=== PATIENT | female | born 1960 | race Caucasian/White ===

== ENCOUNTER 2021-05-27 22:29 | Emergency (ER) | payer OTHER, SELFPAY ==
--- NOTE | 2021-05-27 22:29 | CTR_ITS ---
PROCEDURE INFORMATION: Exam: CT Head Without Contrast Exam date and time: 05/27/2021 10:29 PM Age: 60 years old Clinical indication: Speech disturbance and weakness, extremity; Left; Patient HX: HX of prev stroke w new onset dysphasia and L sided weakness TECHNIQUE: Imaging protocol: Computed tomography of the head without contrast. Radiation optimization: All CT scans at this facility use at least one of these dose optimization techniques: automated exposure control; mA and/or kV adjustment per patient size (includes targeted exams where dose is matched to clinical indication); or iterative reconstruction. Other technique: STROKE PROTOCOL was implemented. COMPARISON: CT head wo con* [id number] 02/10/2019 1:59 PM RADIATION DOSE METRICS: Total DLP (mGy-cm): 815.27 FINDINGS: Brain: There is moderate cortical atrophy. Low-density changes in the white matter are consistent with nonspecific small vessel chronic ischemic change. Ischemic changes have advanced compared with 02/10/2019; There is no intracranial hemorrhage. Focal hypodensity in the left basal ganglia region may represent small chronic lacunar infarct. There are new areas of wedge-shaped cortical hypodensity in the right posterior parietal region new from 02/10/2019 worrisome for recent or subacute infarct. Cerebral ventricles: Ventricles within normal limits. Paranasal sinuses: Visualized sinuses are unremarkable. No fluid levels. Mastoid air cells: Visualized mastoid air cells are well aerated. Bones/joints: Unremarkable. No acute fracture. Soft tissues: Unremarkable. CT/CT head wo con* [id number] IMPRESSION: New findings of recent or subacute infarct in the right posterior parietal lobe. ASSESSMENT: ASPECTS ([place] Stroke Program Early CT Score) is delete S it is a critical report 8. Radiation Dose CTDIVOL = (mGy): DLP = 815.27 (mGy-cm)
--- NOTE | 2021-05-27 22:30 | XRR_ITS ---
PROCEDURE INFORMATION: Exam: XR Chest Exam date and time: 05/27/2021 10:30 PM Age: 60 years old Clinical indication: Other: Left sided weakness TECHNIQUE: Imaging protocol: XR of the chest. Views: 1 view. COMPARISON: CR Chest 1 [place] [id number] 02/11/2019 4:36 AM FINDINGS: Lungs: There is some focal scarring in the lingula. No acute infiltrate is identified. Pleural spaces: Unremarkable. No pleural effusion. No pneumothorax. Heart/Mediastinum: Heart is within normal limits of size. Bones/joints: Unremarkable. XR/XR chest 1V portable [id number] IMPRESSION: No acute infiltrate.
--- NOTE | 2021-05-27 22:30 | ECG_ITS ---
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 Measurements Intervals [place] Rate: 97 P: 81 [place]: 160 QRS: 60 QRSD: 96 T: 55 QT: 351 QTc: 448 Interpretive Statements SINUS RHYTHM Compared to ECG 02/10/2019 16:11:41 Sinus tachycardia no longer present Electronically Signed On 05-28-2021 18:10:15 CDT by Justyn Cooley M.D. [email or web address]
[2021-05-27] MEDS: sodium chloride 0.9% 500 ML 999 ML IV (22:35)
[2021-05-27 22:45] VITALS: BP 167/97; PULSE 98; RESP 18; TEMP 36.4; O2SAT 94
[2021-05-27 22:48] LABS: Basophils # 0.1 10^3/uL (0.0-0.1); Eosinophils # 0.3 10^3/uL (0.0-0.8); Eosinophils % 3.2 %; Hematocrit 48.8 % (37.0-47.0); Hemoglobin 15.9 g/dL (11.5-15.3); Lymphocytes # 3.8 10^3/uL (0.8-4.8); Lymphocytes % 40.2 %; Mean Corpuscular HGB Conc 32.6 g/dL (30.0-36.0); Mean Corpuscular Hemoglobin 28.5 pg (28.0-34.0); Mean Corpuscular Volume 87.6 fL (81-99); Mean Platelet Volume 10.7 fL (7.4-10.4); Monocytes # 0.9 10^3/uL (0.2-0.9); Monocytes % 9.3 %; Neutrophils # 4.32 10^3/uL (1.8-7.7); Neutrophils % 46.1 %; Nucleated Red Blood Cells % 0 %; Platelet Count 206 10^3/cmm (130-400); Red Blood Count 5.57 10^6/uL (4.1-5.3); Red Cell Distribution Width 13.2 % (12.1-15.1); White Blood Count 9.4 10^3/uL (4.0-10.0)
--- NOTE | 2021-05-27 22:48 | CTR_ITS ---
PROCEDURE INFORMATION: Exam: CT Angiography Head With Contrast, Arteriography Exam date and time: 05/27/2021 10:48 PM Age: 60 years old Clinical indication: Speech disturbance and weakness; Prior surgery; Surgery date: 6+ months; Surgery type: Carotids; Patient HX: New onset L sided weakness and dysphasia TECHNIQUE: Imaging protocol: Computed tomography angiography of the head with contrast. Exam focused on the arteries. 3D rendering (Not supervised by radiologist): MIP and/or 3D reconstructed images were created by the technologist. Radiation optimization: All CT scans at this facility use at least one of these dose optimization techniques: automated exposure control; mA and/or kV adjustment per patient size (includes targeted exams where dose is matched to clinical indication); or iterative reconstruction. Contrast material: OMNI 350; Contrast volume: 95 ml; Contrast route: INTRAVENOUS (IV); COMPARISON: CTA Head/Neck [id number] 02/10/2019 2:03 PM RADIATION DOSE METRICS: Total DLP (mGy-cm): 2349.19 FINDINGS: ANTERIOR CIRCULATION: Right internal carotid artery: There is atherosclerotic calcification in the right cavernous carotid artery without stenosis; There is thrombus at the distal end of the right communicating carotid artery obstructing the right middle cerebral artery and reducing flow in the right anterior cerebral artery. Right middle cerebral artery: There is some collateral flow supplying M2 branches of the right middle cerebral artery region. Right anterior cerebral artery: Right A2 anterior cerebral artery segment is supplied via the anterior communicating artery. Left internal carotid artery: There is atherosclerotic calcification left cavernous carotid artery without stenosis. Left middle cerebral artery: Unremarkable. No occlusion or significant stenosis. No aneurysm. Left anterior cerebral artery: Unremarkable. No occlusion or significant stenosis. No aneurysm. POSTERIOR CIRCULATION: Right vertebral artery: Right vertebral artery is dominant. No occlusion or significant stenosis. No aneurysm. Left vertebral artery: Small but patent. No occlusion or significant stenosis. No aneurysm. Basilar artery: Unremarkable. No occlusion or significant stenosis. No aneurysm. Right posterior cerebral artery: Unremarkable. No occlusion or significant stenosis. No aneurysm. Left posterior cerebral artery: Unremarkable. No occlusion or significant stenosis. No aneurysm. Brain: No areas of subacute infarct are noted in the right posterior parietal lobe as described on preceding CT scan of the brain. Atrophy and chronic ischemic changes are again identified.. Cerebral ventricles: No ventriculomegaly. Bones/joints: Unremarkable. No acute fracture. Soft tissues: Unremarkable. IMPRESSION: Large vessel occlusion on the right as described above with occlusion of the right middle cerebral artery and severely restricted flow in the right anterior cerebral artery A1 segment. COMMENTS: THIS REPORT CONTAINS FINDINGS THAT MAY BE CRITICAL TO PATIENT CARE. The findings were verbally communicated via telephone conference with FATOU LAMBERT at 11:53 PM CDT on 05/27/2021. The findings were acknowledged and understood. PROCEDURE INFORMATION: Exam: CT Angiography Neck With Contrast Exam date and time: 05/27/2021 10:48 PM Age: 60 years old Clinical indication: Speech disturbance and weakness; Prior surgery; Surgery date: 6+ months; Surgery type: Carotids; Patient HX: New onset L sided weakness and dysphasia TECHNIQUE: Imaging protocol: Computed tomography angiography of the neck with contrast. 3D rendering (Not supervised by radiologist): MIP and/or 3D reconstructed images were created by the technologist. Radiation optimization: All CT scans at this facility use at least one of these dose optimization techniques: automated exposure control; mA and/or kV adjustment per patient size (includes targeted exams where dose is matched to clinical indication); or iterative reconstruction. Contrast material: OMNI 350; Contrast volume: 95 ml; Contrast route: INTRAVENOUS (IV); COMPARISON: CTA Head/Neck [id number] 02/10/2019 2:03 PM RADIATION DOSE METRICS: Total DLP (mGy-cm): 2349.19 FINDINGS: Right common carotid artery: No stenosis. No dissection or occlusion. Right internal carotid artery: There is severe atherosclerotic plaque and narrowing and possibly some new thrombus in the proximal right internal carotid artery just beyond the bifurcation with very severe stenosis in the 80-99% range. This is a change compared with the previous examination. The disease segment of the proximal right internal carotid artery with severe stenosis measures 2 to 2-1/2 cm in length. Right external carotid artery: No occlusion or stenosis of the origin. Left common carotid artery: No stenosis. No dissection or occlusion. Left internal carotid artery: There is stable post endarterectomy changes left internal carotid artery without stenosis or occlusion. Left external carotid artery: No occlusion or stenosis of the origin. Right vertebral artery: Right vertebral artery is dominant. The origin of the right vertebral artery is obscured by motion artifact. There is no stenosis or occlusion in the remainder of the right vertebral artery. Left vertebral artery: Left vertebral artery is small and is occluded proximally with the distal left vertebral artery constituting via collateral flow. Soft tissues: Normal. No significant soft tissue swelling. Bones/joints: No acute fracture. CT/CT angio headneck* [id number] IMPRESSION: Very severe stenosis in the proximal right internal carotid artery which is new from 02/10/2019. REFERENCES: NASCET CRITERIA. The degree of internal carotid artery stenosis is based on NASCET criteria. Normal is no stenosis. Mild is less than 50% stenosis. Moderate is 50-69% stenosis. Severe is 70% to 99% stenosis. Total occlusion is no detectable patent lumen. Radiation Dose CTDIVOL = (mGy): DLP = 2349.19~2349.19 (mGy-cm)
[2021-05-27 23:08] LABS: INR 0.97 (0.8-1.2)
[2021-05-27 23:09] LABS: Partial Thromboplastin Time 29.7 SECONDS (23.9-36.7)
[2021-05-27 23:12] LABS: Alanine Aminotransferase 9 U/L (0-33); Albumin Level 3.5 g/dL (3.5-5.2); Alkaline Phosphatase 146 IU/L (35-105); Anion Gap 14.2 (5-19); Aspartate Amino Transferase 12 U/L (0-32); Blood Urea Nitrogen 8 mg/dL (8-23); Calcium 8.9 mg/dL (8.5-10.5); Carbon Dioxide 29 mmol/L (22-29); Chloride 103 mmol/L (98-107); Globulin 3.1 g/dL (1.3-4.6); Glomerular Filtration Rate 125.4 mL/min (90-130); Glucose 122 mg/dL (65-115); Osmolality Calculated 294 mOsm/kg (285-295); Potassium 4.2 mmol/L (3.5-5.1); Sodium 142 mmol/L (136-145); Total Bilirubin 0.2 mg/dL (0.15-1.2); Total Protein 6.6 g/dL (6.6-8.7)
[2021-05-27 23:16] LABS: Alcohol Level < 10 mg/dL (0-10)
[2021-05-27 23:20] VITALS: BP 196/108
[2021-05-27] MEDS: labetalol 5 mg/mL SDV 20mL 10 MG IVP (23:25)
[2021-05-27] MEDS: iohexol 350 mg/mL 100 mL Btl IV (23:35)
[2021-05-27 23:45] VITALS: O2SAT 99
--- NOTE | 2021-05-27 23:46 | W.ED.AMS ---
HPI - Altered Mental Status General: Chief Complaint: Altered Mental Status Stated Complaint: stroke like symptoms Time Seen by Provider: 05/27/21 22:29 History of Present Illness: HPI narrative: 80-year-old female with a history of previous stroke, peripheral artery disease, coronary artery disease, and status post carotid endarterectomy in the past. She presents with sudden onset of left-sided weakness, aphasia, facial droop, and lethargy starting at 10 PM. Patient's family is here, and states that symptoms clearly started around 10. She is previously ambulatory around her home. complaint: decreased responsiveness and weakness Onset (ago): minute(s) Time: 22:00 Timing confirmed by: family member Severity: severe Consistency of symptoms: Constant Associated symptoms: Deny auditory hallucinations or visual hallucinations Treatments prior to arrival: other Review of Systems General: Reports: ROS unobtainable due to medical condition Const: Denies: fever(s) Eyes: Reports: change in vision Card: Denies: chest pain Resp: Denies: dyspnea GI: Denies: vomiting Neuro: Reports: headache(s) Psych: Denies: visual hallucinations or auditory hallucinations PFS ED PFSH: Medical History (Updated 05/28/21 @ 00:53 by Huan Juarez DO) CAD (coronary artery disease) Carotid artery stenosis History of stroke HTN (hypertension) Peripheral Vascular Disease Family History Mother Myocardial infarction Grandmother No problems noted. Grandfather Stroke Hypertension Cancer Father Diabetes Hypertension Social History Smoking and tobacco status: current some day smoker Physical Exam Const: GENERAL APPEARANCE: cooperative, lethargic and ill appearing ORIENTATION/CONSCIOUSNESS: Yes oriented to person, Yes oriented to place and Yes lethargic HENMT: COMMON NORMALS: normocephalic HEAD & SCALP: normocephalic Chest: COMMONS NORMALS: normal inspection of the chest Resp: COMMON NORMALS: normal respiratory effort, No use of accessory muscles and clear to auscultation bilaterally AUSCULTATION: clear to auscultation bilaterally Cardio: COMMON NORMALS: regular rate and regular rhythm RATE: regular rate RHYTHM: regular rhythm GI: COMMON NORMALS: Normal to inspection, nondistended, normoactive bowel sounds present and Soft to palpation PALPATION: Yes Soft to palpation Neuro: SENSORIUM/ORIENTATION: Yes oriented to person, Yes oriented to place and Yes lethargic CRANIAL NERVES: Yes CN VII (facial) Laterality: left CN VII left: facial droop COORDINATION/BALANCE: No yxered-ik-qejw test normal (Cannot complete on the left) and oxpx-zf-enku test normal (Cannot complete on the left) SPEECH: abnormal speech Details: slurred and expressive aphasia GAIT: Yes Unable to assess gait SENSORY EXAM: Yes extremities (Intact) MOTOR EXAM: Pronator motor function present pronator drift of left upper extremity COORDINATION: dcusjd-hx-vzyq test abnormal (Cannot complete on the left) and xusm-il-fngt test normal (Cannot complete on the left) Course Consultations: Consultation #1: justo Vital Signs: Vital signs: Vital Signs Temperature 97.6 F 05/27/21 22:45 Pulse Rate 105 H 05/28/21 02:00 Respiratory Rate 18 05/28/21 02:00 Blood Pressure 170/106 05/28/21 02:00 Pulse Oximetry 98 05/28/21 02:00 MDM - Altered Mental Status MDM Narrative: Medical decision making narrative: 60-year-old female with a history of peripheral vascular disease, carotid disease, and coronary disease. She comes in with a high NIH of 17, and classic stroke symptoms with a clear onset. After CT head was negative, TPA was administered. Following her bolus, she went back to CTA. She has significant carotid disease on the right with occlusion proximal to her MCA. She would likely be a candidate for neuro intervention. We do not have that capability at this facility. Other labs appear stable. We have called multiple facilities. We spoke with neurology at [facility] in [place]. They are willing to take the patient in transfer. They request transfer directly to their emergency department, for repeat CTA since the patient is significantly improved following TPA administration. They will decide if she is a candidate for thrombectomy there. We will transfer by air if possible, otherwise by ground if weather does not permit her transfer. Current vital signs sinus rhythm at 100, blood pressure 160/66, saturations 99% on 2 L, respirations are 22. Her neurological symptoms are much improved, she is able to move her left arm now with a bit of weakness and drift, she is moving the left leg some. She no longer has a hemianopsia, and her speech is improved. Lab Data: Labs: Lab Results 05/27/21 05/27/21 05/27/21 Range/Units 22:40 22:40 22:45 WBC 9.4 (4.0-10.0) 10^3/ uL RBC 5.57 H (4.1-5.3) 10^6/u L Hgb 15.9 H (11.5-15.3) g/dL Hct 48.8 H (37.0-47.0) % MCV 87.6 (81-99) fL MCH 28.5 (28.0-34.0) pg MCHC 32.6 (30.0-36.0) g/dL RDW 13.2 (12.1-15.1) % Plt Count 206 (130-400) 10^3/c mm MPV 10.7 H (7.4-10.4) fL Neut % (Auto) 46.1 % Lymph % (Auto) 40.2 % [place] % (Auto) 9.3 % Eos % (Auto) 3.2 % Baso % (Auto) 1.0 % Neut # (Auto) 4.32 (1.8-7.7) 10^3/u L Lymph # (Auto) 3.8 (0.8-4.8) 10^3/u L [place] # (Auto) 0.9 (0.2-0.9) 10^3/u L Eos # (Auto) 0.3 (0.0-0.8) 10^3/u L Baso # (Auto) 0.1 (0.0-0.1) 10^3/u L Nucleated RBC % (a uto) 0 % Nucleated RBCs # 0.0 /100WBC PT 13.20 (12.1-14.9) SECO NDS INR 0.97 (0.8-1.2) APTT 29.7 (23.9-36.7) SECO NDS Sodium 142 (136-145) mmol/L Potassium 4.2 (3.5-5.1) mmol/L Chloride 103 (98-107) mmol/L Carbon Dioxide 29 (22-29) mmol/L Anion Gap 14.2 (5-19) BUN 8 (8-23) mg/dL Creatinine 0.5 (0.5-0.9) mg/dL GFR Calculation 125.4 (90-130) mL/min Glucose 122 H (65-115) mg/dL Calculated Osmolal ity 294 (285-295) mOsm/k g Calcium 8.9 (8.5-10.5) mg/dL Total Bilirubin 0.2 (0.15-1.2) mg/dL AST 12 (0-32) U/L ALT 9 (0-33) U/L Alkaline Phosphata se 146 H (35-105) IU/L Total Protein 6.6 (6.6-8.7) g/dL Albumin 3.5 (3.5-5.2) g/dL Globulin 3.1 (1.3-4.6) g/dL Urine Color (Yellow) Urine Appearance (CLEAR) Urine pH (5-7) Ur Specific Gravit y (1.005-1.030) Urine Protein (Negative) Urine Glucose (UA) (Normal) Urine Ketones (Negative) Urine Blood (Negative) Urine Nitrate (Negative) Urine Bilirubin (Negative) Urine Urobilinogen (Negative) mg/dL Ur Leukocyte Jessica ase (Negative) Urine RBC (0-2) /hpf Urine WBC (0-5) /hpf Ur Squamous Epith Cells (0-5) /hpf Amorphous Sediment Urine Bacteria (NONE) /hpf Urine Opiates Scre en (Negative) ng/mL Ur Barbiturates Sc reen (Negative) ng/mL Ur Phencyclidine S crn (Negative) ng/mL Ur Amphetamines Sc reen (Negative) ng/mL U Benzodiazepines Scrn (Negative) ng/mL Urine Cocaine Scre en (Negative) ng/mL U Marijuana (THC) Screen (Negative) ng/mL Ethyl Alcohol < 10 (0-10) mg/dL 05/27/21 05/27/21 Range/Units 23:55 23:55 WBC (4.0-10.0) 10^3/ uL RBC (4.1-5.3) 10^6/u L Hgb (11.5-15.3) g/dL Hct (37.0-47.0) % MCV (81-99) fL MCH (28.0-34.0) pg MCHC (30.0-36.0) g/dL RDW (12.1-15.1) % Plt Count (130-400) 10^3/c mm MPV (7.4-10.4) fL Neut % (Auto) % Lymph % (Auto) % [place] % (Auto) % Eos % (Auto) % Baso % (Auto) % Neut # (Auto) (1.8-7.7) 10^3/u L Lymph # (Auto) (0.8-4.8) 10^3/u L [place] # (Auto) (0.2-0.9) 10^3/u L Eos # (Auto) (0.0-0.8) 10^3/u L Baso # (Auto) (0.0-0.1) 10^3/u L Nucleated RBC % (a uto) % Nucleated RBCs # /100WBC PT (12.1-14.9) SECO NDS INR (0.8-1.2) APTT (23.9-36.7) SECO NDS Sodium (136-145) mmol/L Potassium (3.5-5.1) mmol/L Chloride (98-107) mmol/L Carbon Dioxide (22-29) mmol/L Anion Gap (5-19) BUN (8-23) mg/dL Creatinine (0.5-0.9) mg/dL GFR Calculation (90-130) mL/min Glucose (65-115) mg/dL Calculated Osmolal ity (285-295) mOsm/k g Calcium (8.5-10.5) mg/dL Total Bilirubin (0.15-1.2) mg/dL AST (0-32) U/L ALT (0-33) U/L Alkaline Phosphata se (35-105) IU/L Total Protein (6.6-8.7) g/dL Albumin (3.5-5.2) g/dL Globulin (1.3-4.6) g/dL Urine Color Yellow (Yellow) Urine Appearance Clear (CLEAR) Urine pH 5 (5-7) Ur Specific Gravit y 1.010 (1.005-1.030) Urine Protein Neg (Negative) Urine Glucose (UA) Norm (Normal) Urine Ketones Negative (Negative) Urine Blood 2+ H (Negative) Urine Nitrate Negative (Negative) Urine Bilirubin Neg (Negative) Urine Urobilinogen Norm (Negative) mg/dL Ur Leukocyte Ejssica ase Negative (Negative) Urine RBC 5-10 H (0-2) /hpf Urine WBC 0-4 H (0-5) /hpf Ur Squamous Epith Cells 0-4 H (0-5) /hpf Amorphous Sediment Not Reportable Urine Bacteria Trace (NONE) /hpf Urine Opiates Scre en Negative (Negative) ng/mL Ur Barbiturates Sc reen Negative (Negative) ng/mL Ur Phencyclidine S crn Negative (Negative) ng/mL Ur Amphetamines Sc reen Negative (Negative) ng/mL U Benzodiazepines Scrn Negative (Negative) ng/mL Urine Cocaine Scre en Negative (Negative) ng/mL U Marijuana (THC) Screen Negative (Negative) ng/mL Ethyl Alcohol (0-10) mg/dL Critical Care Time Critical Care Time: Critical Care Time: Yes Total Critical Care Time: 45 Attestation: This case had a high probability of a clinically significant, sudden, or life threatening deterioration of this patient's condition which required my full and direct attention, intervention and personal management. Discharge Plan Discharge Patient Disposition: Xfer Short-Term Hosp Clinical Impression: Acute cerebrovascular accident (CVA) Condition: Serious Referrals: Karel Gamez MD [Primary Care Provider] - Coding Level of Care Code ED [employer] for Chg Fwd Exam Detailed
[2021-05-28] VITALS (7 sets, daily range): BP systolic 109–172; BP diastolic 66–106; PULSE 99–106; RESP 16–20; O2SAT 97–99
--- NOTE | 2021-05-28 00:10 | PC.NURSE ---
Pt AOx4; answering questions appropriately, speech still slurred, but easily understood. Able to raise L upper and lower extremities now, which were flaccid upon arrival. Son at bedside. TPA completed. Denies pain.
--- NOTE | 2021-05-28 00:14 | PC.NURSE ---
Vital signs were continued to be taken while pt was taken to CT for 2nd CT. Those vitals are recorded in the stroke paperwork. All other vitals are recorded in the electronic record here.
--- NOTE | 2021-05-28 00:20 | PC.NURSE ---
Pt states I took myself off the Plavix about a month ago because I had trouble getting it filled.
[2021-05-28 00:32] LABS: Add Urine Microscopic? YES; Bilirubin Urine Neg (Negative); Blood Urine 2+ (Negative); Glucose Urine UA Norm (Normal); Ketones Urine Negative (Negative); Leukocyte Esterase Urine Negative (Negative); Nitrate Urine Negative (Negative); Protein Urine Neg (Negative); Urine Appearance Clear (CLEAR); Urine Color Yellow (Yellow); Urobilinogen Urine Norm (Negative); pH Urine 5 (5-7)
--- NOTE | 2021-05-28 00:39 | PC.NURSE ---
Neuro assessments through 05/28/21 0030 recorded on paper. Subsequent assessments done here in EMR.
[2021-05-28 00:41] LABS: Amphetamines Screen Urine Negative (Negative); Barbiturates Screen Urine Negative (Negative); Benzodiazepines Screen Urine Negative (Negative); Cocaine Screen Urine Negative (Negative); Opiate Screen Urine Negative (Negative); PCP Screen Urine Negative (Negative); THC Screen Urine Negative (Negative)
[2021-05-28 00:46] LABS: Add Urine Culture? No; Bacteria Urine TRACE /hpf; Squamous Epithelial Cell Urine 0-4 /hpf (0-5); WBC Urine 0-4 /hpf (0-5)
--- NOTE | 2021-05-28 02:08 | PC.NURSE ---
2350 16fr britton placed; urine specimen sent to lab; pt tolerated well.
[2021-05-28 14:09] LABS: Glucose Point of Care 120 mg/dL (70-110)
--- NOTE | 2021-05-30 09:51 | PM.SAN ---
Stroke Alert Activation ED Arrival Date: 05/27/21 ED Arrival Time: 22:30 ED Physican at Bedside: 22:30 Last Known Normal/at Baseline: < 1 hour ago Other Last Known Well Infomation: Stroke team was activated prior to arrival of this 60-year-old woman who had witnessed onset of left-sided weakness and profound dysarthria. She was evaluated as soon as she arrived by Dr. Juarez, and by the insurance coordinator Bob Quick. I talked with Dr. Juarez after he evaluated the patient. I contacted the emergency department as soon as the stroke alert was called at 2218. I took a report from the nurse who took the call from EMS and was on standby. After Dr. Juarez obtained a NIH stroke scale score of 17, he did a video of the patient's CAT scan and send it to me for review by email so that we could proceed with TPA. Her blood pressure was 170/106 and Tracer was unremarkable. We were able to proceed with TPA within 30 minutes of arrival with a bolus at 2300. CT angiogram showed right carotid occlusion proximal to the middle cerebral artery and she was transferred to [facility] in [place]. She had already improved to an NIH stroke scale score of around 5 prior to transfer. Stroke Alert Activated by: EMS Stroke Alert Activation Time: 22:18 Stroke MD @ Bedside Time: 22:20 NIH Stroke Scale Time: 22:30 NIH Stroke Scale Score: NIH Stroke Scale Score: 70 Stroke Alert Data/Treatment Time to CT of Head: 22:30 CT Results Time: 22:40 CT Impression: Diffuse white matter disease. No focal findings. No bleeding. Stroke Risk Factors: coronary artery disease and previous [place] (Previous stroke) tPA Started Time: tPA Started - Time: 23:00 tPA Admin Prior to Arrival: No Patient & Family Educated on: Cause of Stroke, Treament Plan and tPA Risks/Benefits Other Information: I performed telemetry stroke with Dr. Juarez Critical Care Time Critical Care Time: 30 - 74 mins A&P Assessment and plan (1) Acute cerebrovascular accident (CVA): Status: Acute (2) Carotid artery stenosis: Status: Acute (3) Acute right arterial ischemic stroke, middle cerebral artery (MCA): 60-year-old woman with acute right middle cerebral artery stroke with profound hemiparesis, homonymous hemianopsia, severe dysarthria. She had a visible clot by CT angiogram. No contraindications to TPA and she was administered TPA immediately, within 1 hour of onset of symptoms and within 30 minutes of arrival in our emergency department under the guidance of Dr. Huan Juarez and Bob Quick the insurance coordinator as well as myself. She already showed improvement prior to transfer for embolectomy. Status: Acute Coding Level of Care Code Acute Machine Quilt Stuffer for [facility] Fwkadeem Diagnoses Acute cerebrovascular accident (CVA) I63.9 Carotid artery stenosis I65.29 Acute right arterial ischemic stroke, middle cerebral artery (MCA) I63.511
== END 2021-05-28 01:50 | disposition short-term general hospital (02) ==
PROVIDERS: Emergency Provider Emergency Medicine; PCP Family Medicine
DX: R41.82 Altered mental status, unspecified (principal); I63.9 Cerebral infarction, unspecified; I25.10 Atherosclerotic heart disease of native coronary artery without angina pectoris; I10 Essential (primary) hypertension; Z86.73 Personal history of transient ischemic attack (TIA), and cerebral infarction without residual deficits; F17.210 Nicotine dependence, cigarettes, uncomplicated
CPT/HCPCS: 36416; 70450; 70496; 70498; 71045; 80053; 80306; 80307; 81001; 82962; 85025; 85610; 85730; 93005; 96374; 96375; 99291; 99292; J2997; J3490; J7040; Q9967

== ENCOUNTER 2021-08-29 18:00 | Emergency (ER) | payer OTHER, SELFPAY ==
[2021-08-29] VITALS (7 sets, daily range): BP systolic 142–181; BP diastolic 87–99; PULSE 98–121; RESP 17–22; TEMP 36.6–36.9; O2SAT 92–95; BMI 28.6
--- NOTE | 2021-08-29 18:10 | XRR_ITS ---
PROCEDURE INFORMATION: Exam: XR Chest Exam date and time: 08/29/2021 6:10 PM Age: 60 years old Clinical indication: Cough and shortness of breath; Smoker's cough TECHNIQUE: Imaging protocol: XR of the chest. Views: 1 view. COMPARISON: CR XR chest 1V portable [id number] 05/27/2021 10:38 PM FINDINGS: Lungs: Stable scarring at the left lung base with tethering of the dome of the hemidiaphragm. No consolidation. Pleural spaces: There is blunting of the right costophrenic angle which may be due to a small effusion. No pneumothoraces. Heart/Mediastinum: Unremarkable. No cardiomegaly. Bones/joints: Unremarkable. XR/XR chest 1V portable [id number] IMPRESSION: Possible small right pleural effusion. No other acute cardiopulmonary abnormality. Radiation Dose CTDIVOL = (mGy): DLP = (mGy-cm)
--- NOTE | 2021-08-29 18:10 | ECG_ITS ---
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 Measurements Intervals [place] Rate: 110 P: 83 VT: 149 QRS: 67 QRSD: 92 T: 68 QT: 334 QTc: 453 Interpretive Statements SINUS TACHYCARDIA WITH OCCASIONAL VENTRICULAR PREMATURE COMPLEXES ABNORMAL RHYTHM ECG Compared to ECG 05/27/2021 22:56:45 Ventricular premature complex(es) now present Sinus rhythm no longer present Electronically Signed On 08-31-2021 5:47:42 CDT by Ana Rosa Tejeda M.D. [email or web address]
--- NOTE | 2021-08-29 18:10 | W.ED.URI ---
HPI - URI/Sore Throat General: Chief Complaint: Upper Respiratory Infection Stated Complaint: WEAKNESS, DIFF BREATHING Time Seen by Provider: 08/29/21 18:01 PFSH ED PFSH: Medical History CAD (coronary artery disease) Carotid artery stenosis History of stroke HTN (hypertension) Peripheral Vascular Disease Family History Mother Myocardial infarction Grandmother No problems noted. Grandfather Stroke Hypertension Cancer Father Diabetes Hypertension Social History Smoking and tobacco status: current some day smoker Course Vital Signs: Vital signs: Vital Signs Temperature 97.8 F 08/29/21 18:05 Pulse Rate 121 H 08/29/21 18:05 Respiratory Rate 17 08/29/21 18:05 Blood Pressure 144/99 08/29/21 18:05 Pulse Oximetry 92 08/29/21 18:05 Discharge Plan Discharge Prescriptions: No Action omega-3 fatty acids 1,000 mg capsule 2,000 mg PO BID RF: 0 nitroglycerin [Nitrostat] 0.4 mg tablet, sublingual 0.4 mg SUBLINGUAL Q5M PRNRF: 0 hydrochlorothiazide 25 mg tablet 25 mg PO DAILY RF: 0 aspirin [Adult Low Dose Aspirin] 81 mg tablet,delayed release (DR/EC) 81 mg PO DAILY RF: 0 amlodipine [Norvasc] 10 mg tablet 10 mg PO DAILY RF: 0 Bevespi Aerosphere 9-4.8 mcg HFA aerosol inhaler 2 puff INHALATION BID RF: 0 atorvastatin 40 mg tablet 40 mg PO DAILY RF: 0 lisinopril 40 mg tablet 40 mg PO DAILY RF: 0 clopidogrel 75 mg tablet 75 mg PO DAILY 90 Days Qty: 90 RF: 3 Coding Level of Care Code ED Mails Supervisor for Catie Hargrove
--- NOTE | 2021-08-29 18:11 | W.ED.URI ---
HPI - URI/Sore Throat General: Chief Complaint: Upper Respiratory Infection Stated Complaint: WEAKNESS, DIFF BREATHING Time Seen by Provider: 08/29/21 18:01 History of Present Illness: HPI Narrative: This patient is a 60-year-old female who presents to the emergency department with complaint of cough congestion. Patient states that she had some mild sputum production with cough. This describes fatigue.. Patient does have a history of stroke back in May. Patient does have residual stroke symptoms on the left lower side. No new signs and symptoms of stroke today. Patient states she has not had the vaccine for Covid. Patient denies fever. Will do medical evaluation treat as needed MD elicited complaint: cough Associated symptoms: Deny abdominal pain, chills, chest pain, fever(s), headache(s), nausea or vomiting Review of Systems General: Reports: 10 or more systems reviewed and unremarkable except in HPI and below Const: Denies: fever(s), chills, body aches or fatigue Eyes: Denies: change in vision or blurry vision ENMT: Denies: throat pain, hoarseness or mouth pain Card: Reports: palpitations; Denies: chest pain, irregular heart rhythm, edema, swelling of feet/ankles or lightheadedness Resp: Reports: dyspnea and productive cough; Denies: non-productive cough, wheezing or pain on inspiration GI: Denies: abdominal pain, nausea or vomiting : Denies: flank pain, difficulty voiding, dysuria, urinary frequency, urinary urgency or urinary hesitancy Musc: Denies: neck pain, back pain, extremity pain, extremity swelling, joint pain, joint swelling, joint redness, joint warmth or limited range of motion Skin/Breast: Denies: rash, pruritus, erythema or skin tenderness Neuro: Denies: headache(s), numbness in extremities or weakness in extremities Psych: Denies: anxiety or depression PFSH ED PFSH: Medical History CAD (coronary artery disease) Carotid artery stenosis History of stroke HTN (hypertension) Peripheral Vascular Disease Family History Mother Myocardial infarction Grandmother No problems noted. Grandfather Stroke Hypertension Cancer Father Diabetes Hypertension Social History Smoking and tobacco status: current some day smoker Physical Exam Const: COMMON NORMALS: no acute distress, average body habitus, patient oriented x3, no limitations, healthy appearing, alert and well nourished HENMT: COMMON NORMALS: normocephalic, atraumatic, hearing grossly normal bilaterally, external ears normal, EAC's normal, TM's normal bilaterally, Normal external nose present, Normal nasal mucous membranes and turbinates present, moist oral mucous membranes, oropharynx normal, dentition normal and gingiva normal HEAD & SCALP: normocephalic and atraumatic NOSE: Normal external nose present and Normal nasal mucous membranes and turbinates present EXTERNAL EAR: Yes external ears normal EXTERNAL AUDITORY CANAL: EAC's normal TYMPANIC MEMBRANE: TM's normal bilaterally Neck/C-Spine: COMMON NORMALS: full ROM, no lymphadenopathy, supple, no meningeal signs, no JVD, Thyroid normal and No carotid bruits THYROID: Thyroid normal Chest: COMMONS NORMALS: normal inspection of the chest, normal palpation of entire chest wall, normal inspection of the breasts and normal palpation of the breasts Breast/axilla inspection: Yes normal inspection of the breasts BREAST/AXILLA PALPATION: Yes normal palpation of the breasts Resp: COMMON NORMALS: normal respiratory effort, No retractions, No use of accessory muscles, clear to auscultation bilaterally and percussion normal AUSCULTATION: clear to auscultation bilaterally PERCUSSION: percussion normal Cardio: COMMON NORMALS: no JVD, regular rhythm, S1 normal heart sound present, S2 normal heart sound present, No gallops present (Cardio), No clicks present (Cardio), No murmurs present (Cardio), No rub (Cardio) and Peripheral pulses 2+ throughout RATE: tachycardic RHYTHM: regular rhythm HEART SOUNDS: S1 normal heart sound present and S2 normal heart sound present PERIPHERAL PULSES: Peripheral pulses 2+ throughout GI: COMMON NORMALS: Normal to inspection, nondistended, normoactive bowel sounds present, Soft to palpation, non-tender, No hepatosplenomegaly present, no masses and no bruits PALPATION: Yes Soft to palpation and Yes No hepatosplenomegaly present Back/Pelvis: COMMON NORMALS: thoracic and lumbar spine normal to inspection, no thoracic nor lumbar tenderness, thoraco-lumbar ROM normal and straight leg raise negative bilaterally Extremity: COMMON NORMALS: normal to inspection, full ROM, capillary refill normal, no joint enlargement, no clubbing, cyanosis or edema, no calf tenderness and no pedal edema Neuro: COMMON NORMALS: patient oriented x3 SENSORIUM/ORIENTATION: Yes alert MENINGEAL SIGNS: Yes no meningeal signs Course Reevaluation(s): Reevaluation #1: Negative Covid. Patient states improved. Patient has had no shortness of breath or wheezing in the emergency department for any acute findings. Patient does have questionable pleural effusion on the right that is small. Patient is to follow-up with primary care physician in 2 to 3 days as needed. Continue all home medications as needed. Follow-up with PCP in 2 to 3 days. Patient should take all medications as instructed for urinary tract infection. Time: 20:47 Vital Signs: Vital signs: Vital Signs Temperature 98.4 F 08/29/21 20:20 Pulse Rate 112 H 08/29/21 20:24 Respiratory Rate 20 H 08/29/21 20:20 Blood Pressure 181/99 08/29/21 20:24 Pulse Oximetry 94 08/29/21 20:20 MDM - URI/Sore Throat MDM Narrative: Medical decision making narrative: This patient is a 60-year-old female who presents to the emergency department with complaint of cough congestion. Patient states that she had some mild sputum production with cough. This describes fatigue.. Patient does have a history of stroke back in May. Patient does have residual stroke symptoms on the left lower side. No new signs and symptoms of stroke today. Patient states she has not had the vaccine for Covid. Patient denies fever. Will do medical evaluation treat as needed Negative Covid. Patient states improved. Patient has had no shortness of breath or wheezing in the emergency department for any acute findings. Patient does have questionable pleural effusion on the right that is small. Patient is to follow-up with primary care physician in 2 to 3 days as needed. Continue all home medications as needed. Follow-up with PCP in 2 to 3 days. Patient should take all medications as instructed for urinary tract infection. Lab Data: Labs: Lab Results 08/29/21 08/29/21 08/29/21 18:30 18:31 18:45 WBC RBC Hgb Hct MCV MCH MCHC RDW Plt Count MPV Neut % (Auto) Lymph % (Auto) [place] % (Auto) Eos % (Auto) Baso % (Auto) Neut # (Auto) Lymph # (Auto) [place] # (Auto) Eos # (Auto) Baso # (Auto) Nucleated RBC % (a uto) Nucleated RBCs # PT INR APTT Sodium Potassium Chloride Carbon Dioxide Anion Gap BUN Creatinine GFR Calculation Glucose Calculated Osmolal ity Calcium Total Bilirubin AST ALT Alkaline Phosphata se Troponin T Gen 5 n g/L NT-Pro-B Natriuret Pep Total Protein Albumin Globulin Urine Color Dark yellow (Yellow) Urine Appearance Cloudy (CLEAR) Urine pH 5 (5-7) Ur Specific Gravit y 1.025 (1.005-1.030) Urine Protein Trace (Negative) Urine Glucose (UA) Norm (Normal) Urine Ketones Negative (Negative) Urine Blood 2+ H (Negative) Urine Nitrate Negative (Negative) Urine Bilirubin 1+ H (Negative) Urine Urobilinogen 1 mg/dL H mg/dL (Negative) Ur Leukocyte Jessica ase 2+ H (Negative) Urine RBC 5-10 /hpf H /hpf (0-2) Urine WBC 25-40 /hpf H /hpf (0-5) Ur Squamous Epith Cells 0-4 /hpf H /hpf (0-5) Calcium Oxalate Cr ystal 0-4 /hpf H /hpf Amorphous Sediment Not Reportable Urine Bacteria 1+ /hpf H /hpf (NONE) Urine Mucus 1+ /hpf /hpf Influenza Type A A g Negative (Negative) Influenza Type B A g Negative (Negative) SARS-CoV-2 Ag (Rap id) Negative (Negative) 08/29/21 08/29/21 08/29/21 18:55 18:55 18:55 WBC 10.4 10^3/uL H 10 ^3/uL (4.0-10.0) RBC 5.87 10^6/uL H 10 ^6/uL (4.1-5.3) Hgb 16.5 g/dL H g/dL (11.5-15.3) Hct 50.6 % H % (37.0-47.0) MCV 86.2 fl fl (81-99) MCH 28.1 pg pg (28.0-34.0) MCHC 32.6 g/dL g/dL (30.0-36.0) RDW 15.6 % H % (12.1-15.1) Plt Count 264 10^3/cmm 10^3 /cmm (130-400) MPV 10.5 fL H fL (7.4-10.4) Neut % (Auto) 71.2 % % Lymph % (Auto) 20.2 % % [place] % (Auto) 6.9 % % Eos % (Auto) 0.9 % % Baso % (Auto) 0.6 % % Neut # (Auto) 7.42 10^3/uL 10^3 /uL (1.8-7.7) Lymph # (Auto) 2.1 10^3/uL 10^3/ uL (0.8-4.8) [place] # (Auto) 0.7 10^3/uL 10^3/ uL (0.2-0.9) Eos # (Auto) 0.1 10^3/uL 10^3/ uL (0.0-0.8) Baso # (Auto) 0.1 10^3/uL 10^3/ uL (0.0-0.1) Nucleated RBC % (a uto) 0 % % Nucleated RBCs # 0.0 /100WBC /100W BC PT 13.20 SECONDS SEC ONDS (12.1-14.9) INR 0.97 (0.8-1.2) APTT 30.0 SECONDS SECO NDS (23.9-36.7) Sodium 137 mmol/L mmol/L (136-145) Potassium 3.9 mmol/L mmol/L (3.5-5.1) Chloride 98 mmol/L mmol/L (98-107) Carbon Dioxide 27 mmol/L mmol/L (22-29) Anion Gap 15.9 (5-19) BUN 8 mg/dL mg/dL (8-23) Creatinine 0.4 mg/dL L mg/dL (0.5-0.9) GFR Calculation 162.3 mL/min H mL /min (90-130) Glucose 100 mg/dL mg/dL (65-115) Calculated Osmolal ity 282 mOsm/kg L mOs m/kg (285-295) Calcium 9.0 mg/dL mg/dL (8.5-10.5) Total Bilirubin 0.4 mg/dL mg/dL (0.15-1.2) AST 11 U/L U/L (0-32) ALT 11 U/L U/L (0-33) Alkaline Phosphata se 146 IU/L H IU/L (35-105) Troponin T Gen 5 n g/L NT-Pro-B Natriuret Pep 129 pg/mL H pg/mL (0-125) Total Protein 6.0 g/dL L g/dL (6.6-8.7) Albumin 3.4 g/dL L g/dL (3.5-5.2) Globulin 2.6 g/dL g/dL (1.3-4.6) Urine Color Urine Appearance Urine pH Ur Specific Gravit y Urine Protein Urine Glucose (UA) Urine Ketones Urine Blood Urine Nitrate Urine Bilirubin Urine Urobilinogen Ur Leukocyte Jessica ase Urine RBC Urine WBC Ur Squamous Epith Cells Calcium Oxalate Cr ystal Amorphous Sediment Urine Bacteria Urine Mucus Influenza Type A A g Influenza Type B A g SARS-CoV-2 Ag (Rap id) 08/29/21 18:55 WBC RBC Hgb Hct MCV MCH MCHC RDW Plt Count MPV Neut % (Auto) Lymph % (Auto) [place] % (Auto) Eos % (Auto) Baso % (Auto) Neut # (Auto) Lymph # (Auto) [place] # (Auto) Eos # (Auto) Baso # (Auto) Nucleated RBC % (a uto) Nucleated RBCs # PT INR APTT Sodium Potassium Chloride Carbon Dioxide Anion Gap BUN Creatinine GFR Calculation Glucose Calculated Osmolal ity Calcium Total Bilirubin AST ALT Alkaline Phosphata se Troponin T Gen 5 n g/L 30 ng/L H ng/L (0-10) NT-Pro-B Natriuret Pep Total Protein Albumin Globulin Urine Color Urine Appearance Urine pH Ur Specific Gravit y Urine Protein Urine Glucose (UA) Urine Ketones Urine Blood Urine Nitrate Urine Bilirubin Urine Urobilinogen Ur Leukocyte Jessica ase Urine RBC Urine WBC Ur Squamous Epith Cells Calcium Oxalate Cr ystal Amorphous Sediment Urine Bacteria Urine Mucus Influenza Type A A g Influenza Type B A g SARS-CoV-2 Ag (Rap id) Imaging Data^: CXR: Attestation: I personally reviewed and interpreted this imaging study as follows: Radiologist's impression: IMPRESSION: Possible small right pleural effusion. No other acute cardiopulmonary abnormality. EKG Data^: EKG 1: Attestation: I personally reviewed and interpreted this EKG as follows: EKG interpretation date: 08/29/21 EKG interpretation time: 18:38 Prior EKG tracings: available for review Interpretation: Sinus tachycardia with occasional PVC heart rate 110 Discharge Plan Discharge Patient Disposition: Home Clinical Impression: Upper respiratory infection, HTN (hypertension), UTI (urinary tract infection), Pleural effusion Condition: Stable Prescriptions: New cephalexin 500 mg capsule 500 mg PO BID 7 Days Qty: 14 RF: 0 No Action omega-3 fatty acids 1,000 mg capsule 2,000 mg PO BID RF: 0 nitroglycerin [Nitrostat] 0.4 mg tablet, sublingual 0.4 mg SUBLINGUAL Q5M PRNRF: 0 hydrochlorothiazide 25 mg tablet 25 mg PO DAILY RF: 0 aspirin [Adult Low Dose Aspirin] 81 mg tablet,delayed release (DR/EC) 81 mg PO DAILY RF: 0 amlodipine [Norvasc] 10 mg tablet 10 mg PO DAILY RF: 0 Bevespi Aerosphere 9-4.8 mcg HFA aerosol inhaler 2 puff INHALATION BID RF: 0 atorvastatin 40 mg tablet 40 mg PO DAILY RF: 0 lisinopril 40 mg tablet 40 mg PO DAILY RF: 0 clopidogrel 75 mg tablet 75 mg PO DAILY 90 Days Qty: 90 RF: 3 Discharge Orders: Discharge ED (Routine); Ordered 08/29/21 Ordered By: Callum Sheehan Referrals: Karel Gamez MD [Primary Care Provider] - Discharge Diet: Advance as tolerated Discharge Activity: Resume usual activity Patient Instructions: Opioid Safety Activity Restrictions/Additional Instructions: Continue all home medications as instructed. Take antibiotics for urinary tract infection as instructed. Cool-mist humidifier at home as needed to help with cough. Any [id number] cough suppressant or antihistamine as needed. Follow-up with your primary care physician in 2 to 3 days if symptoms fail to improve or worsen. Coding Level of Care Code ED Financial Aid Officer for Chg Fwd Exam Comprehensive
[2021-08-29] MEDS: sodium chloride 0.9% 1,000 ML 999 ML IV (19:10)
[2021-08-29 19:22] LABS: Basophils # 0.1 10^3/uL (0.0-0.1); Basophils % 0.6 %; Eosinophils # 0.1 10^3/uL (0.0-0.8); Eosinophils % 0.9 %; Hematocrit 50.6 % (37.0-47.0); Hemoglobin 16.5 g/dL (11.5-15.3); Lymphocytes # 2.1 10^3/uL (0.8-4.8); Lymphocytes % 20.2 %; Mean Corpuscular HGB Conc 32.6 g/dL (30.0-36.0); Mean Corpuscular Hemoglobin 28.1 pg (28.0-34.0); Mean Corpuscular Volume 86.2 fl (81-99); Mean Platelet Volume 10.5 fL (7.4-10.4); Monocytes # 0.7 10^3/uL (0.2-0.9); Monocytes % 6.9 %; Neutrophils # 7.42 10^3/uL (1.8-7.7); Neutrophils % 71.2 %; Nucleated Red Blood Cells % 0 %; Platelet Count 264 10^3/cmm (130-400); Red Blood Count 5.87 10^6/uL (4.1-5.3); Red Cell Distribution Width 15.6 % (12.1-15.1); White Blood Count 10.4 10^3/uL (4.0-10.0)
[2021-08-29 19:33] LABS: INR 0.97 (0.8-1.2)
[2021-08-29 19:34] LABS: Add Urine Culture? Yes; Add Urine Microscopic? YES; Bacteria Urine 1+ /hpf; Bilirubin Urine 1+ (Negative); Blood Urine 2+ (Negative); Calcium Oxalate Crystals Urine 0-4 /hpf; Glucose Urine UA Norm (Normal); Ketones Urine Negative (Negative); Leukocyte Esterase Urine 2+ (Negative); Mucus Urine 1+ /hpf; Nitrate Urine Negative (Negative); Protein Urine Trace (Negative); Specific Gravity, Urine 1.025 (1.005-1.030); Squamous Epithelial Cell Urine 0-4 /hpf (0-5); Urine Appearance Cloudy (CLEAR); Urine Color Dark Yellow (Yellow); Urobilinogen Urine 1 mg/dL (Negative); WBC Urine 25-40 /hpf (0-5); pH Urine 5 (5-7)
[2021-08-29 19:47] LABS: SARS Covid-2 Antigen Negative (Negative)
[2021-08-29 19:47] LABS: Influenza A by IFA Negative (Negative); Influenza B by IFA Negative (Negative)
[2021-08-29 19:54] LABS: Troponin T (5th) Once 30 ng/L (0-10)
[2021-08-29] MEDS: cefTRIAXone 1,000 MG in sodium chloride 0.9% (plus) 50 ML 100 MG IV (20:00)
--- NOTE | 2021-08-29 20:24 | PC.NURSE ---
Blood pressure and heart rate reported to doctor.
[2021-08-29 20:28] LABS: Alanine Aminotransferase 11 U/L (0-33); Albumin Level 3.4 g/dL (3.5-5.2); Alkaline Phosphatase 146 IU/L (35-105); Aspartate Amino Transferase 11 U/L (0-32); Blood Urea Nitrogen 8 mg/dL (8-23); Carbon Dioxide 27 mmol/L (22-29); Chloride 98 mmol/L (98-107); Globulin 2.6 g/dL (1.3-4.6); Glomerular Filtration Rate 162.3 mL/min (90-130); Glucose 100 mg/dL (65-115); NT Pro B Type Natriuretic Pept 129 pg/mL (0-125); Osmolality Calculated 282 mOsm/kg (285-295); Sodium 137 mmol/L (136-145); Total Bilirubin 0.4 mg/dL (0.15-1.2)
[2021-08-29] MEDS: metoprolol tartrate 1 mg/1 mL SDV 5 mL 5 MG IV (20:33)
[2021-08-29 20:43] LABS: Anion Gap 15.9 (5-19); Potassium 3.9 mmol/L (3.5-5.1)
== END 2021-08-29 21:36 | disposition home or self-care (01) ==
PROVIDERS: Emergency Provider Emergency Medicine; PCP Family Medicine
DX: J06.9 Acute upper respiratory infection, unspecified (principal); I10 Essential (primary) hypertension; N39.0 Urinary tract infection, site not specified; J90 Pleural effusion, not elsewhere classified; Z79.82 Long term (current) use of aspirin; Z79.02 Long term (current) use of antithrombotics/antiplatelets; I25.10 Atherosclerotic heart disease of native coronary artery without angina pectoris; Z86.73 Personal history of transient ischemic attack (TIA), and cerebral infarction without residual deficits; F17.210 Nicotine dependence, cigarettes, uncomplicated; Z20.822 Contact with and (suspected) exposure to COVID-19
CPT/HCPCS: 71045; 80053; 81001; 83880; 84484; 85025; 85610; 85730; 87077; 87086; 87186; 87426; 87804; 93005; 96365; 96375; 99284; J0696; J3490; J7030

== ENCOUNTER 2022-02-06 17:49 | Emergency (ER) | payer OTHER, SELFPAY ==
--- NOTE | 2022-02-06 17:56 | XRR_ITS ---
PROCEDURE INFORMATION: Exam: XR Chest Exam date and time: 02/06/2022 5:42 PM Age: 61 years old Clinical indication: Pain; Angina pectoris; Additional info: Cp TECHNIQUE: Imaging protocol: XR of the chest. Views: 1 view. COMPARISON: CR XR chest 1V portable [id number] 08/29/2021 7:06 PM FINDINGS: Lungs: Unremarkable. No consolidation. Pleural spaces: Trace bilateral pleural effusions. Heart/Mediastinum: Unremarkable. No cardiomegaly. Bones/joints: Degenerative changes of the spine. XR/XR chest 1V portable [id number] IMPRESSION: Trace bilateral pleural effusions.
--- NOTE | 2022-02-06 17:56 | CTR_ITS ---
PROCEDURE INFORMATION: Exam: CT Head Without Contrast Exam date and time: 02/06/2022 6:48 PM Age: 61 years old Clinical indication: Other: Tingling in left arm; Patient HX: H/a; Additional info: Paresthesia TECHNIQUE: Imaging protocol: Computed tomography of the head without contrast. Radiation optimization: All CT scans at this facility use at least one of these dose optimization techniques: automated exposure control; mA and/or kV adjustment per patient size (includes targeted exams where dose is matched to clinical indication); or iterative reconstruction. COMPARISON: CT head wo con* [id number] 05/27/2021 10:27 PM RADIATION DOSE METRICS: Total DLP (mGy-cm): 871.98 FINDINGS: Brain: Encephalomalacia in the right basal ganglia, right parietal and frontal lobe which gyral calcifications. There are moderate periventricular and subcortical lucencies consistent with chronic microvascular ischemic changes. The calderon-white differentiation is maintained. No hemorrhage. No edema. Cerebral ventricles: No ventriculomegaly. Paranasal sinuses: Visualized sinuses are unremarkable. No fluid levels. Mastoid air cells: Visualized mastoid air cells are well aerated. Bones/joints: Unremarkable. No acute fracture. Soft tissues: Unremarkable. CT/CT head wo con* [id number] IMPRESSION: No acute intracranial abnormality. Chronic microvascular ischemic changes.
[2022-02-06 18:00] VITALS: BP 117/69; PULSE 100; RESP 18; TEMP 36.4; O2SAT 95; BMI 27.4
[2022-02-06 18:01] VITALS: O2SAT 98
--- NOTE | 2022-02-06 18:02 | ECG_ITS ---
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 Measurements Intervals [place] Rate: 92 P: 87 NM: 154 QRS: 86 QRSD: 102 T: 72 QT: 369 QTc: 458 Interpretive Statements SINUS RHYTHM WITH OCCASIONAL SUPRAVENTRICULAR PREMATURE COMPLEXES Compared to ECG 08/29/2021 18:38:55 Sinus tachycardia no longer present Ventricular premature complex(es) no longer present Electronically Signed On 02-06-2022 19:26:57 CDT by Carroll Fulton M.D. [email or web address]
--- NOTE | 2022-02-06 18:08 | ED_ITS ---
HPI - General Adult General: Chief complaint: General Medical Stated complaint: TINGLING IN L ARM/ HEADACHE Time Seen by Provider: 02/06/22 17:56 Source: patient and EMS Mode of arrival: EMS Limitations: no limitations History of Present Illness: 61-year-old female states that started having a slight headache roughly 1 to 2 hours ago and was having some tingling sensations down her left arm. States it been mild she denies any weakness she has had had a previous stroke had no slurred speech no change in visions no other symptoms. Associated symptoms: Deny chest pain, dyspnea, headache(s), nausea, rash or vomiting Review of Systems Const: Denies: fever(s), chills, body aches or change in appetite Eyes: Denies: blurry vision or eye discomfort ENMT: Denies: throat pain or dental pain Card: Denies: chest pain Resp: Denies: dyspnea GI: Denies: abdominal pain, nausea, vomiting or diarrhea : Denies: dysuria Musc: Denies: neck pain or back pain Skin/Breast: Denies: rash Neuro: Reports: numbness in extremities; Denies: headache(s) Psych: Denies: depression Konrad/Lymph: Denies: easy bruising All/Imm: Denies: urticaria PFSH ED PFSH: Medical History CAD (coronary artery disease) Carotid artery stenosis History of stroke HTN (hypertension) Peripheral Vascular Disease Family History Mother Myocardial infarction Grandmother No problems noted. Grandfather Stroke Hypertension Cancer Father Diabetes Hypertension Social History Smoking and tobacco status: current some day smoker Physical Exam Const: COMMON NORMALS: no acute distress, patient oriented x3 and healthy appearing HENMT: COMMON NORMALS: normocephalic and atraumatic HEAD & SCALP: normocephalic and atraumatic Eye: COMMON NORMALS: Equal, round and reactive pupils present and EOMs intact bilaterally PUPIL: Yes Equal, round and reactive pupils present Neck/C-Spine: COMMON NORMALS: full ROM and supple Chest: COMMONS NORMALS: normal inspection of the chest and normal palpation of entire chest wall Resp: COMMON NORMALS: normal respiratory effort, No retractions, No use of accessory muscles and clear to auscultation bilaterally AUSCULTATION: clear to auscultation bilaterally Cardio: COMMON NORMALS: regular rate, regular rhythm and No murmurs present (Cardio) RATE: regular rate RHYTHM: regular rhythm GI: COMMON NORMALS: Normal to inspection, nondistended, normoactive bowel sounds present, Soft to palpation, non-tender and no masses PALPATION: Yes Soft to palpation Extremity: COMMON NORMALS: normal to inspection and full ROM Neuro: COMMON NORMALS: patient oriented x3, moves all extremities and no focal motor deficits Psych: COMMON NORMALS: mental status grossly normal, Normal thought process present and cooperative THOUGHT PROCESS: Normal thought process present Skin: COMMON NORMALS: no rashes or lesions noted and no wounds GENERAL SKIN EXAM: no rashes or lesions noted Course Vital Signs: Vital signs: Vital Signs Temperature 97.5 F L 02/06/22 18:00 Pulse Rate 97 02/06/22 18:56 Respiratory Rate 18 02/06/22 18:56 Blood Pressure 145/87 02/06/22 19:30 Pulse Oximetry 95 02/06/22 18:56 [facility] - General Adult Medical Decision Making 61-year-old female female presented here with some paresthesias she had a mild headache today had a migraine headaches resolved and her symptoms have completely resolved she has no signs of a stroke her NIH was [address] is normal she stable for discharge at this time she is requesting discharge. Lab Data : 02/06/22 17:41 02/06/22 17:41 Radiology Impressions Chest X-Ray 02/06/22 17:56 IMPRESSION: Trace bilateral pleural effusions. Head CT 02/06/22 17:56 IMPRESSION: No acute intracranial abnormality. Chronic microvascular ischemic changes. Laboratory Results WBC 14.4 10^3/uL (4.0-10.0) H 02/06/22 17:41 RBC 5.97 10^6/uL (4.1-5.3) H 02/06/22 17:41 Hgb 17.3 g/dL (11.5-15.3) H 02/06/22 17:41 Hct 53.1 % (37.0-47.0) H 02/06/22 17:41 MCV 88.9 fl (81-99) 02/06/22 17:41 MCH 29.0 pg (28.0-34.0) 02/06/22 17:41 MCHC 32.6 g/dL (30.0-36.0) 02/06/22 17:41 RDW 13.9 % (12.1-15.1) 02/06/22 17:41 Plt Count 279 10^3/cmm (130-400) 02/06/22 17:41 MPV 11.1 fL (7.4-10.4) H 02/06/22 17:41 Neut % (Auto) 73.5 % 02/06/22 17:41 Lymph % (Auto) 18.7 % 02/06/22 17:41 [place] % (Auto) 6.4 % 02/06/22 17:41 Eos % (Auto) 0.6 % 02/06/22 17:41 Baso % (Auto) 0.5 % 02/06/22 17:41 Neut # (Auto) 10.58 10^3/uL (1.8-7.7) H 02/06/22 17:41 Lymph # (Auto) 2.7 10^3/uL (0.8-4.8) 02/06/22 17:41 [place] # (Auto) 0.9 10^3/uL (0.2-0.9) 02/06/22 17:41 Eos # (Auto) 0.1 10^3/uL (0.0-0.8) 02/06/22 17:41 Baso # (Auto) 0.1 10^3/uL (0.0-0.1) 02/06/22 17:41 Nucleated RBC % (auto) 0 % 02/06/22 17:41 Nucleated RBCs # 0.0 /100WBC 02/06/22 17:41 Sodium 137 mmol/L (136-145) 02/06/22 17:41 Potassium 3.5 mmol/L (3.5-5.1) 02/06/22 17:41 Chloride 95 mmol/L (98-107) L 02/06/22 17:41 Carbon Dioxide 32 mmol/L (22-29) H 02/06/22 17:41 Anion Gap 13.5 (5-19) 02/06/22 17:41 BUN 7 mg/dL (8-23) L 02/06/22 17:41 Creatinine 0.4 mg/dL (0.5-0.9) L 02/06/22 17:41 GFR Calculation 161.7 mL/min (90-130) H 02/06/22 17:41 Glucose 108 mg/dL (65-115) 02/06/22 17:41 Calculated Osmolality 283 mOsm/kg (285-295) L 02/06/22 17:41 Calcium 9.9 mg/dL (8.5-10.5) 02/06/22 17:41 Total Bilirubin 0.3 mg/dL (0.15-1.2) 02/06/22 17:41 AST 10 U/L (0-32) 02/06/22 17:41 ALT 8 U/L (0-33) 02/06/22 17:41 Alkaline Phosphatase 182 IU/L (35-105) H 02/06/22 17:41 Total Protein 7.6 g/dL (6.6-8.7) 02/06/22 17:41 Albumin 3.9 g/dL (3.5-5.2) 02/06/22 17:41 Globulin 3.7 g/dL (1.3-4.6) 02/06/22 17:41 Urine Color Yellow (Yellow) 02/06/22 19:00 Urine Appearance Clear (CLEAR) 02/06/22 19:00 Urine pH 6 (5-7) 02/06/22 19:00 Ur Specific [place] 1.015 (1.005-1.030) 02/06/22 19:00 Urine Protein Neg (Negative) 02/06/22 19:00 Urine Glucose (UA) Norm (Normal) 02/06/22 19:00 Urine Ketones Negative (Negative) 02/06/22 19:00 Urine Blood Neg (Negative) 02/06/22 19:00 Urine Nitrate Negative (Negative) 02/06/22 19:00 Urine Bilirubin Neg (Negative) 02/06/22 19:00 Urine Urobilinogen Norm mg/dL (Negative) 02/06/22 19:00 Ur Leukocyte Esterase Negative (Negative) 02/06/22 19:00 EKG Data EKG 1: I personally reviewed and interpreted this EKG as follows: EKG interpretation date: 02/06/22 EKG interpretation time: 19:13 Interpretation: nsr hr [address] or t wave abnormalities qrs 102 qtc 419 Computer generated interpretation: Chest X-Ray 02/06/22 17:56 IMPRESSION: Trace bilateral pleural effusions. Head CT 02/06/22 17:56 IMPRESSION: No acute intracranial abnormality. Chronic microvascular ischemic changes. Discharge Plan Discharge Patient Disposition: Home Clinical Impression: Paresthesia Condition: Stable Prescriptions: No Action omega-3 fatty acids 1,000 mg capsule 2,000 mg PO BID 0RF nitroglycerin [Nitrostat] 0.4 mg tablet, sublingual 0.4 mg SUBLINGUAL Q5M PRN0RF hydrochlorothiazide 25 mg tablet 25 mg PO DAILY 0RF aspirin [Adult Low Dose Aspirin] 81 mg tablet,delayed release (DR/EC) 81 mg PO DAILY 0RF amlodipine [Norvasc] 10 mg tablet 10 mg PO DAILY 0RF Bevespi Aerosphere 9-4.8 mcg HFA aerosol inhaler 2 puff INHALATION BID 0RF atorvastatin 40 mg tablet 40 mg PO DAILY 0RF lisinopril 40 mg tablet 40 mg PO DAILY 0RF clopidogrel 75 mg tablet 75 mg PO DAILY 90 Days Qty: 90 3RF Discharge Orders: Discharge ED (Routine); Ordered 02/06/22 Ordered By: Richelle Pena Referrals: Karel Gamez MD [Primary Care Provider] - Discharge Diet: Advance as tolerated Discharge Activity: Resume usual activity Coding Level of Care Code ED Technical Sales Support Specialist for Chg Fwd Exam Comprehensive
[2022-02-06 18:29] LABS: Basophils # 0.1 10^3/uL (0.0-0.1); Basophils % 0.5 %; Eosinophils # 0.1 10^3/uL (0.0-0.8); Eosinophils % 0.6 %; Hematocrit 53.1 % (37.0-47.0); Hemoglobin 17.3 g/dL (11.5-15.3); Lymphocytes # 2.7 10^3/uL (0.8-4.8); Lymphocytes % 18.7 %; Mean Corpuscular HGB Conc 32.6 g/dL (30.0-36.0); Mean Corpuscular Volume 88.9 fl (81-99); Mean Platelet Volume 11.1 fL (7.4-10.4); Monocytes # 0.9 10^3/uL (0.2-0.9); Monocytes % 6.4 %; Neutrophils # 10.58 10^3/uL (1.8-7.7); Neutrophils % 73.5 %; Nucleated Red Blood Cells % 0 %; Platelet Count 279 10^3/cmm (130-400); Red Blood Count 5.97 10^6/uL (4.1-5.3); Red Cell Distribution Width 13.9 % (12.1-15.1); White Blood Count 14.4 10^3/uL (4.0-10.0)
[2022-02-06 18:55] LABS: Alanine Aminotransferase 8 U/L (0-33); Albumin Level 3.9 g/dL (3.5-5.2); Alkaline Phosphatase 182 IU/L (35-105); Blood Urea Nitrogen 7 mg/dL (8-23); Calcium 9.9 mg/dL (8.5-10.5); Carbon Dioxide 32 mmol/L (22-29); Chloride 95 mmol/L (98-107); Globulin 3.7 g/dL (1.3-4.6); Glomerular Filtration Rate 161.7 mL/min (90-130); Glucose 108 mg/dL (65-115); Osmolality Calculated 283 mOsm/kg (285-295); Sodium 137 mmol/L (136-145); Total Bilirubin 0.3 mg/dL (0.15-1.2); Total Protein 7.6 g/dL (6.6-8.7)
[2022-02-06 18:56] VITALS: BP 144/85; PULSE 97; RESP 18; O2SAT 95
[2022-02-06 18:57] LABS: Anion Gap 13.5 (5-19); Aspartate Amino Transferase 10 U/L (0-32); Potassium 3.5 mmol/L (3.5-5.1)
[2022-02-06 19:22] LABS: Add Urine Microscopic? NO; Charge for UA Resulting for Rev
[2022-02-06 19:26] LABS: Bilirubin Urine Neg (Negative); Blood Urine Neg (Negative); Glucose Urine UA Norm (Normal); Ketones Urine Negative (Negative); Leukocyte Esterase Urine Negative (Negative); Nitrate Urine Negative (Negative); Protein Urine Neg (Negative); Specific Gravity, Urine 1.015 (1.005-1.030); Urine Appearance Clear (CLEAR); Urine Color Yellow (Yellow); Urobilinogen Urine Norm (Negative); pH Urine 6 (5-7)
[2022-02-06 19:30] VITALS: BP 145/87
--- NOTE | 2022-02-06 19:36 | PC.NURSE ---
IV meds not administered at this time due to symptoms of tingling in left arm resolved. Pt report of slight dull headache.
[2022-02-06 21:23] VITALS: BP 159/121; PULSE 97; RESP 17; O2SAT 93
== END 2022-02-06 21:27 | disposition home or self-care (01) ==
PROVIDERS: Emergency Provider Emergency Medicine; PCP Family Medicine
DX: R20.2 Paresthesia of skin (principal); Z79.82 Long term (current) use of aspirin; I25.10 Atherosclerotic heart disease of native coronary artery without angina pectoris; I10 Essential (primary) hypertension; Z86.73 Personal history of transient ischemic attack (TIA), and cerebral infarction without residual deficits; F17.210 Nicotine dependence, cigarettes, uncomplicated
CPT/HCPCS: 70450; 71045; 80053; 81003; 85025; 93005; 99283

== ENCOUNTER 2022-05-12 18:00 | Inpatient (IN) | payer OTHER, SELFPAY ==
[2022-05-12] VITALS (13 sets, daily range): BP systolic 86–126; BP diastolic 55–83; PULSE 81–123; RESP 18–20; TEMP 36.4–36.9; O2SAT 81–95; BMI 23.1; BMI 21.6
--- NOTE | 2022-05-12 17:33 | XRR_ITS ---
PROCEDURE INFORMATION: Exam: XR Chest Exam date and time: 05/12/2022 6:07 PM Age: 61 years old Clinical indication: Cough; Additional info: Flu like symptoms TECHNIQUE: Imaging protocol: Radiologic exam of the chest. Views: 1 view. COMPARISON: CR XR chest 1V portable [id number] 02/06/2022 5:42 PM FINDINGS: Lungs: Interval development of left lingular and left lower lobe airspace disease suspicious for pneumonia. Pleural spaces: Interval development of a small/moderate left pleural effusion. No pneumothorax. Heart/Mediastinum: Stable moderate enlargement of the cardiac silhouette. Mediastinal contours are unremarkable. Vasculature: Stable vascular calcifications in the aorta. Bones/joints: Unremarkable for age. XR/XR chest 1V portable [id number] IMPRESSION: 1. Interval development of left lingular and left lower lobe airspace disease suspicious for pneumonia and a small/moderate left pleural effusion. Recommend followup chest imaging to insure resolution of these findings. 2. Incidental/nonacute findings are listed in the report.
--- NOTE | 2022-05-12 17:35 | ECG_ITS ---
[facility] [place] [facility] Date: 2022-05-12 Pat Name: Jazmyne Ramirez Department: Room: Gender: Female Third Helper: : 1960 Requested By: Iker Archer Order Number: [id number] Cooper MD: Justyn Cooley M.D. Measurements Intervals [place] Rate: 104 P: 83 DE: 158 QRS: 56 QRSD: 102 T: 61 QT: 359 QTc: 474 Interpretive Statements SINUS TACHYCARDIA WITH OCCASIONAL SUPRAVENTRICULAR PREMATURE COMPLEXES POSSIBLE RIGHT ATRIAL ENLARGEMENT [0.25mV P-WAVE] Compared to ECG 02/06/2022 19:13:11 Sinus rhythm no longer present Electronically Signed On 05-13-2022 17:34:20 CDT by Justyn Cooley M.D. [id number]
--- NOTE | 2022-05-12 18:24 | W.ED.SOB ---
HPI - SOB/Dyspnea General: Chief Complaint: Fever Stated Complaint: FLU LIKE SYMPTOMS History of Present Illness: HPI Narrative: Patient is a 61-year-old female who comes to the ED via EMS with flu like symptoms. Patient has a history of 2 strokes, hypertension and has had cardiac stent placed. Her strokes left her with residual left-sided weakness and she is unable to ambulate and uses a wheelchair and needs full care and assistance in doing ADLs. Patient knows that she takes 3 meds a day and they are amlodipine, atorvastatin and Plavix. She lives with her son and daughter who help take care of her. EMS stated that when they found patient her roommate had cockroaches in it and a bunch of dirty diapers on the floor. Patient presented to the ED, she was malodorous and dirty and had possible bedbugs. Her hair was matted and states she has had only bed baths for a long time now. ED staff had to [place] patient upon arrival and cleaned her up. It appears that she is not being taking care of well. Her O2 saturation was in the low 80s upon arrival to the ED so she was put on 5 L of O2 via nasal cannula. Patient states she is not on any oxygen at home. She states that about a week ago she started having flulike symptoms of cough, nasal congestion and drainage, nausea and diarrhea. She reports having some body aches as well especially in her back. Her cough she describes as productive and sputum color is clear and white. She has not had much of an appetite and states she has not been eating or drinking much fluids at all for the past several days. Her diarrhea symptoms lasted for approximately 3 days once symptoms started and has resolved. Patient said this morning she woke up and did not know where she was. Knew her daughter but how simply she was living in and it looks familiar even though she has been living there for a while. She said this lasted for couple hours this morning and then it resolved. Denies any fevers, syncopal episodes, abdominal pain, chest pain, dysuria, hematuria. Associated symptoms: Reports nausea; Deny abdominal pain, chest pain, fever(s), orthopnea, palpitations or vomiting Review of Systems Const: Reports: body aches and malaise; Denies: fever(s), chills or fatigue Eyes: Denies: change in vision or eye discomfort ENMT: Denies: throat pain, odynophagia, nasal discharge or nasal congestion Card: Denies: chest pain, palpitations, edema, swelling of feet/ankles, dyspnea on exertion or orthopnea Resp: Reports: dyspnea; Denies: productive cough or non-productive cough GI: Reports: nausea and diarrhea; Denies: abdominal pain, vomiting, constipation or hematochezia : Denies: flank pain, dysuria or hematuria Musc: Denies: neck pain, back pain or extremity swelling Skin/Breast: Denies: rash or new lesions Neuro: Reports: confusion (Episode of confusion-resolved earlier this morning.); Denies: headache(s), numbness in extremities or weakness in extremities PFSH ED PFSH: Medical History CAD (coronary artery disease) Carotid artery stenosis History of stroke HTN (hypertension) Peripheral Vascular Disease Family History Mother Myocardial infarction Grandmother No problems noted. Grandfather Stroke Hypertension Cancer Father Diabetes Hypertension Social History Smoking and tobacco status: current some day smoker Physical Exam Const: COMMON NORMALS: patient oriented x3 and alert GENERAL APPEARANCE: frail appearing OTHER: Patient is very dirty and her hair is matted. HENMT: COMMON NORMALS: normocephalic HEAD & SCALP: normocephalic MOUTH: Normal oral and palatal mucosa present THROAT: posterior oropharynx normal and uvula midline Eye: COMMON NORMALS: Equal, round and reactive pupils present and conjunctivae normal CONJUNCTIVA: Yes conjunctivae normal PUPIL: Yes Equal, round and reactive pupils present Neck/C-Spine: COMMON NORMALS: supple GENERAL: Yes normal visual inspection Resp: COMMON NORMALS: normal respiratory effort, No retractions and No use of accessory muscles AUSCULTATION: wheezes expiratory wheezes and throughout and diminished lung sounds bilateral in the lower lung [place] Cardio: COMMON NORMALS: regular rate, regular rhythm, S1 normal heart sound present, S2 normal heart sound present, No gallops present (Cardio), No clicks present (Cardio), No murmurs present (Cardio) and Peripheral pulses 2+ throughout RATE: regular rate RHYTHM: regular rhythm HEART SOUNDS: S1 normal heart sound present and S2 normal heart sound present PERIPHERAL PULSES: Peripheral pulses 2+ throughout GI: COMMON NORMALS: Normal to inspection, nondistended, normoactive bowel sounds present, Soft to palpation, non-tender and no masses PALPATION: Yes Soft to palpation : COMMON NORMALS: Yes no CVA tenderness BLADDER/KIDNEY EXAM: Yes no CVA tenderness Back/Pelvis: COMMON NORMALS: no CVA tenderness Extremity: COMMON NORMALS: normal to inspection and no pedal edema Neuro: COMMON NORMALS: patient oriented x3 SENSORIUM/ORIENTATION: Yes alert Skin: GENERAL SKIN EXAM: dry skin and pallor Course ED course: Nurse called [facility] to report patient case to them. Vital Signs: Vital signs: Vital Signs Temperature 98.5 F 05/13/22 08:00 Pulse Rate 88 05/13/22 08:22 Respiratory Rate 18 05/13/22 08:20 Blood Pressure 101/65 05/13/22 08:00 Pulse Oximetry 93 05/13/22 08:22 MDM - SOB/Dyspnea Medical Decision Making Patient is a 61-year-old female who comes to the ED via EMS with flu like symptoms. Patient has a history of 2 strokes, hypertension and has had cardiac stent placed. Her strokes left her with residual left-sided weakness and she is unable to ambulate and uses a wheelchair and needs full care and assistance in doing ADLs. She lives with her son and daughter who help take care of her. EMS stated that when they found patient her roommate had cockroaches in it and a bunch of dirty diapers on the floor. Patient presented to the ED, she was malodorous and dirty and had possible bedbugs. Her hair was matted and states she has had only bed baths for a long time now. Nurse called [facility] hotline and reported case to them. Patient not on any home oxygen. Patient's O2 level 93% on 5 L upon arrival to the ED. She was tachycardic with heart rate of 123 but the rest of vitals were stable. Patient has wheezes throughout her lungs upon auscultation with some diminished lung sounds bilaterally at the lower lung [place] as well. White blood cell count 16.7. Potassium 2.9. Troponins negative. D-dimer 1.27. Influenza and COVID-negative. Chest x-ray showed left lingular and left lower lobe pneumonia. Head CT showed no acute abnormalities. Chest CTA showed left lung airspace disease in upper middle and lower lobes suspicious for postobstructive pneumonia. No PE seen. Patient was given DuoNeb breathing treatment here in the ED and given a dose of IV Rocephin as well. I talked with Dr. Kelley about patient case and that she needed to be admitted. I contacted Dr. Bashir and patient was admitted to the hospital. Lab Data I reviewed the patient's lab results. : 05/13/22 04:44 05/13/22 04:44 Labs/Radiology: Radiology Impressions Chest X-Ray 05/12/22 17:33 IMPRESSION: 1. Interval development of left lingular and left lower lobe airspace disease suspicious for pneumonia and a small/moderate left pleural effusion. Recommend followup chest imaging to insure resolution of these findings. 2. Incidental/nonacute findings are listed in the report. ADDENDUM: 05/12/22 1904 THIS REPORT CONTAINS FINDINGS THAT MAY BE CRITICAL TO PATIENT CARE. The findings were verbally communicated via telephone conference with DWAYNE CHIRINOS at 7:02 PM CDT on 05/12/2022. The findings were acknowledged and understood. Head CT 05/12/22 18:34 IMPRESSION: 1. No acute abnormality of the brain. 2. Stable large area of encephalomalacia in the right frontal lobe, parietal lobe, and right basal ganglia. Stable amorphous calcifications in the right parietal lobe. Findings are consistent with an old infarct. 3. Stable mild atrophy of the brain parenchyma. 4. Stable moderate chronic white matter microangiopathic change. 5. Incidental/nonacute findings are listed in the report. COMMENTS: Urgent results were discussed with DWAYNE CHIRINOS on 05/12/2022 at 7:07 PM CDT. Chest CTA 05/12/22 20:13 IMPRESSION: 1. Bronchial wall thickening and mucous plugging in the distal left mainstem bronchus extending into the left upper lobe, left lingula, and left lower lobe bronchi. Associated volume loss in the left lung with airspace disease in the left upper, middle, and lower lobes suspicious for postobstructive atelectasis/pneumonia. Recommend followup chest imaging to insure resolution of these findings. 2. No evidence for pulmonary embolism. 3. Small amount of loculated pleural fluid along the lateral left hemithorax. 4. Mild body wall edema. 5. Incidental/nonacute findings are listed in the report. Laboratory Results WBC 16.7 10^3/uL (4.0-10.0) H 05/12/22 18:34 RBC 5.87 10^6/uL (4.1-5.3) H 05/12/22 18:34 Hgb 16.6 g/dL (11.5-15.3) H 05/12/22 18:34 Hct 49.5 % (37.0-47.0) H 05/12/22 18:34 MCV 84.3 fl (81-99) 05/12/22 18: MCH 28.3 pg (28.0-34.0) 05/12/22 18: MCHC 33.5 g/dL (30.0-36.0) 05/12/22 18: RDW 13.0 % (12.1-15.1) 05/12/22 18: Plt Count 343 10^3/cmm (130-400) 05/12/22: MPV 10.2 fL (7.4-10.4) 05/12/22 18:34 Neut % (Auto) 82.1 % 05/12/22 18: Lymph % (Auto) 10.8 % 05/12/22 18:34 [place] % (Auto) 6.0 % 05/12/22 18:34 Eos % (Auto) 0.2 % 05/12/22:34 Baso % (Auto) 0.5 % 05/12/22:34 Neut # (Auto) 13.70 10^3/uL (1.8-7.7) H 05/12/22 18:34 Lymph # (Auto) 1.8 10^3/uL (0.8-4.8) 05/12/22 18:34 [place] # (Auto) 1.0 10^3/uL (0.2-0.9) H 05/12/22 18:34 Eos # (Auto) 0.0 10^3/uL (0.0-0.8) 05/12/22 18:34 Baso # (Auto) 0.1 10^3/uL (0.0-0.1) 05/12/22: Nucleated RBC % (auto) 0 % 05/12/22 18:34 Nucleated RBCs # 0.0 /100WBC 05/12/22 18:34 D-Dimer 1.27 ug/mIFEU (0-0.59) H 05/12/22 18:34 Sodium 133 mmol/L (136-145) L 05/12/22 18:34 Potassium 2.9 mmol/L (3.5-5.1) L 05/12/22 18:34 Chloride 91 mmol/L (98-107) L 05/12/22 18:34 Carbon Dioxide 33 mmol/L (22-29) H 05/12/22 18:34 Anion Gap 11.9 (5-19) 05/12/22 18:34 BUN 9 mg/dL (8-23) 05/12/22 18:34 Creatinine 0.4 mg/dL (0.5-0.9) L 05/12/22 18:34 GFR Calculation 161.7 mL/min (90-130) H 05/12/22 18:34 Glucose 134 mg/dL (65-115) H 05/12/22 18:34 Calculated Osmolality 277 mOsm/kg (285-295) L 05/12/22 18:34 Lactic Acid 0.9 mmol/L (0.5-2.2) 05/12/22 18:34 Calcium 9.0 mg/dL (8.5-10.5) 05/12/22 18:34 Total Bilirubin 0.5 mg/dL (0.15-1.2) 05/12/22 18:34 AST 6 U/L (0-32) 05/12/22 18:34 ALT 6 U/L (0-33) 05/12/22 18:34 Alkaline Phosphatase 138 IU/L (35-105) H 05/12/22 18:34 Troponin T Baseline 19 ng/L (0-10) H 05/12/22 18:34 NT-Pro-B Natriuret Pep 116 pg/mL (0-125) 05/12/22 18:34 Total Protein 6.6 g/dL (6.6-8.7) 05/12/22 18:34 Albumin 3.5 g/dL (3.5-5.2) 05/12/22 18:34 Globulin 3.1 g/dL (1.3-4.6) 05/12/22 18:34 Nasal Influ A H1 2009 PCR Not detected (NOT DETECT) 05/12/22 19:15 Adenovirus (PCR) Not detected (NOT DETECT) 05/12/22 19:15 C. pneumoniae DNA (PCR) Not detected (NOT DETECT) 05/12/22 19:15 Coronavirus 229E (PCR) Not detected (NOT DETECT) 05/12/22 19:15 Human Metapneumovir PCR Not detected (NOT DETECT) 05/12/22 19:15 Influenza A (H1) PCR Not detected (NOT DETECT) 05/12/22 19:15 Influenza A (H3) PCR Not detected (NOT DETECT) 05/12/22 19:15 Influenza Type A (PCR) Not detected (NOT DETECT) 05/12/22 19:15 Influenza Type B (PCR) Not detected (NOT DETECT) 05/12/22 19:15 M. pneumoniae (PCR) Not detected (NOT DETECT) 05/12/22 19:15 Parainfluenza 1 (PCR) Not detected (NOT DETECT) 05/12/22 19:15 Parainfluenza 2 (PCR) Not detected (NOT DETECT) 05/12/22 19:15 Parainfluenza 3 (PCR) Not detected (NOT DETECT) 05/12/22 19:15 Parainfluenza 4 (PCR) Not detected (NOT DETECT) 05/12/22 19:15 RSV Type A (PCR) Not detected (NOT DETECT) 05/12/22 19:15 RSV Type B (PCR) Not detected (NOT DETECT) 05/12/22 19:15 Entero/Rhino (PCR) Not detected (NOT DETECT) 05/12/22 19:15 SARS-CoV-2 (PCR) Not detected (NOT DETECT) 05/12/22 19:15 EKG Data EKG 1: EKG Interpretation Date: 05/12/22 Interpretation: Sinus tachycardia, [address] segment elevation or depression seen. Discharge Plan Discharge Patient Disposition: Admitted As Inpatient Admit Provider: Car Bashir Clinical Impression: Pneumonia, Hypokalemia Condition: Stable Coding Level of Care Code ED Mainframe Systems Programmer for Chg Fwd Exam Comprehensive
--- NOTE | 2022-05-12 18:34 | CTR_ITS ---
PROCEDURE INFORMATION: Exam: CT Head Without Contrast Exam date and time: 05/12/2022 6:52 PM Age: 61 years old Clinical indication: Altered mental status/memory loss and fever; Confusion or disorientation; Patient HX: Confusion with fever. History of RT side stroke. ; Additional info: Episode of confusion TECHNIQUE: Imaging protocol: Computed tomography of the head without contrast. Sagittal and coronal reformatted images were created and reviewed. Radiation optimization: All CT scans at this facility use at least one of these dose optimization techniques: automated exposure control; mA and/or kV adjustment per patient size (includes targeted exams where dose is matched to clinical indication); or iterative reconstruction. COMPARISON: CT head wo con* [id number] 02/06/2022 6:48 PM RADIATION DOSE METRICS: Total DLP (mGy-cm): 1205.85 FINDINGS: Brain: No acute intracranial hemorrhage. No acute infarct. No intra-axial or extra-axial masses. Rene-white matter differentiation is preserved. No cerebral edema. No extra-axial fluid collections. No midline shift. Stable large area of encephalomalacia in the right frontal lobe, parietal lobe, and right basal ganglia. Stable amorphous calcifications in the right parietal lobe. Findings are consistent with an old infarct. Stable mild atrophy of the brain parenchyma. Stable moderately decreased attenuation in the deep white matter, consistent with moderate chronic microangiopathic change. No evidence for Chiari 1 malformation. Cerebral ventricles: No hydrocephalus. Paranasal sinuses: Paranasal sinuses are clear. Mastoid air cells: Mastoid air cells are clear bilaterally. Orbital cavities: Globes and lenses, extraocular muscles, and optic nerves are intact bilaterally. No acute intraorbital abnormality. Bones/joints: No acute fracture. Soft tissues: No acute abnormality of the extracranial soft tissues. Vasculature: Moderate atherosclerotic changes in the visualized arteries. CT/CT head wo con* [id number] IMPRESSION: 1. No acute abnormality of the brain. 2. Stable large area of encephalomalacia in the right frontal lobe, parietal lobe, and right basal ganglia. Stable amorphous calcifications in the right parietal lobe. Findings are consistent with an old infarct. 3. Stable mild atrophy of the brain parenchyma. 4. Stable moderate chronic white matter microangiopathic change. 5. Incidental/nonacute findings are listed in the report. COMMENTS: Urgent results were discussed with DWAYNE CHIRINOS on 05/12/2022 at 7:07 PM CDT.
[2022-05-12 18:55] LABS: Basophils # 0.1 10^3/uL (0.0-0.1); Basophils % 0.5 %; Eosinophils % 0.2 %; Hematocrit 49.5 % (37.0-47.0); Hemoglobin 16.6 g/dL (11.5-15.3); Lymphocytes # 1.8 10^3/uL (0.8-4.8); Lymphocytes % 10.8 %; Mean Corpuscular HGB Conc 33.5 g/dL (30.0-36.0); Mean Corpuscular Hemoglobin 28.3 pg (28.0-34.0); Mean Corpuscular Volume 84.3 fl (81-99); Mean Platelet Volume 10.2 fL (7.4-10.4); Neutrophils % 82.1 %; Nucleated Red Blood Cells % 0 %; Platelet Count 343 10^3/cmm (130-400); Red Blood Count 5.87 10^6/uL (4.1-5.3); White Blood Count 16.7 10^3/uL (4.0-10.0)
[2022-05-12 19:14] LABS: D Dimer 1.27 ug/mIFEU (0-0.59)
[2022-05-12 19:25] LABS: Lactic Sepsis W/Reflex 0.9 mmol/L (0.5-2.2)
[2022-05-12] MEDS: ipratropium-albuterol 3 mL Neb 6 ML INHALATION (19:25)
[2022-05-12 19:26] LABS: Troponin(5th) Baseline 19 ng/L (0-10)
[2022-05-12] MEDS: cefTRIAXone 2,000 MG in sodium chloride 0.9% (plus) 50 ML 100 MG IV (19:26)
[2022-05-12 19:31] LABS: Alanine Aminotransferase 6 U/L (0-33); Albumin Level 3.5 g/dL (3.5-5.2); Alkaline Phosphatase 138 IU/L (35-105); Anion Gap 11.9 (5-19); Aspartate Amino Transferase 6 U/L (0-32); Blood Urea Nitrogen 9 mg/dL (8-23); Carbon Dioxide 33 mmol/L (22-29); Chloride 91 mmol/L (98-107); Globulin 3.1 g/dL (1.3-4.6); Glomerular Filtration Rate 161.7 mL/min (90-130); Glucose 134 mg/dL (65-115); NT Pro B Type Natriuretic Pept 116 pg/mL (0-125); Osmolality Calculated 277 mOsm/kg (285-295); Sodium 133 mmol/L (136-145); Total Bilirubin 0.5 mg/dL (0.15-1.2); Total Protein 6.6 g/dL (6.6-8.7)
[2022-05-12 20:00] LABS: Potassium 2.9 mmol/L (3.5-5.1)
[2022-05-12] MEDS: sodium chloride 0.9% 500 ML 999 ML IV (20:08)
[2022-05-12] MEDS: ondansetron 2 mg/ML SDV 2 mL 4 MG IVP (20:08)
--- NOTE | 2022-05-12 20:13 | CTR_ITS ---
PROCEDURE INFORMATION: Exam: CTA Chest With Contrast Exam date and time: 05/12/2022 10:19 PM Age: 61 years old Clinical indication: Shortness of breath; Patient HX: SOB with hypoxia and tachycardia; Additional info: SOB, hypoxia, tachycardic TECHNIQUE: Imaging protocol: Computed tomographic angiography of the chest with contrast. 3D rendering (Not supervised by radiologist): MIP and/or 3D reconstructed images were created by the technologist. Radiation optimization: All CT scans at this facility use at least one of these dose optimization techniques: automated exposure control; mA and/or kV adjustment per patient size (includes targeted exams where dose is matched to clinical indication); or iterative reconstruction. Contrast material: OMNI 350; Contrast volume: 63 ml; Contrast route: INTRAVENOUS (IV); COMPARISON: CR (CHEST, ) 05/12/2022 6:07 PM RADIATION DOSE METRICS: Total DLP (mGy-cm): 615.75 FINDINGS: Pulmonary arteries: No filling defects in the pulmonary arteries to suggest pulmonary embolism. Aorta: Moderate atherosclerotic changes in the visualized arteries. No evidence for aortic aneurysm or aortic dissection. Lungs: Bronchial wall thickening and mucous plugging in the distal left mainstem bronchus extending into the left upper lobe, left lingula, and left lower lobe bronchi. Associated volume loss in the left lung with airspace disease in the left upper, middle, and lower lobes suspicious for postobstructive atelectasis/pneumonia. There is a well-circumscribed pulmonary parenchymal cyst consistent with a pneumatocele in the the right middle lobe. Mild centrilobular emphysematous changes in the lungs. No pulmonary parenchymal nodules or masses. Pleural spaces: Small amount of loculated pleural fluid along the lateral left hemithorax. No pneumothorax. Heart: Stable mild enlargement of the heart. Moderate atherosclerotic calcification in the coronary arteries. Calcification of the aortic valve. Esophagus: The esophagus is unremarkable. Mediastinal space: No mediastinal hematoma. No pneumomediastinum. Lymph nodes: No lymphadenopathy. Liver: The visualized liver is unremarkable. Gallbladder and bile ducts: The gallbladder is unremarkable. No dilatation of the visualized bile ducts. Pancreas: The pancreas is unremarkable. No pancreatic ductal dilatation. Spleen: The spleen is unremarkable. Small splenule in the left upper quadrant. Adrenal glands: Diffuse nonspecific enlargement of right and left adrenal glands, most likely related to acute illness. Kidneys and ureters: The visualized right and left kidneys are unremarkable. Bones/joints: Bones are diffusely osteopenic. Multilevel degenerative changes of varying severity in the visualized spine. Soft tissues: Mild body wall edema. CT/CT angio chest PE protcl [id number] IMPRESSION: 1. Bronchial wall thickening and mucous plugging in the distal left mainstem bronchus extending into the left upper lobe, left lingula, and left lower lobe bronchi. Associated volume loss in the left lung with airspace disease in the left upper, middle, and lower lobes suspicious for postobstructive atelectasis/pneumonia. Recommend followup chest imaging to insure resolution of these findings. 2. No evidence for pulmonary embolism. 3. Small amount of loculated pleural fluid along the lateral left hemithorax. 4. Mild body wall edema. 5. Incidental/nonacute findings are listed in the report.
[2022-05-12] MEDS: lidocaine 1% 5 ML in potassium chloride premix 100 ML 50 ML IV (20:46)
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
[2022-05-12 21:38] LABS: Adenovirus Not Detected (NOT DETECT); Chlamydia Pneumoniae Not Detected (NOT DETECT); Coronavirus 229E,HKU1,NL63,OC4 Not Detected (NOT DETECT); Human Metapneumovirus Not Detected (NOT DETECT); Human Rhinovirus/Enterovirus Not Detected (NOT DETECT); Influenza A Not Detected (NOT DETECT); Influenza A H1 Not Detected (NOT DETECT); Influenza A H1-2009 Not Detected (NOT DETECT); Influenza A H3 Not Detected (NOT DETECT); Influenza B Not Detected (NOT DETECT); Mycoplasma Pneumoniae Not Detected (NOT DETECT); Parainfluenza Virus Type 1 Not Detected (NOT DETECT); Parainfluenza Virus Type 2 Not Detected (NOT DETECT); Parainfluenza Virus Type 3 Not Detected (NOT DETECT); Parainfluenza Virus Type 4 Not Detected (NOT DETECT); Respiratory Syncytial Virus A Not Detected (NOT DETECT); Respiratory Syncytial Virus B Not Detected (NOT DETECT); SARS-COV-2 Not Detected (NOT DETECT)
[2022-05-12 22:08] LABS: Troponin 5 2HR 17.49 ng/L (0-10)
[2022-05-12 22:21] LABS: Troponin 5 2HR Delta -1.51 ABS# (0-10)
--- NOTE | 2022-05-12 23:35 | ECG_ITS ---
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 Measurements Intervals Streeter Rate: 83 P: 95 LA: 180 QRS: 73 QRSD: 92 T: 61 QT: 354 QTc: 417 Interpretive Statements SINUS RHYTHM LOW QRS VOLTAGE IN PRECORDIAL LEADS [QRS DEFLECTION < 1.0 mV IN CHEST LEADS] ANTEROSEPTAL MYOCARDIAL INFARCTION , OF INDETERMINATE AGE [40+ ms Q WAVE IN V1-V4] Compared to ECG 05/12/2022 18:26:50 Low QRS voltage now present Myocardial infarct finding now present Sinus tachycardia no longer present Electronically Signed On 05-13-2022 17:37:12 CDT by Justyn Cooley M.D. [email or web address]
[2022-05-13] VITALS (16 sets, daily range): BP systolic 89–104; BP diastolic 55–65; PULSE 62–91; RESP 14–18; TEMP 36.4–36.9; O2SAT 91–100
[2022-05-13] MEDS: sodium chloride 0.9% 1,000 ML 75 ML IV ×2 (00:33→11:18)
[2022-05-13] MEDS: enoxaparin 40 mg/0.4 mL Syringe SUBCUT ×2 (00:33→20:10)
[2022-05-13 01:22] LABS: Troponin 5 6HR 18.74 ng/L (0-10)
[2022-05-13 01:25] LABS: Troponin 5 6HR Delta -0.26 ng/L (0-12)
--- NOTE | 2022-05-13 02:18 | PC.NURSE ---
Patient has been admitted to [facility], family made aware. Patient presents with a would to her left buttock. Patient states she favors her left side since her stroke and is refusing to be repositioned. Pillow support provided to pressure areas. Education provided about wound healing and the need to reposition. Patients son came to floor and dropped off cell phone that it is being kept at bedside. Patients bed is in lowest position with wheels locked and call light in reach
[2022-05-13] MEDS: ipratropium-albuterol 3 mL Neb INHALATION ×4 (02:26→20:23)
--- NOTE | 2022-05-13 04:37 | USCV_ITS ---
Jazmyne Ramirez Age: 61 Gender: F : 1960 Exam Date: 05/13/2022 05:48 Ordering Phys: Car Bashir MD Technologist: TATIANA Exam Location: [facility] Indication: Shortness of breath BP: 109 / 55 HR: 82 Rhythm: Sinus Technical Quality: Suboptimal MEASUREMENTS (Male / Female) Normal Values 2D ECHO LV Diastolic Diameter PLAX 3.5 cm 4.2 - 5.9 / 3.9 - 5.3 cm LV Systolic Diameter PLAX 2.0 cm IVS Diastolic Thickness 0.9 cm 0.6 - 1.0 / 0.6 - 0.9 cm IVS Systolic Thickness 1.2 cm LVPW Diastolic Thickness 1.0 cm 0.6 - 1.0 / 0.6 - 0.9 cm LVPW Systolic Thickness 1.1 cm LVOT Diameter 2.0 cm LV Ejection Fraction 2D Teich 73.9 % LA Diameter 2.0 cm Aorta at Sinotubular Diameter 1.8 cm M-MODE Aortic Annulus Diameter 1.8 cm LA Ao Ratio MM 1.3 MV E Point Septal Separation 0.3 cm DOPPLER AV Peak Velocity 93.0 cm/s LVOT Peak Velocity 85.0 cm/s AV Area Cont Eq vti 3.0 cm squared AV Area Cont Eq pk 2.9 cm squared MV Area PHT 5.5 cm squared Mitral E to A Ratio 1.2 MV E' Velocity 27.4 cm/s Mitral E to MV E' Ratio 7.7 Mitral E to LV E' Lateral Ratio 7.0 Mitral E to LV E' Septal Ratio 8.7 PV Peak Velocity 84.0 cm/s RV Acceleration Time 0.1 s RV Ejection Time 0.3 s RV AcT/ET 0.3 FINDINGS Left Ventricle Normal left ventricular size and systolic function, EF 74%.no regional wall motion abnormalities. Right Ventricle The right ventricle is normal in size and function. Right Atrium The right atrium is normal in size. Left Atrium The left atrium is normal in size. Mitral Valve Thickened mitral valve. Mild mitral annular calcification. Aortic Valve Thickened aortic valve. Tricuspid Valve No gross abnormalities noted Pulmonic Valve No gross abnormalities noted Pericardium Trivial pericardial effusion. Aorta Normal aortic annulus size. IVC The inferior vena cava pulmonary and hepatic veins appear normal. CONCLUSIONS Normal left ventricular size and systolic function, EF 74%. No regional wall motion abnormalities. Thickened mitral valve. Mild mitral annular calcification. Thickened aortic valve. There is no pericardial effusion. There are no intracardiac masses. Compared to the study from 03/29/2019, there may not be a significant change Dr Carroll Fulton MD [facility] (Electronically Signed) Final Date: 13 May 2022 09:37 S
[2022-05-13 05:31] LABS: Basophils % 0.4 %; Eosinophils % 0.2 %; Hematocrit 42.5 % (37.0-47.0); Hemoglobin 14.1 g/dL (11.5-15.3); Lymphocytes # 1.2 10^3/uL (0.8-4.8); Lymphocytes % 12.3 %; Mean Corpuscular HGB Conc 33.2 g/dL (30.0-36.0); Mean Corpuscular Hemoglobin 28.4 pg (28.0-34.0); Mean Corpuscular Volume 85.7 fl (81-99); Mean Platelet Volume 10.6 fL (7.4-10.4); Monocytes # 0.7 10^3/uL (0.2-0.9); Neutrophils # 7.79 10^3/uL (1.8-7.7); Neutrophils % 79.7 %; Nucleated Red Blood Cells % 0 %; Platelet Count 269 10^3/cmm (130-400); Red Blood Count 4.96 10^6/uL (4.1-5.3); Red Cell Distribution Width 13.2 % (12.1-15.1); White Blood Count 9.8 10^3/uL (4.0-10.0)
[2022-05-13] MEDS: cefTRIAXone 1,000 MG in sodium chloride 0.9% (plus) 50 ML 100 MG IV (05:44)
[2022-05-13 06:01] LABS: Procalcitonin 0.09 ng/mL (0-0.5)
[2022-05-13 06:04] LABS: Alanine Aminotransferase < 5 U/L (0-33); Albumin Level 2.7 g/dL (3.5-5.2); Alkaline Phosphatase 110 IU/L (35-105); Anion Gap 11.4 (5-19); Aspartate Amino Transferase 5 U/L (0-32); Blood Urea Nitrogen 7 mg/dL (8-23); Calcium 8.4 mg/dL (8.5-10.5); Carbon Dioxide 29 mmol/L (22-29); Chloride 99 mmol/L (98-107); Globulin 2.7 g/dL (1.3-4.6); Glomerular Filtration Rate 225.4 mL/min (90-130); Glucose 111 mg/dL (65-115); Magnesium 1.7 mg/dL (1.7-2.3); Osmolality Calculated 281 mOsm/kg (285-295); Potassium 3.4 mmol/L (3.5-5.1); Sodium 136 mmol/L (136-145); Total Bilirubin 0.2 mg/dL (0.15-1.2); Total Protein 5.4 g/dL (6.6-8.7)
[2022-05-13 06:05] LABS: Creatinine Clr Calc Pharmacy 148.9724
[2022-05-13] MEDS: acetylcysteine 200 mg/mL SDV 4 mL INHALATION ×2 (08:12→16:48)
[2022-05-13] MEDS: atorvastatin 40 mg Tablet PO (09:34)
[2022-05-13] MEDS: clopidogrel 75 mg Tablet PO (09:34)
[2022-05-13] MEDS: amlodipine 10 mg Tablet PO (09:35)
[2022-05-13] MEDS: aspirin 81 mg EC Tablet PO (09:35)
[2022-05-13] MEDS: azithromycin 500 MG in sodium chloride 0.9% 250 ML 250 MG IV (09:36)
--- NOTE | 2022-05-13 10:35 | PC.CHAP ---
Pastoral Care Encounter/Spiritual Assessment Type of Contact [] Declined manager technical visit [] Patient/Family/Request visit [] Outpatient visit [] Follow-up visit [] Physician referral [] Code/Alert [x] Routine visit [] Staff referral [] Actively dying [] Patient sleeping [] Family support [] [] Out of room [] Palliative care [] [x] Receiving care in room [] Pre-surgical visit [] Trauma [] Long length of stay [] ICU visit [] Other: Relational/Emotional Strength [] Patient feels connected with others/family/visitors/staff [] Distress [] Loneliness/isolation [] Abandonment Spirituality of Patient [] Person of Jelena [] Attends Sabianist of their Jelena [] Believes in Prayer [] Reads Bible or Sikhism materials [] There are Spiritual issues to be addressed School Vocational Educator Interventions [] Prayer [] Active listening [] Non-anxious presence [] Spiritual/emotional support [] Crisis/trauma care [] Spiritual counseling [] Bereavement support [] Provided bereavement packet [] Provided Bible/devotional materials [] Provided toy/stuffed animal, coloring book to patient or family member [] Provided Communion [] Anointing/[place] [] Salvation [] Completed spiritual assessment [] Other: Impact on Illness or Injury [] Angry [] Fearful [] Anxious [] Often cries [] Exhaustion [] Unable to work [] Unable to attend confucianist [] Unable to walk/stand [] Unable to read [] Unable to drive [] Unable to eat/drink [] Unable to sleep [] Unable to be with family [] Patient intubated [] Other: Summary Time spent with patient
[2022-05-13 11:20] LABS: Iron 23 ug/dL (37-145); Percent Saturation 17.6 % (20-50); Total Iron Binding Capacity 130 mcg/dl; Unsaturated Iron Binding 107 ug/dL (112-347)
[2022-05-13 11:30] LABS: Thyroid Stimulating Hormone 2.94 uIU/mL (0.27-4.20)
[2022-05-13] MEDS: piperacillin-tazobactam 3.375 GM in sodium chloride 0.9% (plus) 50 ML IV ×2 (11:37→18:07)
[2022-05-13 12:19] LABS: Add Urine Microscopic? NO; Charge for UA Resulting for Rev
[2022-05-13 12:30] LABS: Bilirubin Urine 1+ (Negative); Blood Urine Neg (Negative); Glucose Urine UA Norm (Normal); Ketones Urine Negative (Negative); Leukocyte Esterase Urine Negative (Negative); Nitrate Urine Negative (Negative); Protein Urine Neg (Negative); Urine Appearance Clear (CLEAR); Urine Color Amber (Yellow); Urobilinogen Urine 4 mg/dL (Negative); pH Urine 5 (5-7)
[2022-05-13] MEDS: collagenase oint 30 gm 1 APPLIC TOPICAL (14:02)
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
[2022-05-13] MEDS: famotidine 20 mg Tablet PO (17:34)
[2022-05-13] MEDS: potassium chloride ER 20 mEq Tablet 40 MEQ PO (17:34)
--- NOTE | 2022-05-13 18:04 | PC.NURSE ---
Patient resting in bed, prefers laying on left side and educated multiple times on importance of turns and staying off that left hip with the wound that she has. Wound dressed with optifoam and santyl. Patient has had little UOP and tea colored. Minimal c/o pain, AAOx4, VSS, no new events or needs. Resting with family bedside. Continues to require oxygen, room clean and clutter free with call light in reach. WIll report to oncoming nurse at bedside at shift change.
[2022-05-13] MEDS: budesonide 0.5 mg/2 mL Neb INHALATION (20:23)
[2022-05-14] VITALS (13 sets, daily range): BP systolic 88–129; BP diastolic 49–68; PULSE 54–82; RESP 12–18; TEMP 36.3–36.7; O2SAT 95–100
[2022-05-14] MEDS: acetaminophen 325 mg Tablet 650 MG PO (01:14)
[2022-05-14] MEDS: ALPRAZolam 0.5 mg Tablet 0.25 MG PO ×2 (01:14→21:52)
[2022-05-14] MEDS: ipratropium-albuterol 3 mL Neb INHALATION ×3 (02:46→21:01)
[2022-05-14] MEDS: piperacillin-tazobactam 3.375 GM in sodium chloride 0.9% (plus) 50 ML IV ×3 (04:03→18:20)
[2022-05-14 04:55] LABS: Basophils # 0.1 10^3/uL (0.0-0.1); Basophils % 0.5 %; Eosinophils # 0.1 10^3/uL (0.0-0.8); Eosinophils % 0.6 %; Hematocrit 42.1 % (37.0-47.0); Lymphocytes # 1.4 10^3/uL (0.8-4.8); Lymphocytes % 14.2 %; Mean Corpuscular HGB Conc 33.3 g/dL (30.0-36.0); Mean Corpuscular Hemoglobin 28.3 pg (28.0-34.0); Mean Corpuscular Volume 85.1 fl (81-99); Mean Platelet Volume 10.2 fL (7.4-10.4); Monocytes # 0.6 10^3/uL (0.2-0.9); Monocytes % 5.9 %; Neutrophils # 7.49 10^3/uL (1.8-7.7); Neutrophils % 78.5 %; Nucleated Red Blood Cells % 0 %; Platelet Count 225 10^3/cmm (130-400); Red Blood Count 4.95 10^6/uL (4.1-5.3); Red Cell Distribution Width 13.1 % (12.1-15.1); White Blood Count 9.5 10^3/uL (4.0-10.0)
[2022-05-14 05:16] LABS: Alanine Aminotransferase 6 U/L (0-33); Albumin Level 2.7 g/dL (3.5-5.2); Alkaline Phosphatase 107 IU/L (35-105); Anion Gap 11.2 (5-19); Aspartate Amino Transferase 7 U/L (0-32); Blood Urea Nitrogen 4 mg/dL (8-23); Calcium 8.4 mg/dL (8.5-10.5); Carbon Dioxide 28 mmol/L (22-29); Chloride 102 mmol/L (98-107); Chol HDL Ratio 3.14 mg/dL (0.0-4.40); Cholesterol 91 mg/dL (0-200); Globulin 2.7 g/dL (1.3-4.6); Glomerular Filtration Rate 359.9 mL/min (90-130); Glucose 96 mg/dL (65-115); HDL Cholesterol 29 mg/dL (60-100); LDL Cholesterol Calculated 48 mg/dL (50-129); Osmolality Calculated 281 mOsm/kg (285-295); Potassium 4.2 mmol/L (3.5-5.1); Sodium 137 mmol/L (136-145); Total Bilirubin 0.3 mg/dL (0.15-1.2); Total Protein 5.4 g/dL (6.6-8.7); Triglycerides 69 mg/dL (0-150); VLDL Cholestrol Calculation 14 mg/dL (0-30)
[2022-05-14 05:28] LABS: Estmated Average Glucose 103; Hemoglobin A1C 5.2 % (4.0-6.0)
[2022-05-14] MEDS: sodium chloride 0.9% 1,000 ML 75 ML IV (05:51)
[2022-05-14] MEDS: famotidine 20 mg Tablet PO ×2 (08:17→17:48)
[2022-05-14] MEDS: clopidogrel 75 mg Tablet PO (08:17)
[2022-05-14] MEDS: collagenase oint 30 gm 1 APPLIC TOPICAL (08:17)
[2022-05-14] MEDS: atorvastatin 40 mg Tablet PO (08:17)
[2022-05-14] MEDS: aspirin 81 mg EC Tablet PO (08:17)
[2022-05-14] MEDS: azithromycin 250 mg Tablet 500 MG PO (08:18)
[2022-05-14] MEDS: ondansetron 2 mg/ML SDV 2 mL 4 MG IVP ×2 (09:56→22:39)
--- NOTE | 2022-05-14 10:34 | CT_ITS ---
WS: [id number] CT THORACIC SPINE HISTORY: numbness in arms TECHNIQUE: Contiguous 2.5 mm axial images are reviewed to thoracic spine. Images are reformatted in s agittal and coronal planes. All CT scans at [facility] use at least one of these dose optimiz ation techniques: automated exposure control; mA and/or kV adjustment per patient size (includes targ eted exams where dose is matched to clinical indication); or iterative reconstruction. DLP: 967.6 mGy.cm COMPARISON: None available. Bones are osteopenic. Mild increase in thoracic kyphosis. Mild spondylitic changes. No fractures. No cord compression or disc protrusions are identified on this CT evaluation. No significant central or foraminal stenosis. Small layering LEFT pleural effusion. LEFT adrenal adenoma versus hyperplasia. CT/CT thoracic spin wo con* [id number] IMPRESSION: 1. No thoracic spine fracture. 2. No mass effect upon the cord or cord compression identified on this unenhan narciso CT. 3. Small layering LEFT pleural effusion.
--- NOTE | 2022-05-14 10:34 | CT_ITS ---
WS: [id number] CT LUMBAR SPINE, noncontrast. HISTORY: numbness in legs TECHNIQUE: Contiguous 2.5 mm axial imaging are performed. Sagittal and coronal reformats are submitte d and reviewed. [facility] CT [facility] use at least one of these dose optimization techni ques: automated exposure control; mA and/or kV adjustment per patient size (includes targeted exams w here dose is matched to clinical indication); or iterative reconstruction. IV contrast: None DLP: 2010.68 mGy.cm COMPARISON: None available. Posterior lumbar alignment is normal. No fractures. No significant disc space narrowing other than mi ld desiccation. No destructive bone process identified. Mild narrowing of the SI joints. Mild diffuse osteopenia. L1-2: Normal. L2-3: Normal. L3-4: Mild disc bulging. No stenosis. Very tiny central disc protrusion. L4-5: Moderate annular disc bulging slightly asymmetric to the LEFT. Disc encroaches upon the ventral thecal sac and subarticular recesses. Mild central with moderate bilateral subarticular recess steno sis and mild foraminal stenosis. Disc does contact the exiting L5 nerve roots by laterally, LEFT grea ter than RIGHT. L5-S1: Mild osteophytic ridging and disc bulging. Small bilateral foraminal osteophytes. Splenic artery atherosclerosis. Moderate atherosclerotic plaque throughout the aorta. Mild ectasia ao rta with a maximum diameter of 2.[address]/CT lumbar spine wo con* [id number] IMPRESSION: 1. Mild central with moderate bilateral subarticular recess stenosis at L4-5 w ith disc contacting and displacing the traversing L5 nerve roots, LEFT greater than RIGHT. 2. Mild bilateral foraminal narrowing at L4-5 and L5-S1. 3. No fracture. 4. Ectatic abdominal aorta. 5. Possible gallstones.
[2022-05-14 11:56] LABS: 25 Hydroxy Vitamin D 5 ng/mL (30-100); Vitamin B12 225 pg/mL (232-1245)
[2022-05-14 12:12] LABS: Folate Level 2.3 ng/mL (4.8-37.3)
--- NOTE | 2022-05-14 12:17 | PM.PN ---
Subjective Subjective: No acute vents overnight. Patient has remained hemodynamically stable and afebrile. Currently on 2 L oxygen supplementation. On examination laying comfortably in bed. Working with various therapies. Has been deemed safe to eat regular diet as per speech therapy. Patient is max assist with physical therapy. But is able to extend her arms and legs with help but flexes again passively to going to almost like position Vitals/I&O/Wt Last Vital Signs Temp 97.6 F 05/14/22 11:36 Pulse 60 05/14/22 11:36 Resp 18 05/14/22 11:36 BP 94/61 05/14/22 11:36 Pulse Ox 95 05/14/22 11:36 05/13/22 05/14/22 05/14/22 22:59 06:59 14:59 Intake Total 340 / 2056.25 1240 / 3296.25 170 / 170 Output Total 500 / 600 1000 / 1600 Balance -160 / 1456.25 240 / 1696.25 170 / 170 Weight last 48 hrs Weight 48.534 kg Weight 45.359 kg Weight 48.534 kg Physical Exam Narrative: General: No acute distress, AO x3, chronically ill-appearing, cachectic, bitemporal wasting laying in position HEENT: PERRLA, pupils bilaterally equal and reactive Chest: Normal vesicular breath sounds, decreased air entry with occasional coarse crackles present on left middle and operculum equal good air entry bilaterally CVS: S1-S2 regular, no murmurs, no tachycardia, no gallops, no rubs Abdomen: Soft, nontender, no organomegaly, bowel sounds present Neuro: No focal deficits, no facial deformity, AO x3, all extremities in contracture, passively can be extended up to 35 to 40 degrees, power ranging from 3/5-4/5. Urinary Catheter Management: [place]: Cath Placed During This Visit: yes Reason for Continuing Indwelling Catheter: Acute Urinary Retention or Obstruction Urinary Catheter Date of Insertion: 05/13/22 Urinary Catheter Time of Insertion: 11:45 Data : 05/14/22 04:43 05/14/22 04:43 Micro: Microbiology 05/12/22 18:37 Blood Culture - Preliminary Blood NEGATIVE TO DATE 05/12/22 18:34 Blood Culture - Preliminary Blood NEGATIVE TO DATE 05/13/22 12:15 Bacterial Antigens - Final Urine Kidney 05/13/22 12:15 Legionella Urinary Antigen - Final Urine Catheterized A&P Assessment and plan (1) Pneumonia: Status: Acute Qualifiers: Laterality: left Lung location: lower lobe of lung Pneumonia type: due to unspecified organism Qualified Code(s): J18.9 - Pneumonia, unspecified organism (2) Decubital ulcer: Left gluteal region. Present on admission. Antibiotics will cover. Frequent positioning. Status: Acute (3) Severe protein-energy malnutrition: Status: Acute (4) Vitamin D deficiency disease: Status: Acute (5) Vitamin B12 deficiency: Status: Acute (6) Hyponatremia: Status: Acute (7) Hypokalemia: Status: Acute (8) Neglected elder: Patient hotlined by the ER. manager environmental services/Adult Protective Services involved. Status: Acute (9) History of stroke: Patient states she was very mobile prior to the stroke till May 2021. Patient has all 4 limbs contracture leading her to be in position though is able to passively extend up to 35 to 40 degrees. Findings are global and not concurrent to her stroke. Will do CT thoracolumbar spine. Status: Acute (10) CAD (coronary artery disease): Status: Acute (11) HTN (hypertension): Status: Acute Plan Pneumonia: Cannot rule out aspiration pneumonia. CT scan concerning for a possible mucous plug in left main bronchus. Discussed with pulmonology on-call. Concerning for mild atelectasis. No mucous plug. Stop chest vest. Switch to incentive spirometry and flutter valve. Appreciate swallow evaluation. Low risk of aspiration. Urine Legionella bacterial antigen negative. MRSA still pending. Sputum culture not collected. Switch to IV ceftriaxone for now. If MRSA is negative can switch to oral antibiotics within next 24 to 48 hours. Budesonide twice daily, DuoNebs every 6 hours for now. Oxygen supplementation keeping saturation over 90%. Hyponatremia/hypokalemia: Most likely secondary to poor oral intake. Resolved. Hypertension: Goal pressure less than 140/90 mmhhg with mean more than 65. Hold off on home dose of amlodipine given borderline blood pressures for now. Severe protein energy malnutrition: Decrease dose of atorvastatin to 10 mg daily. Lipid panel, A1c appreciated. Check vitamin B12, folate, vitamin D levels. Will replace accordingly. Analgesia: Tylenol as needed Glycemic control: Not needed Nutrition: Regular. To be switched as per swallow evaluation. CODE STATUS: Full code. Discussed in detail with again with patient at bedside. Full code. Wants her son to be DPOA if she is not able to make medical decisions. PUD prophylaxis: Famotidine DVT prophylaxis: Lovenox Discharge planning: Discharge to SNF for further rehabitation with possible permanent placement. Attestations Medical Necessity Statement*: Requires further hospitalization for management of severe protein energy malnutrition, decubitus ulcer, possible left-sided pneumonia while safe discharge planning is sought. Coding Level of Care Code Acute Delinquent Tax Collector Assistant for Chg Fwd Diagnoses Pneumonia J18.9 Laterality: left Lung location: lower lobe of lung Pneumonia type: due to unspecified organism Decubital ulcer L89.90 Hyponatremia E87.1 Hypokalemia E87.6 Neglected elder T74.01XA History of stroke Z86.73 CAD (coronary artery disease) I25.10 HTN (hypertension) I10 Severe protein-energy malnutrition E43 Vitamin B12 deficiency E53.8 Vitamin D deficiency disease E55.9
[2022-05-14] MEDS: ergocalciferol (vitamin D2) 50,000 Unit Capsule 50000 UNIT PO (13:58)
[2022-05-14] MEDS: cyanocobalamin 1,000 mcg/mL SDV 1000 MCG IM (13:58)
--- NOTE | 2022-05-14 18:22 | PC.NURSE ---
Patient AAOx4, VSS, britton in place and patent with good UOP this shift. Patient agreeable to more frequent turns and optifoam and santyl applied to wounds. No change in wound appearance, Family at bedside. No new events or needs. Room clean and clutter free with call light in reach. Will give report to oncoming nurse at bedside at shift change.
--- NOTE | 2022-05-14 20:03 | PC.NURSE ---
Pt. laying in bed, continually wants to lay on left side. Instructed patient that she needs to turn q 2 hours. Pt. states she will when she feels like it
[2022-05-14] MEDS: enoxaparin 40 mg/0.4 mL Syringe SUBCUT (20:39)
[2022-05-14] MEDS: budesonide 0.5 mg/2 mL Neb INHALATION (21:01)
[2022-05-15] VITALS (7 sets, daily range): BP systolic 114–133; BP diastolic 64–81; PULSE 0–81; RESP 16–18; TEMP 36.3–37; O2SAT 92–95
[2022-05-15] MEDS: ipratropium-albuterol 3 mL Neb INHALATION ×2 (03:18→08:11)
[2022-05-15] MEDS: piperacillin-tazobactam 3.375 GM in sodium chloride 0.9% (plus) 50 ML IV (03:35)
[2022-05-15 06:46] LABS: Glucose Point of Care 76 mg/dL (70-110)
[2022-05-15] MEDS: budesonide 0.5 mg/2 mL Neb INHALATION (08:11)
[2022-05-15 10:36] LABS: Basophils # 0.1 10^3/uL (0.0-0.1); Basophils % 0.6 %; Eosinophils # 0.1 10^3/uL (0.0-0.8); Eosinophils % 1.2 %; Hematocrit 42.3 % (37.0-47.0); Hemoglobin 13.8 g/dL (11.5-15.3); Lymphocytes # 1.4 10^3/uL (0.8-4.8); Lymphocytes % 16.5 %; Mean Corpuscular HGB Conc 32.6 g/dL (30.0-36.0); Mean Corpuscular Hemoglobin 28.2 pg (28.0-34.0); Mean Corpuscular Volume 86.3 fl (81-99); Mean Platelet Volume 10.2 fL (7.4-10.4); Monocytes # 0.5 10^3/uL (0.2-0.9); Monocytes % 6.5 %; Neutrophils # 6.11 10^3/uL (1.8-7.7); Nucleated Red Blood Cells % 0 %; Platelet Count 263 10^3/cmm (130-400); Red Cell Distribution Width 13.1 % (12.1-15.1); White Blood Count 8.2 10^3/uL (4.0-10.0)
[2022-05-15] MEDS: atorvastatin 40 mg Tablet 10 MG PO (10:38)
[2022-05-15] MEDS: cyanocobalamin 1,000 mcg Tablet 500 MCG PO (10:38)
[2022-05-15] MEDS: famotidine 20 mg Tablet PO (10:38)
[2022-05-15] MEDS: aspirin 81 mg EC Tablet PO (10:38)
[2022-05-15] MEDS: clopidogrel 75 mg Tablet PO (10:38)
[2022-05-15 10:41] LABS: Alanine Aminotransferase 6 U/L (0-33); Albumin Level 2.8 g/dL (3.5-5.2); Alkaline Phosphatase 110 IU/L (35-105); Anion Gap 12.2 (5-19); Aspartate Amino Transferase 6 U/L (0-32); Blood Urea Nitrogen 7 mg/dL (8-23); Calcium 8.4 mg/dL (8.5-10.5); Carbon Dioxide 29 mmol/L (22-29); Chloride 98 mmol/L (98-107); Globulin 2.7 g/dL (1.3-4.6); Glomerular Filtration Rate 161.7 mL/min (90-130); Glucose 92 mg/dL (65-115); Osmolality Calculated 278 mOsm/kg (285-295); Potassium 4.2 mmol/L (3.5-5.1); Sodium 135 mmol/L (136-145); Total Bilirubin 0.3 mg/dL (0.15-1.2); Total Protein 5.5 g/dL (6.6-8.7)
[2022-05-15] MEDS: collagenase oint 30 gm 1 APPLIC TOPICAL (10:44)
--- NOTE | 2022-05-15 11:48 | PM.DCS ---
Discharge Providers Date of Admission: 05/12/22 20:48 Date of Discharge: May 15, 2022 Attending Provider at Admission: Car Bashir MD Attending Provider at Discharge: Derick Urban MD Primary Care Provider: Karel Gamez MD Diagnoses at Discharge Discharge Diagnosis (1) Pneumonia: Status: Acute Qualifiers: Laterality: left Lung location: lower lobe of lung Pneumonia type: due to unspecified organism Qualified Code(s): J18.9 - Pneumonia, unspecified organism (2) Decubital ulcer: Status: Acute (3) Severe protein-energy malnutrition: Status: Acute (4) Vitamin D deficiency disease: Status: Acute (5) Vitamin B12 deficiency: Status: Acute (6) Hyponatremia: Status: Acute (7) Hypokalemia: Status: Acute (8) Neglected elder: Status: Acute (9) History of stroke: Status: Acute (10) CAD (coronary artery disease): Status: Acute (11) HTN (hypertension): Status: Acute Reason for Visit Reason for Visit: FLU LIKE SYMPTOMS Brief History: History as per HPI: Jazmyne Ramirez is a 61 year old female with past medical history of hypertension coronary artery disease status post PCI to OM1 ( 2016 ) , PAD status post percutaneous intervention of the right SFA, CVA?s/p CEA ,with residual left-sided weakness, wheelchair-bound was brought in by the EMS with flulike symptoms, going on for a week time complaining of nasal congestion cough, generalized body pain and some back pain. patient stays with with her daughter and son Who takes care of her, when EMS arrived at scene they found her in poor living condition (roommate had cockroaches in it and a bunch of dirty diapers on the floor.? Patient presented to the ED, she was malodorous and dirty and had possible bedbugs.? Her hair was matted and states she has had only bed baths for a long time now.? ED staff had to Decon patient upon arrival and cleaned her up, she was HOTLINED also). Hospital Course Hospital Course Patient went to the hospital further evaluation and management of possible pneumonia, multiple electrolyte abnormalities, possible elderly neglect. Patient was hotlined to adult protective services from the ER. At first patient started on broad-spectrum antibiotics. On admission echocardiogram was done, CT chest was done. CT chest on admission was concerning for possible mucous plug in left main bronchus. Patient was started on aggressive chest pulmonary toilet, broad-spectrum antibiotics. During hospitalization her blood culture, sputum culture remain negative and patient has been back to room air for more than [address] scan were discussed in detail with on-call corporate accountant who stated that the chances of mucous plug are really low. Patient also was found to have severe protein energy malnutrition all along with several vitamin D deficiency and B12 deficiency. On admission patient had multiple electrolyte normalities which were corrected by IV fluids. Physical therapy was ordered. Safe discharge planning was discussed in detail with the patient. She wanted her son Mr. Schneider to be her DPOA. Case was discussed with Adult Protective Services who reported that patient is living in self-neglect conditions by choice. She has spoken to patient's and kids about the options and need for someone to help though they declined. Possible discharge to SNF for discussed in detail with the patient. She was agreeable at start. After knowing that she has high co-pay he declined and asked to be discharged home. Patient has been discharged home in hemodynamically stable condition on oral Augmentin and Levaquin for next 3 days, vitamin D to be taken every 1 week along with oral vitamin B12 supplementation daily. Physical Exam Narrative: General: No acute distress, AO x3, chronically ill-appearing, cachectic, bitemporal wasting laying in position HEENT: PERRLA, pupils bilaterally equal and reactive Chest: Normal vesicular breath sounds, decreased air entry with occasional coarse crackles present on left middle and operculum equal good air entry bilaterally CVS: S1-S2 regular, no murmurs, no tachycardia, no gallops, no rubs Abdomen: Soft, nontender, no organomegaly, bowel sounds present Neuro: No focal deficits, no facial deformity, AO x3, all extremities in contracture, passively can be extended up to 35 to 40 degrees, power ranging from 3/5-4/5. Urinary Catheter Management: [place]: Cath Placed During This Visit: yes Reason for Continuing Indwelling Catheter: Accurate Measurement of Urinary Output in Critically Ill Patients Urinary Catheter Date of Insertion: 05/13/22 Urinary Catheter Time of Insertion: 11:45 Discharge Data Studies Completed and Pending Completed Studies During Hospitalization Category Date Time Status CT head wo con* [id number] Urgent Cat Scan 05/12/22 18:[address] lumbar spine wo con* [id number] Routine Cat Scan 05/14/22 10:[address] thoracic spine wo con [CT thoracic spin wo con* Cat Scan 05/14/22 10:34 Completed [id number]] Routine CTA chest [CT angio chest PE protcl [id number]] Stat Cat Scan 05/12/22 20:13 Completed XR chest 1V portable [id number] Stat Exams 05/12/22 17:33 Completed CV. echo complete* [id number] Routine Ultrasound 05/13/22 04:37 Completed Pending at discharge Category Date Time Status Blood Culture Stat Lab 05/12/22 18:37 Results Sputum Culture and Gram Stain Routine Lab 05/12/22 21:19 Uncollected Vitamin D 1,25 Dihydroxy Routine Lab 05/14/22 10:13 Received Radiology Impressions Chest X-Ray 05/12/22 17:33 IMPRESSION: 1. Interval development of left lingular and left lower lobe airspace disease suspicious for pneumonia and a small/moderate left pleural effusion. Recommend followup chest imaging to insure resolution of these findings. 2. Incidental/nonacute findings are listed in the report. ADDENDUM: 05/12/22 1904 THIS REPORT CONTAINS FINDINGS THAT MAY BE CRITICAL TO PATIENT CARE. The findings were verbally communicated via telephone conference with DWAYNE CHIRINOS at 7:02 PM CDT on 05/12/2022. The findings were acknowledged and understood. Head CT 05/12/22 18:34 IMPRESSION: 1. No acute abnormality of the brain. 2. Stable large area of encephalomalacia in the right frontal lobe, parietal lobe, and right basal ganglia. Stable amorphous calcifications in the right parietal lobe. Findings are consistent with an old infarct. 3. Stable mild atrophy of the brain parenchyma. 4. Stable moderate chronic white matter microangiopathic change. 5. Incidental/nonacute findings are listed in the report. COMMENTS: Urgent results were discussed with DWAYNE CHIRINOS on 05/12/2022 at 7:07 PM CDT. Chest CTA 05/12/22 20:13 IMPRESSION: 1. Bronchial wall thickening and mucous plugging in the distal left mainstem bronchus extending into the left upper lobe, left lingula, and left lower lobe bronchi. Associated volume loss in the left lung with airspace disease in the left upper, middle, and lower lobes suspicious for postobstructive atelectasis/pneumonia. Recommend followup chest imaging to insure resolution of these findings. 2. No evidence for pulmonary embolism. 3. Small amount of loculated pleural fluid along the lateral left hemithorax. 4. Mild body wall edema. 5. Incidental/nonacute findings are listed in the report. Lumbar Spine CT 05/14/22 10:34 IMPRESSION: 1. Mild central with moderate bilateral subarticular recess stenosis at L4-5 with disc contacting and displacing the traversing L5 nerve roots, LEFT greater than RIGHT. 2. Mild bilateral foraminal narrowing at L4-5 and L5-S1. 3. No fracture. 4. Ectatic abdominal aorta. 5. Possible gallstones. Thoracic Spine CT 05/14/22 10:34 IMPRESSION: 1. No thoracic spine fracture. 2. No mass effect upon the cord or cord compression identified on this unenhanced CT. 3. Small layering LEFT pleural effusion. Microbiology 05/13/22 15:08 Nose MRSA Culture - Final 05/12/22 18:37 Blood Blood Culture - Preliminary NEGATIVE TO DATE 05/12/22 18:34 Blood Blood Culture - Preliminary NEGATIVE TO DATE 05/13/22 12:15 Urine Kidney Bacterial Antigens - Final 05/13/22 12:15 Urine Catheterized Legionella Urinary Antigen - Final Laboratory Results WBC 8.2 10^3/uL (4.0-10.0) 05/15/22 10:13 Corrected WBC Cancelled 05/15/22 04:00 RBC 4.90 10^6/uL (4.1-5.3) 05/15/22 10:13 Hgb 13.8 g/dL (11.5-15.3) 05/15/22 10:13 Hct 42.3 % (37.0-47.0) 05/15/22 10:13 MCV 86.3 fl (81-99) 05/15/22 10:13 MCH 28.2 pg (28.0-34.0) 05/15/22 10:13 MCHC 32.6 g/dL (30.0-36.0) 05/15/22 10:13 RDW 13.1 % (12.1-15.1) 05/15/22 10:13 Plt Count 263 10^3/cmm (130-400) 05/15/22 10:13 MPV 10.2 fL (7.4-10.4) 05/15/22 10:13 Gran % Cancelled 05/15/22 04:00 Neut % (Auto) 75.0 % 05/15/22 10:13 Lymph % (Auto) 16.5 % 05/15/22 10:13 [place] % (Auto) 6.5 % 05/15/22 10:13 Eos % (Auto) 1.2 % 05/15/22 10:13 Baso % (Auto) 0.6 % 05/15/22 10:13 Neut # (Auto) 6.11 10^3/uL (1.8-7.7) 05/15/22 10:13 Lymph # (Auto) 1.4 10^3/uL (0.8-4.8) 05/15/22 10:13 [place] # (Auto) 0.5 10^3/uL (0.2-0.9) 05/15/22 10:13 Eos # (Auto) 0.1 10^3/uL (0.0-0.8) 05/15/22 10:13 Baso # (Auto) 0.1 10^3/uL (0.0-0.1) 05/15/22 10:13 Absolute Gran (auto) Cancelled 05/15/22 04:00 Nucleated RBC % (auto) 0 % 05/15/22 10:13 Nucleated RBCs # 0.0 /100WBC 05/15/22 10:13 D-Dimer 1.27 ug/mIFEU (0-0.59) H 05/12/22 18:34 Sodium 135 mmol/L (136-145) L 05/15/22 10:13 Potassium 4.2 mmol/L (3.5-5.1) 05/15/22 10:13 Chloride 98 mmol/L (98-107) 05/15/22 10:13 Carbon Dioxide 29 mmol/L (22-29) 05/15/22 10:13 Anion Gap 12.2 (5-19) 05/15/22 10:13 BUN 7 mg/dL (8-23) L 05/15/22 10:13 Creatinine 0.4 mg/dL (0.5-0.9) L 05/15/22 10:13 GFR Calculation 161.7 mL/min (90-130) H 05/15/22 10:13 Glucose 92 mg/dL (65-115) 05/15/22 10:13 POC Glucose 76 mg/dL (70-110) 05/15/22 06:38 Estimat Average Glucose 103 05/14/22 04:43 Hemoglobin A1c 5.2 % (4.0-6.0) 05/14/22 04:43 Calculated Osmolality 278 mOsm/kg (285-295) L 05/15/22 10:13 Lactic Acid 0.9 mmol/L (0.5-2.2) 05/12/22 18:34 Calcium 8.4 mg/dL (8.5-10.5) L 05/15/22 10:13 Magnesium 1.7 mg/dL (1.7-2.3) 05/13/22 04:44 Iron 23 ug/dL (37-145) L 05/13/22 04:44 TIBC 130 mcg/dl 05/13/22 04:44 % Saturation 17.6 % (20-50) L 05/13/22 04:44 Unsat Iron Binding 107 ug/dL (112-347) L 05/13/22 04:44 Total Bilirubin 0.3 mg/dL (0.15-1.2) 05/15/22 10:13 AST 6 U/L (0-32) 05/15/22 10:13 ALT 6 U/L (0-33) 05/15/22 10:13 Alkaline Phosphatase 110 IU/L (35-105) H 05/15/22 10:13 Troponin T Baseline 19 ng/L (0-10) H 05/12/22 18:34 Troponin T 120 Minute 17.49 ng/L (0-10) H 05/12/22 21:26 Delta Troponin T -1.51 ABS# (0-10) L 05/12/22 21:26 Troponin T Hi Sens 6Hr 18.74 ng/L (0-10) H 05/12/22 23:50 Troponin T Hi Sens 6Hr Delta -0.26 ng/L (0-12) L 05/12/22 23:50 NT-Pro-B Natriuret Pep 116 pg/mL (0-125) 05/12/22 18:34 Total Protein 5.5 g/dL (6.6-8.7) L 05/15/22 10:13 Albumin 2.8 g/dL (3.5-5.2) L 05/15/22 10:13 Globulin 2.7 g/dL (1.3-4.6) 05/15/22 10:13 Triglycerides 69 mg/dL (0-150) 05/14/22 04:43 Cholesterol 91 mg/dL (0-200) 05/14/22 04:43 LDL Cholesterol, Calc 48 mg/dL (50-129) L 05/14/22 04:43 Total VLDL Cholesterol 14 mg/dL (0-30) 05/14/22 04:43 HDL Cholesterol 29 mg/dL (60-100) L 05/14/22 04:43 Cholesterol/HDL Ratio 3.14 mg/dL (0.0-4.40) 05/14/22 04:43 Vitamin B12 225 pg/mL (232-1245) L 05/14/22 11:00 25-OH Vitamin D Total 5 ng/mL (30-100) L 05/14/22 11:00 Folate 2.3 ng/mL (4.8-37.3) L 05/14/22 11:00 Procalcitonin 0.09 ng/mL (0-0.5) 05/13/22 04:44 Procalcitonin Cancelled 05/13/22 04:44 TSH 2.94 uIU/mL (0.27-4.20) 05/13/22 04:44 Urine Color [place] (Yellow) 05/13/22 12:15 Urine Appearance Clear (CLEAR) 05/13/22 12:15 Urine pH 5 (5-7) 05/13/22 12:15 Ur Specific [place] 1.010 (1.005-1.030) 05/13/22 12:15 Urine Protein Neg (Negative) 05/13/22 12:15 Urine Glucose (UA) Norm (Normal) 05/13/22 12:15 Urine Ketones Negative (Negative) 05/13/22 12:15 Urine Blood Neg (Negative) 05/13/22 12:15 Urine Nitrate Negative (Negative) 05/13/22 12:15 Urine Bilirubin 1+ (Negative) H 05/13/22 12:15 Urine Urobilinogen 4 mg/dL (Negative) H 05/13/22 12:15 Ur Leukocyte Esterase Negative (Negative) 05/13/22 12:15 Nasal Influ A H1 2008 PCR Not detected (NOT DETECT) 05/12/22 19:15 Adenovirus (PCR) Not detected (NOT DETECT) 05/12/22 19:15 C. pneumoniae DNA (PCR) Not detected (NOT DETECT) 05/12/22 19:15 Coronavirus 229E (PCR) Not detected (NOT DETECT) 05/12/22 19:15 Human Metapneumovir PCR Not detected (NOT DETECT) 05/12/22 19:15 Influenza A (H1) PCR Not detected (NOT DETECT) 05/12/22 19:15 Influenza A (H3) PCR Not detected (NOT DETECT) 05/12/22 19:15 Influenza Type A (PCR) Not detected (NOT DETECT) 05/12/22 19:15 Influenza Type B (PCR) Not detected (NOT DETECT) 05/12/22 19:15 M. pneumoniae (PCR) Not detected (NOT DETECT) 05/12/22 19:15 Parainfluenza 1 (PCR) Not detected (NOT DETECT) 05/12/22 19:15 Parainfluenza 2 (PCR) Not detected (NOT DETECT) 05/12/22 19:15 Parainfluenza 3 (PCR) Not detected (NOT DETECT) 05/12/22 19:15 Parainfluenza 4 (PCR) Not detected (NOT DETECT) 05/12/22 19:15 RSV Type A (PCR) Not detected (NOT DETECT) 05/12/22 19:15 RSV Type B (PCR) Not detected (NOT DETECT) 05/12/22 19:15 Entero/Rhino (PCR) Not detected (NOT DETECT) 05/12/22 19:15 SARS-CoV-2 (PCR) Not detected (NOT DETECT) 05/12/22 19:15 Vitals Last Vital Signs Temp 98.6 F 05/15/22 00:00 Pulse 81 05/15/22 09:24 Resp 17 05/15/22 09:24 BP 116/73 05/15/22 07:47 Pulse Ox 93 05/15/22 09:24 Discharge Plan Discharge Patient Disposition: Home Condition: Stable Prescriptions: New famotidine 20 mg Tablet 20 mg PO BID Qty: 60 0RF cyanocobalamin (vitamin B-12) [Vitamin B-12] 1,000 mcg Tablet 500 mcg PO DAILY Qty: 30 0RF atorvastatin 10 mg tablet 10 mg PO DAILY Qty: 30 0RF levofloxacin 500 mg tablet 500 mg PO Q24H 7 Days Qty: 7 0RF ergocalciferol (vitamin D2) [Vitamin D2] 1,250 mcg (50,000 unit) Capsule 50,000 unit PO Q7D 42 Days Qty: 7 0RF amoxicillin-pot clavulanate [Augmentin] 500-125 mg tablet 1 tab PO BID Qty: 14 0RF Continued omega-3 fatty acids 1,000 mg capsule 2,000 mg PO BID 0RF nitroglycerin [Nitrostat] 0.4 mg tablet, sublingual 0.4 mg SUBLINGUAL Q5M PRN (Reason: Chest Pain) 0RF clopidogrel 75 mg tablet 75 mg PO DAILY 90 Days Qty: 90 3RF Discontinued amlodipine [Norvasc] 10 mg tablet 10 mg PO DAILY 0RF atorvastatin 40 mg tablet 40 mg PO DAILY 0RF Discharge Orders: Discharge Order (Routine); Ordered 05/15/22 Ordered By: Derick Urban Referrals: Karel Gamez MD [Primary Care Provider] - 4-7 days Discharge Diet: Usual diet Discharge Activity: Resume usual activity Patient Instructions: Opioid Safety Discharge Attestations Time Spent in Discharge Care*: greater than 30 min Specific Discharge Activities: educating patient, discussing with patient case coordinator/social workers/dc planners, documenting/other paperwork and evaluating patient/reviewing data Status at Discharge: Cognitive status at discharge: cognitively intact, Behavioral status at discharge: cooperative, Functional status at discharge: bed bound, Overall status at discharge: patient is back to baseline Quality Metrics Clinical Quality Measures [ No reported AMI, CVA or VTE this stay] Coding Level of Care Code Acute Chg FW DC note Diagnoses Pneumonia J18.9 Laterality: left Lung location: lower lobe of lung Pneumonia type: due to unspecified organism Decubital ulcer L89.90 Severe protein-energy malnutrition E43 Vitamin D deficiency disease E55.9 Vitamin B12 deficiency E53.8 Hyponatremia E87.1 Hypokalemia E87.6 Neglected elder T74.01XA History of stroke Z86.73 CAD (coronary artery disease) I25.10 HTN (hypertension) I10
--- NOTE | 2022-05-15 15:07 | PC.NURSE ---
Patient discharged home with EMS. patient's son at bedside to take patient's personal belongings such as her cell phone and solution advisor home with him. IV and britton removed prior to DC. Patient tolerated well. Discharge instructions and follow up information sent with patient.
[2022-05-17 13:53] LABS: Vit D 1,25 (Oh)2, Total 16 pg/mL (18-72); Vit D2 1,25 (Oh)2 <8 pg/mL; Vit D3 1,25 (Oh)2 16 pg/mL
== END 2022-05-15 15:09 | disposition home or self-care (01) | DRG 193 ==
LOC: ER 19:17 → MEDSURG 21:41
PROVIDERS: Emergency Medicine; Admitting Provider Internal Medicine; Emergency Provider Physician Assistant; PCP Family Medicine; Visit Provider Student in an Organized Health Care Education/Training Program
DX: J18.9 Pneumonia, unspecified organism (principal); E43 Unspecified severe protein-calorie malnutrition; E87.1 Hypo-osmolality and hyponatremia; T74.01XA Adult neglect or abandonment, confirmed, initial encounter; I69.354 Hemiplegia and hemiparesis following cerebral infarction affecting left non-dominant side; Z68.23 Body mass index [BMI] 23.0-23.9, adult; E55.9 Vitamin D deficiency, unspecified; E53.8 Deficiency of other specified B group vitamins; E87.6 Hypokalemia; I25.10 Atherosclerotic heart disease of native coronary artery without angina pectoris; I10 Essential (primary) hypertension; Z95.5 Presence of coronary angioplasty implant and graft; I73.9 Peripheral vascular disease, unspecified; Z79.02 Long term (current) use of antithrombotics/antiplatelets; Z79.82 Long term (current) use of aspirin; L89.329 Pressure ulcer of left buttock, unspecified stage
CPT/HCPCS: 36415; 36416; 51702; 70450; 71045; 71275; 72128; 72131; 80053; 80061; 81003; 82306; 82607; 82652; 82746; 82962; 83036; 83540; 83550; 83605; 83735; 83880; 84145; 84443; 84484; 85025; 85378; 86403; 87040; 87449; 87486; 87581; 87633; 87641; 92610; 93005; 93306; 94640; 94669; 96365; 96366; 96367; 96372; 96375; 97110; 97161; 97167; 97530; 99285; J0456; J0696; J1650; J2405; J2543; J3420; J3480; J7030; J7040; J7050; J7608; J7626; Q0144; Q9967

== ENCOUNTER 2022-06-05 17:49 | Observation (INO) | payer OTHER, SELFPAY ==
[2022-06-05] VITALS (8 sets, daily range): BP systolic 101–132; BP diastolic 60–82; PULSE 85–97; RESP 14–18; TEMP 36.6; O2SAT 91–99; BMI 18.0
--- NOTE | 2022-06-05 17:58 | XRR_ITS ---
PROCEDURE INFORMATION: Exam: XR Chest Exam date and time: 06/05/2022 6:35 PM Age: 61 years old Clinical indication: Dyspnea TECHNIQUE: Imaging protocol: Radiologic exam of the chest. Views: 1 view. COMPARISON: CR (CHEST, ) 05/12/2022 6:07 PM FINDINGS: Lungs: Emphysematous changes. Pleural spaces: Unremarkable. No pleural effusion. No pneumothorax. Heart/Mediastinum: Unremarkable. No cardiomegaly. Bones/joints: Unremarkable. XR/XR chest 1V portable [id number] IMPRESSION: 1. Negative for airspace infiltrate. 2. Emphysematous changes.
[2022-06-05 18:22] LABS: Basophils # 0.1 10^3/uL (0.0-0.1); Basophils % 0.5 %; Eosinophils # 0.1 10^3/uL (0.0-0.8); Hematocrit 46.2 % (37.0-47.0); Hemoglobin 15.6 g/dL (11.5-15.3); Lymphocytes # 2.6 10^3/uL (0.8-4.8); Lymphocytes % 18.1 %; Mean Corpuscular HGB Conc 33.8 g/dL (30.0-36.0); Mean Corpuscular Hemoglobin 28.1 pg (28.0-34.0); Mean Corpuscular Volume 83.1 fl (81-99); Mean Platelet Volume 10.4 fL (7.4-10.4); Monocytes # 1.1 10^3/uL (0.2-0.9); Monocytes % 7.5 %; Neutrophils # 10.53 10^3/uL (1.8-7.7); Neutrophils % 72.6 %; Nucleated Red Blood Cells % 0 %; Platelet Count 332 10^3/cmm (130-400); Red Blood Count 5.56 10^6/uL (4.1-5.3); Red Cell Distribution Width 13.3 % (12.1-15.1); White Blood Count 14.5 10^3/uL (4.0-10.0)
--- NOTE | 2022-06-05 18:22 | W.ED.GENADLT ---
HPI - General Adult General: Chief complaint: Chest Pain Stated complaint: [place]/ SOB Time Seen by Provider: 06/05/22 18:20 History of Present Illness: Ms. Ramirez is a 61 F with history of stroke, carotid artery stenosis, peripheral vascular disease, malnutrition and likely neglect who presents to the emergency department due to headache and shortness of breath. She reports 3 to 4-day onset of gradual worsening shortness of breath and cough. Cough is nonproductive. She has had increased wheezing. She notes frontal headache and associated generalized malaise. She denies GI symptoms. Overall course of symptoms has been worsening. Intensity is moderate. Patient also reports 1 week history of painful erythematous rash. She is unsure of the exact cause though per EMS report patient was found covered cockroaches. They plan to hotline family who is supposed to be her caregivers. No other specific changes in health, exacerbating, or alleviating factors identified. Onset (ago): day(s) Location: head and chest Severity: moderate Quality: aching and other Pain Consistency: constant Relieving factors: none Exacerbating factors: none Associated symptoms: Reports chest pain, cough and short of breath Review of Systems General: Reports: 10 or more systems reviewed and unremarkable except in HPI and below Card: Reports: chest pain PFS ED PFSH: Medical History Acute right arterial ischemic stroke, middle cerebral artery (MCA) CAD (coronary artery disease) Carotid artery stenosis History of stroke HTN (hypertension) Hyperlipidemia Peripheral Vascular Disease Pneumonia Severe protein-energy malnutrition Vitamin B12 deficiency Vitamin D deficiency disease Surgical History H/O section S/P arterial stent S/P carotid endarterectomy S/P coronary artery stent placement S/P PTCA (percutaneous transluminal coronary angioplasty) Family History Mother Myocardial infarction Grandmother No problems noted. Grandfather Stroke Hypertension Cancer Father Diabetes Hypertension Social History Smoking and tobacco status: former smoker Alcohol intake: never Lives independently: No Household members: spouse and children Marital status: Current occupational status: disabled Physical Exam Const: COMMON NORMALS: alert GENERAL APPEARANCE: cooperative and well developed HENMT: COMMON NORMALS: normocephalic and atraumatic HEAD & SCALP: normocephalic and atraumatic Eye: COMMON NORMALS: conjunctivae normal CONJUNCTIVA: Yes conjunctivae normal SCLERA: sclerae normal Neck/C-Spine: COMMON NORMALS: supple GENERAL: Yes trachea midline Resp: EFFORT & INSPECTION: Yes able to speak in complete sentences and Yes tachypneic AUSCULTATION: diminished lung sounds OTHER: Supplemental oxygen in place Cardio: COMMON NORMALS: regular rate and regular rhythm RATE: regular rate RHYTHM: regular rhythm GI: COMMON NORMALS: Soft to palpation PALPATION: Yes Soft to palpation and No Tenderness to palpation present (GI) Extremity: GENERAL: Yes normal exam except as noted and No edema Neuro: SENSORIUM/ORIENTATION: Yes alert and No Orientation impaired OTHER: Baseline stroke deficits Psych: COMMON NORMALS: mental status grossly normal and Normal thought process present THOUGHT PROCESS: Normal thought process present Skin: NARRATIVE SKIN EXAM: Diffuse rash with erythema, some areas of crusting though no discrete vesicles identified Course ED course: - Patient was seen and evaluated by me at bedside - Patient placed on cardiac monitors, IV access obtained - Initial evaluation notable for exam as above. Likely COPD/pneumonia symptoms. Skin findings are concerning for moisture related skin injuries with superimposed infection - Labs and xrays personally interpreted by me. EKG showing sinus rhythm with PACs, no STEMI -Analgesia, fluids, antibiotics given. RT treatment given. - Labs notable for leukocytosis and hemoconcentration. Metabolic panel with evidence of dehydration. Delta troponin negative. Urinalysis not concerning for urinary tract infection. - Imaging notable for evidence changes without lobar consolidation. Given patient's immobility and new oxygen requirement additional imaging felt to be wanted. No new finding on head CT. CTA without evidence of pulm embolism. Left lower lobe nodule discussed with patient. - Upon serial reexamination after treatment the patient was similar - Based on patient history, evaluation, and testing as interpreted the most likely cause of the patient's condition is multifactorial including cellulitis, neglect, dehydration, and COPD exacerbation - The results of ED evaluation were discussed with the patient including plan for admission due to requirement for level of care not available if discharged to prevent significant worsening/deterioration. - Admitting service was contacted and Dr Thompson with the hospitalist service agreed to admit the patient - Patient was admitted without further deterioration or significant events. Note: Click bubbles or prepopulated [place] in note writing are used for assistance with data collection and billing and are inherently more limited than narrative and other text portions of this note. Please use narrative for additional clinical history and defer to narrative/free test for any case of contradictory information. If information appears in only free text or click bubble it should be considered present or absent as reported. Please contact note race and sports book writer for clarifications of clinical information or contradictory information. MDM is a brief summary, contradictory or erroneous seeming information should be clarified and full note should be reviewed. Vital Signs: Vital signs: Vital Signs Temperature 97.7 F 06/09/22 15:07 Pulse Rate 83 06/09/22 15:07 Respiratory Rate 18 06/09/22 15:07 Blood Pressure 117/74 06/09/22 15:07 Pulse Oximetry 94 06/09/22 15:07 Oxygen Delivery Me thod 06/09/22 11:34 Oxygen Flow Rate 5 06/06/22 04:00 MDM - General Adult Medical Decision Making 61-year-old lady with past medical presenting with respiratory symptoms including new oxygen requirement. Additionally has significant areas of skin breakdown. Patient likely has COPD exacerbation, dehydration, cellulitis. Admitted for further management. Medical Records I reviewed the patient's medical records. Lab Data I reviewed the patient's lab results. : 06/08/22 06:10 06/09/22 04:59 Radiology Impressions Chest X-Ray 06/05/22 17:58 IMPRESSION: 1. Negative for airspace infiltrate. 2. Emphysematous changes. Head CT 06/05/22 18:29 IMPRESSION: 1. Negative for intracranial hemorrhage or mass effect. 2. Chronic right parietal lobe infarct. 3. Stable large amount of diffuse white matter disease likely reflecting chronic microvascular ischemic changes. Chest CTA 06/05/22 22:02 IMPRESSION: 1. Negative for pulmonary embolus. 2. Coronary artery atherosclerotic calcifications. 3. Emphysematous changes. 4. Left lower lobe 2.7 cm nodule. Highly suspicious nodule(s). Consider non-emergent PET/CT, or tissue sampling.(Reference: Maida) 5. Cholecystectomy. 6. Bilateral adrenal hypertrophy. 7. Gastric wall thickening may be related to nondistention, a gastritis is also a consideration depending on the clinical scenario. REFERENCES: Maida Durham, et al. Guidelines for Management of Incidental Pulmonary Nodules Detected on CT Images: From the Fleischner Society 2017. Radiology. 2017;284(1):228-243. Laboratory Results WBC 14.5 10^3/uL (4.0-10.0) H 06/05/22 17:40 RBC 5.56 10^6/uL (4.1-5.3) H 06/05/22 17:40 Hgb 15.6 g/dL (11.5-15.3) H 06/05/22 17:40 Hct 46.2 % (37.0-47.0) 06/05/22 17:40 MCV 83.1 fl (81-99) 06/05/22 17:40 MCH 28.1 pg (28.0-34.0) 06/05/22 17:40 MCHC 33.8 g/dL (30.0-36.0) 06/05/22 17:40 RDW 13.3 % (12.1-15.1) 06/05/22 17:40 Plt Count 332 10^3/cmm (130-400) 06/05/22 17:40 MPV 10.4 fL (7.4-10.4) 06/05/22 17:40 Neut % (Auto) 72.6 % 06/05/22 17:40 Lymph % (Auto) 18.1 % 06/05/22 17:40 [place] % (Auto) 7.5 % 06/05/22 17:40 Eos % (Auto) 1.0 % 06/05/22 17:40 Baso % (Auto) 0.5 % 06/05/22 17:40 Neut # (Auto) 10.53 10^3/uL (1.8-7.7) H 06/05/22 17:40 Lymph # (Auto) 2.6 10^3/uL (0.8-4.8) 06/05/22 17:40 [place] # (Auto) 1.1 10^3/uL (0.2-0.9) H 06/05/22 17:40 Eos # (Auto) 0.1 10^3/uL (0.0-0.8) 06/05/22 17:40 Baso # (Auto) 0.1 10^3/uL (0.0-0.1) 06/05/22 17:40 Nucleated RBC % (auto) 0 % 06/05/22 17:40 Nucleated RBCs # 0.0 /100WBC 06/05/22 17:40 Sodium 134 mmol/L (136-145) L 06/05/22 17:40 Potassium 3.5 mmol/L (3.5-5.1) 06/05/22 17:40 Chloride 92 mmol/L (98-107) L 06/05/22 17:40 Carbon Dioxide 31 mmol/L (22-29) H 06/05/22 17:40 Anion Gap 14.5 (5-19) 06/05/22 17:40 BUN 5 mg/dL (8-23) L 06/05/22 17:40 Creatinine 0.3 mg/dL (0.5-0.9) L 06/05/22 17:40 GFR Calculation 225.4 mL/min (90-130) H 06/05/22 17:40 Glucose 70 mg/dL (65-115) 06/05/22 17:40 Calculated Osmolality 274 mOsm/kg (285-295) L 06/05/22 17:40 Calcium 9.0 mg/dL (8.5-10.5) 06/05/22 17:40 Total Bilirubin 0.6 mg/dL (0.15-1.2) 06/05/22 17:40 Direct Bilirubin 0.20 mg/dL (0.00-0.30) 06/05/22 17:40 AST 8 U/L (0-32) 06/05/22 17:40 ALT 6 U/L (0-33) 06/05/22 17:40 Alkaline Phosphatase 157 IU/L (35-105) H 06/05/22 17:40 Troponin T Baseline 37 ng/L (0-10) H 06/05/22 17:40 Troponin T 120 Minute 32.87 ng/L (0-10) H 06/05/22 20:36 Delta Troponin T -4.13 ABS# (0-10) L 06/05/22 20:36 Total Protein 6.1 g/dL (6.6-8.7) L 06/05/22 17:40 Albumin 3.3 g/dL (3.5-5.2) L 06/05/22 17:40 Globulin 2.8 g/dL (1.3-4.6) 06/05/22 17:40 Urine Color Yellow (Yellow) 06/05/22 20:11 Urine Appearance Clear (CLEAR) 06/05/22 20:11 Urine pH 6.5 (5-7) 06/05/22 20:11 Ur Specific [place] 1.020 (1.005-1.030) 06/05/22 20:11 Urine Protein Neg (Negative) 06/05/22 20:11 Urine Glucose (UA) Norm (Normal) 06/05/22 20:11 Urine Ketones Negative (Negative) 06/05/22 20:11 Urine Blood Neg (Negative) 06/05/22 20:11 Urine Nitrate Negative (Negative) 06/05/22 20:11 Urine Bilirubin Neg (Negative) 06/05/22 20:11 Urine Urobilinogen Norm mg/dL (Negative) 06/05/22 20:11 Ur Leukocyte Esterase Negative (Negative) 06/05/22 20:11 Influenza Type A Ag Negative (Negative) 06/05/22 18:20 Influenza Type B Ag Negative (Negative) 06/05/22 18:20 SARS-CoV-2 Ag (Rapid) Negative (Negative) 06/05/22 18:20 Discharge Plan Discharge Patient Disposition: Placed in Observation Admit Provider: Jhon Thompson Clinical Impression: Acute exacerbation of chronic obstructive pulmonary disease, Dehydration, Rash Discharge Diet: Cardiac Discharge Activity: Increase activity as tolerated Coding Level of Care Code ED Chief Internal Auditor for Chg Fwd Exam Comprehensive
--- NOTE | 2022-06-05 18:29 | CTR_ITS ---
PROCEDURE INFORMATION: Exam: CT Head Without Contrast Exam date and time: 06/05/2022 6:45 PM Age: 61 years old Clinical indication: Pain; Headache not specified TECHNIQUE: Imaging protocol: Computed tomography of the head without contrast. Radiation optimization: All CT scans at this facility use at least one of these dose optimization techniques: automated exposure control; mA and/or kV adjustment per patient size (includes targeted exams where dose is matched to clinical indication); or iterative reconstruction. COMPARISON: CT head wo con* [id number] 05/12/2022 6:52 PM RADIATION DOSE METRICS: Total DLP (mGy-cm): 608.08 FINDINGS: Brain: Chronic right parietal lobe infarct. Stable large amount of diffuse white matter disease likely reflecting chronic microvascular ischemic changes. Cerebral ventricles: No ventriculomegaly. Paranasal sinuses: Visualized sinuses are unremarkable. No fluid levels. Mastoid air cells: Visualized mastoid air cells are well aerated. Bones/joints: Unremarkable. No acute fracture. Soft tissues: Unremarkable. CT/CT head wo con* [id number] IMPRESSION: 1. Negative for intracranial hemorrhage or mass effect. 2. Chronic right parietal lobe infarct. 3. Stable large amount of diffuse white matter disease likely reflecting chronic microvascular ischemic changes.
--- NOTE | 2022-06-05 18:29 | ECG_ITS ---
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 Measurements Intervals [place] Rate: 98 P: 70 MS: 202 QRS: 72 QRSD: 86 T: 116 QT: 302 QTc: 387 Interpretive Statements SINUS RHYTHM MODERATE T-WAVE ABNORMALITY, CONSIDER INFERIOR ISCHEMIA [-0.1+ mV T-WAVE IN II/aVF] Compared to ECG 05/13/2022 00:06:38 T-wave abnormality now present Possible ischemia now present Myocardial infarct finding no longer present Electronically Signed On 06-05-2022 23:20:57 CDT by Justyn Cooley M.D. [id number]
[2022-06-05 18:43] LABS: Anion Gap 14.5 (5-19); Blood Urea Nitrogen 5 mg/dL (8-23); Carbon Dioxide 31 mmol/L (22-29); Chloride 92 mmol/L (98-107); Glomerular Filtration Rate 225.4 mL/min (90-130); Glucose 70 mg/dL (65-115); Osmolality Calculated 274 mOsm/kg (285-295); Potassium 3.5 mmol/L (3.5-5.1); Sodium 134 mmol/L (136-145)
[2022-06-05 19:01] LABS: Troponin(5th) Baseline 37 ng/L (0-10)
[2022-06-05 19:02] LABS: Alanine Aminotransferase 6 U/L (0-33); Albumin Level 3.3 g/dL (3.5-5.2); Alkaline Phosphatase 157 IU/L (35-105); Aspartate Amino Transferase 8 U/L (0-32); Globulin 2.8 g/dL (1.3-4.6); Total Bilirubin 0.6 mg/dL (0.15-1.2); Total Protein 6.1 g/dL (6.6-8.7)
--- NOTE | 2022-06-05 19:09 | PC.NURSE ---
Per pt, pt has not been able to walk for 1 year due to CVA. Pt states she lives at home her son, daughter and . Pt states her is a otr company truck driver and is gone for long periods of time, leaving son and daughter as primary care givers.
[2022-06-05 19:11] LABS: Influenza A by IFA Negative (Negative); Influenza B by IFA Negative (Negative); SARS Covid-2 Antigen Negative (Negative)
[2022-06-05] MEDS: ketorolac 30 mg/mL INJ 15 MG IVP (19:14)
[2022-06-05] MEDS: sodium chloride 0.9% 1,000 ML 999 ML IV (19:14)
--- NOTE | 2022-06-05 19:40 | PC.PHAR ---
pt states she takes care of her own medications-pt states she doesnt take the vitamin d2 50,000 units q7d filled on 05/15/22 28d/s pt states that was a mistake and she doesnt take-pt states she is still taking amlodipine ext med history shows last filled 05/11/22 30d/s for 5mg daily pts discharge papers from 05/15/22 shows amlodipine 10mg as dced-notes are made in the pharmacy comment
[2022-06-05] MEDS: ipratropium-albuterol 3 mL Neb INHALATION (19:52)
[2022-06-05 20:20] LABS: Add Urine Microscopic? NO; Charge for UA Resulting for Rev
[2022-06-05 20:24] LABS: Bilirubin Urine Neg (Negative); Blood Urine Neg (Negative); Glucose Urine UA Norm (Normal); Ketones Urine Negative (Negative); Leukocyte Esterase Urine Negative (Negative); Nitrate Urine Negative (Negative); Protein Urine Neg (Negative); Urine Appearance Clear (CLEAR); Urine Color Yellow (Yellow); Urobilinogen Urine Norm (Negative); pH Urine 6.5 (5-7)
--- NOTE | 2022-06-05 20:29 | ECG_ITS ---
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 Measurements Intervals [place] Rate: 95 P: 87 [place]: 192 QRS: 56 QRSD: 80 T: 74 QT: 351 QTc: 441 Interpretive Statements SINUS RHYTHM WITH OCCASIONAL SUPRAVENTRICULAR PREMATURE COMPLEXES Compared to ECG 06/05/2022 19:52:03 T-wave abnormality no longer present Possible ischemia no longer present Electronically Signed On 06-05-2022 23:22:53 CDT by Justyn Cooley M.D. [email or web address].[email or web address]/store/[id number]
[2022-06-05 21:15] LABS: Troponin 5 2HR 32.87 ng/L (0-10)
[2022-06-05 21:19] LABS: Troponin 5 2HR Delta -4.13 ABS# (0-10)
[2022-06-05] MEDS: cefepime 2,000 MG in sodium chloride 0.9% (plus) 50 ML 100 MG IV (21:58)
--- NOTE | 2022-06-05 22:02 | CTR_ITS ---
PROCEDURE INFORMATION: Exam: CTA Chest With Contrast Exam date and time: 06/05/2022 10:58 PM Age: 61 years old Clinical indication: Shortness of breath; Prior surgery; Surgery date: 6+ months; Surgery type: C section, ptca, ; additional info: SOB, immobile, HX of prior stroke TECHNIQUE: Imaging protocol: Computed tomographic angiography of the chest with contrast. 3D rendering (Not supervised by radiologist): MIP and/or 3D reconstructed images were created by the technologist. Radiation optimization: All CT scans at this facility use at least one of these dose optimization techniques: automated exposure control; mA and/or kV adjustment per patient size (includes targeted exams where dose is matched to clinical indication); or iterative reconstruction. Contrast material: OMNIPAQUE 350; Contrast volume: 55 ml; Contrast route: INTRAVENOUS (IV); COMPARISON: CT angio chest PE protcl [id number] 05/12/2022 10:19 PM RADIATION DOSE METRICS: Total DLP (mGy-cm): 487.01 FINDINGS: Pulmonary arteries: Normal. No pulmonary emboli. Aorta: Unremarkable. No aortic aneurysm. No aortic dissection. Lungs: Emphysematous changes. Left lower lobe 2.7 cm nodule. Pleural spaces: Unremarkable. No pneumothorax. No pleural effusion. Heart: Coronary artery atherosclerotic calcifications. Lymph nodes: Unremarkable. No enlarged lymph nodes. Gallbladder and bile ducts: Cholecystectomy. Adrenal glands: Bilateral adrenal hypertrophy. Stomach and bowel: Gastric wall thickening may be related to nondistention, a gastritis is also a consideration depending on the clinical scenario. Bones/joints: Unremarkable. No acute fracture. Soft tissues: Unremarkable. CT/CT angio chest PE protcl [id number] IMPRESSION: 1. Negative for pulmonary embolus. 2. Coronary artery atherosclerotic calcifications. 3. Emphysematous changes. 4. Left lower lobe 2.7 cm nodule. Highly suspicious nodule(s). Consider non-emergent PET/CT, or tissue sampling.(Reference: Maida) 5. Cholecystectomy. 6. Bilateral adrenal hypertrophy. 7. Gastric wall thickening may be related to nondistention, a gastritis is also a consideration depending on the clinical scenario. REFERENCES: Maida Durham, et al. Guidelines for Management of Incidental Pulmonary Nodules Detected on CT Images: From the Fleischner Society 2017. Radiology. 2017;284(1):228-243.
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
[2022-06-05] MEDS: iohexol 350 mg/mL 100 mL Btl IV (23:02)
--- NOTE | 2022-06-05 23:41 | PC.PHAR ---
Vancomycin is dosed at 1250mg IVPB every 12 hours to produce a predicted trough level of 13.89 (population based pharmacokinetic analysis). A trough level has been ordered garrett the lab to be obtained before the fourth dose to confirm and adjust if needed.
[2022-06-06] VITALS (12 sets, daily range): BP systolic 110–132; BP diastolic 56–83; PULSE 54–90; RESP 12–17; TEMP 36.4–36.8; O2SAT 93–99
--- NOTE | 2022-06-06 00:29 | ECG_ITS ---
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 Measurements Intervals [place] Rate: 72 P: 89 [place]: 192 QRS: 79 QRSD: 83 T: 82 QT: 388 QTc: 427 Interpretive Statements SINUS RHYTHM Compared to ECG 06/05/2022 20:51:42 No significant changes Electronically Signed On 06-06-2022 21:19:21 CDT by Carroll Fulton M.D. [id number]
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
[2022-06-06] MEDS: heparin 5,000 unit/mL INJ 1 mL 5000 UNIT SUBCUT ×3 (01:50→21:27)
[2022-06-06] MEDS: vancomycin 1,250 MG/250 ML PIGGYBACK 250 MG IV ×3 (01:50→23:39)
[2022-06-06 02:27] LABS: Basophils % 0.1 %; Hematocrit 45.9 % (37.0-47.0); Hemoglobin 14.6 g/dL (11.5-15.3); Lymphocytes # 0.5 10^3/uL (0.8-4.8); Mean Corpuscular HGB Conc 31.8 g/dL (30.0-36.0); Mean Corpuscular Hemoglobin 28.1 pg (28.0-34.0); Mean Corpuscular Volume 88.4 fl (81-99); Mean Platelet Volume 10.4 fL (7.4-10.4); Monocytes % 0.4 %; Neutrophils # 7.64 10^3/uL (1.8-7.7); Neutrophils % 93.1 %; Nucleated Red Blood Cells % 0 %; Platelet Count 221 10^3/cmm (130-400); Red Blood Count 5.19 10^6/uL (4.1-5.3); Red Cell Distribution Width 13.4 % (12.1-15.1); White Blood Count 8.2 10^3/uL (4.0-10.0)
[2022-06-06 02:40] LABS: Lactate (Lactic Acid level) 1.8 mmol/L (0.5-2.2)
[2022-06-06 02:45] LABS: Troponin 5 6HR 23.47 ng/L (0-10)
[2022-06-06 02:46] LABS: Alanine Aminotransferase 6 U/L (0-33); Albumin Level 2.9 g/dL (3.5-5.2); Alkaline Phosphatase 150 IU/L (35-105); Aspartate Amino Transferase 6 U/L (0-32); Blood Urea Nitrogen 7 mg/dL (8-23); Calcium 8.6 mg/dL (8.5-10.5); Carbon Dioxide 30 mmol/L (22-29); Chloride 98 mmol/L (98-107); Globulin 2.6 g/dL (1.3-4.6); Glomerular Filtration Rate 225.4 mL/min (90-130); Glucose 197 mg/dL (65-115); Osmolality Calculated 289 mOsm/kg (285-295); Sodium 138 mmol/L (136-145); Total Bilirubin 0.3 mg/dL (0.15-1.2); Total Protein 5.5 g/dL (6.6-8.7); Troponin 5 6HR Delta -13.53 ng/L (0-12)
[2022-06-06 02:56] LABS: Anion Gap 13.7 (5-19); Potassium 3.7 mmol/L (3.5-5.1)
[2022-06-06] MEDS: ipratropium-albuterol 3 mL Neb INHALATION ×4 (04:41→21:45)
[2022-06-06] MEDS: clopidogrel 75 mg Tablet PO (04:56)
[2022-06-06] MEDS: atorvastatin 40 mg Tablet 10 MG PO (04:56)
--- NOTE | 2022-06-06 07:29 | PC.NURSE ---
Bedside report received from SHANTA Mcnamara.
[2022-06-06] MEDS: cefepime 2,000 MG in sodium chloride 0.9% (plus) 50 ML 100 MG IV ×2 (08:14→21:27)
[2022-06-06] MEDS: predniSONE 20 mg Tablet 40 MG PO (08:14)
--- NOTE | 2022-06-06 09:31 | PC.CHAP ---
Pastoral Care Encounter/Spiritual Assessment Type of Contact [] Declined terrapin fisher visit [] Patient/Family/Request visit [] Outpatient visit [] Follow-up visit [] Physician referral [] Code/Alert [] Routine visit [] Staff referral [] Actively dying [] Patient sleeping [] Family support [] [] Out of room [] Palliative care [] [] Receiving care in room [] Pre-surgical visit [] Trauma [] Long length of stay [] ICU visit [x] Other: Isolation Relational/Emotional Strength [] Patient feels connected with others/family/visitors/staff [] Distress [] Loneliness/isolation [] Abandonment Spirituality of Patient [] Person of Jelena [] Attends Denominational of their Jelena [] Believes in Prayer [] Reads Bible or Latter-Day materials [] There are Spiritual issues to be addressed Retail Manager Interventions [] Prayer [] Active listening [] Non-anxious presence [] Spiritual/emotional support [] Crisis/trauma care [] Spiritual counseling [] Bereavement support [] Provided bereavement packet [] Provided Bible/devotional materials [] Provided toy/stuffed animal, coloring book to patient or family member [] Provided Communion [] Anointing/[place] [] Salvation [] Completed spiritual assessment [] Other: Impact on Illness or Injury [] Angry [] Fearful [] Anxious [] Often cries [] Exhaustion [] Unable to work [] Unable to attend moravian [] Unable to walk/stand [] Unable to read [] Unable to drive [] Unable to eat/drink [] Unable to sleep [] Unable to be with family [] Patient intubated [] Other: Summary Isolation Time spent with patient 5 mins
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
[2022-06-06] MEDS: acetaminophen 325 mg Tablet 650 MG PO (21:30)
[2022-06-07] VITALS (7 sets, daily range): BP systolic 101–125; BP diastolic 59–74; PULSE 50–77; RESP 12–17; TEMP 36.4–36.9; O2SAT 94–99
[2022-06-07] MEDS: ipratropium-albuterol 3 mL Neb INHALATION ×2 (03:22→09:19)
[2022-06-07] MEDS: atorvastatin 40 mg Tablet 10 MG PO (05:01)
[2022-06-07] MEDS: clopidogrel 75 mg Tablet PO (05:01)
[2022-06-07 05:59] LABS: Basophils % 0.1 %; Eosinophils % 0.1 %; Hematocrit 41.1 % (37.0-47.0); Hemoglobin 13.5 g/dL (11.5-15.3); Lymphocytes # 2.5 10^3/uL (0.8-4.8); Lymphocytes % 17.4 %; Mean Corpuscular HGB Conc 32.8 g/dL (30.0-36.0); Mean Corpuscular Hemoglobin 27.7 pg (28.0-34.0); Mean Corpuscular Volume 84.4 fl (81-99); Mean Platelet Volume 10.5 fL (7.4-10.4); Monocytes % 6.9 %; Neutrophils # 10.69 10^3/uL (1.8-7.7); Nucleated Red Blood Cells % 0 %; Platelet Count 241 10^3/cmm (130-400); Red Blood Count 4.87 10^6/uL (4.1-5.3); Red Cell Distribution Width 13.4 % (12.1-15.1); White Blood Count 14.3 10^3/uL (4.0-10.0)
[2022-06-07 06:22] LABS: Alanine Aminotransferase 6 U/L (0-33); Albumin Level 3.1 g/dL (3.5-5.2); Alkaline Phosphatase 134 IU/L (35-105); Aspartate Amino Transferase 6 U/L (0-32); Blood Urea Nitrogen 10 mg/dL (8-23); Calcium 8.7 mg/dL (8.5-10.5); Carbon Dioxide 32 mmol/L (22-29); Chloride 99 mmol/L (98-107); Globulin 2.6 g/dL (1.3-4.6); Glomerular Filtration Rate 359.9 mL/min (90-130); Glucose 81 mg/dL (65-115); Osmolality Calculated 282 mOsm/kg (285-295); Sodium 137 mmol/L (136-145); Total Bilirubin 0.2 mg/dL (0.15-1.2); Total Protein 5.7 g/dL (6.6-8.7)
[2022-06-07 06:31] LABS: Anion Gap 9.4 (5-19); Potassium 3.4 mmol/L (3.5-5.1)
[2022-06-07] MEDS: predniSONE 20 mg Tablet 40 MG PO (08:45)
[2022-06-07] MEDS: cefepime 2,000 MG in sodium chloride 0.9% (plus) 50 ML 100 MG IV ×2 (08:45→21:26)
[2022-06-07] MEDS: acetaminophen 325 mg Tablet 650 MG PO (10:50)
[2022-06-07] MEDS: heparin 5,000 unit/mL INJ 1 mL 5000 UNIT SUBCUT ×2 (10:50→23:04)
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
[2022-06-07] MEDS: vancomycin 1,250 MG/250 ML PIGGYBACK 250 MG IV (12:52)
[2022-06-07] MEDS: potassium chloride ER 20 mEq Tablet 40 MEQ PO (12:52)
[2022-06-08] VITALS (9 sets, daily range): BP systolic 101–141; BP diastolic 53–76; PULSE 62–94; RESP 16–18; TEMP 36.4–36.8; O2SAT 90–94
[2022-06-08] MEDS: vancomycin 1,250 MG/250 ML PIGGYBACK 250 MG IV (01:29)
[2022-06-08 07:07] LABS: Basophils % 0.2 %; Eosinophils % 0.1 %; Hematocrit 43.9 % (37.0-47.0); Hemoglobin 14.3 g/dL (11.5-15.3); Lymphocytes # 2.5 10^3/uL (0.8-4.8); Lymphocytes % 24.3 %; Mean Corpuscular HGB Conc 32.6 g/dL (30.0-36.0); Mean Corpuscular Hemoglobin 28.4 pg (28.0-34.0); Mean Corpuscular Volume 87.3 fl (81-99); Mean Platelet Volume 10.8 fL (7.4-10.4); Monocytes # 0.8 10^3/uL (0.2-0.9); Monocytes % 8.1 %; Neutrophils # 6.85 10^3/uL (1.8-7.7); Nucleated Red Blood Cells % 0 %; Platelet Count 237 10^3/cmm (130-400); Red Blood Count 5.03 10^6/uL (4.1-5.3); Red Cell Distribution Width 13.6 % (12.1-15.1); White Blood Count 10.2 10^3/uL (4.0-10.0)
[2022-06-08 07:19] LABS: Alanine Aminotransferase 6 U/L (0-33); Alkaline Phosphatase 129 IU/L (35-105); Aspartate Amino Transferase 7 U/L (0-32); Blood Urea Nitrogen 13 mg/dL (8-23); Calcium 8.9 mg/dL (8.5-10.5); Carbon Dioxide 32 mmol/L (22-29); Chloride 102 mmol/L (98-107); Globulin 2.3 g/dL (1.3-4.6); Glomerular Filtration Rate 225.4 mL/min (90-130); Glucose 97 mg/dL (65-115); Osmolality Calculated 288 mOsm/kg (285-295); Sodium 139 mmol/L (136-145); Total Bilirubin 0.2 mg/dL (0.15-1.2); Total Protein 5.3 g/dL (6.6-8.7)
[2022-06-08] MEDS: clopidogrel 75 mg Tablet PO (07:24)
[2022-06-08] MEDS: atorvastatin 40 mg Tablet 10 MG PO (07:34)
[2022-06-08] MEDS: cefepime 2,000 MG in sodium chloride 0.9% (plus) 50 ML 100 MG IV ×2 (10:00→20:42)
[2022-06-08] MEDS: predniSONE 20 mg Tablet 40 MG PO (10:00)
[2022-06-08 12:18] LABS: Vancomycin Trough 22.4 ug/mL (10-15)
[2022-06-08] MEDS: heparin 5,000 unit/mL INJ 1 mL 5000 UNIT SUBCUT ×2 (12:40→23:03)
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
[2022-06-08] MEDS: ipratropium-albuterol 3 mL Neb INHALATION ×2 (15:48→20:04)
[2022-06-08] MEDS: vancomycin 1,000 MG in sodium chloride 0.9% 250 ML 250 MG IV (18:37)
[2022-06-09] VITALS (7 sets, daily range): BP systolic 117–147; BP diastolic 69–76; PULSE 61–83; RESP 16–18; TEMP 36.5–37.1; O2SAT 93–96
[2022-06-09] MEDS: ipratropium-albuterol 3 mL Neb INHALATION ×2 (03:05→07:59)
[2022-06-09] MEDS: atorvastatin 40 mg Tablet 10 MG PO (05:31)
[2022-06-09] MEDS: vancomycin 1,000 MG in sodium chloride 0.9% 250 ML 250 MG IV (05:32)
[2022-06-09] MEDS: clopidogrel 75 mg Tablet PO (05:32)
[2022-06-09 06:01] LABS: Anion Gap 8.8 (5-19); Blood Urea Nitrogen 16 mg/dL (8-23); Carbon Dioxide 30 mmol/L (22-29); Chloride 102 mmol/L (98-107); Glucose 84 mg/dL (65-115); Osmolality Calculated 284 mOsm/kg (285-295); Potassium 3.8 mmol/L (3.5-5.1); Sodium 137 mmol/L (136-145)
[2022-06-09] MEDS: predniSONE 20 mg Tablet 40 MG PO (08:37)
[2022-06-09] MEDS: cefepime 2,000 MG in sodium chloride 0.9% (plus) 50 ML 100 MG IV (08:37)
[2022-06-09] MEDS: heparin 5,000 unit/mL INJ 1 mL 5000 UNIT SUBCUT (11:19)
--- NOTE | 2022-06-09 11:23 | PM.DCS ---
Discharge Providers Date of Admission: 06/05/22 22:10 Date of Discharge: June 09, 2022 Attending Provider at Admission: Jhon Thompson Attending Provider at Discharge: Toshia Morales MD Primary Care Provider: Karel Gamez MD Diagnoses at Discharge Discharge Diagnosis (1) Dermatitis: Status: Acute (2) Cellulitis: Status: Acute (3) Acute exacerbation of chronic obstructive pulmonary disease: Status: Acute (4) Dehydration: Status: Acute (5) Rash: Status: Acute (6) Decubital ulcer: Status: Acute (7) Neglected elder: Status: Acute (8) Peripheral Vascular Disease: Status: Acute (9) Carotid artery stenosis: Status: Acute (10) Severe protein-energy malnutrition: Status: Acute (11) Vitamin D deficiency disease: Status: Acute (12) Vitamin B12 deficiency: Status: Acute Reason for Visit Reason for Visit: [place]/ SOB Brief History: Pleasant 61-year-old lady with history of CVA, limited mobility, recent hospitalization for possible pneumonia, with concerns of neglect/self-neglect, returns to the hospital due to fatigability, shortness of breath, dry cough, mild headache, several days ago had diarrhea but this has subsided, as well as rash and skin lesions on the left thigh.? She states that her family tried to reposition her in bed, but that she ends up still switching back to the left side as she mostly lays on her left side preferentially as it is her favorite side. She denies any chest pain or pressure. ER she was noted initially requiring low rate oxygen, subsequently weaned down to room air, but is saturating in the low 90s.? With noted leukocytosis 14.5, she is afebrile, but with sinus tachycardia in the low 90s. After initial treatment in ER with IV fluid bolus, breathing treatment, short of Solu-Medrol, dose of cefepime, and Toradol.? Headache is gone, but still feeling a bit short of breath.? Does not feel back to her usual baseline and does not feel ready to go home, she also concedes that her family has a difficult time managing things at home with her due to lack of experience, states that she had fallen down a day after last discharge and family had trouble figuring out how to get her back up, she had to direct them to lift her with a sheet.? She reports that she would like to pursue going to correction facility. Per report was found in poor living conditions with cockroaches on her by EMS. Hospital Course Hospital Course Patient was admitted for left hip/thigh area cellulitis and a COPD exacerbation. Leukocytosis noted on admission 14.5. She was afebrile. She was hotlined and Adult Protective Services were informed. She was in very poor living conditions covered with feces with cockroaches around her. She was brought into the hospital via EMS. During hospital stay she was given Vanco and cefepime for her cellulitis. CTA ruled out PE. She was treated for COPD exacerbation with prednisone 40 daily. She will complete 5 days total for that. Albuterol inhaler was set up for her. I am sending her home on Augmentin for another 7 days to cover for her cellulitis. Rash is still present but significantly improved Prior to admission. She is on room air doing well. Case management was involved in her case and look at different correction facilities. It was discussed with the patient that they would have to pay [id number] to which patient declined at this time. He stated she understood the risks and wanted to go home regardless. Case management discussed with her family and they said they will be able to purchase her medications. They requested for refills which she has been provided. Patient will go home today via ambulance. We will set up a ride for her. Augmentin was called into the pharmacy as a verbal order. Rest of her medications were sent to her pharmacy via electronic transmission. She is encouraged to follow-up with her primary care physician at discharge. Lastly there was evidence of a 2.7 cm suspicious pulmonary nodule seen on admission on CT scan. Patient was referred to pulmonology at discharge for further follow-up. I had a discussion with the patient and she demonstrates understanding and is well aware of her medical condition and states she lives in and would like to go home. She will be discharged home in stable condition at this time. Nursing staff did assist with obtaining prices of all her medications. All her medications will be between $10-$20 range. She stated she could afford to get them today. Copy of this discharge summary was sent to her primary care physician. Physical Exam Narrative: General: Alert oriented x3, patient seen laying in bed appearing comfortable right now, frail-appearing thin cooperative laying on her left side, appears older than stated age HEENT: Normocephalic, atraumatic, EOMI, breathing normally on room air Cardio: Regular rate rhythm, normal S1-S2, no murmurs Respiratory: Good bilateral air entry, no wheezes no rhonchi appreciated GI: Abdomen soft, nontender, nondistended, bowel sounds + Extremities: No lower extremity edema bilaterally, Left hip thigh rash almost resolved. Significantly better than admission Skin: Stage II decubitus ulcer present Discharge Data Studies Completed and Pending Completed Studies During Hospitalization Category Date Time Status CT head wo con* [id number] Stat Cat Scan 06/05/22 18:29 Completed CTA PE [CT angio chest PE protcl [id number]] Stat Cat Scan 06/05/22 22:02 Completed XR chest 1V portable [id number] Stat Exams 06/05/22 17:58 Completed Pending at discharge Category Date Time Status Blood Culture Stat Lab 06/05/22 22:37 Results Vancomycin Trough Timed Lab 06/09/22 17:00 Ordered Radiology Impressions Chest X-Ray 06/05/22 17:58 IMPRESSION: 1. Negative for airspace infiltrate. 2. Emphysematous changes. Head CT 06/05/22 18:29 IMPRESSION: 1. Negative for intracranial hemorrhage or mass effect. 2. Chronic right parietal lobe infarct. 3. Stable large amount of diffuse white matter disease likely reflecting chronic microvascular ischemic changes. Chest CTA 06/05/22 22:02 IMPRESSION: 1. Negative for pulmonary embolus. 2. Coronary artery atherosclerotic calcifications. 3. Emphysematous changes. 4. Left lower lobe 2.7 cm nodule. Highly suspicious nodule(s). Consider non-emergent PET/CT, or tissue sampling.(Reference: Maida) 5. Cholecystectomy. 6. Bilateral adrenal hypertrophy. 7. Gastric wall thickening may be related to nondistention, a gastritis is also a consideration depending on the clinical scenario. REFERENCES: Maida Durham, et al. Guidelines for Management of Incidental Pulmonary Nodules Detected on CT Images: From the Fleischner Society 2017. Radiology. 2017;284(1):228-243. Laboratory Results WBC 10.2 10^3/uL (4.0-10.0) H 06/08/22 06:10 RBC 5.03 10^6/uL (4.1-5.3) 06/08/22 06:10 Hgb 14.3 g/dL (11.5-15.3) 06/08/22 06:10 Hct 43.9 % (37.0-47.0) 06/08/22 06:10 MCV 87.3 fl (81-99) 06/08/22 06:10 MCH 28.4 pg (28.0-34.0) 06/08/22 06:10 MCHC 32.6 g/dL (30.0-36.0) 06/08/22 06:10 RDW 13.6 % (12.1-15.1) 06/08/22 06:10 Plt Count 237 10^3/cmm (130-400) 06/08/22 06:10 MPV 10.8 fL (7.4-10.4) H 06/08/22 06:10 Neut % (Auto) 67.0 % 06/08/22 06:10 Lymph % (Auto) 24.3 % 06/08/22 06:10 [place] % (Auto) 8.1 % 06/08/22 06:10 Eos % (Auto) 0.1 % 06/08/22 06:10 Baso % (Auto) 0.2 % 06/08/22 06:10 Neut # (Auto) 6.85 10^3/uL (1.8-7.7) 06/08/22 06:10 Lymph # (Auto) 2.5 10^3/uL (0.8-4.8) 06/08/22 06:10 [place] # (Auto) 0.8 10^3/uL (0.2-0.9) 06/08/22 06:10 Eos # (Auto) 0.0 10^3/uL (0.0-0.8) 06/08/22 06:10 Baso # (Auto) 0.0 10^3/uL (0.0-0.1) 06/08/22 06:10 Nucleated RBC % (auto) 0 % 06/08/22 06:10 Nucleated RBCs # 0.0 /100WBC 06/08/22 06:10 Sodium 137 mmol/L (136-145) 06/09/22 04:59 Potassium 3.8 mmol/L (3.5-5.1) 06/09/22 04:59 Chloride 102 mmol/L (98-107) 06/09/22 04:59 Carbon Dioxide 30 mmol/L (22-29) H 06/09/22 04:59 Anion Gap 8.8 (5-19) 06/09/22 04:59 BUN 16 mg/dL (8-23) 06/09/22 04:59 Creatinine 0.5 mg/dL (0.5-0.9) 06/09/22 04:59 GFR Calculation 125.0 mL/min (90-130) 06/09/22 04:59 Glucose 84 mg/dL (65-115) 06/09/22 04:59 Calculated Osmolality 284 mOsm/kg (285-295) L 06/09/22 04:59 Lactate 1.8 mmol/L (0.5-2.2) 06/06/22 02:18 Calcium 9.0 mg/dL (8.5-10.5) 06/09/22 04:59 Total Bilirubin 0.2 mg/dL (0.15-1.2) 06/08/22 06:10 Direct Bilirubin 0.20 mg/dL (0.00-0.30) 06/05/22 17:40 AST 7 U/L (0-32) 06/08/22 06:10 ALT 6 U/L (0-33) 06/08/22 06:10 Alkaline Phosphatase 129 IU/L (35-105) H 06/08/22 06:10 Troponin T Baseline 37 ng/L (0-10) H 06/05/22 17:40 Troponin T 120 Minute 32.87 ng/L (0-10) H 06/05/22 20:36 Delta Troponin T -4.13 ABS# (0-10) L 06/05/22 20:36 Troponin T Hi Sens 6Hr 23.47 ng/L (0-10) H 06/06/22 02:18 Troponin T Hi Sens 6Hr Delta -13.53 ng/L (0-12) L 06/06/22 02:18 Total Protein 5.3 g/dL (6.6-8.7) L 06/08/22 06:10 Albumin 3.0 g/dL (3.5-5.2) L 06/08/22 06:10 Globulin 2.3 g/dL (1.3-4.6) 06/08/22 06:10 Urine Color Yellow (Yellow) 06/05/22 20:11 Urine Appearance Clear (CLEAR) 06/05/22 20:11 Urine pH 6.5 (5-7) 06/05/22 20:11 Ur Specific [place] 1.020 (1.005-1.030) 06/05/22 20:11 Urine Protein Neg (Negative) 06/05/22 20:11 Urine Glucose (UA) Norm (Normal) 06/05/22 20:11 Urine Ketones Negative (Negative) 06/05/22 20:11 Urine Blood Neg (Negative) 06/05/22 20:11 Urine Nitrate Negative (Negative) 06/05/22 20:11 Urine Bilirubin Neg (Negative) 06/05/22 20:11 Urine Urobilinogen Norm mg/dL (Negative) 06/05/22 20:11 Ur Leukocyte Esterase Negative (Negative) 06/05/22 20:11 Vancomycin Trough 22.4 ug/mL (10-15) H 06/08/22 11:17 Influenza Type A Ag Negative (Negative) 06/05/22 18:20 Influenza Type B Ag Negative (Negative) 06/05/22 18:20 SARS-CoV-2 Ag (Rapid) Negative (Negative) 06/05/22 18:20 Vitals Last Vital Signs Temp 98.2 F 06/09/22 08:00 Pulse 71 06/09/22 08:00 Resp 18 06/09/22 08:00 BP 136/76 06/09/22 08:00 Pulse Ox 96 06/09/22 08:00 Discharge Plan Discharge Patient Disposition: Home Condition: Stable Prescriptions: New prednisone 20 mg tablet 40 mg PO DAILY 1 Days Qty: 2 0RF Continued Vitamin B-12 1,000 mcg Tablet 500 mcg PO DAILY Qty: 30 0RF Nitrostat 0.4 mg tablet, sublingual 0.4 mg SUBLINGUAL Q5M PRN (Reason: Chest Pain) Qty: 5 0RF Changed omega-3 fatty acids 1,000 mg capsule 1,000 mg PO DAILY Qty: 30 0RF atorvastatin 10 mg tablet 10 mg PO QAM 30 Days Qty: 30 0RF clopidogrel 75 mg tablet 75 mg PO QAM Qty: 30 0RF famotidine 20 mg tablet 20 mg PO DAILY PRN (Reason: Heartburn) Qty: 30 0RF Discontinued amlodipine 5 mg tablet 5 mg PO QAM 0RF Discharge Orders: Discharge Order (Routine); Ordered 06/09/22 Ordered By: Toshia Morales Referrals: Ethan Rubin MD [Physician] - 2 weeks (Please call Dr. Rubin's Office at [phone] on Friday to schedule an appointment for 2 weeks. Tell them this: 2.7 CM pulmonary nodule suspicious for malignancy, when scheduling. Thank you.) Karel Gamez MD [Primary Care Provider] - 4-7 days (Please call Dr. Gamez's Office at [phone] on Friday to schedule a follow up appointment for 4-7 days. Thank you.) Discharge Diet: Cardiac Discharge Activity: Increase activity as tolerated Patient Instructions: Cellulitis, Prednisone (By mouth) (predniSONE Intensol, Prednicot, Deltasone, Tom), How to Prevent Pressure Injuries (DC), COPD (Chronic Obstructive Pulmonary Disease) (DC), Opioid Safety, Decubitus Ulcers Activity Restrictions/Additional Instructions: Please return to ER if worsening symptoms or new symptoms develop. If your rash worsens, you get shortness of breath, chest pain, dizziness, lightheadedness, difficulty swallowing, please call your primary care or return to ER. Ensure that you complete your prescribed antibiotic. Augmentin 875 twice a day x7 days was called in via phone to your pharmacy today. Rest of refills have been sent to pharmacy electronically. Discharge Attestations Time Spent in Discharge Care*: greater than 30 min Status at Discharge: Cognitive status at discharge: cognitively intact, Behavioral status at discharge: cooperative, Quality Metrics Clinical Quality Measures [ No reported AMI, CVA or VTE this stay] Coding Level of Care Code Acute Chg FW DC note Diagnoses Dermatitis L30.9 Cellulitis L03.90 Acute exacerbation of chronic obstructive pulmonary disease J44.1 Dehydration E86.0 Rash R21 Decubital ulcer L89.90 Neglected elder T74.01XA Peripheral Vascular Disease I73.9 Carotid artery stenosis I65.29 Severe protein-energy malnutrition E43 Vitamin D deficiency disease E55.9 Vitamin B12 deficiency E53.8
== END 2022-06-09 14:30 | disposition home or self-care (01) ==
LOC: ER 22:09 → MEDSURG 22:59
PROVIDERS: Emergency Medicine; Admitting Provider Internal Medicine; Emergency Provider Emergency Medicine; PCP Family Medicine; Visit Provider Internal Medicine
DX: J44.1 Chronic obstructive pulmonary disease with (acute) exacerbation (principal); L30.9 Dermatitis, unspecified; L03.90 Cellulitis, unspecified; E86.0 Dehydration; R21 Rash and other nonspecific skin eruption; L89.90 Pressure ulcer of unspecified site, unspecified stage; T74.01XA Adult neglect or abandonment, confirmed, initial encounter; I73.9 Peripheral vascular disease, unspecified; I65.29 Occlusion and stenosis of unspecified carotid artery; E43 Unspecified severe protein-calorie malnutrition; E55.9 Vitamin D deficiency, unspecified; E53.8 Deficiency of other specified B group vitamins
CPT/HCPCS: 36415; 70450; 71045; 71275; 80048; 80053; 80076; 80202; 81003; 83605; 84484; 85025; 87040; 87426; 87804; 93005; 94640; 96365; 96366; 96367; 96372; 96375; 97110; 97162; 97167; 97530; 99285; G0378; J0692; J1644; J1885; J2930; J3370; J3535; J7030; J7050; J7512; Q9967

== ENCOUNTER 2022-06-10 06:50 | Emergency (ER) | payer OTHER, SELFPAY ==
--- NOTE | 2022-06-10 07:00 | XR_ITS ---
WS: [id number] PORTABLE CHEST HISTORY: dyspnea/cough COMPARISON: 06/05/2022 Patient is rotated and tilted to the LEFT during this examination. Hyperinflated lungs. Lucencies suggesting chronic emphysema. Tiny lucency towards the apex on one of the images is thought to be a mach line and not a pneumothorax. No pneumonia. Normal vasculature. No pleural effusion or pneumothorax. Cardiac size: Normal. Mediastinum/Aorta: Mild atherosclerosis aorta. No osseous abnormality seen. XR/XR chest 1V portable [id number] IMPRESSION: 1. Study is limited by patient's inability to remain still and rotation to the LEFT. 2. Chronic emphysema. No pneumonia. 3. Normal vasculature.
[2022-06-10 07:02] VITALS: BP 171/103; PULSE 90; RESP 26; O2SAT 94; BMI 18.0
[2022-06-10 07:10] VITALS: BP 171/103; PULSE 91; RESP 26; O2SAT 95
[2022-06-10 07:17] VITALS: PULSE 79; RESP 18; O2SAT 95
[2022-06-10] MEDS: ipratropium-albuterol 3 mL Neb INHALATION (07:19)
[2022-06-10 07:20] VITALS: PULSE 77
--- NOTE | 2022-06-10 07:20 | ED_ITS ---
HPI - SOB/Dyspnea General: Chief Complaint: Shortness of Breath/Dyspnea Stated Complaint: SOB Time Seen by Provider: 06/10/22 07:00 Source: patient Mode of arrival: EMS Limitations: no limitations History of Present Illness: HPI Narrative: 59-year-old female presents emergency complaining shortness of breath. She has a history of COPD was discharged yesterday from the hospital. She was discharged home with steroids and antibiotics. She has not yet picked up antibiotics did receive steroids while she was in the hospital. She not having any chest pain or abdominal pain. She reports shortness of breath however sats are normal she is not have any labored breathing pursed lip breathing or audible wheezes. She does have a noticeable rash which according to her discharge summary was present yesterday at the time of discharge and had improved during hospitalization. MD elicited complaint: shortness of breath Pertinent past history: COPD Timing: constant Severity: mild Exacerbating factors: nothing Relieving factors: nothing Known history of: COPD Associated symptoms: Deny abdominal pain, chest congestion, chest pain, cough, diaphoresis, dizziness, extremity pain, fever(s), hemoptysis, lightheadedness, myalgias, nausea, orthopnea, palpitations, paresthesias, polydipsia, polyuria, rash, syncope or vomiting Review of Systems Const: Denies: fever(s) or diaphoresis ENMT: Denies: throat pain, ear or mastoid pain, nasal discharge or nasal congestion Card: Denies: chest pain, palpitations, lightheadedness, syncope or orthopnea Resp: Reports: dyspnea; Denies: productive cough, non-productive cough, wheezing, hemoptysis or chest congestion GI: Denies: abdominal pain, nausea or vomiting : Denies: flank pain, difficulty voiding, dysuria, urinary frequency or urinary urgency Musc: Denies: neck pain, back pain or extremity pain Skin/Breast: Denies: rash or pruritus Neuro: Denies: dizziness Endo: Denies: polyuria or polydipsia PFSH ED PFSH: Medical History Acute right arterial ischemic stroke, middle cerebral artery (MCA) CAD (coronary artery disease) Carotid artery stenosis History of stroke HTN (hypertension) Hyperlipidemia Peripheral Vascular Disease Pneumonia Severe protein-energy malnutrition Vitamin B12 deficiency Vitamin D deficiency disease Surgical History H/O section S/P arterial stent S/P carotid endarterectomy S/P coronary artery stent placement S/P PTCA (percutaneous transluminal coronary angioplasty) Family History Mother Myocardial infarction Grandmother No problems noted. Grandfather Stroke Hypertension Cancer Father Diabetes Hypertension Social History Smoking and tobacco status: former smoker Alcohol intake: never Lives independently: No Household members: spouse and children Marital status: Current occupational status: disabled Physical Exam Const: COMMON NORMALS: no acute distress GENERAL APPEARANCE: cooperative and comfortable ORIENTATION/CONSCIOUSNESS: Yes awake, Yes oriented to person, Yes oriented to place and Yes oriented to time HENMT: COMMON NORMALS: normocephalic, atraumatic and hearing grossly normal bilaterally HEAD & SCALP: normocephalic and atraumatic Neck/C-Spine: COMMON NORMALS: no JVD Resp: COMMON NORMALS: normal respiratory effort, No retractions, No use of accessory muscles and clear to auscultation bilaterally AUSCULTATION: clear to auscultation bilaterally Cardio: COMMON NORMALS: no JVD, regular rate, regular rhythm and No murmurs present (Cardio) RATE: regular rate RHYTHM: regular rhythm GI: COMMON NORMALS: Soft to palpation and No hepatosplenomegaly present AUSCULTATION: Yes normoactive bowel sounds PALPATION: Yes Soft to palpation, No Tenderness to palpation present (GI), No Guarding due to palpation present (GI) and Yes No hepatosplenomegaly present Extremity: COMMON NORMALS: normal to inspection, capillary refill normal, no clubbing, cyanosis or edema, no calf tenderness and no pedal edema Neuro: SENSORIUM/ORIENTATION: Yes oriented to person, Yes oriented to place and Yes oriented to time Course Vital Signs: Vital signs: Vital Signs Pulse Rate 63 06/10/22 07:30 Respiratory Rate 17 06/10/22 07:30 Blood Pressure 99/84 06/10/22 07:30 Pulse Oximetry 95 06/10/22 07:17 MDM - SOB/Dyspnea Medical Decision Making No emergent findings on exam chest x-ray is unremarkable patient states she does feel better with the nebulizer sats are good discharge home with same medications she was discharged yesterday she has some fluctuation of her blood pressure at the time of discharge her blood pressure was stable and neck it was more of a mechanical issue with a automated cuff and positioning of the cuff. Follow-up as scheduled for her follow-up posthospitalization. Medical Records I reviewed the patient's medical records. Lab Data I reviewed the patient's lab results. : 06/10/22 07:06 06/10/22 07:06 Labs/Radiology: Radiology Impressions Chest X-Ray 06/10/22 07:00 IMPRESSION: 1. Study is limited by patient's inability to remain still and rotation to the LEFT. 2. Chronic emphysema. No pneumonia. 3. Normal vasculature. Laboratory Results WBC 15.1 10^3/uL (4.0-10.0) H 06/10/22 07:06 RBC 5.22 10^6/uL (4.1-5.3) 06/10/22 07:06 Hgb 14.6 g/dL (11.5-15.3) 06/10/22 07:06 Hct 44.8 % (37.0-47.0) 06/10/22 07:06 MCV 85.8 fl (81-99) 06/10/22 07:06 MCH 28.0 pg (28.0-34.0) 06/10/22 07:06 MCHC 32.6 g/dL (30.0-36.0) 06/10/22 07:06 RDW 13.6 % (12.1-15.1) 06/10/22 07:06 Plt Count 255 10^3/cmm (130-400) 06/10/22 07:06 MPV 10.5 fL (7.4-10.4) H 06/10/22 07:06 Neut % (Auto) 72.8 % 06/10/22 07:06 Lymph % (Auto) 20.6 % 06/10/22 07:06 [place] % (Auto) 6.0 % 06/10/22 07:06 Eos % (Auto) 0.1 % 06/10/22 07:06 Baso % (Auto) 0.1 % 06/10/22 07:06 Neut # (Auto) 10.98 10^3/uL (1.8-7.7) H 06/10/22 07:06 Lymph # (Auto) 3.1 10^3/uL (0.8-4.8) 06/10/22 07:06 [place] # (Auto) 0.9 10^3/uL (0.2-0.9) 06/10/22 07:06 Eos # (Auto) 0.0 10^3/uL (0.0-0.8) 06/10/22 07:06 Baso # (Auto) 0.0 10^3/uL (0.0-0.1) 06/10/22 07:06 Nucleated RBC % (auto) 0 % 06/10/22 07:06 Nucleated RBCs # 0.0 /100WBC 06/10/22 07:06 Sodium 135 mmol/L (136-145) L 06/10/22 07:06 Potassium 3.8 mmol/L (3.5-5.1) 06/10/22 07:06 Chloride 97 mmol/L (98-107) L 06/10/22 07:06 Carbon Dioxide 31 mmol/L (22-29) H 06/10/22 07:06 Anion Gap 10.8 (5-19) 06/10/22 07:06 BUN 16 mg/dL (8-23) 06/10/22 07:06 Creatinine 0.2 mg/dL (0.5-0.9) L 06/10/22 07:06 GFR Calculation 359.9 mL/min (90-130) H 06/10/22 07:06 Glucose 87 mg/dL (65-115) 06/10/22 07:06 Calculated Osmolality 281 mOsm/kg (285-295) L 06/10/22 07:06 Calcium 9.3 mg/dL (8.5-10.5) 06/10/22 07:06 Discharge Plan Discharge Patient Disposition: Home Clinical Impression: COPD (chronic obstructive pulmonary disease) Condition: Stable Prescriptions: No Action omega-3 fatty acids 1,000 mg capsule 1,000 mg PO DAILY Qty: 30 0RF atorvastatin 10 mg tablet 10 mg PO QAM 30 Days Qty: 30 0RF Vitamin B-12 1,000 mcg Tablet 500 mcg PO DAILY Qty: 30 0RF clopidogrel 75 mg tablet 75 mg PO QAM Qty: 30 0RF famotidine 20 mg tablet 20 mg PO DAILY PRN (Reason: Heartburn) Qty: 30 0RF Nitrostat 0.4 mg tablet, sublingual 0.4 mg SUBLINGUAL Q5M PRN (Reason: Chest Pain) Qty: 5 0RF Discharge Orders: Discharge ED (Routine); Ordered 06/10/22 Ordered By: Skip Partida Referrals: Karel Gamez MD [Primary Care Provider] - Discharge Diet: Usual diet Discharge Activity: Increase activity as tolerated Activity Restrictions/Additional Instructions: Continue medications you are prescribed when discharged home from the hospital yesterday. Follow-up with your primary care doctor within the week. Coding Level of Care Code ED Cable Television Installer for Chg Fwd Exam Detailed
[2022-06-10 07:22] LABS: Basophils % 0.1 %; Eosinophils % 0.1 %; Hematocrit 44.8 % (37.0-47.0); Hemoglobin 14.6 g/dL (11.5-15.3); Lymphocytes # 3.1 10^3/uL (0.8-4.8); Lymphocytes % 20.6 %; Mean Corpuscular HGB Conc 32.6 g/dL (30.0-36.0); Mean Corpuscular Volume 85.8 fl (81-99); Mean Platelet Volume 10.5 fL (7.4-10.4); Monocytes # 0.9 10^3/uL (0.2-0.9); Neutrophils # 10.98 10^3/uL (1.8-7.7); Neutrophils % 72.8 %; Nucleated Red Blood Cells % 0 %; Platelet Count 255 10^3/cmm (130-400); Red Blood Count 5.22 10^6/uL (4.1-5.3); Red Cell Distribution Width 13.6 % (12.1-15.1); White Blood Count 15.1 10^3/uL (4.0-10.0)
[2022-06-10 07:30] VITALS: BP 99/84; PULSE 63; RESP 17
[2022-06-10 07:46] LABS: Anion Gap 10.8 (5-19); Blood Urea Nitrogen 16 mg/dL (8-23); Calcium 9.3 mg/dL (8.5-10.5); Carbon Dioxide 31 mmol/L (22-29); Chloride 97 mmol/L (98-107); Glomerular Filtration Rate 359.9 mL/min (90-130); Glucose 87 mg/dL (65-115); Osmolality Calculated 281 mOsm/kg (285-295); Potassium 3.8 mmol/L (3.5-5.1); Sodium 135 mmol/L (136-145)
--- NOTE | 2022-06-10 07:52 | ECG_ITS ---
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 Measurements Intervals [place] Rate: 77 P: 87 MS: 164 QRS: 57 QRSD: 100 T: 48 QT: 373 QTc: 423 Interpretive Statements SINUS RHYTHM WITH OCCASIONAL SUPRAVENTRICULAR PREMATURE COMPLEXES INTERPRETATION BASED ON A DEFAULT AGE OF 40 YEARS Compared to ECG 06/06/2022 03:54:31 No significant changes Electronically Signed On 06-10-2022 20:49:16 CDT by Carroll Fulton M.D. [email or web address]
== END 2022-06-10 08:53 | disposition home or self-care (01) ==
PROVIDERS: Emergency Provider Family Medicine; PCP Family Medicine
DX: J44.9 Chronic obstructive pulmonary disease, unspecified (principal); Z79.02 Long term (current) use of antithrombotics/antiplatelets; I25.10 Atherosclerotic heart disease of native coronary artery without angina pectoris; Z86.73 Personal history of transient ischemic attack (TIA), and cerebral infarction without residual deficits; I10 Essential (primary) hypertension; E78.5 Hyperlipidemia, unspecified; Z87.891 Personal history of nicotine dependence
CPT/HCPCS: 71045; 80048; 85025; 93005; 94640; 99285

== ENCOUNTER 2022-08-22 19:13 | Inpatient (IN) | payer OTHER, SELFPAY ==
[2022-08-22 19:13] VITALS: BP 150/83; PULSE 100; RESP 16; TEMP 37.1; O2SAT 94; BMI 18.0
--- NOTE | 2022-08-22 19:20 | ECG_ITS ---
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 Measurements Intervals [place] Rate: 96 P: 83 IA: 148 QRS: 87 QRSD: 89 T: 70 QT: 350 QTc: 444 Interpretive Statements SINUS RHYTHM Compared to ECG 06/10/2022 08:01:07 No significant changes Electronically Signed On 08-23-2022 7:15:38 CDT by Ana Rosa Tejeda M.D. [id number]
--- NOTE | 2022-08-22 19:20 | XRR_ITS ---
PROCEDURE INFORMATION: Exam: XR Chest Exam date and time: 08/22/2022 7:52 PM Age: 61 years old Clinical indication: Chest pressure and chest wall pain; Additional info: Chest pain TECHNIQUE: Imaging protocol: Radiologic exam of the chest. Views: 1 view. COMPARISON: CR XR chest 1V portable [id number] 06/10/2022 7:10 AM FINDINGS: Lungs: Emphysematous changes. No consolidation. Pleural spaces: Unremarkable. No pleural effusion. No pneumothorax. Heart/Mediastinum: Unremarkable. No cardiomegaly. Bones/joints: Unremarkable. XR/XR chest 1V portable [id number] IMPRESSION: 1. No acute findings. 2. Emphysematous changes.
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
[2022-08-22 19:46] LABS: Basophils # 0.1 10^3/uL (0.0-0.1); Basophils % 0.3 %; Eosinophils # 0.1 10^3/uL (0.0-0.8); Eosinophils % 0.7 %; Hematocrit 45.9 % (37.0-47.0); Lymphocytes # 2.4 10^3/uL (0.8-4.8); Lymphocytes % 14.9 %; Mean Corpuscular HGB Conc 30.5 g/dL (30.0-36.0); Mean Corpuscular Hemoglobin 26.8 pg (28.0-34.0); Mean Corpuscular Volume 87.9 fl (81-99); Mean Platelet Volume 10.8 fL (7.4-10.4); Neutrophils % 77.8 %; Nucleated Red Blood Cells % 0 %; Platelet Count 332 10^3/cmm (130-400); Red Blood Count 5.22 10^6/uL (4.1-5.3); Red Cell Distribution Width 14.4 % (12.1-15.1); White Blood Count 16.2 10^3/uL (4.0-10.0)
[2022-08-22 20:05] LABS: Troponin(5th) Baseline 35 ng/L (0-10)
[2022-08-22 20:06] LABS: Alanine Aminotransferase 11 U/L (0-33); Albumin Level 2.9 g/dL (3.5-5.2); Alkaline Phosphatase 164 U/L (35-105); Anion Gap 12.9 (5-19); Aspartate Amino Transferase 9 U/L (0-32); Blood Urea Nitrogen 17 mg/dL (8-23); Calcium 8.7 mg/dL (8.5-10.5); Carbon Dioxide 32 mmol/L (22-29); Chloride 99 mmol/L (98-107); Globulin 2.9 g/dL (1.3-4.6); Glomerular Filtration Rate 225.4 mL/min (90-130); Glucose 98 mg/dL (65-115); Lipase 22 U/L (13-60); Osmolality Calculated 292 mOsm/kg (285-295); Potassium 3.9 mmol/L (3.5-5.1); Sodium 140 mmol/L (136-145); Total Bilirubin 0.2 mg/dL (0.15-1.2); Total Protein 5.8 g/dL (6.6-8.7)
--- NOTE | 2022-08-22 21:20 | ECG_ITS ---
[facility] Test Date: 2022-08-22 Pat Name: Jazmyne Ramirez Department: Room: Gender: Female Project Assistant: : 1960 Requested By: Sinan Kelley Order Number: [id number] Allison MD: Ana Rosa Tejeda M.D. Measurements Intervals [place] Rate: 96 P: 82 TX: 147 QRS: 66 QRSD: 93 T: 83 QT: 358 QTc: 452 Interpretive Statements SINUS RHYTHM POSSIBLE RIGHT ATRIAL ENLARGEMENT [0.25mV P-WAVE] INDETERMINATE AXIS Compared to ECG 08/22/2022 19:20:17 Indeterminate axis now present Electronically Signed On 08-23-2022 7:26:08 CDT by Ana Rosa Tejeda M.D. [id number]
[2022-08-22 22:43] VITALS: BP 128/63; PULSE 94; RESP 16; O2SAT 93
--- NOTE | 2022-08-22 23:23 | PC.NURSE ---
Patient received from ED via stretcher. Due to history of CVA with right side involvement patient favors her left side and is contractured in the position. Patient lying on left side during transfer from stretcher to bed. Patient appears extremely filthy from head to toe with foul odors present. Patient is incontinent. Scrubbed patient's right side. Patient agreeable to roll with assistance to left side to continue cleaning. Patient turned to right side. Removed clothing and bedding and immediately noted crawling maggots upon her left side. Observed insect feces and extreme filth. Scrubbed patient and removed as much of contaminates as possible with this washing. Patient is extremely red, raw, and has wounds (to numerous to count) posterior to anterior body. Sacrum to posterior right side to right flank has multilple skin tears, stage 2 ulcers, possible deep tissue injuries as well. Right heal has exposed tendon that appears dry, no drainage or bleeding observed. Right foot has open wound to top of right foot with metatarsels and tendons exposed as well. This wound is also dry no drainage or bleeding observed. Patient is very sweet and cooperative. Patient reports that her son takes care of her and cleans her at home. Patient appears unkept for several days possible weeks or longer.
[2022-08-22 23:31] LABS: Troponin 5 2HR 42.35 ng/L (0-10)
[2022-08-22 23:34] LABS: Troponin 5 2HR Delta 7.35 ABS# (0-10)
[2022-08-22 23:39] VITALS: BMI 15.1
[2022-08-23] VITALS (8 sets, daily range): BP systolic 107–148; BP diastolic 66–79; PULSE 88–107; RESP 13–23; TEMP 36.6–37.1; O2SAT 90–96
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
--- NOTE | 2022-08-23 01:15 | ECG_ITS ---
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 Measurements Intervals [place] Rate: 111 P: 82 SC: 158 QRS: 81 QRSD: 81 T: 70 QT: 319 QTc: 434 Interpretive Statements SINUS TACHYCARDIA POSSIBLE RIGHT ATRIAL ENLARGEMENT [0.25mV P-WAVE] SEPTAL MYOCARDIAL INFARCTION , PROBABLY OLD [40+ ms Q WAVE IN V1/V2] Compared to ECG 08/22/2022 21:24:43 Myocardial infarct finding now present Sinus rhythm no longer present Indeterminate axis no longer present Electronically Signed On 08-23-2022 14:50:14 CDT by Justyn Cooley M.D. [email or web address]
[2022-08-23] MEDS: morphine 4 mg/mL SDV 1 mL 2 MG IVP (01:48)
[2022-08-23] MEDS: enoxaparin 40 mg/0.4 mL Syringe SUBCUT (01:49)
[2022-08-23] MEDS: dextrose 5%-sod chloride 0.9% 1,000 ML 75 ML IV ×2 (01:49→20:38)
[2022-08-23 02:31] LABS: Troponin 5 6HR 53.65 ng/L (0-10)
[2022-08-23 02:46] LABS: Troponin 5 6HR Delta 18.65 ng/L (0-12)
[2022-08-23] MEDS: atorvastatin 40 mg Tablet 10 MG PO (05:29)
[2022-08-23] MEDS: clopidogrel 75 mg Tablet PO (05:29)
[2022-08-23] MEDS: vancomycin 750 MG in sodium chloride 0.9% 250 ML 250 MG IV ×2 (08:42→20:38)
[2022-08-23 11:01] LABS: C Reactive Protein 24.8 mg/L (0.0-4.9); Iron 21 ug/dL (37-145)
[2022-08-23 11:12] LABS: Percent Saturation 12.2 % (20-50); Procalcitonin 0.08 ng/mL (0-0.5); Total Iron Binding Capacity 172 mcg/dl; Unsaturated Iron Binding 151 ug/dL (112-347)
[2022-08-23 11:15] LABS: Folate Level 3.1 ng/mL (4.8-37.3)
[2022-08-23 11:16] LABS: Vitamin B12 293 pg/mL (232-1245)
[2022-08-23] MEDS: pantoprazole DR 40 mg Tablet PO (11:26)
[2022-08-23] MEDS: cyanocobalamin 1,000 mcg Tablet 500 MCG PO (11:26)
[2022-08-23] MEDS: multivitamin therapeutic Tablet 1 TAB PO (11:27)
[2022-08-23] MEDS: thiamine 100 mg Tablet PO (11:27)
[2022-08-23] MEDS: piperacillin-tazobactam 3.375 GM in sodium chloride 0.9% (plus) 50 ML IV ×2 (11:27→18:34)
--- NOTE | 2022-08-23 13:03 | PC.CHAP ---
Pastoral Care Encounter/Spiritual Assessment Type of Contact [] Declined whitewater rafting guide visit [] Patient/Family/Request visit [] Outpatient visit [] Follow-up visit [] Physician referral [] Code/Alert [x] Routine visit [] Staff referral [] Actively dying [] Patient sleeping [] Family support [] [] Out of room [] Palliative care [] [] Receiving care in room [] Pre-surgical visit [] Trauma [] Long length of stay [] ICU visit [] Other: Relational/Emotional Strength [x] Patient feels connected with others/family/visitors/staff [] Distress [] Loneliness/isolation [] Abandonment Spirituality of Patient [x] Person of Jelena [] Attends Pentecostal of their Jelena [x] Believes in Prayer [] Reads Bible or Restorationist materials [] There are Spiritual issues to be addressed Senior Clinician Interventions [x] Prayer [x] Active listening x] Non-anxious presence [] Spiritual/emotional support [] Crisis/trauma care [] Spiritual counseling [] Bereavement support [] Provided bereavement packet [] Provided Bible/devotional materials [] Provided toy/stuffed animal, coloring book to patient or family member [] Provided Communion [] Anointing/[place] [] Salvation [x] Completed spiritual assessment [] Other: Impact on Illness or Injury [] Angry [] Fearful [] Anxious [] Often cries [] Exhaustion [] Unable to work [] Unable to attend methodist [] Unable to walk/stand [] Unable to read [] Unable to drive [] Unable to eat/drink [] Unable to sleep [] Unable to be with family [] Patient intubated [] Other: Summary Time spent with patient 190 min
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
--- NOTE | 2022-08-23 16:48 | PM.CONSULT ---
Providers/Reason For Consult Consulting Physician/Specialty*: General Surgery Reason for Consult*: R foot ulcerations Attending Physician: Derick Urban MD Primary Care Provider: Karel Gamez MD History of Present Illness History of Present Illness Jazmyne Ramirez is a 61 year old female. She was brought to the emergency room because of the chest pain. The patient has multiple medical problems including coronary artery disease, peripheral arterial disease, history of stroke, malnutrition. She is nonambulatory. Her lower extremities are contracted. Surgery was consulted to evaluate lower extremity ulcerations on the right side. Reportedly the patient had a peripheral vascular intervention on the right SFA sometime ago by cardiology No family members available at bedside. The patient admits pain in the ulcerations of the right foot. She has 2 ulcers, they have been in place for some time, she does not remember exactly for how long. The ulceration on the dorsum of the foot is a , The ulceration at the posterior aspect of the foot is a [address] for a while. The patient is making medical decisions for herself. She is indeed oriented to time and place and herself. Review of Systems Narrative: 10 point review of systems is negative except as per HPI Medications/Allergies Home Medications Medication Instructions Recorded Confirmed Last Taken Type atorvastatin 10 mg tablet 10 mg PO QAM 30 days #30 tabs 06/09/22 08/22/22 Unknown Rx clopidogrel 75 mg tablet 75 mg PO QAM #30 tabs 06/09/22 08/22/22 Unknown Rx cyanocobalamin (vitamin B-12) 500 mcg PO DAILY #30 tabs 06/09/22 08/22/22 Unknown Rx 1,000 mcg tablet (Vitamin B-12) famotidine 20 mg tablet 20 mg PO DAILY PRN Heartburn #30 06/09/22 08/22/22 Unknown Rx tabs nitroglycerin 0.4 mg sublingual 0.4 mg sublingual Q5M PRN Chest 06/09/22 08/22/22 Unknown Rx tablet (Nitrostat) Pain #5 tabs omega-3 fatty acids 1,000 mg 1,000 mg PO DAILY #30 caps 06/09/22 08/22/22 Unknown Rx capsule Allergies Allergy/AdvReac Type Severity Reaction Status Date / Time No Known Allergies Allergy Verified 06/05/22 19:34 Current Medications Generic Name Dose Route Start Last Admin Trade Name Freq PRN Reason Stop Dose Admin Clopidogrel Bisulfate 75 mg 08/23/22 06:00 08/23/22 05:29 Clopidogrel 75 Mg Tablet PO 75 mg QAM GLORIA Administration Cyanocobalamin 500 mcg 08/23/22 09:00 08/23/22 11:26 Cyanocobalamin 1,000 Mcg Tablet PO 500 mcg DAILY GLORIA Administration Vancomycin HCl 750 mg/ Sodium 250 mls @ 250 mls/hr 08/23/22 07:30 08/23/22 08:42 Chloride IV 250 mls/hr Q12H GLORIA Administration Protocol Piperacillin Sod/Tazobactam 50 mls @ 12.5 mls/hr 08/23/22 10:00 08/23/22 11:27 Sod 3.375 gm/ Sodium Chloride IV 12.5 mls/hr Q8H GLORIA Administration Protocol Multivitamins Therapeutic 1 tab 08/23/22 09:00 08/23/22 11:27 Multivitamin Therapeutic Tablet PO 1 tab DAILY GLORIA Administration Pantoprazole Sodium 40 mg 08/23/22 09:00 08/23/22 11:[address] 40 Mg Tablet PO 40 mg DAILY GLORIA Administration Thiamine Mononitrate 100 mg 08/23/22 09:00 08/23/22 11:27 Thiamine 100 Mg Tablet PO 100 mg DAILY GLORIA Administration PFSH Acute PFSH: Medical History Acute right arterial ischemic stroke, middle cerebral artery (MCA) CAD (coronary artery disease) Carotid artery stenosis History of stroke HTN (hypertension) Hyperlipidemia Peripheral Vascular Disease Pneumonia Severe protein-energy malnutrition Vitamin B12 deficiency Vitamin D deficiency disease Surgical History H/O section S/P arterial stent S/P carotid endarterectomy S/P coronary artery stent placement S/P PTCA (percutaneous transluminal coronary angioplasty) Family History Mother Myocardial infarction Grandmother No problems noted. Grandfather Stroke Hypertension Cancer Father Diabetes Hypertension Social History Smoking and tobacco status: former smoker Alcohol intake: never Lives independently: No Household members: spouse and children Marital status: Current occupational status: disabled Vitals/I&O/Wt Last Vital Signs Temp 98.7 F 08/23/22 16:00 Pulse 99 08/23/22 16:00 Resp 16 08/23/22 16:00 BP 107/68 08/23/22 16:00 Pulse Ox 93 08/23/22 16:00 O2 Del Method 08/23/22 12:31 08/23/22 08/23/22 08/23/22 06:59 14:59 22:59 Intake Total 180 / 180 826 / 826 Balance 180 / 180 826 / 826 Weight last 48 hrs Weight 88 lb 4.8 oz Weight 105 lb Physical Exam Narrative: General: Disheveled Psych: [AAOx3] Eyes: [sclerae are white] Head/ENT: [normocephalic, symmetric] CV: [regular] pulse, [tachychardic], no JVD Lungs: [symmetrical chest rise] Abdomen: [soft, ND] Ext: Both lower extremities are contracted. I am not able to extend any of them. The patient stated that she cannot extend them as well for some time. There is an ulceration of the anterior aspect of the right foot, It is a dry scab, 2-1/2 x 3 cm. There is complete loss of skin with exposure of the Achilles tendon on the posterior aspect of the right leg and foot. No evidence of necrosis. Mild tenderness to palpation. Her left foot looks okay. The left lower extremity is contracted as well. There is no Doppler signal from the DP. However PT is dopplerable, biphasic signal Skin: warm Data : 08/22/22 19:44 08/22/22 19:44 Micro: Microbiology 08/23/22 10:20 Blood Culture - Preliminary Blood SPECIMEN COLLECTED 08/23/22 10:15 Blood Culture - Preliminary Blood SPECIMEN COLLECTED A&P Assessment and plan (1) Peripheral Vascular Disease: (2) Critical limb ischemia of both lower extremities: (3) Adult failure to thrive: (4) Severe protein-energy malnutrition: Plan The patient does have a critical limb ischemia of the right foot. This is a chronic condition and not emergency. She still has dopplerable signal to the posterior tibial artery. The necrosis of the skin of the posterior aspect of the leg and foot appears to be a chronic pressure ulcer. Ulceration of the anterior aspect of the right foot appears to be arterial in origin. Given her poor nutrition as well as poor blood supply I do not expect these lesions to heal. She will be at high risk of infection and progression of the lacerations with subsequent gangrene. Given the fact that she is contracted and nonambulatory, I think that the best choice is to proceed with right lower extremity amputation at the level of the thigh. She is not a candidate for a revascularization given for contractures. The patient would like to think about this and discuss the possible surgery with her family. In the meanwhile, I will perform debridement of the right foot ulcer at bedside and continue with dressing. I recommend wound care to follow this patient. Okay to continue Plavix, no need to hold it. Her nutritional status needs to be optimized, however, it seems that the patient does not want to take care of herself and it seems that she is conscious about it. There is no easy way to improve her nutrition. I will defer management of the malnutrition to her medical team at this point Coding Level of Care Code Acute Forming Roll Operator Heavy Duty for [facility]ie [facility]argrove Diagnoses Peripheral Vascular Disease I73.9 Critical limb ischemia of both lower extremities I70.223 Adult failure to thrive R62.7 Severe protein-energy malnutrition E43
[2022-08-23] MEDS: cyanocobalamin 1,000 mcg/mL SDV 1000 MCG IM (18:33)
[2022-08-23] MEDS: morphine 4 mg/mL SDV 1 mL 1 MG IVP (18:40)
--- NOTE | 2022-08-23 19:00 | PM.PN ---
Subjective Subjective: Time of the procedure: 1839, 08/23/2022 Preoperative diagnosis: Necrotic tissue in the wound Postoperative diagnosis: the same Procedure: Sharp Excisional debridement of the epidermis and dermis Total Debrided area: [5] cm.sq. Surgeon: Christopher Tamayo MD, RPVI EBL, ml: None Specimen: necrotic nonviable tissues - discarded; Complications: none Findings: [Necrotic tissue were debrided to healthy-appearing tissue. Exposed tendons and cartilage is present in the wound.] Indications: Large amount of nonviable tissue in the wound TIME OUT: Immediately prior to procedure, time out was performed to include correct patient, agreement on the procedure to be performed, correct side, site, position, accurate procedure consent, relevant images, antibiotics, fluids. Everybody agreed. The procedure was performed at the bedside; pain medications were given. Details of the procedure: Using scalpel and scissors the wound was debrided sharply from all the slough and necrotic tissue. Skin, subcutaneous fat were debrided. There was less than 5 % necrotic tissue left in the wound. [ The patient tolerated the procedure well There were no complications. Wet-to-dry dressing was applied Vitals/I&O/Wt Last Vital Signs Temp 98.7 F 08/23/22 16:00 Pulse 99 08/23/22 16:00 Resp 16 08/23/22 16:00 BP 107/68 08/23/22 16:00 Pulse Ox 93 08/23/22 16:00 O2 Del Method 08/23/22 12:31 08/23/22 08/23/22 08/23/22 06:59 14:59 22:59 Intake Total 180 / 180 826 / 826 50 / 876 Balance 180 / 180 826 / 826 50 / 876 Weight last 48 hrs Weight 88 lb 4.8 oz Weight 105 lb Data : 08/22/22 19:44 08/22/22 19:44 Micro: Microbiology 08/23/22 10:20 Blood Culture - Preliminary Blood SPECIMEN COLLECTED 08/23/22 10:15 Blood Culture - Preliminary Blood SPECIMEN COLLECTED Attestations Medical Necessity Statement*: baba Coding Level of Care Code 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
--- NOTE | 2022-08-23 20:11 | PC.NURSE ---
One family member at bedside stated to this nurse that she would like the other family member to be removed from the room. This nurse did not witness any behavior from either family member that required to have either of them removed. Patient is currently alert and oriented x4. Family member was educated that it is the patient's decision for who she does and does not want at bedside.
--- NOTE | 2022-08-23 20:58 | PC.NURSE ---
Patient incontinent. Unable to collect urine.
[2022-08-23 22:16] LABS: Glucose Point of Care 213 mg/dL (70-110)
[2022-08-23] MEDS: folic acid 1 MG, multivitamin inj 10 ML, thiamine 100 MG in sodium chloride 0.9% 1,000 ML 75 MG IV (23:23)
[2022-08-24] VITALS (11 sets, daily range): BP systolic 105–147; BP diastolic 57–78; PULSE 73–98; RESP 15–18; TEMP 36.4–36.8; O2SAT 17–99
[2022-08-24] MEDS: morphine 4 mg/mL SDV 1 mL 1 MG IVP ×3 (00:43→21:04)
[2022-08-24] MEDS: piperacillin-tazobactam 3.375 GM in sodium chloride 0.9% (plus) 50 ML IV ×3 (01:13→17:32)
[2022-08-24 04:23] LABS: Basophils # 0.1 10^3/uL (0.0-0.1); Basophils % 0.7 %; Eosinophils # 0.2 10^3/uL (0.0-0.8); Hematocrit 35.1 % (37.0-47.0); Hemoglobin 10.7 g/dL (11.5-15.3); Lymphocytes # 2.1 10^3/uL (0.8-4.8); Lymphocytes % 20.6 %; Mean Corpuscular HGB Conc 30.5 g/dL (30.0-36.0); Mean Corpuscular Hemoglobin 27.4 pg (28.0-34.0); Mean Corpuscular Volume 89.8 fl (81-99); Mean Platelet Volume 10.7 fL (7.4-10.4); Monocytes # 0.7 10^3/uL (0.2-0.9); Monocytes % 6.7 %; Neutrophils # 7.16 10^3/uL (1.8-7.7); Neutrophils % 69.7 %; Nucleated Red Blood Cells % 0 %; Platelet Count 230 10^3/cmm (130-400); Red Blood Count 3.91 10^6/uL (4.1-5.3); Red Cell Distribution Width 14.6 % (12.1-15.1); White Blood Count 10.3 10^3/uL (4.0-10.0)
[2022-08-24 04:42] LABS: Alanine Aminotransferase 8 U/L (0-33); Albumin Level 2.1 g/dL (3.5-5.2); Alkaline Phosphatase 121 U/L (35-105); Anion Gap 7.3 (5-19); Aspartate Amino Transferase 9 U/L (0-32); Blood Urea Nitrogen 15 mg/dL (8-23); Calcium 7.5 mg/dL (8.5-10.5); Carbon Dioxide 31 mmol/L (22-29); Chloride 107 mmol/L (98-107); Globulin 2.7 g/dL (1.3-4.6); Glomerular Filtration Rate 225.4 mL/min (90-130); Glucose 115 mg/dL (65-115); Osmolality Calculated 294 mOsm/kg (285-295); Potassium 4.3 mmol/L (3.5-5.1); Sodium 141 mmol/L (136-145); Total Bilirubin 0.2 mg/dL (0.15-1.2); Total Protein 4.8 g/dL (6.6-8.7)
[2022-08-24] MEDS: clopidogrel 75 mg Tablet PO (04:45)
[2022-08-24 06:35] LABS: Glucose Point of Care 92 mg/dL (70-110)
[2022-08-24] MEDS: ferrous gluconate 324 mg Tablet PO ×2 (07:46→17:31)
[2022-08-24] MEDS: pantoprazole DR 40 mg Tablet PO (07:47)
[2022-08-24] MEDS: enoxaparin 30 mg/0.3 mL Syringe SUBCUT (07:47)
[2022-08-24] MEDS: thiamine 100 mg Tablet PO (07:47)
[2022-08-24] MEDS: cyanocobalamin 1,000 mcg Tablet 500 MCG PO (07:47)
[2022-08-24] MEDS: vancomycin 750 MG in sodium chloride 0.9% 250 ML 250 MG IV ×2 (07:49→20:24)
[2022-08-24] MEDS: folic acid 1 mg Tablet PO ×2 (07:53→17:31)
[2022-08-24] MEDS: multivitamin therapeutic Tablet 1 TAB PO (07:53)
--- NOTE | 2022-08-24 10:07 | P.PN_ITS ---
Subjective Subjective: NAEON. Pain in the R foot is stable, not worse. Afebrile. WBC is downtrending. Given severe contractures of the right and left lower extremities, drafting technician was not able to perform ultrasound or noninvasive studies. Vitals/I&O/Wt Last Vital Signs Temp 98.0 F 08/24/22 08:00 Pulse 80 08/24/22 08:00 Resp 18 08/24/22 08:00 BP 105/57 08/24/22 08:00 Pulse Ox 94 08/24/22 08:00 O2 Del Method 08/24/22 08:00 08/23/22 08/24/22 08/24/22 22:59 06:59 14:59 Intake Total 1600 / 2426 50 / 2476 360 / 360 Balance 1600 / 2426 50 / 2476 360 / 360 Weight last 48 hrs Weight 101 lb Weight 88 lb 4.8 oz Weight 105 lb Physical Exam Narrative: General: Disheveled Psych: [AAOx3] Eyes: [sclerae are white] Head/ENT: [normocephalic, symmetric] CV: [regular] pulse, [tachychardic], no JVD Lungs: [symmetrical chest rise] Abdomen: [soft, ND] Ext: Both lower extremities are contracted. I am not able to extend any of th em. The patient stated that she cannot extend them as well for some time. There is an ulceration of the anterior aspect of the right foot, It is a dry scab, 2-1/2 x 3 cm. There is complete loss of skin with exposure of the Achilles tendon on the posterior aspect of the right leg and foot. No evidence of necrosis. Mild tenderness to palpation. Her left foot looks okay. The left lower extremity is contracted as well. There is no Doppler signal from the DP. However PT is dopplerable, biphasic signal Skin: warm Data : 08/24/22 04:07 08/24/22 04:07 Micro: Microbiology 08/23/22 10:20 Blood Culture - Preliminary Blood SPECIMEN COLLECTED 08/23/22 10:15 Blood Culture - Preliminary Blood SPECIMEN COLLECTED A&P Assessment and plan (1) Peripheral Vascular Disease: (2) Critical limb ischemia of both lower extremities: (3) Adult failure to thrive: (4) Severe protein-energy malnutrition: (5) Contracture of joint, lower leg: Plan The patient discussed surgery with her . Essentially, she will do what is the doctor think is the best for her. However, her statement is concerning given the history of poor compliance with the medical recommendations that was given before. I discussed her care with the attending physician, Dr. Allen. In his opinion the patient may be at risk of not taking care of the fresh surgical wound, not following up with the surgeon and putting herself at the risk of wound infection. These are very reasonable concerns. Given the fact that the she is afebrile, her white blood count is downtrending, there are no signs of gangrene of the right foot, there is no urgency to perform amputation. Her care should be better discussed and coordinated before final decision for surgery is made. It will be also beneficial to discuss the case with his of the patient to ensure that appropriate care will be taken at home after surgery. In the meanwhile the patient can be followed and wound condition can be reassessed. If there are any signs of deterioration, amputation can be promptly performed. Optimal nutrition was once again discussed with the patient. She stated that she will pay attention to the protein intake after surgery to ensure optimal healing of the wound. I will put the order to consult dietitian to optimize her diet and balance calories/protein intake - Continue wet-to-dry for 2 days and then switch to Hydrofera Blue or Aquacel Ag to provide antibacterial environment and wound moisture. When and if granulation appears,ok to switch to Medihoney Attestations Medical Necessity Statement*: Peripheral areteria disease. Coding Level of Care Code Acute Collection Team Lead for [facility] Diagnoses Peripheral Vascular Disease I73.9 Critical limb ischemia of both lower extremities I70.223 Adult failure to thrive R62.7 Severe protein-energy malnutrition E43 Contracture of joint, lower leg M24.569
[2022-08-24 11:34] LABS: Glucose Point of Care 141 mg/dL (70-110)
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
[2022-08-24] MEDS: dextrose 5%-sod chloride 0.9% 1,000 ML 75 ML IV (16:08)
[2022-08-24 16:58] LABS: Glucose Point of Care 166 mg/dL (70-110)
[2022-08-24 19:12] LABS: Vancomycin Trough 10.2 ug/mL (10-15)
--- NOTE | 2022-08-24 20:23 | PC.NURSE ---
Patient has multiple areas of sloughing skin and shear areas: lower back, left hip, buttocks, sacrum, ect.
[2022-08-24 21:03] LABS: Glucose Point of Care 90 mg/dL (70-110)
[2022-08-25] VITALS (11 sets, daily range): BP systolic 105–144; BP diastolic 63–80; PULSE 72–91; RESP 12–18; TEMP 36.3–36.8; O2SAT 94–96
[2022-08-25] MEDS: morphine 4 mg/mL SDV 1 mL 1 MG IVP ×2 (00:41→03:50)
[2022-08-25] MEDS: piperacillin-tazobactam 3.375 GM in sodium chloride 0.9% (plus) 50 ML IV ×3 (00:41→18:09)
[2022-08-25 04:06] LABS: Basophils # 0.1 10^3/uL (0.0-0.1); Basophils % 0.6 %; Eosinophils # 0.3 10^3/uL (0.0-0.8); Eosinophils % 3.4 %; Hematocrit 38.5 % (37.0-47.0); Hemoglobin 11.4 g/dL (11.5-15.3); Lymphocytes # 1.9 10^3/uL (0.8-4.8); Lymphocytes % 21.5 %; Mean Corpuscular HGB Conc 29.6 g/dL (30.0-36.0); Mean Corpuscular Hemoglobin 26.7 pg (28.0-34.0); Mean Corpuscular Volume 90.2 fl (81-99); Monocytes # 0.5 10^3/uL (0.2-0.9); Monocytes % 6.1 %; Neutrophils # 5.97 10^3/uL (1.8-7.7); Neutrophils % 68.2 %; Nucleated Red Blood Cells % 0 %; Platelet Count 204 10^3/cmm (130-400); Red Blood Count 4.27 10^6/uL (4.1-5.3); Red Cell Distribution Width 14.6 % (12.1-15.1); White Blood Count 8.8 10^3/uL (4.0-10.0)
[2022-08-25 04:35] LABS: Alanine Aminotransferase 9 U/L (0-33); Albumin Level 1.9 g/dL (3.5-5.2); Alkaline Phosphatase 114 U/L (35-105); Anion Gap 10.1 (5-19); Aspartate Amino Transferase 8 U/L (0-32); Blood Urea Nitrogen 12 mg/dL (8-23); Calcium 8.1 mg/dL (8.5-10.5); Carbon Dioxide 27 mmol/L (22-29); Chloride 106 mmol/L (98-107); Glomerular Filtration Rate 225.4 mL/min (90-130); Glucose 79 mg/dL (65-115); Osmolality Calculated 287 mOsm/kg (285-295); Potassium 4.1 mmol/L (3.5-5.1); Sodium 139 mmol/L (136-145); Total Bilirubin 0.2 mg/dL (0.15-1.2); Total Protein 4.9 g/dL (6.6-8.7)
[2022-08-25 04:36] LABS: Creatinine Clr Calc Pharmacy 156.9874
[2022-08-25] MEDS: vancomycin 750 MG in sodium chloride 0.9% 250 ML 250 MG IV ×2 (09:24→20:01)
[2022-08-25] MEDS: enoxaparin 30 mg/0.3 mL Syringe SUBCUT (09:27)
[2022-08-25] MEDS: ferrous gluconate 324 mg Tablet PO ×2 (09:27→18:14)
[2022-08-25] MEDS: thiamine 100 mg Tablet PO (09:28)
[2022-08-25] MEDS: clopidogrel 75 mg Tablet PO (09:28)
[2022-08-25] MEDS: folic acid 1 mg Tablet PO ×2 (09:29→18:14)
[2022-08-25] MEDS: cyanocobalamin 1,000 mcg Tablet 500 MCG PO (09:29)
[2022-08-25] MEDS: pantoprazole DR 40 mg Tablet PO (09:30)
[2022-08-25] MEDS: multivitamin therapeutic Tablet 1 TAB PO (09:30)
[2022-08-25] MEDS: dextrose 5%-sod chloride 0.9% 1,000 ML 75 ML IV ×2 (09:43→17:55)
--- NOTE | 2022-08-25 10:49 | P.PN_ITS ---
Subjective Subjective: No acute events overnight. She reports only mild pain in the right foot. Vitals/I&O/Wt Last Vital Signs Temp 97.8 F 08/25/22 08:00 Pulse 80 08/25/22 08:00 Resp 18 08/25/22 08:00 BP 144/80 08/25/22 08:00 Pulse Ox 95 08/25/22 08:00 O2 Del Method 08/25/22 08:00 08/24/22 08/25/22 08/25/22 22:59 06:59 14:59 Intake Total 780 / 2680 1050 / 3730 620 / 620 Balance 780 / 2680 1050 / 3730 620 / 620 Weight last 48 hrs Weight 101 lb Physical Exam Narrative: General: Disheveled, frail Psych: [AAOx3] Eyes: [sclerae are white] Head/ENT: [normocephalic, symmetric] CV: [regular] pulse, [tachychardic], no JVD Lungs: [symmetrical chest rise] Abdomen: [soft, ND] Ext: Both lower extremities are contracted. Wound to the right foot is under dressing, minimal signs of inflammation. Her left foot looks okay. The left lower extremity is contracted as well. There is no Doppler signal from the DP. However PT is dopplerable, biphasic signal Skin: warm Data : 08/25/22 03:00 08/25/22 03:00 Micro: Microbiology 08/23/22 22:30 MRSA Culture - Final Nose 08/23/22 10:20 Blood Culture - Preliminary Blood NEGATIVE TO DATE 08/23/22 10:15 Blood Culture - Preliminary Blood NEGATIVE TO DATE A&P Assessment and plan (1) Peripheral Vascular Disease: (2) Critical limb ischemia of both lower extremities: (3) Adult failure to thrive: (4) Severe protein-energy malnutrition: (5) Contracture of joint, lower leg: Plan After long discussion the patient agreed to attempt intensive wound care and see if ulcers will heal. She promised to stay compliant with prescribed wound care, dietary regimen to improve for nutrition and medications. We set up the threshold of 3 weeks to reassess the healing. If there is no improvement or worsening of the wounds, she will be better served with an amputation. However if she can take care of the wounds and they continue to heal, it will mean that there is still some blood supply through the posterior tibial artery to heal the ulcer in the distribution of the dorsalis pedis. It is very much possible with preserved pedal arch. She has no signs of gangrene or overwhelming infection, it is safe to give her a trial of intensive wound care and reassess later. Continue Plavix and atorvastatin. Given history of stroke and peripheral arterial disease, critical ischemia of the right foot, I would recommend dual antiplatelet therapy, I would recommend addition of the 81 mg of aspirin daily lifelong. Final management of antiplatelet therapy per medicine. Switch to Hydrofera Blue versus Aquacel Ag in a day or 2, reassess for Medihoney in 2 weeks. General surgery will continue to follow peripherally. If patient is discharged, please, make an appointment with general surgery clinic in 2 to 3 weeks from now. Please notify if there are any change in clinical condition while the patient is in the hospital. Thank you for the opportunity to participate in the care of this patient. Attestations Medical Necessity Statement*: Per primary team Coding Level of Care Code Acute Screen Printing Machine Operator for Catie Hargrove Diagnoses Peripheral Vascular Disease I73.9 Critical limb ischemia of both lower extremities I70.223 Adult failure to thrive R62.7 Severe protein-energy malnutrition E43 Contracture of joint, lower leg M24.569
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
[2022-08-25] MEDS: acetaminophen 325 mg Tablet 650 MG PO ×2 (15:14→23:22)
--- NOTE | 2022-08-25 21:52 | PC.NURSE ---
Addendum entered by Naima Gray RN 08/25/22 22:06: Sevilla ordered. Original Note: Dr. Cruz notified that patient has multiple shear areas and multiple pressure areas that are unable to be kept dry and unable to place dressings to due to urinary incontinence.
--- NOTE | 2022-08-25 22:42 | PC.NURSE ---
Sevilla placed. Optifoams placed to medial back, left hip, left wrist, left shoulder.
[2022-08-25 22:56] LABS: Bilirubin Urine Neg (Negative); Blood Urine Neg (Negative); Glucose Urine UA Norm (Normal); Ketones Urine Negative (Negative); Nitrate Urine Negative (Negative); Protein Urine Neg (Negative); Specific Gravity, Urine 1.015 (1.005-1.030); Urine Appearance Clear (CLEAR); Urine Color Yellow (Yellow); pH Urine 7 (5-7)
[2022-08-25 22:57] LABS: Add Urine Microscopic? YES; Bacteria Urine TRACE /hpf; Leukocyte Esterase Urine 1+ (Negative); Mucus Urine TRACE /hpf; RBC Urine 0-4 /hpf (0-2); Urobilinogen Urine Neg (Negative)
[2022-08-25 22:58] LABS: Add Urine Culture? Yes
--- NOTE | 2022-08-25 23:29 | PC.NURSE ---
Patient frequently c/o pain to bilateral lower extremities. PRN pain medication will be used as needed. Patient being frequently repositioned.
[2022-08-26] VITALS (10 sets, daily range): BP systolic 121–163; BP diastolic 71–86; PULSE 77–89; RESP 16–18; TEMP 36.6–36.8; O2SAT 94–96
[2022-08-26] MEDS: morphine 4 mg/mL SDV 1 mL 1 MG IVP ×2 (00:08→05:26)
--- NOTE | 2022-08-26 00:27 | PC.NURSE ---
Addendum entered by Naima Gray RN 08/26/22 01:14: PRN Dilaudid ordered. Original Note: Patient frequently hitting call light c/o pain to feet. Patient received PRN orders of Tylenol and Morphine and is still complaining of pain. Dr. Cruz notified.
[2022-08-26] MEDS: piperacillin-tazobactam 3.375 GM in sodium chloride 0.9% (plus) 50 ML IV (00:58)
[2022-08-26] MEDS: HYDROmorphone 1 mg/mL INJ 1 mL 0.5 MG IVP (01:21)
--- NOTE | 2022-08-26 03:05 | PC.NURSE ---
Patient hit call light stating that her feet still hurt. This nurse asked patient if they always hurt like this. Patient states yes, they hurt all of the time. Nurse asked patient if they have been hurting her at home and patient states yes.
[2022-08-26 04:52] LABS: Basophils # 0.1 10^3/uL (0.0-0.1); Basophils % 0.7 %; Eosinophils # 0.3 10^3/uL (0.0-0.8); Hematocrit 38.7 % (37.0-47.0); Hemoglobin 11.1 g/dL (11.5-15.3); Lymphocytes # 1.8 10^3/uL (0.8-4.8); Lymphocytes % 21.7 %; Mean Corpuscular HGB Conc 28.7 g/dL (30.0-36.0); Mean Corpuscular Hemoglobin 26.7 pg (28.0-34.0); Mean Platelet Volume 10.4 fL (7.4-10.4); Monocytes # 0.5 10^3/uL (0.2-0.9); Monocytes % 6.4 %; Neutrophils # 5.66 10^3/uL (1.8-7.7); Neutrophils % 66.8 %; Nucleated Red Blood Cells % 0 %; Platelet Count 237 10^3/cmm (130-400); Red Blood Count 4.16 10^6/uL (4.1-5.3); Red Cell Distribution Width 14.5 % (12.1-15.1); White Blood Count 8.5 10^3/uL (4.0-10.0)
[2022-08-26 05:14] LABS: Alanine Aminotransferase 16 U/L (0-33); Albumin Level 2.1 g/dL (3.5-5.2); Alkaline Phosphatase 142 U/L (35-105); Anion Gap 7.6 (5-19); Aspartate Amino Transferase 11 U/L (0-32); Blood Urea Nitrogen 13 mg/dL (8-23); Calcium 7.7 mg/dL (8.5-10.5); Carbon Dioxide 33 mmol/L (22-29); Chloride 104 mmol/L (98-107); Globulin 2.7 g/dL (1.3-4.6); Glomerular Filtration Rate 225.4 mL/min (90-130); Glucose 108 mg/dL (65-115); Osmolality Calculated 293 mOsm/kg (285-295); Potassium 3.6 mmol/L (3.5-5.1); Sodium 141 mmol/L (136-145); Total Bilirubin 0.2 mg/dL (0.15-1.2); Total Protein 4.8 g/dL (6.6-8.7)
[2022-08-26 05:22] LABS: Creatinine Clr Calc Pharmacy 156.9874
[2022-08-26] MEDS: acetaminophen 325 mg Tablet 650 MG PO ×2 (05:26→16:07)
[2022-08-26] MEDS: vancomycin 750 MG in sodium chloride 0.9% 250 ML 250 MG IV (06:23)
[2022-08-26] MEDS: cyanocobalamin 1,000 mcg Tablet 500 MCG PO (08:49)
[2022-08-26] MEDS: pantoprazole DR 40 mg Tablet PO (08:49)
[2022-08-26] MEDS: enoxaparin 30 mg/0.3 mL Syringe SUBCUT (08:49)
[2022-08-26] MEDS: multivitamin therapeutic Tablet 1 TAB PO (08:50)
[2022-08-26] MEDS: folic acid 1 mg Tablet PO (08:50)
[2022-08-26] MEDS: clopidogrel 75 mg Tablet PO (08:50)
[2022-08-26] MEDS: ferrous gluconate 324 mg Tablet PO (08:50)
[2022-08-26] MEDS: thiamine 100 mg Tablet PO (08:50)
[2022-08-26 10:36] LABS: Magnesium 1.7 mg/dL (1.7-2.3); Phosphorus 2.3 mg/dL (2.5-4.5)
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
== END 2022-08-26 18:05 | disposition home or self-care (01) | DRG 264 ==
LOC: ER 21:01 → MEDSURG 21:54
PROVIDERS: Student in an Organized Health Care Education/Training Program; Admitting Provider Student in an Organized Health Care Education/Training Program; Emergency Provider Emergency Medicine; PCP Family Medicine; Visit Provider Internal Medicine
DX: I70.233 Atherosclerosis of native arteries of right leg with ulceration of ankle (principal); L89.514 Pressure ulcer of right ankle, stage 4; L89.153 Pressure ulcer of sacral region, stage 3; E43 Unspecified severe protein-calorie malnutrition; Z68.1 Body mass index [BMI] 19.9 or less, adult; T74.01XA Adult neglect or abandonment, confirmed, initial encounter; L89.109 Pressure ulcer of unspecified part of back, unspecified stage; I25.10 Atherosclerotic heart disease of native coronary artery without angina pectoris; Z95.5 Presence of coronary angioplasty implant and graft; Z95.820 Peripheral vascular angioplasty status with implants and grafts; I70.235 Atherosclerosis of native arteries of right leg with ulceration of other part of foot; L97.518 Non-pressure chronic ulcer of other part of right foot with other specified severity; Z99.3 Dependence on wheelchair; Z86.73 Personal history of transient ischemic attack (TIA), and cerebral infarction without residual deficits; Z87.01 Personal history of pneumonia (recurrent); E86.0 Dehydration; B87.1 Wound myiasis; I10 Essential (primary) hypertension; E78.5 Hyperlipidemia, unspecified; E55.9 Vitamin D deficiency, unspecified; E53.8 Deficiency of other specified B group vitamins; Z87.891 Personal history of nicotine dependence; R07.9 Chest pain, unspecified; M62.462 Contracture of muscle, left lower leg; M62.461 Contracture of muscle, right lower leg; B87.0 Cutaneous myiasis; D50.9 Iron deficiency anemia, unspecified; Z79.01 Long term (current) use of anticoagulants
CPT/HCPCS: 12345; 36415; 36416; 51702; 71045; 80053; 80202; 81001; 82607; 82746; 82962; 83540; 83550; 83690; 83735; 84100; 84145; 84484; 85025; 86140; 87040; 87086; 87641; 92610; 93005; 96372; J1170; J1650; J2270; J2543; J3370; J3411; J3420; J3490; J7030; J7050

== ENCOUNTER 2022-08-30 14:40 | Observation (INO) | payer OTHER, SELFPAY ==
--- NOTE | 2022-08-30 14:44 | ECG_ITS ---
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 Measurements Intervals [place] Rate: 101 P: 85 ME: 152 QRS: 89 QRSD: 89 T: 74 QT: 351 QTc: 456 Interpretive Statements SINUS TACHYCARDIA ABNORMAL RHYTHM ECG Compared to ECG 08/23/2022 01:15:54 Myocardial infarct finding no longer present Electronically Signed On 08-30-2022 16:35:15 CDT by Carroll Fulton M.D. [id number]
--- NOTE | 2022-08-30 14:44 | XR_ITS ---
WS: [id number] Portable AP upright chest, 08/30/2022 Clinical Data: dyspnea Comparison: Portable chest, 08/22/2022 Findings: No nodules, masses or effusions are seen. The heart is normal. The pulmonary vascularity is not increased. No pneumonia or pneumothorax is seen. The diaphragms are flattened. The aortic arch a nd descending thoracic aorta show mild tortuosity. The patient's left arm is adjacent to the left ed[address] and obscures detail. XR/XR chest 1V portable [id number] Impression: Atherosclerosis and hyperinflation.
[2022-08-30 15:09] LABS: Basophils # 0.1 10^3/uL (0.0-0.1); Basophils % 0.5 %; Eosinophils # 0.1 10^3/uL (0.0-0.8); Eosinophils % 0.7 %; Hematocrit 41.7 % (37.0-47.0); Lymphocytes # 1.5 10^3/uL (0.8-4.8); Mean Corpuscular HGB Conc 31.2 g/dL (30.0-36.0); Mean Corpuscular Hemoglobin 27.2 pg (28.0-34.0); Mean Corpuscular Volume 87.2 fl (81-99); Monocytes # 0.7 10^3/uL (0.2-0.9); Monocytes % 6.4 %; Neutrophils # 8.36 10^3/uL (1.8-7.7); Neutrophils % 78.1 %; Nucleated Red Blood Cells % 0 %; Platelet Count 326 10^3/cmm (130-400); Red Blood Count 4.78 10^6/uL (4.1-5.3); Red Cell Distribution Width 15.2 % (12.1-15.1); White Blood Count 10.7 10^3/uL (4.0-10.0)
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
[2022-08-30 15:47] LABS: Troponin(5th) Baseline 35 ng/L (0-10)
[2022-08-30 15:56] LABS: Anion Gap 11.9 (5-19); Blood Urea Nitrogen 14 mg/dL (8-23); Calcium 8.8 mg/dL (8.5-10.5); Carbon Dioxide 32 mmol/L (22-29); Chloride 100 mmol/L (98-107); Glomerular Filtration Rate 225.4 mL/min (90-130); Glucose 96 mg/dL (65-115); NT Pro B Type Natriuretic Pept 320 pg/mL (0-125); Osmolality Calculated 290 mOsm/kg (285-295); Potassium 3.9 mmol/L (3.5-5.1); Sodium 140 mmol/L (136-145)
[2022-08-30 16:14] VITALS: BMI 15.9
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
[2022-08-30] MEDS: heparin 5,000 unit/mL INJ 1 mL 5000 UNIT SUBCUT (17:46)
[2022-08-30 19:42] LABS: Troponin 5 2HR 46.46 ng/L (0-10)
[2022-08-30 19:58] LABS: Troponin 5 2HR Delta 11.46 ABS# (0-10)
[2022-08-30 20:00] VITALS: BP 107/67; PULSE 79; RESP 19; TEMP 37.6; O2SAT 95
[2022-08-30] MEDS: folic acid 1 mg Tablet PO (20:30)
--- NOTE | 2022-08-30 20:56 | ECG_ITS ---
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 Measurements Intervals [place] Rate: 88 P: 83 MS: 150 QRS: 69 QRSD: 92 T: 82 QT: 371 QTc: 451 Interpretive Statements SINUS RHYTHM Compared to ECG 08/30/2022 14:51:13 Sinus tachycardia no longer present Electronically Signed On 09-01-2022 22:11:35 CDT by Justyn Cooley M.D. [id number]
[2022-08-30 20:59] VITALS: PULSE 93; O2SAT 95
[2022-08-30 21:01] LABS: Glucose Point of Care 102 mg/dL (70-110)
[2022-08-30 21:49] LABS: Troponin 5 6HR 44.61 ng/L (0-10)
[2022-08-30 21:53] LABS: Troponin 5 6HR Delta 9.61 ng/L (0-12)
[2022-08-30 22:00] VITALS: PULSE 96
[2022-08-30] MEDS: acetaminophen 325 mg Tablet 650 MG PO (22:40)
[2022-08-31] VITALS (10 sets, daily range): BP systolic 106–136; BP diastolic 62–82; PULSE 76–90; RESP 16–19; TEMP 36.3–37.3; O2SAT 86–96
[2022-08-31 04:54] LABS: Basophils # 0.1 10^3/uL (0.0-0.1); Basophils % 0.7 %; Eosinophils # 0.1 10^3/uL (0.0-0.8); Eosinophils % 1.6 %; Hematocrit 38.4 % (37.0-47.0); Hemoglobin 11.8 g/dL (11.5-15.3); Lymphocytes # 1.8 10^3/uL (0.8-4.8); Lymphocytes % 26.9 %; Mean Corpuscular HGB Conc 30.7 g/dL (30.0-36.0); Mean Corpuscular Hemoglobin 27.5 pg (28.0-34.0); Mean Corpuscular Volume 89.5 fl (81-99); Monocytes # 0.6 10^3/uL (0.2-0.9); Monocytes % 8.8 %; Neutrophils # 4.22 10^3/uL (1.8-7.7); Neutrophils % 61.9 %; Nucleated Red Blood Cells % 0 %; Platelet Count 281 10^3/cmm (130-400); Red Blood Count 4.29 10^6/uL (4.1-5.3); Red Cell Distribution Width 15.5 % (12.1-15.1); White Blood Count 6.8 10^3/uL (4.0-10.0)
[2022-08-31 05:16] LABS: Anion Gap 6.9 (5-19); Blood Urea Nitrogen 17 mg/dL (8-23); Calcium 8.7 mg/dL (8.5-10.5); Carbon Dioxide 34 mmol/L (22-29); Chloride 97 mmol/L (98-107); Glomerular Filtration Rate 225.4 mL/min (90-130); Glucose 94 mg/dL (65-115); Magnesium 2.4 mg/dL (1.7-2.3); Osmolality Calculated 279 mOsm/kg (285-295); Potassium 3.9 mmol/L (3.5-5.1); Sodium 134 mmol/L (136-145)
[2022-08-31] MEDS: acetaminophen 325 mg Tablet 650 MG PO (05:38)
[2022-08-31] MEDS: atorvastatin 40 mg Tablet 20 MG PO (05:40)
[2022-08-31] MEDS: heparin 5,000 unit/mL INJ 1 mL 5000 UNIT SUBCUT (05:42)
[2022-08-31] MEDS: multivitamin therapeutic Tablet 1 TAB PO (08:45)
[2022-08-31] MEDS: omega-3 fatty acids 1,000 mg Capsule 1000 MG PO (08:45)
[2022-08-31] MEDS: folic acid 1 mg Tablet PO ×2 (08:45→18:05)
[2022-08-31] MEDS: cyanocobalamin 1,000 mcg Tablet 500 MCG PO (08:45)
[2022-08-31] MEDS: clopidogrel 75 mg Tablet PO (08:45)
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
--- NOTE | 2022-08-31 12:00 | USCV_ITS ---
Jazmyne Ramirez Age: 61 Gender: F : 1960 Exam Date: 08/31/2022 14:44 Ordering Phys: Toshia Morales MD Technologist: Exam Location: [facility] [place] Indication: ? wall motion BP: 110 / 72 HR: 76 Rhythm: Sinus Technical Quality: Very technically difficult study MEASUREMENTS (Male / Female) Normal Values 2D ECHO LV Diastolic Diameter PLAX 2.6 cm 4.2 - 5.9 / 3.9 - 5.3 cm LV Systolic Diameter PLAX 1.6 cm IVS Diastolic Thickness 1.3 cm 0.6 - 1.0 / 0.6 - 0.9 cm IVS Systolic Thickness 1.4 cm LVPW Diastolic Thickness 1.4 cm 0.6 - 1.0 / 0.6 - 0.9 cm LVPW Systolic Thickness 1.5 cm LVOT Diameter 2.3 cm LV Ejection Fraction 2D Teich 70.1 % LV Ejection Fraction MOD 2C 80.3 % LV Ejection Fraction 2C AL 82.2 % LA Diameter 2.9 cm M-MODE Aortic Annulus Diameter 2.6 cm LA Ao Ratio MM 1.3 MV E Point Septal Separation 0.8 cm FINDINGS Left Ventricle Right Ventricle Right Atrium Left Atrium Mitral Valve Aortic Valve Tricuspid Valve Pulmonic Valve Pericardium Aorta IVC CONCLUSIONS This is technically limited quality echocardiogram because of poor ultrasonic windows. LV systolic function is normal with EF of 65 to 70%. No regional wall motion abnormalities are seen. Compared to prior echocardiogram from 04/2022, no significant changes in LV systolic function are seen. Justyn Cooley MD (Electronically Signed) Final Date: 31 August 2022 19:42 S
[2022-08-31] MEDS: cefTRIAXone 1,000 MG in sodium chloride 0.9% (plus) 50 ML 100 MG IV (13:15)
[2022-08-31] MEDS: TRAMadol 50 mg Tablet PO (14:40)
[2022-08-31] MEDS: enoxaparin 40 mg/0.4 mL Syringe SUBCUT (20:25)
[2022-09-01] VITALS (9 sets, daily range): BP systolic 120–162; BP diastolic 67–85; PULSE 62–94; RESP 14–20; TEMP 36.4–36.9; O2SAT 90–95
[2022-09-01] MEDS: acetaminophen 325 mg Tablet 650 MG PO ×2 (01:05→19:31)
[2022-09-01 05:05] LABS: Basophils # 0.1 10^3/uL (0.0-0.1); Basophils % 0.7 %; Eosinophils # 0.2 10^3/uL (0.0-0.8); Eosinophils % 2.6 %; Hematocrit 37.5 % (37.0-47.0); Hemoglobin 11.3 g/dL (11.5-15.3); Lymphocytes # 2.5 10^3/uL (0.8-4.8); Mean Corpuscular HGB Conc 30.1 g/dL (30.0-36.0); Mean Corpuscular Volume 89.5 fl (81-99); Mean Platelet Volume 9.9 fL (7.4-10.4); Monocytes # 0.6 10^3/uL (0.2-0.9); Monocytes % 7.7 %; Neutrophils # 4.14 10^3/uL (1.8-7.7); Neutrophils % 55.7 %; Nucleated Red Blood Cells % 0 %; Platelet Count 270 10^3/cmm (130-400); Red Blood Count 4.19 10^6/uL (4.1-5.3); Red Cell Distribution Width 15.4 % (12.1-15.1); White Blood Count 7.4 10^3/uL (4.0-10.0)
[2022-09-01 05:31] LABS: Blood Urea Nitrogen 15 mg/dL (8-23); Calcium 8.6 mg/dL (8.5-10.5); Carbon Dioxide 32 mmol/L (22-29); Chloride 101 mmol/L (98-107); Glomerular Filtration Rate 225.4 mL/min (90-130); Glucose 83 mg/dL (65-115); Osmolality Calculated 284 mOsm/kg (285-295); Sodium 137 mmol/L (136-145)
[2022-09-01] MEDS: atorvastatin 40 mg Tablet 20 MG PO (05:48)
[2022-09-01] MEDS: enoxaparin 40 mg/0.4 mL Syringe SUBCUT ×2 (08:49→19:31)
[2022-09-01] MEDS: ferrous gluconate 324 mg Tablet PO (08:50)
[2022-09-01] MEDS: omega-3 fatty acids 1,000 mg Capsule 1000 MG PO (08:50)
[2022-09-01] MEDS: folic acid 1 mg Tablet PO ×2 (08:50→17:55)
[2022-09-01] MEDS: multivitamin therapeutic Tablet 1 TAB PO (08:50)
[2022-09-01] MEDS: cyanocobalamin 1,000 mcg Tablet 500 MCG PO (08:50)
[2022-09-01] MEDS: clopidogrel 75 mg Tablet PO (08:50)
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
[2022-09-01] MEDS: TRAMadol 50 mg Tablet PO ×2 (11:29→21:59)
[2022-09-01] MEDS: cefTRIAXone 1,000 MG in sodium chloride 0.9% (plus) 50 ML 100 MG IV (11:29)
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
[2022-09-02] VITALS (9 sets, daily range): BP systolic 124–169; BP diastolic 72–87; PULSE 71–84; RESP 16–20; TEMP 36.4–36.9; O2SAT 93–96
[2022-09-02] MEDS: atorvastatin 40 mg Tablet 20 MG PO (05:39)
--- NOTE | 2022-09-02 05:44 | PC.NURSE ---
Pt asked about these medications and what time she would receive them. She also wanted to know why she was receiving different types of vitamins. Explained that she has been diagnosed with malnutrition and we are trying to restore her nutrition status to within normal limits. Pt verbalized understanding.
[2022-09-02] MEDS: cyanocobalamin 1,000 mcg Tablet 500 MCG PO (08:27)
[2022-09-02] MEDS: folic acid 1 mg Tablet PO ×2 (08:27→17:17)
[2022-09-02] MEDS: clopidogrel 75 mg Tablet PO (08:27)
[2022-09-02] MEDS: multivitamin therapeutic Tablet 1 TAB PO (08:28)
[2022-09-02] MEDS: enoxaparin 40 mg/0.4 mL Syringe SUBCUT ×2 (08:28→20:51)
[2022-09-02] MEDS: omega-3 fatty acids 1,000 mg Capsule 1000 MG PO (08:28)
[2022-09-02] MEDS: cefTRIAXone 1,000 MG in sodium chloride 0.9% (plus) 50 ML 100 MG IV (11:56)
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
[2022-09-02] MEDS: acetaminophen 325 mg Tablet 650 MG PO (13:45)
[2022-09-02] MEDS: HYDROcodone-acetaminophen 5-325 mg Tablet 1 TAB PO ×2 (16:39→23:14)
[2022-09-03] MEDS: acetaminophen 325 mg Tablet 650 MG PO ×2 (02:01→16:21)
[2022-09-03 04:25] VITALS: BP 164/74; PULSE 81; RESP 20; TEMP 36.6; O2SAT 93
[2022-09-03 06:00] VITALS: PULSE 67
[2022-09-03 06:25] LABS: Basophils % 0.6 %; Eosinophils # 0.3 10^3/uL (0.0-0.8); Eosinophils % 3.8 %; Hematocrit 38.5 % (37.0-47.0); Hemoglobin 11.7 g/dL (11.5-15.3); Lymphocytes # 2.1 10^3/uL (0.8-4.8); Mean Corpuscular HGB Conc 30.4 g/dL (30.0-36.0); Mean Corpuscular Hemoglobin 26.9 pg (28.0-34.0); Mean Corpuscular Volume 88.5 fl (81-99); Monocytes # 0.5 10^3/uL (0.2-0.9); Monocytes % 7.1 %; Neutrophils # 4.27 10^3/uL (1.8-7.7); Neutrophils % 59.4 %; Nucleated Red Blood Cells % 0 %; Platelet Count 300 10^3/cmm (130-400); Red Blood Count 4.35 10^6/uL (4.1-5.3); Red Cell Distribution Width 15.2 % (12.1-15.1); White Blood Count 7.2 10^3/uL (4.0-10.0)
[2022-09-03] MEDS: atorvastatin 40 mg Tablet 20 MG PO (06:27)
[2022-09-03 06:48] LABS: Anion Gap 8.1 (5-19); Blood Urea Nitrogen 16 mg/dL (8-23); Carbon Dioxide 36 mmol/L (22-29); Chloride 101 mmol/L (98-107); Glomerular Filtration Rate 225.4 mL/min (90-130); Glucose 90 mg/dL (65-115); Osmolality Calculated 293 mOsm/kg (285-295); Phosphorus 2.9 mg/dL (2.5-4.5); Potassium 4.1 mmol/L (3.5-5.1); Sodium 141 mmol/L (136-145)
[2022-09-03 07:41] VITALS: BP 150/72; PULSE 77; RESP 16; TEMP 36.6; O2SAT 95
[2022-09-03] MEDS: clopidogrel 75 mg Tablet PO (08:08)
[2022-09-03] MEDS: enoxaparin 40 mg/0.4 mL Syringe SUBCUT (08:08)
[2022-09-03] MEDS: omega-3 fatty acids 1,000 mg Capsule 1000 MG PO (08:08)
[2022-09-03] MEDS: multivitamin therapeutic Tablet 1 TAB PO (08:08)
[2022-09-03] MEDS: cyanocobalamin 1,000 mcg Tablet 500 MCG PO (08:08)
[2022-09-03] MEDS: folic acid 1 mg Tablet PO ×2 (08:08→17:24)
[2022-09-03] MEDS: ferrous gluconate 324 mg Tablet PO (08:08)
[2022-09-03] MEDS: HYDROcodone-acetaminophen 5-325 mg Tablet 1 TAB PO ×3 (11:01→23:25)
[2022-09-03] MEDS: cefTRIAXone 1,000 MG in sodium chloride 0.9% (plus) 50 ML 100 MG IV (11:02)
[2022-09-03 12:00] VITALS: BP 128/68; PULSE 85; RESP 18; TEMP 36.7; O2SAT 93
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
[2022-09-03 20:00] VITALS: BP 146/79; PULSE 76; RESP 18; TEMP 36.5; O2SAT 95
[2022-09-03 22:00] VITALS: PULSE 71
[2022-09-04] VITALS (7 sets, daily range): BP systolic 113–171; BP diastolic 62–82; PULSE 75–101; RESP 18–20; TEMP 36.3–37; O2SAT 93–96
[2022-09-04] MEDS: acetaminophen 325 mg Tablet 650 MG PO ×2 (03:50→15:09)
[2022-09-04 04:10] LABS: Basophils # 0.1 10^3/uL (0.0-0.1); Basophils % 0.8 %; Eosinophils # 0.3 10^3/uL (0.0-0.8); Eosinophils % 3.9 %; Hemoglobin 11.5 g/dL (11.5-15.3); Lymphocytes # 2.1 10^3/uL (0.8-4.8); Lymphocytes % 28.3 %; Mean Corpuscular HGB Conc 30.3 g/dL (30.0-36.0); Mean Corpuscular Hemoglobin 27.1 pg (28.0-34.0); Mean Corpuscular Volume 89.6 fl (81-99); Mean Platelet Volume 9.7 fL (7.4-10.4); Monocytes # 0.5 10^3/uL (0.2-0.9); Neutrophils # 4.35 10^3/uL (1.8-7.7); Neutrophils % 59.9 %; Nucleated Red Blood Cells % 0 %; Platelet Count 275 10^3/cmm (130-400); Red Blood Count 4.24 10^6/uL (4.1-5.3); Red Cell Distribution Width 15.4 % (12.1-15.1); White Blood Count 7.3 10^3/uL (4.0-10.0)
[2022-09-04 04:30] LABS: Blood Urea Nitrogen 14 mg/dL (8-23); Calcium 8.9 mg/dL (8.5-10.5); Carbon Dioxide 34 mmol/L (22-29); Chloride 101 mmol/L (98-107); Glomerular Filtration Rate 225.4 mL/min (90-130); Glucose 97 mg/dL (65-115); Magnesium 1.9 mg/dL (1.7-2.3); Osmolality Calculated 290 mOsm/kg (285-295); Phosphorus 2.7 mg/dL (2.5-4.5); Sodium 140 mmol/L (136-145)
[2022-09-04] MEDS: atorvastatin 40 mg Tablet 20 MG PO (05:20)
[2022-09-04] MEDS: HYDROcodone-acetaminophen 5-325 mg Tablet 1 TAB PO ×2 (05:22→19:57)
[2022-09-04] MEDS: aspirin 81 mg EC Tablet PO (10:15)
[2022-09-04] MEDS: folic acid 1 mg Tablet PO ×2 (10:15→17:49)
[2022-09-04] MEDS: cyanocobalamin 1,000 mcg Tablet 500 MCG PO (10:15)
[2022-09-04] MEDS: enoxaparin 40 mg/0.4 mL Syringe SUBCUT (10:16)
[2022-09-04] MEDS: multivitamin therapeutic Tablet 1 TAB PO (10:16)
[2022-09-04] MEDS: omega-3 fatty acids 1,000 mg Capsule 1000 MG PO (10:16)
[2022-09-04] MEDS: clopidogrel 75 mg Tablet PO (10:16)
--- NOTE | 2022-09-04 10:37 | PC.NURSE ---
This nurse received this patient from MARCELO morris at [facility] 10:20
[2022-09-04] MEDS: cefTRIAXone 1,000 MG in sodium chloride 0.9% (plus) 50 ML 100 MG IV (13:11)
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
--- NOTE | 2022-09-04 13:22 | CT_ITS ---
WS: [id number] CT CHEST, ABDOMEN, AND PELVIS TECHNIQUE: Noncontrast CT of the chest, abdomen, and pelvis with coronal and sagittal reformatted rodrigo ges. CLINICAL INFORMATION: weight loss, pulmonary noduel COMPARISON: June 05, 2022 DLP: 583.[address] scans at [facility] use at least one of these dose optimization techniques: automated e xposure control; mA and/or kV adjustment per patient size (includes targeted exams where dose is matc hed to clinical indication); or iterative reconstruction. CT CHEST: Soft tissue nodule along the LEFT inferior hilum similar in appearance to June 05, 2022. This measure s 2.7 cm not significantly changed compared to previous. Surrounding spiculation suspicious for neopl asm. This can be further evaluated PET/CT or bronchoscopy. Lungs are otherwise well aerated. No acute pulmonary infiltrates. No focal pneumonia or pleural fluid . Aortic calcification. Normal caliber thoracic aorta. Coronary calcification. No mediastinal or amilcar r lymphadenopathy. CT ABDOMEN AND PELVIS: Noncontrast liver is normal. Noncontrast spleen is normal. Normal GE junction. Adrenal glands are nor mal. Splenic artery calcification. Diffuse body wall anasarca. [place] catheter. Rectosigmoid constipat ion. No hydronephrosis in the kidney. Gallbladder is contracted. Slightly aneurysmal infrarenal abdom inal aorta measuring 2.6 x 2.6 cm. Fluid distended stomach with food products and air-fluid level. Di stention of the duodenum. No evidence of high-grade small or large bowel obstruction. CT/[place] [id number] IMPRESSION: 1. Spiculated nodule LEFT inferior hilum measuring 2.7 cm not significantly ch anged suspicious for neoplasm. Recommend further evaluation with PET/CT or bron choscopy. 2. Lungs are well aerated. No acute pulmonary infiltrates. 3. Slightly aneurysmal infrarenal abdominal aorta measuring 2.6 x 2.6 cm. 4. Air-fluid level in the stomach with food products. Distention of the stomac h and proximal duodenum. No evidence of high-grade small or obstruction. 5. [place] catheter. 6. No other acute findings.
--- NOTE | 2022-09-04 13:58 | PC.NURSE ---
This nurse saw imaging taking her down off the unit for CT.
--- NOTE | 2022-09-04 17:42 | PC.NURSE ---
MARCELO Mcclelland performed the wound care and signed and dated the dressings. All dressing observed to be clean dry and intact at this time.
[2022-09-05] VITALS (8 sets, daily range): BP systolic 108–144; BP diastolic 65–83; PULSE 71–109; RESP 16–22; TEMP 36.8–37.4; O2SAT 93–96
[2022-09-05] MEDS: HYDROcodone-acetaminophen 5-325 mg Tablet 1 TAB PO ×2 (02:02→16:17)
[2022-09-05] MEDS: atorvastatin 40 mg Tablet 20 MG PO (06:21)
[2022-09-05] MEDS: enoxaparin 40 mg/0.4 mL Syringe SUBCUT (08:58)
[2022-09-05] MEDS: aspirin 81 mg EC Tablet PO (10:04)
[2022-09-05] MEDS: cyanocobalamin 1,000 mcg Tablet 500 MCG PO (10:05)
[2022-09-05] MEDS: clopidogrel 75 mg Tablet PO (10:05)
[2022-09-05] MEDS: ferrous gluconate 324 mg Tablet PO (10:06)
[2022-09-05] MEDS: folic acid 1 mg Tablet PO ×2 (10:06→17:50)
[2022-09-05] MEDS: multivitamin therapeutic Tablet 1 TAB PO (10:07)
[2022-09-05] MEDS: omega-3 fatty acids 1,000 mg Capsule 1000 MG PO (10:09)
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
[2022-09-06] VITALS (9 sets, daily range): BP systolic 117–154; BP diastolic 57–88; PULSE 77–96; RESP 12–18; TEMP 36.7–37.2; O2SAT 92–96
[2022-09-06] MEDS: atorvastatin 40 mg Tablet 20 MG PO (05:11)
[2022-09-06] MEDS: HYDROcodone-acetaminophen 5-325 mg Tablet 1 TAB PO ×3 (05:22→22:08)
[2022-09-06] MEDS: clopidogrel 75 mg Tablet PO (08:15)
[2022-09-06] MEDS: cyanocobalamin 1,000 mcg Tablet 500 MCG PO (08:15)
[2022-09-06] MEDS: enoxaparin 40 mg/0.4 mL Syringe SUBCUT (08:15)
[2022-09-06] MEDS: aspirin 81 mg EC Tablet PO (08:15)
[2022-09-06] MEDS: omega-3 fatty acids 1,000 mg Capsule 1000 MG PO (08:16)
[2022-09-06] MEDS: folic acid 1 mg Tablet PO ×2 (08:16→17:13)
[2022-09-06] MEDS: multivitamin therapeutic Tablet 1 TAB PO (08:16)
--- NOTE | 2022-09-06 08:59 | CTR_ITS ---
PROCEDURE INFORMATION: Exam: CT Head Without Contrast Exam date and time: 09/06/2022 9:36 AM Age: 61 years old Clinical indication: Altered mental status/memory loss; Confusion or disorientation; Additional info: Lung mass, TECHNIQUE: Imaging protocol: Computed tomography of the head without contrast. Radiation optimization: All CT scans at this facility use at least one of these dose optimization techniques: automated exposure control; mA and/or kV adjustment per patient size (includes targeted exams where dose is matched to clinical indication); or iterative reconstruction. COMPARISON: CT head wo con* [id number] 06/05/2022 6:45 PM RADIATION DOSE METRICS: Total DLP (mGy-cm): 829.28 FINDINGS: Brain: Extensive chronic right MCA infarction redemonstrated. Chronic right SEAN/SEASONER HAND watershed infarction involving the paracentral lobule, stable. Interval additional chronic infarction involving the corpus striatum and anterior limb internal capsule. Dystrophic calcifications lateral right occipital lobe/parietal supramarginal gyrus, stable. Small chronic lacunar infarction left putamen. Moderate hypoattenuating foci are noted in the central cerebral, posterior superior periatrial and anterior lateral ventricular periventricular white matter bilaterally. No intracranial hemorrhage. No mass or acute cortical infarction identified. Ventricles: Prominence of the ventricular system and subarachnoid spaces is consistent with the patient's age of 61 years. Interval increased ex vacuo enlargement of the right lateral ventricular frontal horn. Paranasal sinuses: Visualized sinuses are unremarkable. No fluid levels. Mastoid air cells: Visualized mastoid air cells are well aerated. Bones/joints: No acute abnormality. No acute fracture. Soft tissues: Unremarkable. Vasculature: Atherosclerotic calcifications are present involving the carotid artery siphons bilaterally and the right vertebral artery. CT/CT head wo con* [id number] IMPRESSION: 1. Extensive chronic right MCA infarction redemonstrated. 2. Interval additional chronic infarction involving the corpus striatum and anterior limb internal capsule. 3. Chronic right SEAN/SEASONER HAND watershed infarction involving the paracentral lobule, stable. 4. Small chronic lacunar infarction left putamen. 5. Age appropriate supratentorial and infratentorial atrophy. 6. Moderate chronic white matter microvascular ischemic disease. 7. No acute intracranial abnormality identified.
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
--- NOTE | 2022-09-06 14:55 | PC.NURSE ---
NIH stroke scale completed as per order pt has severe chronic contractures of melissa lower extremities...is able to follow commands to her normal ability...no acute deficites
[2022-09-07] VITALS (7 sets, daily range): BP systolic 129–179; BP diastolic 71–80; PULSE 71–96; RESP 12–19; TEMP 36.7–37.2; O2SAT 92–96
[2022-09-07] MEDS: acetaminophen 325 mg Tablet 650 MG PO (00:28)
[2022-09-07] MEDS: HYDROcodone-acetaminophen 5-325 mg Tablet 1 TAB PO ×3 (05:15→23:27)
[2022-09-07] MEDS: atorvastatin 40 mg Tablet 20 MG PO (05:15)
[2022-09-07] MEDS: aspirin 81 mg EC Tablet PO (08:10)
[2022-09-07] MEDS: folic acid 1 mg Tablet PO ×2 (08:10→16:59)
[2022-09-07] MEDS: cyanocobalamin 1,000 mcg Tablet 500 MCG PO (08:10)
[2022-09-07] MEDS: enoxaparin 40 mg/0.4 mL Syringe SUBCUT (08:10)
[2022-09-07] MEDS: ferrous gluconate 324 mg Tablet PO (08:10)
[2022-09-07] MEDS: clopidogrel 75 mg Tablet PO (08:11)
[2022-09-07] MEDS: omega-3 fatty acids 1,000 mg Capsule 1000 MG PO (08:11)
[2022-09-07] MEDS: multivitamin therapeutic Tablet 1 TAB PO (08:11)
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
[2022-09-07 13:32] LABS: Erythrocyte Sedimentation Rate 34 mm/hr (0-15)
[2022-09-07 14:04] LABS: Rapid Plasma Reagin Syphilis Nonreactive (Nonreactive)
[2022-09-07 14:05] LABS: Hepatitis A Antibody IgM Non-Reactive (Nonreactive); Hepatitis B Core IgM Non-Reactive (Nonreactive); Hepatitis B Surface Antigen Non-Reactive (Nonreactive); Hepatitis C Virus Antibody Non-Reactive (Nonreactive)
[2022-09-07 14:35] LABS: HIV 1 & 2 Antibody Non-Reactive (Non-Reactiv); HIV 1 & 2 Antigen Non-Reactive (Non-Reactiv)
[2022-09-07] MEDS: famotidine 20 mg Tablet PO (20:57)
[2022-09-08] VITALS (8 sets, daily range): BP systolic 121–170; BP diastolic 65–77; PULSE 78–92; RESP 15–17; TEMP 36.5–37.2; O2SAT 93–96
[2022-09-08] MEDS: atorvastatin 40 mg Tablet 20 MG PO (05:44)
[2022-09-08] MEDS: omega-3 fatty acids 1,000 mg Capsule 1000 MG PO (09:06)
[2022-09-08] MEDS: cyanocobalamin 1,000 mcg Tablet 500 MCG PO (09:06)
[2022-09-08] MEDS: clopidogrel 75 mg Tablet PO (09:06)
[2022-09-08] MEDS: folic acid 1 mg Tablet PO ×2 (09:07→18:27)
[2022-09-08] MEDS: HYDROcodone-acetaminophen 5-325 mg Tablet 1 TAB PO ×3 (09:07→23:57)
[2022-09-08] MEDS: aspirin 81 mg EC Tablet PO (09:07)
[2022-09-08] MEDS: multivitamin therapeutic Tablet 1 TAB PO (09:08)
[2022-09-08] MEDS: enoxaparin 40 mg/0.4 mL Syringe SUBCUT (09:08)
[2022-09-08] MEDS: thiamine 100 mg Tablet PO (09:08)
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
[2022-09-08] MEDS: trazodone 50 mg Tablet 25 MG PO (22:11)
[2022-09-09] VITALS: BP 127/72; PULSE 92; RESP 15; TEMP 36.7; O2SAT 95
[2022-09-09 08:00] VITALS: BP 149/61; PULSE 84; RESP 17; TEMP 36.6; O2SAT 93
[2022-09-09] MEDS: cyanocobalamin 1,000 mcg Tablet 500 MCG PO (09:46)
[2022-09-09] MEDS: folic acid 1 mg Tablet PO ×2 (09:46→17:04)
[2022-09-09] MEDS: clopidogrel 75 mg Tablet PO (09:46)
[2022-09-09] MEDS: aspirin 81 mg EC Tablet PO (09:46)
[2022-09-09] MEDS: atorvastatin 40 mg Tablet 20 MG PO (09:46)
[2022-09-09] MEDS: multivitamin therapeutic Tablet 1 TAB PO (09:46)
[2022-09-09] MEDS: omega-3 fatty acids 1,000 mg Capsule 1000 MG PO (09:46)
[2022-09-09] MEDS: thiamine 100 mg Tablet PO (09:46)
[2022-09-09] MEDS: ferrous gluconate 324 mg Tablet PO (09:46)
[2022-09-09] MEDS: enoxaparin 40 mg/0.4 mL Syringe SUBCUT (09:47)
[2022-09-09] MEDS: HYDROcodone-acetaminophen 5-325 mg Tablet 1 TAB PO ×2 (10:06→17:04)
[2022-09-09 11:58] VITALS: BP 118/68; PULSE 86; RESP 18; TEMP 36.8; O2SAT 95
[2022-09-09 12:08] LABS: CENTROMERE B ANTIBODY <1.0 NEG AI (<1.0 NEG); JO-1 ANTIBODY <1.0 NEG AI (<1.0 NEG); RNP ANTIBODY <1.0 NEG AI (<1.0 NEG); SCL-70 ANTIBODY <1.0 NEG AI (<1.0 NEG); SJOGREN'S ANTIBODY (SS-A) <1.0 NEG AI (<1.0 NEG); SM ANTIBODY <1.0 NEG AI (<1.0 NEG); SS-B <1.0 NEG AI (<1.0 NEG)
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
[2022-09-09 16:00] VITALS: BP 125/77; PULSE 89; RESP 18; TEMP 36.7; O2SAT 95
[2022-09-09 16:04] LABS: THYROID PEROXIDASE ANTIBODIES 39 IU/mL (<9)
[2022-09-09 20:00] VITALS: BP 124/71; PULSE 92; RESP 17; TEMP 37.2; O2SAT 92
[2022-09-09] MEDS: trazodone 50 mg Tablet 25 MG PO (21:52)
[2022-09-10] VITALS: BP 143/65; PULSE 84; RESP 16; TEMP 36.6; O2SAT 93
[2022-09-10 04:00] VITALS: BP 145/68; PULSE 85; RESP 18; TEMP 36.3; O2SAT 95
[2022-09-10] MEDS: HYDROcodone-acetaminophen 5-325 mg Tablet 1 TAB PO ×4 (05:29→22:32)
[2022-09-10] MEDS: atorvastatin 40 mg Tablet 20 MG PO (05:29)
[2022-09-10 08:00] VITALS: BP 118/76; PULSE 73; RESP 17; TEMP 36.8; O2SAT 95
[2022-09-10] MEDS: enoxaparin 40 mg/0.4 mL Syringe SUBCUT (10:24)
[2022-09-10] MEDS: famotidine 20 mg Tablet PO (10:25)
[2022-09-10] MEDS: cyanocobalamin 1,000 mcg Tablet 500 MCG PO (10:25)
[2022-09-10] MEDS: aspirin 81 mg EC Tablet PO (10:26)
[2022-09-10] MEDS: folic acid 1 mg Tablet PO ×2 (10:26→17:03)
[2022-09-10] MEDS: omega-3 fatty acids 1,000 mg Capsule 1000 MG PO (10:27)
[2022-09-10] MEDS: thiamine 100 mg Tablet PO (10:27)
[2022-09-10] MEDS: clopidogrel 75 mg Tablet PO (10:27)
[2022-09-10] MEDS: multivitamin therapeutic Tablet 1 TAB PO (10:27)
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
[2022-09-10 12:00] VITALS: BP 120/68; PULSE 76; RESP 18; TEMP 36.7; O2SAT 94
[2022-09-10 13:13] LABS: COMPLEMENT COMPONENT C3C 126 mg/dL (83-193); COMPLEMENT COMPONENT C4C 37 mg/dL (15-57)
[2022-09-10 16:00] VITALS: BP 130/62; PULSE 75; RESP 18; TEMP 36.6; O2SAT 95
[2022-09-10 20:00] VITALS: BP 111/63; PULSE 86; RESP 18; TEMP 36.6; O2SAT 91
[2022-09-10] MEDS: trazodone 50 mg Tablet 25 MG PO (21:08)
[2022-09-11] VITALS: BP 97/58; PULSE 80; RESP 16; TEMP 36.8; O2SAT 91
[2022-09-11] MEDS: acetaminophen 325 mg Tablet 650 MG PO (02:55)
[2022-09-11 04:00] VITALS: BP 128/75; PULSE 80; RESP 18; TEMP 36.7; O2SAT 91
[2022-09-11] MEDS: HYDROcodone-acetaminophen 5-325 mg Tablet 1 TAB PO ×3 (05:13→18:24)
[2022-09-11] MEDS: atorvastatin 40 mg Tablet 20 MG PO (05:13)
[2022-09-11 08:00] VITALS: BP 136/82; PULSE 80; RESP 16; TEMP 36.8; O2SAT 92
[2022-09-11] MEDS: folic acid 1 mg Tablet PO ×2 (09:50→18:24)
[2022-09-11] MEDS: cyanocobalamin 1,000 mcg Tablet 500 MCG PO (09:50)
[2022-09-11] MEDS: ferrous gluconate 324 mg Tablet PO (09:50)
[2022-09-11] MEDS: thiamine 100 mg Tablet PO (09:51)
[2022-09-11] MEDS: aspirin 81 mg EC Tablet PO (09:51)
[2022-09-11] MEDS: multivitamin therapeutic Tablet 1 TAB PO (09:51)
[2022-09-11] MEDS: omega-3 fatty acids 1,000 mg Capsule 1000 MG PO (09:51)
[2022-09-11] MEDS: clopidogrel 75 mg Tablet PO (09:52)
[2022-09-11] MEDS: enoxaparin 40 mg/0.4 mL Syringe SUBCUT (09:54)
[2022-09-11 10:18] LABS: ANA SCREEN, IFA NEGATIVE (NEGATIVE)
[2022-09-11 12:57] LABS: COMPLEMENT, TOTAL (CH50) 56 U/mL (31-60)
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
[2022-09-11 20:00] VITALS: BP 110/66; PULSE 101; RESP 16; TEMP 36.8; O2SAT 94
[2022-09-11] MEDS: trazodone 50 mg Tablet 25 MG PO (20:25)
[2022-09-12] VITALS: BP 133/70; PULSE 96; RESP 18; TEMP 36.6; O2SAT 94
[2022-09-12] MEDS: HYDROcodone-acetaminophen 5-325 mg Tablet 1 TAB PO ×4 (00:13→22:18)
[2022-09-12 04:00] VITALS: BP 121/65; PULSE 85; RESP 24; TEMP 36.5; O2SAT 93
[2022-09-12] MEDS: atorvastatin 40 mg Tablet 20 MG PO (06:18)
[2022-09-12 07:41] VITALS: BP 129/70; PULSE 79; TEMP 36.9; O2SAT 92
[2022-09-12 08:00] VITALS: RESP 20
[2022-09-12] MEDS: enoxaparin 40 mg/0.4 mL Syringe SUBCUT (08:36)
[2022-09-12] MEDS: aspirin 81 mg EC Tablet PO (08:39)
[2022-09-12] MEDS: clopidogrel 75 mg Tablet PO (08:41)
[2022-09-12] MEDS: cyanocobalamin 1,000 mcg Tablet 500 MCG PO (08:42)
[2022-09-12] MEDS: thiamine 100 mg Tablet PO (08:43)
[2022-09-12] MEDS: omega-3 fatty acids 1,000 mg Capsule 1000 MG PO (08:43)
[2022-09-12] MEDS: folic acid 1 mg Tablet PO ×2 (08:44→17:17)
[2022-09-12] MEDS: multivitamin therapeutic Tablet 1 TAB PO (08:44)
[2022-09-12 11:36] VITALS: BP 114/70; PULSE 86; RESP 24; TEMP 36.8; O2SAT 94
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
[2022-09-12 14:52] LABS: DNA AB (DS) CRITHIDIA,IFA NEGATIVE (NEGATIVE)
[2022-09-12 15:06] LABS: SARS Covid-2 Antigen negative (Negative)
[2022-09-12] MEDS: famotidine 20 mg Tablet PO (19:16)
[2022-09-12 20:00] VITALS: BP 116/65; PULSE 99; RESP 15; TEMP 37.1; O2SAT 93
[2022-09-12] MEDS: trazodone 50 mg Tablet 25 MG PO (22:52)
[2022-09-13] VITALS: BP 160/80; PULSE 97; RESP 12; TEMP 36.7; O2SAT 90
[2022-09-13] MEDS: HYDROcodone-acetaminophen 5-325 mg Tablet 1 TAB PO (05:03)
[2022-09-13] MEDS: atorvastatin 40 mg Tablet 20 MG PO (05:06)
[2022-09-13 05:56] VITALS: BP 154/82; PULSE 78; RESP 19; TEMP 36.7; O2SAT 93
[2022-09-13 08:00] VITALS: BP 132/82; PULSE 75; RESP 16; TEMP 36.7; O2SAT 91
[2022-09-13] MEDS: thiamine 100 mg Tablet PO (08:09)
[2022-09-13] MEDS: aspirin 81 mg EC Tablet PO (08:09)
[2022-09-13] MEDS: enoxaparin 40 mg/0.4 mL Syringe SUBCUT (08:09)
[2022-09-13] MEDS: clopidogrel 75 mg Tablet PO (08:09)
[2022-09-13] MEDS: cyanocobalamin 1,000 mcg Tablet 500 MCG PO (08:09)
[2022-09-13] MEDS: ferrous gluconate 324 mg Tablet PO (08:09)
[2022-09-13] MEDS: multivitamin therapeutic Tablet 1 TAB PO (08:09)
[2022-09-13] MEDS: folic acid 1 mg Tablet PO (08:09)
[2022-09-13] MEDS: omega-3 fatty acids 1,000 mg Capsule 1000 MG PO (08:09)
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
--- NOTE | 2022-09-13 11:42 | PC.NURSE ---
Report called to Samaria at [facility].
[2022-09-13 11:45] VITALS: BP 109/61; PULSE 84; RESP 16; TEMP 36.6; O2SAT 97
[2022-09-13 14:04] VITALS: BP 109/61; PULSE 84; RESP 16; TEMP 36.6; O2SAT 97
--- NOTE | 2022-09-13 14:07 | PC.NURSE ---
Patient left via EMS. Pt calderon Schneider notified per patient request.
== END 2022-09-13 14:12 | disposition skilled nursing facility (03) ==
LOC: ER 18:01 → MEDSURG 20:09
PROVIDERS: Family Medicine; Admitting Provider Internal Medicine; Emergency Provider Emergency Medicine; PCP Family Medicine; Visit Provider Internal Medicine
DX: R62.7 Adult failure to thrive (principal); R07.9 Chest pain, unspecified; M24.569 Contracture, unspecified knee; I70.223 Atherosclerosis of native arteries of extremities with rest pain, bilateral legs; B87.0 Cutaneous myiasis; T74.01XA Adult neglect or abandonment, confirmed, initial encounter; F01.50 Vascular dementia, unspecified severity, without behavioral disturbance, psychotic disturbance, mood disturbance, and anxiety; Z86.73 Personal history of transient ischemic attack (TIA), and cerebral infarction without residual deficits; R91.1 Solitary pulmonary nodule; I73.9 Peripheral vascular disease, unspecified; E43 Unspecified severe protein-calorie malnutrition; L89.90 Pressure ulcer of unspecified site, unspecified stage; Z95.5 Presence of coronary angioplasty implant and graft; I10 Essential (primary) hypertension; E78.5 Hyperlipidemia, unspecified; Z87.891 Personal history of nicotine dependence
CPT/HCPCS: 36415; 36416; 70450; 71045; 71250; 74176; 80048; 80074; 82962; 83735; 83880; 84100; 84443; 84484; 85025; 85651; 86160; 86162; 86235; 86255; 86376; 86431; 86592; 87426; 87806; 93005; 93308; 94664; 96365; 96372; 97161; 97165; 99285; G0378; J0696; J1644; J1650

== ENCOUNTER 2022-10-16 17:11 | Emergency (ER) | payer OTHER, SELFPAY ==
[2022-10-16] VITALS (15 sets, daily range): BP systolic 121–162; BP diastolic 67–104; PULSE 80–102; RESP 16–21; TEMP 36.6; O2SAT 92–96; BMI 17.7
--- NOTE | 2022-10-16 17:26 | XRR_ITS ---
PROCEDURE INFORMATION: Exam: XR Chest Exam date and time: 10/16/2022 5:38 PM Age: 61 years old Clinical indication: Chest wall pain; Additional info: Cp TECHNIQUE: Imaging protocol: Radiologic exam of the chest. Views: 1 view. COMPARISON: CT chest abdpel [id number] 09/04/2022 2:00 PM FINDINGS: Lungs: There is no consolidation. Pleural spaces: There is no pleural effusion or pneumothorax. Heart/Mediastinum: There is mild enlargement of the cardiac silhouette. Bones/joints: Bones are unremarkable. XR/XR chest 1V portable [id number] IMPRESSION: No acute findings.
--- NOTE | 2022-10-16 17:46 | ECG_ITS ---
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 Measurements Intervals [place] Rate: 89 P: 83 PA: 167 QRS: 68 QRSD: 86 T: 17 QT: 370 QTc: 451 Interpretive Statements SINUS RHYTHM WITH OCCASIONAL ECTOPIC PREMATURE COMPLEXES POSSIBLE ANTERIOR MYOCARDIAL INFARCTION , PROBABLY OLD [30 ms Q WAVE IN V3/V4, OR R < 0.2 mV IN V4] Compared to ECG 08/30/2022 20:56:08 Myocardial infarct finding now present Electronically Signed On 10-16-2022 17:55:04 ABLE BODIED WATCHMAN by Justyn Cooley M.D. [id number]
--- NOTE | 2022-10-16 17:50 | W.ED.CHESTPA ---
HPI - Chest Pain General: Chief Complaint: Chest Pain Stated Complaint: CP Time Seen by Provider: 10/16/22 17:21 History of Present Illness: Patient comes in with chest pain. States she was at the long-term care facility when she developed midsternal chest pressure that lasted for about 30 minutes. States it radiated into her arms. She is asymptomatic at this time. Associated symptoms: Deny abdominal pain, dyspnea, fever(s), nausea, palpitations or vomiting Review of Systems Const: Denies: fever(s) or body aches Eyes: Denies: change in vision or blurry vision ENMT: Denies: throat pain or odynophagia Card: Reports: chest pain; Denies: palpitations Resp: Denies: dyspnea or productive cough GI: Denies: abdominal pain, nausea or vomiting : Denies: flank pain or dysuria Musc: Denies: neck pain or back pain Skin/Breast: Denies: rash or pruritus Neuro: Denies: headache(s) or numbness in extremities Psych: Denies: anxiety or change in appetite Endo: Denies: polyuria or excessive sweating PFSH ED PFSH: Medical History Acute right arterial ischemic stroke, middle cerebral artery (MCA) CAD (coronary artery disease) Carotid artery stenosis History of stroke HTN (hypertension) Hyperlipidemia Peripheral Vascular Disease Pneumonia Severe protein-energy malnutrition Vitamin B12 deficiency Vitamin D deficiency disease Surgical History H/O section S/P arterial stent S/P carotid endarterectomy S/P coronary artery stent placement S/P PTCA (percutaneous transluminal coronary angioplasty) Family History Mother Myocardial infarction Grandmother No problems noted. Grandfather Stroke Hypertension Cancer Father Diabetes Hypertension Social History Smoking and tobacco status: former smoker Alcohol intake: never Lives independently: No Household members: spouse and children Marital status: Current occupational status: disabled Physical Exam Const: COMMON NORMALS: no acute distress, patient oriented x3, healthy appearing and alert HENMT: COMMON NORMALS: normocephalic and atraumatic HEAD & SCALP: normocephalic and atraumatic Eye: COMMON NORMALS: Equal, round and reactive pupils present and EOMs intact bilaterally PUPIL: Yes Equal, round and reactive pupils present Neck/C-Spine: COMMON NORMALS: full ROM and supple Resp: COMMON NORMALS: normal respiratory effort, No retractions and No use of accessory muscles Cardio: COMMON NORMALS: regular rate and regular rhythm RATE: regular rate RHYTHM: regular rhythm GI: COMMON NORMALS: Normal to inspection, nondistended, normoactive bowel sounds present, Soft to palpation and non-tender PALPATION: Yes Soft to palpation Back/Pelvis: COMMON NORMALS: thoracic and lumbar spine normal to inspection and no thoracic nor lumbar tenderness Extremity: OTHER: Lower extremity contracture secondary to previous stroke Neuro: COMMON NORMALS: patient oriented x3 SENSORIUM/ORIENTATION: Yes alert Psych: COMMON NORMALS: mental status grossly normal and cooperative Skin: COMMON NORMALS: no rashes or lesions noted and no wounds GENERAL SKIN EXAM: no rashes or lesions noted Course Vital Signs: Vital signs: Vital Signs Temperature 97.9 F 10/16/22 17:15 Pulse Rate 99 10/16/22 18:30 Respiratory Rate 19 H 10/16/22 18:30 Blood Pressure 162/104 10/16/22 18:30 Pulse Oximetry 94 10/16/22 18:30 Oxygen Delivery Me thod 10/16/22 17:15 MDM - Chest Pain Medical Decision Making Patient comes in with chest pain. States she was at the long-term care facility when she developed midsternal chest pressure that lasted for about 30 minutes. States it radiated into her arms. She is asymptomatic at this time. Physical exam is remarkable for bilateral lower extremity contracture secondary to previous stroke. Will check labs, EKG, x-ray, and reassess. On reassessment I talked to the patient about the test results. Will discharge home at this time with precautions to return for worsening or changing symptoms. Lab Data 10/16/22 17:46 10/16/22 17:46 Radiology Impressions Chest X-Ray 10/16/22 17:26 IMPRESSION: No acute findings. Laboratory Results WBC 8.7 10^3/uL (4.0-10.0) 10/16/22 17:46 RBC 4.70 10^6/uL (4.1-5.3) 10/16/22 17:46 Hgb 12.5 g/dL (11.5-15.3) 10/16/22 17:46 Hct 40.7 % (37.0-47.0) 10/16/22 17:46 MCV 86.6 fl (81-99) 10/16/22 17:46 MCH 26.6 pg (28.0-34.0) L 10/16/22 17:46 MCHC 30.7 g/dL (30.0-36.0) 10/16/22 17:46 RDW 15.1 % (12.1-15.1) 10/16/22 17:46 Plt Count 253 10^3/cmm (130-400) 10/16/22 17:46 MPV 10.1 fL (7.4-10.4) 10/16/22 17:46 Neut % (Auto) 61.7 % 10/16/22 17:46 Lymph % (Auto) 25.8 % 10/16/22 17:46 [place] % (Auto) 9.0 % 10/16/22 17:46 Eos % (Auto) 2.5 % 10/16/22 17:46 Baso % (Auto) 0.7 % 10/16/22 17:46 Neut # (Auto) 5.35 10^3/uL (1.8-7.7) 10/16/22 17:46 Lymph # (Auto) 2.2 10^3/uL (0.8-4.8) 10/16/22 17:46 [place] # (Auto) 0.8 10^3/uL (0.2-0.9) 10/16/22 17:46 Eos # (Auto) 0.2 10^3/uL (0.0-0.8) 10/16/22 17:46 Baso # (Auto) 0.1 10^3/uL (0.0-0.1) 10/16/22 17:46 Nucleated RBC % (auto) 0 % 10/16/22 17:46 Nucleated RBCs # 0.0 /100WBC 10/16/22 17:46 Sodium 141 mmol/L (136-145) 10/16/22 17:46 Potassium 3.5 mmol/L (3.5-5.1) 10/16/22 17:46 Chloride 100 mmol/L (98-107) 10/16/22 17:46 Carbon Dioxide 32 mmol/L (22-29) H 10/16/22 17:46 Anion Gap 12.5 (5-19) 10/16/22 17:46 BUN 16 mg/dL (8-23) 10/16/22 17:46 Creatinine 0.3 mg/dL (0.5-0.9) L 10/16/22 17:46 GFR Calculation 225.4 mL/min (90-130) H 10/16/22 17:46 Glucose 102 mg/dL (65-115) 10/16/22 17:46 Calculated Osmolality 293 mOsm/kg (285-295) 10/16/22 17:46 Calcium 9.3 mg/dL (8.5-10.5) 10/16/22 17:46 Total Bilirubin 0.2 mg/dL (0.15-1.2) 10/16/22 17:46 AST 9 U/L (0-32) 10/16/22 17:46 ALT 9 U/L (0-33) 10/16/22 17:46 Alkaline Phosphatase 138 U/L (35-105) H 10/16/22 17:46 Troponin T Baseline 27 ng/L (0-10) H 10/16/22 17:10 Troponin T 120 Minute 27.38 ng/L (0-10) H 10/16/22 19:22 Delta Troponin T 0.38 ABS# (0-10) 10/16/22 19:22 Total Protein 6.2 g/dL (6.6-8.7) L 10/16/22 17:46 Albumin 3.1 g/dL (3.5-5.2) L 10/16/22 17:46 Globulin 3.1 g/dL (1.3-4.6) 10/16/22 17:46 Discharge Plan Discharge Patient Disposition: Home Clinical Impression: Nonspecific chest pain Condition: Stable Prescriptions: No Action omega-3 fatty acids 1,000 mg capsule 1,000 mg PO DAILY Qty: 30 0RF atorvastatin 10 mg tablet 10 mg PO QAM 30 Days Qty: 30 0RF clopidogrel 75 mg tablet 75 mg PO QAM Qty: 30 0RF famotidine 20 mg tablet 20 mg PO DAILY PRN (Reason: Heartburn) Qty: 30 0RF nitroglycerin [Nitrostat] 0.4 mg tablet, sublingual 0.4 mg SUBLINGUAL Q5M PRN (Reason: Chest Pain) Qty: 5 0RF ferrous gluconate 324 mg (37.5 mg iron) Tablet 324 mg PO EVERY OTHER DAY Qty: 90 0RF multivitamin with folic acid [Thera] 400 mcg Tablet 1 tab PO DAILY Qty: 90 0RF tramadol 50 mg tablet 50 mg PO DAILY PRN (Reason: pain) Qty: 4 0RF Rx Instructions: With dressing change amlodipine 5 mg Tablet 5 mg PO DAILY aspirin 81 mg Tablet,Delayed Release (Dr/Ec) 81 mg PO DAILY 30 Days Qty: 30 3RF Vitamin B-1 (mononitrate) 100 mg Tablet 100 mg PO DAILY 30 Days Qty: 30 3RF Vitamin B-12 1,000 mcg Tablet 500 mcg PO DAILY 30 Days Qty: 30 3RF folic acid 1 mg Tablet 1 mg PO BID 30 Days Qty: 60 3RF ferrous gluconate 324 mg (37.5 mg iron) Tablet 324 mg PO EVERY OTHER DAY Qty: 30 0RF Discharge Orders: Discharge ED (Routine); Ordered 10/16/22 Ordered By: Zoran Sanabria Referrals: Karel Gamez MD [Primary Care Provider] - Patient Instructions: Chest Pain (ED) Coding Level of Care Code ED Or First Assist Registered Nurse for Chg Fwd Exam Comprehensive
[2022-10-16 18:24] LABS: Basophils # 0.1 10^3/uL (0.0-0.1); Basophils % 0.7 %; Eosinophils # 0.2 10^3/uL (0.0-0.8); Eosinophils % 2.5 %; Hematocrit 40.7 % (37.0-47.0); Hemoglobin 12.5 g/dL (11.5-15.3); Lymphocytes # 2.2 10^3/uL (0.8-4.8); Lymphocytes % 25.8 %; Mean Corpuscular HGB Conc 30.7 g/dL (30.0-36.0); Mean Corpuscular Hemoglobin 26.6 pg (28.0-34.0); Mean Corpuscular Volume 86.6 fl (81-99); Mean Platelet Volume 10.1 fL (7.4-10.4); Monocytes # 0.8 10^3/uL (0.2-0.9); Neutrophils # 5.35 10^3/uL (1.8-7.7); Neutrophils % 61.7 %; Nucleated Red Blood Cells % 0 %; Platelet Count 253 10^3/cmm (130-400); Red Cell Distribution Width 15.1 % (12.1-15.1); White Blood Count 8.7 10^3/uL (4.0-10.0)
[2022-10-16] MEDS: ibuprofen 200 mg Tablet 400 MG PO (18:45)
[2022-10-16 18:52] LABS: Alanine Aminotransferase 9 U/L (0-33); Albumin Level 3.1 g/dL (3.5-5.2); Alkaline Phosphatase 138 U/L (35-105); Anion Gap 12.5 (5-19); Aspartate Amino Transferase 9 U/L (0-32); Blood Urea Nitrogen 16 mg/dL (8-23); Calcium 9.3 mg/dL (8.5-10.5); Carbon Dioxide 32 mmol/L (22-29); Chloride 100 mmol/L (98-107); Globulin 3.1 g/dL (1.3-4.6); Glomerular Filtration Rate 225.4 mL/min (90-130); Glucose 102 mg/dL (65-115); Osmolality Calculated 293 mOsm/kg (285-295); Potassium 3.5 mmol/L (3.5-5.1); Sodium 141 mmol/L (136-145); Total Bilirubin 0.2 mg/dL (0.15-1.2); Total Protein 6.2 g/dL (6.6-8.7)
[2022-10-16 19:25] LABS: Troponin(5th) Baseline 27 ng/L (0-10)
--- NOTE | 2022-10-16 19:26 | ECG_ITS ---
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 Measurements Intervals [place] Rate: 90 P: 84 [place]: 174 QRS: 83 QRSD: 80 T: 60 QT: 352 QTc: 431 Interpretive Statements SINUS RHYTHM WITH OCCASIONAL SUPRAVENTRICULAR PREMATURE COMPLEXES POSSIBLE ANTERIOR MYOCARDIAL INFARCTION , PROBABLY OLD [30 ms Q WAVE IN V3/V4, OR R < 0.2 mV IN V4] Compared to ECG 10/16/2022 17:46:59 No significant changes Electronically Signed On 10-17-2022 19:21:37 FILTER TENDER by Ana Rosa Tejeda M.D. [id number]
[2022-10-16 19:52] LABS: Troponin 5 2HR 27.38 ng/L (0-10)
[2022-10-16 19:56] LABS: Troponin 5 2HR Delta 0.38 ABS# (0-10)
--- NOTE | 2022-10-16 20:41 | PC.NURSE ---
Attempted contact with pt son per pt request. Pt son number no longer in service.
--- NOTE | 2022-10-16 20:53 | PC.NURSE ---
kika pineda took report @2050
--- NOTE | 2022-10-16 21:58 | PC.NURSE ---
Report given to Sissy EMT-B, care transferred to EMS crew.
== END 2022-10-16 22:01 | disposition home or self-care (01) ==
PROVIDERS: Emergency Provider Emergency Medicine; PCP Family Medicine
DX: R07.9 Chest pain, unspecified (principal); Z79.02 Long term (current) use of antithrombotics/antiplatelets; Z79.82 Long term (current) use of aspirin; Z87.891 Personal history of nicotine dependence; I25.10 Atherosclerotic heart disease of native coronary artery without angina pectoris; I10 Essential (primary) hypertension; Z86.73 Personal history of transient ischemic attack (TIA), and cerebral infarction without residual deficits; E78.5 Hyperlipidemia, unspecified
CPT/HCPCS: 36415; 71045; 80053; 84484; 85025; 93005; 99285

== ENCOUNTER 2022-11-12 14:20 | Emergency (ER) | payer OTHER, SELFPAY ==
[2022-11-12 14:27] VITALS: BP 119/51; PULSE 91; RESP 15; TEMP 37; O2SAT 95; BMI 17.2
--- NOTE | 2022-11-12 14:49 | W.ED.GENADLT ---
HPI - General Adult General: Chief complaint: General Medical Stated complaint: Generalized body aches Time Seen by Provider: 11/12/22 14:27 History of Present Illness: 61-year-old female who lives in a alf facility in [place] who comes in today stating she has been sick for the past 2 days. She had generalized body aches and associated malaise. She had a nonproductive cough and a runny nose. She states her roommate was diagnosed with the flu recently. No nausea, vomiting or diarrhea. She denies abdominal pain or chest pain. She states she does feel a bit mildly more short of breath than usual. She is not typically on oxygen. Associated symptoms: Reports chest pain and malaise; Deny dyspnea, headache(s), nausea, rash, palpitations or vomiting Review of Systems Const: Reports: fever(s), chills, body aches, fatigue and malaise Eyes: Denies: change in vision or blurry vision ENMT: Denies: throat pain or odynophagia Card: Reports: chest pain; Denies: palpitations Resp: Reports: non-productive cough; Denies: dyspnea or productive cough GI: Denies: abdominal pain, nausea or vomiting : Denies: flank pain or dysuria Musc: Denies: neck pain or back pain Skin/Breast: Denies: rash or pruritus Neuro: Denies: headache(s) or numbness in extremities Psych: Denies: anxiety or change in appetite Endo: Denies: polyuria or excessive sweating PFSH ED PFSH: Medical History Acute right arterial ischemic stroke, middle cerebral artery (MCA) CAD (coronary artery disease) Carotid artery stenosis History of stroke HTN (hypertension) Hyperlipidemia Peripheral Vascular Disease Pneumonia Severe protein-energy malnutrition Vitamin B12 deficiency Vitamin D deficiency disease Surgical History H/O section S/P arterial stent S/P carotid endarterectomy S/P coronary artery stent placement S/P PTCA (percutaneous transluminal coronary angioplasty) Family History Mother Myocardial infarction Grandmother No problems noted. Grandfather Stroke Hypertension Cancer Father Diabetes Hypertension Social History Smoking and tobacco status: former smoker Alcohol intake: never Lives independently: No Household members: spouse and children Marital status: Current occupational status: disabled Physical Exam Const: COMMON NORMALS: no acute distress, patient oriented x3, healthy appearing and alert HENMT: COMMON NORMALS: normocephalic and atraumatic HEAD & SCALP: normocephalic and atraumatic Eye: COMMON NORMALS: Equal, round and reactive pupils present and EOMs intact bilaterally PUPIL: Yes Equal, round and reactive pupils present Neck/C-Spine: COMMON NORMALS: full ROM and supple Resp: COMMON NORMALS: normal respiratory effort, No retractions and No use of accessory muscles Cardio: COMMON NORMALS: regular rate and regular rhythm RATE: regular rate RHYTHM: regular rhythm GI: COMMON NORMALS: Normal to inspection, nondistended, normoactive bowel sounds present, Soft to palpation and non-tender PALPATION: Yes Soft to palpation Back/Pelvis: COMMON NORMALS: thoracic and lumbar spine normal to inspection and no thoracic nor lumbar tenderness Extremity: OTHER: Lower extremity contracture secondary to previous stroke Neuro: COMMON NORMALS: patient oriented x3 SENSORIUM/ORIENTATION: Yes alert Psych: COMMON NORMALS: mental status grossly normal and cooperative Skin: COMMON NORMALS: no rashes or lesions noted and no wounds GENERAL SKIN EXAM: no rashes or lesions noted Course ED course: Patient has been evaluated in the emergency department. She has had labs obtained including COVID and influenza swabs sent. She is negative for influenza AMB. She is positive for COVID today. Patient is having no difficulty with her breathing here. Respiratory rate is normal. Her oxygen saturation is 95% on room air. She is in no respiratory distress. She is nontoxic in appearance. Patient does have patchy infiltrate in the left lung base which could be early pneumonia. We will treat her with doxycycline 100 mg twice daily x10 days. Of also placing her on pack Slo-Bid of the lower dose regimen. Recommend they give her Tylenol and ibuprofen as needed for fever. She needs to push fluids. Return precautions have been voided. She is discharged back to the alf in stable condition Vital Signs: Vital signs: Vital Signs Temperature 98.6 F 11/12/22 14:27 Pulse Rate 91 11/12/22 14: Respiratory Rate 15 11/12/22 14:27 Blood Pressure 137/73 12/27/22 18:38 Pulse Oximetry 95 11/12/22 18:38 Oxygen Delivery Me thod 11/12/22 14:27 MDM - General Adult Medical Decision Making 59-year-old female who presents with generalized body aches fever, cough from a nursing facility. I suspect that the patient probably has influenza or COVID or another viral illness. We will obtain COVID and influenza swabs. We will obtain a chest x-ray as well as laboratory studies. At this time we will hold off on IV fluids or other interventional treatments. Patient is nontoxic in appearance. She has no urinary tract or GI symptoms. Differential Diagnosis COVID, influenza, pneumonia, UTI, viral illness Medical Records I reviewed the patient's medical records. Lab Data 11/12/22 16:25 11/12/22 16:25 Radiology Impressions Chest X-Ray 11/12/22 14:54 Impression: 1. Diffuse patchy left lung opacity which may represent pneumonia. 2. Moderate left pleural effusion and small right effusion. 3. Atherosclerosis. Laboratory Results WBC 15.4 10^3/uL (4.0-10.0) H 11/12/22 16:25 RBC 4.90 10^6/uL (4.1-5.3) 11/12/22 16:25 Hgb 13.1 g/dL (11.5-15.3) 11/12/22 16:25 Hct 42.4 % (37.0-47.0) 11/12/22 16:25 MCV 86.5 fl (81-99) 11/12/22 16:25 MCH 26.7 pg (28.0-34.0) L 11/12/22 16:25 MCHC 30.9 g/dL (30.0-36.0) 11/12/22 16:25 RDW 14.7 % (12.1-15.1) 11/12/22 16:25 Plt Count 152 10^3/cmm (130-400) 11/12/22 16:25 MPV 10.8 fL (7.4-10.4) H 11/12/22 16:25 Neut % (Auto) 86.9 % 11/12/22 16:25 Lymph % (Auto) 8.1 % 11/12/22 16:25 [place] % (Auto) 4.3 % 11/12/22 16:25 Eos % (Auto) 0.1 % 11/12/22 16:25 Baso % (Auto) 0.3 % 11/12/22 16:25 Neut # (Auto) 13.40 10^3/uL (1.8-7.7) H 11/12/22 16:25 Lymph # (Auto) 1.2 10^3/uL (0.8-4.8) 11/12/22 16:25 [place] # (Auto) 0.7 10^3/uL (0.2-0.9) 11/12/22 16:25 Eos # (Auto) 0.0 10^3/uL (0.0-0.8) 11/12/22 16:25 Baso # (Auto) 0.0 10^3/uL (0.0-0.1) 11/12/22 16:25 Nucleated RBC % (auto) 0 % 11/12/22 16:25 Nucleated RBCs # 0.0 /100WBC 11/12/22 16:25 Sodium 138 mmol/L (136-145) 11/12/22 16:25 Potassium 3.2 mmol/L (3.5-5.1) L 11/12/22 16:25 Chloride 97 mmol/L (98-107) L 11/12/22 16:25 Carbon Dioxide 31 mmol/L (22-29) H 11/12/22 16:25 Anion Gap 13.2 (5-19) 11/12/22 16:25 BUN 19 mg/dL (8-23) 11/12/22 16:25 Creatinine 0.3 mg/dL (0.5-0.9) L 11/12/22 16:25 GFR Calculation 225.4 mL/min (90-130) H 11/12/22 16:25 Glucose 94 mg/dL (65-115) 11/12/22 16:25 Calculated Osmolality 288 mOsm/kg (285-295) 11/12/22 16:25 Calcium 9.6 mg/dL (8.5-10.5) 11/12/22 16:25 Total Bilirubin 0.5 mg/dL (0.15-1.2) 11/12/22 16:25 AST 8 U/L (0-32) 11/12/22 16:25 ALT 7 U/L (0-33) 11/12/22 16:25 Alkaline Phosphatase 105 U/L (35-105) 11/12/22 16:25 C-Reactive Protein 186.1 mg/L (0.0-4.9) H 11/12/22 16:25 Total Protein 7.0 g/dL (6.6-8.7) 11/12/22 16:25 Albumin 3.1 g/dL (3.5-5.2) L 11/12/22 16:25 Globulin 3.9 g/dL (1.3-4.6) 11/12/22 16:25 Coronavirus 229E (PCR) Not detected (NOT DETECT) 11/12/22 15:20 Influenza Type A Ag negative (Negative) 11/12/22 15:20 Influenza Type B Ag negative (Negative) 11/12/22 15:20 SARS-CoV-2 (PCR) Detected (NOT DETECT) A 11/12/22 15:20 Discharge Plan Discharge Patient Disposition: [facility] Clinical Impression: COVID-19, Pneumonia Condition: Stable Discharge Orders: Discharge ED (Routine); Ordered 11/12/22 Ordered By: Meena Forrest Referrals: Karel Gamez MD [Primary Care Provider] - Discharge Diet: Advance as tolerated Discharge Activity: Increase activity as tolerated Patient Instructions: COVID-19 (Coronavirus Disease 2019) (ED) Activity Restrictions/Additional Instructions: Tylenol / Ibuprofen as needed for fever, push fluids, monitor oxygen satuations. Return if increased difficulty breathing, persistent fever or low oxygen levels. Coding Level of Care Code ED Automation Control Technician for Catie Fwd Exam Comprehensive
--- NOTE | 2022-11-12 14:54 | XR_ITS ---
WS: [id number] Portable AP upright chest, 11/12/2022 Clinical Data: cough Comparison: Portable chest, 10/16/2022 Findings: There is a diffuse patchy opacity in the entire left lung. There is a probable left pleural effusion and small right effusion. The right lung appears clear. Probably the patient's tibia obscur es detail over the right costophrenic angle. The heart size is not definitely enlarged. There is calc ification of the aortic arch. XR/XR chest 1V portable [id number] Impression: 1. Diffuse patchy left lung opacity which may represent pneumonia. 2. Moderate left pleural effusion and small right effusion. 3. Atherosclerosis.
[2022-11-12 15:52] LABS: Influenza A by IFA negative (Negative); Influenza B by IFA negative (Negative)
[2022-11-12 16:30] LABS: Basophils % 0.3 %; Eosinophils % 0.1 %; Hematocrit 42.4 % (37.0-47.0); Hemoglobin 13.1 g/dL (11.5-15.3); Lymphocytes # 1.2 10^3/uL (0.8-4.8); Lymphocytes % 8.1 %; Mean Corpuscular HGB Conc 30.9 g/dL (30.0-36.0); Mean Corpuscular Hemoglobin 26.7 pg (28.0-34.0); Mean Corpuscular Volume 86.5 fl (81-99); Mean Platelet Volume 10.8 fL (7.4-10.4); Monocytes # 0.7 10^3/uL (0.2-0.9); Monocytes % 4.3 %; Neutrophils % 86.9 %; Nucleated Red Blood Cells % 0 %; Platelet Count 152 10^3/cmm (130-400); Red Cell Distribution Width 14.7 % (12.1-15.1); White Blood Count 15.4 10^3/uL (4.0-10.0)
[2022-11-12 16:51] LABS: Alanine Aminotransferase 7 U/L (0-33); Albumin Level 3.1 g/dL (3.5-5.2); Alkaline Phosphatase 105 U/L (35-105); Anion Gap 13.2 (5-19); Aspartate Amino Transferase 8 U/L (0-32); Blood Urea Nitrogen 19 mg/dL (8-23); C Reactive Protein 186.1 mg/L (0.0-4.9); Calcium 9.6 mg/dL (8.5-10.5); Carbon Dioxide 31 mmol/L (22-29); Chloride 97 mmol/L (98-107); Globulin 3.9 g/dL (1.3-4.6); Glomerular Filtration Rate 225.4 mL/min (90-130); Glucose 94 mg/dL (65-115); Osmolality Calculated 288 mOsm/kg (285-295); Potassium 3.2 mmol/L (3.5-5.1); Sodium 138 mmol/L (136-145); Total Bilirubin 0.5 mg/dL (0.15-1.2)
[2022-11-12 17:22] LABS: Adenovirus Not Detected (NOT DETECT); Chlamydia Pneumoniae Not Detected (NOT DETECT); Coronavirus 229E,HKU1,NL63,OC4 Not Detected (NOT DETECT); Human Metapneumovirus Not Detected (NOT DETECT); Human Rhinovirus/Enterovirus Not Detected (NOT DETECT); Influenza A Not Detected (NOT DETECT); Influenza A H1 Not Detected (NOT DETECT); Influenza A H1-2009 Not Detected (NOT DETECT); Influenza A H3 Not Detected (NOT DETECT); Influenza B Not Detected (NOT DETECT); Mycoplasma Pneumoniae Not Detected (NOT DETECT); Parainfluenza Virus Type 1 Not Detected (NOT DETECT); Parainfluenza Virus Type 2 Not Detected (NOT DETECT); Parainfluenza Virus Type 3 Not Detected (NOT DETECT); Parainfluenza Virus Type 4 Not Detected (NOT DETECT); Respiratory Syncytial Virus A Not Detected (NOT DETECT); Respiratory Syncytial Virus B Not Detected (NOT DETECT); SARS-COV-2 Detected (NOT DETECT)
[2022-11-12 18:38] VITALS: BP 137/73; O2SAT 95
[2022-11-12 19:46] VITALS: BP 148/72; PULSE 67; RESP 14; O2SAT 95
== END 2022-11-12 19:51 ==
PROVIDERS: Emergency Provider Emergency Medicine; PCP Family Medicine
DX: U07.1 COVID-19 (principal); J12.82 Pneumonia due to coronavirus disease 2019; Z87.891 Personal history of nicotine dependence; I25.10 Atherosclerotic heart disease of native coronary artery without angina pectoris; Z86.73 Personal history of transient ischemic attack (TIA), and cerebral infarction without residual deficits; I10 Essential (primary) hypertension; E78.5 Hyperlipidemia, unspecified
CPT/HCPCS: 71045; 80053; 85025; 86140; 87635; 87804; 99284

== ENCOUNTER 2022-11-19 23:38 | Inpatient (IN) | payer OTHER, SELFPAY ==
[2022-11-19 23:58] VITALS: BP 104/65; PULSE 102; RESP 18; TEMP 36.8; O2SAT 95; BMI 16.5
[2022-11-20] VITALS (158 sets, daily range): BP systolic 73–122; BP diastolic 46–72; PULSE 67–97; RESP 6–38; TEMP 36.8–37.2; O2SAT 83–99
--- NOTE | 2022-11-20 00:01 | XRR_ITS ---
PROCEDURE INFORMATION: Exam: XR Chest Exam date and time: 11/20/2022 12:40 AM Age: 61 years old Clinical indication: Shortness of breath; Patient HX: C/O SOB. TECHNIQUE: Imaging protocol: Radiologic exam of the chest. Views: 1 view. COMPARISON: CR XR chest 1V portable [id number] 11/12/2022 2:59 PM FINDINGS: Lungs: Probable atelectasis of the left lung. There is compensatory hyperinflation of the right lung. Pleural spaces: There is now complete opacification of the left hemithorax likely due to a large pleural effusion. Heart/Mediastinum: There is volume loss with mediastinal shift to the left. Bones/joints: There are old right rib fractures. XR/XR chest 1V portable [id number] IMPRESSION: Left volume loss with mediastinal shift probable atelectasis of the lung and development of a large pleural effusion filling the left hemithorax.
--- NOTE | 2022-11-20 00:01 | ECG_ITS ---
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 Measurements Intervals [place] Rate: 80 P: 85 [place]: 154 QRS: 106 QRSD: 108 T: 145 QT: 424 QTc: 490 Interpretive Statements SINUS RHYTHM WITH FREQUENT SUPRAVENTRICULAR PREMATURE COMPLEXES POSSIBLE RIGHT VENTRICULAR HYPERTROPHY [SOME/ALL OF: PROMINENT R IN V1, LATE TRANSITION, RAD, MATILDE, SSS] ST ELEVATION CONSISTENT WITH INJURY [ST ELEVATION W/O NORMALLY INFLECTED T-WAVE] ST DEVIATION AND MODERATE T-WAVE ABNORMALITY, CONSIDER LATERAL ISCHEMIA [-0.1+ mV T-WAVE IN I/aVL/V5/V6] Compared to ECG 10/16/2022 19:54:49 ST (T wave) deviation now present Early repolarization now present T-wave abnormality now present Possible ischemia now present Myocardial infarct finding no longer present Electronically Signed On 11-20-2022 10:27:37 MILKING MACHINE TECHNICIAN by Justyn Cooley M.D. [id number]
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
[2022-11-20 00:20] LABS: ABG PCO2 49.9 mmHg (35-45); ABG PH Result 7.47 (7.35-7.45); Arterial Blood Gas Hematocrit 38.2 % (37-47); Base Excess ABG 11.1 mmol/L (-2.0-2.0); Blood Gas Sample Site Brachial, right; Blood Gas Sample Type Arterial; HCO3 ABG 36.4 mmol/L (22-26); Oxygen Device NC; PO2 ABG 72.5 mmHg (80.0-100.0)
--- NOTE | 2022-11-20 00:44 | CTR_ITS ---
PROCEDURE INFORMATION: Exam: CTA Chest With Contrast Exam date and time: 11/20/2022 1:40 AM Age: 61 years old Clinical indication: Abnormal findings; Abnormal radiologic exam of lung or chest; Shortness of breath; Prior surgery; Surgery type: Coronary stent. Patient HX: C/O SOB. Total whiteout of left lung on cxr. TECHNIQUE: Imaging protocol: Computed tomographic angiography of the chest with contrast. 3D rendering (Not supervised by radiologist): MIP and/or 3D reconstructed images were created by the technologist. Radiation optimization: All CT scans at this facility use at least one of these dose optimization techniques: automated exposure control; mA and/or kV adjustment per patient size (includes targeted exams where dose is matched to clinical indication); or iterative reconstruction. Contrast material: OMNI 350; Contrast volume: 55 ml; Contrast route: INTRAVENOUS (IV); COMPARISON: CT angio chest PE prot [id number] 06/05/2022 10:58 PM RADIATION DOSE METRICS: Total DLP (mGy-cm): 371.5 FINDINGS: Pulmonary arteries: Normal. No pulmonary emboli. Aorta: Unremarkable. No aortic aneurysm. No aortic dissection. Lungs: There is consolidation throughout the left lung. There is compensatory hyperinflation of the right lung. Pleural spaces: There is a large left pleural effusion. No pneumothoraces. Heart: Cardiomegaly with coronary artery and valvular calcifications. Lymph nodes: Unremarkable. No enlarged lymph nodes. Bones/joints: There are multiple healed rib fractures. Soft tissues: Unremarkable. CT/CT angio chest PE prot [id number] IMPRESSION: Complete consolidation of the left lung with a large pleural effusion and compensatory hyperinflation of the right lung. Cardiomegaly.
[2022-11-20] MEDS: albuterol 2.5 mg/3 mL Neb INHALATION (01:07)
[2022-11-20] MEDS: dexamethasone 4 mg/mL INJ 6 MG IVP (01:08)
[2022-11-20] MEDS: iohexol 350 mg/mL 500 mL Btl (per mL) IV (01:54)
[2022-11-20 02:11] LABS: Basophils # 0.1 10^3/uL (0.0-0.1); Basophils % 0.3 %; Hemoglobin 12.1 g/dL (11.5-15.3); Lymphocytes # 1.3 10^3/uL (0.8-4.8); Lymphocytes % 4.9 %; Mean Corpuscular HGB Conc 30.3 g/dL (30.0-36.0); Mean Corpuscular Hemoglobin 25.9 pg (28.0-34.0); Mean Corpuscular Volume 85.5 fl (81-99); Mean Platelet Volume 10.4 fL (7.4-10.4); Monocytes # 1.1 10^3/uL (0.2-0.9); Monocytes % 4.1 %; Neutrophils # 24.67 10^3/uL (1.8-7.7); Neutrophils % 90.1 %; Nucleated Red Blood Cells % 0 %; Platelet Count 363 10^3/cmm (130-400); Red Blood Count 4.68 10^6/uL (4.1-5.3); Red Cell Distribution Width 14.7 % (12.1-15.1); White Blood Count 27.4 10^3/uL (4.0-10.0)
[2022-11-20] MEDS: sodium chloride 0.9% 1,000 ML 999 ML IV (02:25)
[2022-11-20] MEDS: piperacillin-tazobactam 3.375 GM in sodium chloride 0.9% (plus) 50 ML IV ×3 (02:25→17:33)
[2022-11-20 02:31] LABS: Troponin(5th) Baseline 71 ng/L (0-10)
[2022-11-20 02:33] LABS: Alanine Aminotransferase 13 U/L (0-33); Albumin Level 2.3 g/dL (3.5-5.2); Alkaline Phosphatase 80 U/L (35-105); Aspartate Amino Transferase 11 U/L (0-32); Blood Urea Nitrogen 12 mg/dL (8-23); C Reactive Protein 199.5 mg/L (0.0-4.9); Calcium 8.1 mg/dL (8.5-10.5); Carbon Dioxide 34 mmol/L (22-29); Chloride 99 mmol/L (98-107); Globulin 3.5 g/dL (1.3-4.6); Glomerular Filtration Rate 225.4 mL/min (90-130); Glucose 110 mg/dL (65-115); Osmolality Calculated 290 mOsm/kg (285-295); Sodium 140 mmol/L (136-145); Total Bilirubin 0.3 mg/dL (0.15-1.2); Total Protein 5.8 g/dL (6.6-8.7)
[2022-11-20] MEDS: vancomycin 1,000 MG in sodium chloride 0.9% 250 ML 250 MG IV (02:39)
--- NOTE | 2022-11-20 03:34 | ECG_ITS ---
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 [id number]
[2022-11-20 04:29] LABS: Troponin 5 2HR 58.52 ng/L (0-10)
[2022-11-20 04:31] LABS: Troponin 5 2HR Delta -12.48 ABS# (0-10)
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
--- NOTE | 2022-11-20 06:04 | PC.NURSE ---
Update given to Emerita at [facility]. Number to facility is [phone]
--- NOTE | 2022-11-20 06:24 | PC.NURSE ---
0600 Heparin dose held d/t thoracentesis scheduled
[2022-11-20 06:54] LABS: Lactate Dehydrogenase 138 U/L (135-214); NT Pro B Type Natriuretic Pept 8959 pg/mL (0-125); Total Protein 5.7 g/dL (6.6-8.7)
--- NOTE | 2022-11-20 07:34 | ECG_ITS ---
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 Measurements Intervals Winner Rate: 86 P: 89 CO: 154 QRS: 114 QRSD: 100 T: 120 QT: 341 QTc: 408 Interpretive Statements SINUS RHYTHM WITH FREQUENT SUPRAVENTRICULAR PREMATURE COMPLEXES POSSIBLE RIGHT VENTRICULAR HYPERTROPHY [SOME/ALL OF: PROMINENT R IN V1, LATE TRANSITION, RAD, MATILDE, SSS] POSSIBLE ANTERIOR MYOCARDIAL INFARCTION , OF INDETERMINATE AGE [30 ms Q WAVE IN V3/V4, OR R < 0.2 mV IN V4] MODERATE T-WAVE ABNORMALITY, CONSIDER LATERAL ISCHEMIA [-0.1+ mV T-WAVE IN I/aVL/V5/V6] Compared to ECG 11/20/2022 05:21:15 Myocardial infarct finding now present T-wave abnormality now present Possible ischemia now present Electronically Signed On 11-20-2022 10:28:52 SALICYLIC ACID BLENDER by Justyn Cooley M.D. [id number]
[2022-11-20] MEDS: aspirin 81 mg EC Tablet PO (08:43)
[2022-11-20] MEDS: folic acid 1 mg Tablet PO ×2 (08:43→17:14)
[2022-11-20] MEDS: ferrous gluconate 324 mg Tablet PO (08:43)
[2022-11-20] MEDS: cyanocobalamin 1,000 mcg Tablet 500 MCG PO (08:44)
[2022-11-20] MEDS: dexamethasone 10 mg/mL INJ 6 MG IVP (08:44)
[2022-11-20] MEDS: lidocaine 1% 5 ML in potassium chloride premix 100 ML 25 ML IV (08:45)
[2022-11-20] MEDS: thiamine 100 mg Tablet PO (08:45)
[2022-11-20] MEDS: pantoprazole 40 mg SDV IVP (08:45)
[2022-11-20] MEDS: remdesivir 200 MG in sodium chloride 0.9% (100 ml) 60 ML 100 MG IV (08:46)
[2022-11-20] MEDS: sodium chloride 0.9% 1,000 ML 75 ML IV (08:46)
[2022-11-20 08:56] LABS: Troponin 5 6HR 50.48 ng/L (0-10); Troponin 5 6HR Delta -20.52 ng/L (0-12)
--- NOTE | 2022-11-20 10:51 | PC.CHAP ---
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 if need be call Relational/Emotional Strength [] Patient feels connected with others/family/visitors/staff [] Distress [] Loneliness/isolation [] Abandonment Spirituality of Patient [] Person of Jelena [] Attends Religious of their Jelena [] Believes in Prayer [] Reads Bible or Anglican materials [] There are Spiritual issues to be addressed Sequins Slinger Interventions [x] Prayer [] Active listening [] Non-anxious presence [] Spiritual/emotional support [] Crisis/trauma care [] Spiritual counseling [] Bereavement support [] Provided bereavement packet [] Provided Bible/devotional materials [] Provided toy/stuffed animal, coloring book to patient or family member [] Provided Communion [] Anointing/Roy [] Salvation [x] Completed spiritual assessment [] Other: Impact on Illness or Injury [] Angry [] Fearful [] Anxious [] Often cries [] Exhaustion [] Unable to work [] Unable to attend latter day [] Unable to walk/stand [] Unable to read [] Unable to drive [] Unable to eat/drink [] Unable to sleep [] Unable to be with family [] Patient intubated [] Other: Summary Time spent with patient
--- NOTE | 2022-11-20 12:43 | PC.NURSE ---
Patient right foot has multiple wounds. Nurse changed dressings, and took pictures of wounds using the voalte phone to be sent to Dr stephen. [facility] stephen notified of this.
--- NOTE | 2022-11-20 12:45 | PC.NURSE ---
Patient has a reddened area to the left hip. Patient states that she almost always lays on her left side at the nursing facility and she has preferred left side lying while here. Patient reports pain if she is positioned any way other than left side lying for a prolonged time. NUrse has been keeping patient mostly left side lying, but every hour she has been getting turned to an alternate position which she tolerates for about 10 minutes before having to go back.
[2022-11-20] MEDS: sodium chloride 0.9% 1,000 ML 50 ML IV (12:57)
[2022-11-20] MEDS: sodium chloride 0.9% 500 ML IV (12:59)
[2022-11-20] MEDS: ipratropium-albuterol 3 mL Neb INHALATION ×2 (14:00→19:59)
[2022-11-20] MEDS: vancomycin 750 MG in sodium chloride 0.9% 250 ML 250 MG IV (14:11)
--- NOTE | 2022-11-20 15:19 | PC.NURSE ---
Patient has had frequent liquid bowel movements, excoriated groin, and it is painful to wipe the patient due to the excoriation. Nurse attempted to place a rectal tube, but patient refused. Nurse explained moisture control and to prevent infection of nearby wounds, but patient still refuses at this time.
--- NOTE | 2022-11-20 16:38 | PM.PN ---
Subjective Subjective: Patient is having profuse watery diarrhea, currently saturating well on 3 to 4 L supplemental oxygen, currently she is tachypneic. Has been afebrile, maintaining a decent MAP. Medications: Medication Review Details: Generic Name Dose Route Start Last Admin Trade Name Evi PRN Reason Stop Dose Admin Albuterol/Ipratrop ium 3 ml 11/20/22 14:00 11/20/22 14:00 Ipratropium-Albu terol 3 Ml Neb INHALATION 3 ml Q6H.RESP GLORIA Administration Aspirin 81 mg 11/20/22 09:00 11/20/22 08:43 Aspirin 81 Mg Ec Tablet PO 81 mg DAILY GLORIA Administration Cyanocobalamin 500 mcg 11/20/22 09:00 11/20/22 08:44 Cyanocobalamin 1 ,000 Mcg Tablet PO 500 mcg DAILY GLORIA Administration Dexamethasone 6 mg 11/20/22 08:15 11/20/22 08:44 Dexamethasone 10 Mg/Ml Inj IVP 6 mg Q24H GLORIA Administration Ferrous Gluconate 324 mg 11/20/22 09:00 11/20/22 08:43 Ferrous Gluconat e 324 Mg Tablet PO 324 mg EVERY OTHER DAY S CH Administration Folic Acid 1 mg 11/20/22 09:00 11/20/22 08:43 Folic Acid 1 Mg Tablet PO 1 mg BID GLORIA Administration Heparin Sodium (Po rcine) 5,000 unit 11/20/22 06:00 11/20/22 06:22 Heparin 5,000 Un it/Ml Inj 1 Ml SUBCUT Not Given Q12H GLORIA Piperacillin Sod/T azobactam 50 mls @ 12.5 mls /hr 11/20/22 10:30 11/20/22 12:17 Sod 3.375 gm/ So dium Chloride IV 12.5 mls/hr Q8H GLORIA Administration Vancomycin HCl 750 mg/ Sodium 250 mls @ 250 mls /hr 11/20/22 15:00 11/20/22 14:11 Chloride IV 250 mls/hr Q12H GLORIA Administration Sodium Chloride 1,000 mls @ 50 ml s/hr 11/20/22 12:15 11/20/22 12:57 Sodium Chloride 0.9% IV 50 mls/hr .Q20H GLOIRA Administration Pantoprazole Sodiu m 40 mg 11/20/22 09:00 11/20/22 08:45 Pantoprazole 40 Mg Sdv IVP 40 mg DAILY GLORIA Administration Thiamine Mononitra te 100 mg 11/20/22 09:00 11/20/22 08:45 Thiamine 100 Mg Tablet PO 100 mg DAILY GLORIA Administration Vancomycin HCl 125 mg 11/20/22 14:00 11/20/22 15:29 Vancomycin 1,000 Mg Oral Nan (Btl) PO 125 mg QID GLORIA Administration Vitals/I&O/Wt Last Vital Signs Temp 98.2 F 11/20/22 12:45 Pulse 86 11/20/22 16:10 Resp 30 H 11/20/22 16:10 BP 113/62 11/20/22 16:10 Pulse Ox 92 11/20/22 16:10 O2 Del Method 11/20/22 16:10 O2 Flow Rate 2 11/20/22 16:10 11/20/22 11/20/22 11/20/22 06:59 14:59 22:59 Intake Total 1300 / 1300 622.5 / 622.5 Output Total 800 / 800 100 / 900 Balance 1300 / 1300 -177.5 / -177.5 -100 / -277.5 Weight last 48 hrs Weight 54.431 kg Weight 43.545 kg Physical Exam Const: COMMON NORMALS: patient oriented x3 HENMT: COMMON NORMALS: normocephalic and atraumatic HEAD & SCALP: normocephalic and atraumatic Resp: OTHER: Tachypneic, diminished air entry in the entire left lung field. Cardio: COMMON NORMALS: regular rate, regular rhythm, S1 normal heart sound present, S2 normal heart sound present, No gallops present (Cardio), No murmurs present (Cardio), No rub (Cardio) and Peripheral pulses 2+ throughout RATE: regular rate RHYTHM: regular rhythm HEART SOUNDS: S1 normal heart sound present and S2 normal heart sound present PERIPHERAL PULSES: Peripheral pulses 2+ throughout GI: COMMON NORMALS: Normal to inspection, nondistended, normoactive bowel sounds present, Soft to palpation, non-tender, No hepatosplenomegaly present and no masses AUSCULTATION: Yes normoactive bowel sounds PALPATION: Yes Soft to palpation and Yes No hepatosplenomegaly present RECTAL EXAM: deferred Extremity: COMMON NORMALS: no clubbing, cyanosis or edema and no pedal edema Neuro: COMMON NORMALS: patient oriented x3 Urinary Catheter Management: [place]: Cath Placed During This Visit: no Reason for Continuing Indwelling Catheter: Other Data 11/20/22 02:00 11/20/22 02:00 Micro: Microbiology 11/20/22 10:30 MRSA Culture - Final Nose 11/20/22 10:35 C.difficile Toxin B Gene (PCR) - Final Stool - Stool Aspirate 11/20/22 02:00 Blood Culture - Preliminary Blood SPECIMEN COLLECTED 11/20/22 02:00 Blood Culture - Preliminary Blood SPECIMEN COLLECTED A&P Assessment and plan (1) COVID-19: (2) Pleural effusion: (3) Folic acid deficiency: (4) Vitamin D deficiency disease: (5) Vitamin B12 deficiency: Plan 61-year-old female with past medical history of, coronary artery disease, chronic lower extremity wound, adult failure to thrive protein energy malnutrition, CVA hypertension came in from group home with chief complaint of with worsening shortness of breath, cough, she was saturating in 70s at the group home. Currently she is being managed for Assessment Large left-sided pleural effusion Acute hypoxic respiratory failure secondary to large left pleural effusion pneumonia/pneumonia Covid 19-pneumonia C. difficile diarrhea History of coronary artery disease History of CVA Chronic lower extremity on Adult failure to thrive Protein energy malnutrition Hypokalemia Plan: CT angio chest : Large left lower left pleural effusion with compressive atelectasis, no pulmonary embolism. 2D echo: proBNP 8959 Troponin trend:71-58-50 Blood culture Sputum gram stain and culture Urine Legionella lesion Bacterial antigen panel Pleural fluid analysis with cytology Continue vancomycin and Zosyn Hold Plavix, aspirin Continue dexamethasone Remdesivir DuoNebs Trend inflammatory markers including ESR CRP D-dimer Vancomycin 125 mg p.o. 4 times daily will complete 10-day course. Continue gentle IV hydration We will plan for thoracentesis tomorrow in the morning: As patient took Plavix yesterday: Ideally we should hold thoracentesis for 3 days. Supplemental oxygen as needed Full code DVT prophylaxis: Heparin SQ twice daily Attestations Medical Necessity Statement*: Patient needs to be in hospital management of symptomatic large pleural effusion. Critical Care Time: The high probability of a clinically significant, sudden or life threatening deterioration of the patient's [] system(s) required my full and direct attention, intervention and personal management. The critical care time is as shown. This time is in addition to time spent performing any reported procedures but includes the following: [x] Data and vital sign review and interpretation [x] Patient assessment, examination and intervention [x] Documentation [x] Medication orders and management Critical Care Time (min): 30 Coding Level of Care Code Acute Catheter Finisher And Inspector for Chg Fwd Exam Detailed Diagnoses COVID-19 U07.1 Pleural effusion J90 Folic acid deficiency E53.8 Vitamin D deficiency disease E55.9 Vitamin B12 deficiency E53.8
--- NOTE | 2022-11-20 17:34 | PC.NURSE ---
Shift Summary: Uneventful shift. Patient rested in bed throughout the day, mostly left side lying with frequent short duration repositions due to inabilty to tolerate positions other than left lying. Thoracentesis planned for tomorrow.
[2022-11-20] MEDS: nystatin powder 15 gm Btl 1 APPLIC TOPICAL (17:51)
[2022-11-20] MEDS: acetaminophen 325 mg Tablet 650 MG PO (21:39)
[2022-11-21] VITALS (31 sets, daily range): BP systolic 105–147; BP diastolic 56–89; PULSE 63–110; RESP 8–31; TEMP 36.4–37.1; O2SAT 90–99
[2022-11-21] MEDS: vancomycin 750 MG in sodium chloride 0.9% 250 ML 250 MG IV (02:33)
[2022-11-21] MEDS: piperacillin-tazobactam 3.375 GM in sodium chloride 0.9% (plus) 50 ML IV ×3 (02:34→17:33)
[2022-11-21 03:16] LABS: Basophils % 0.2 %; Hematocrit 38.1 % (37.0-47.0); Hemoglobin 11.7 g/dL (11.5-15.3); Lymphocytes # 1.6 10^3/uL (0.8-4.8); Lymphocytes % 5.9 %; Mean Corpuscular HGB Conc 30.7 g/dL (30.0-36.0); Mean Corpuscular Hemoglobin 26.1 pg (28.0-34.0); Mean Platelet Volume 10.8 fL (7.4-10.4); Monocytes % 3.8 %; Neutrophils # 23.47 10^3/uL (1.8-7.7); Nucleated Red Blood Cells % 0 %; Platelet Count 471 10^3/cmm (130-400); Red Blood Count 4.48 10^6/uL (4.1-5.3); Red Cell Distribution Width 14.6 % (12.1-15.1); White Blood Count 26.4 10^3/uL (4.0-10.0)
[2022-11-21 03:35] LABS: INR 1.15 (0.8-1.2)
[2022-11-21 03:47] LABS: Procalcitonin 0.53 ng/mL (0-0.5)
[2022-11-21 03:52] LABS: Alanine Aminotransferase 26 U/L (0-33); Albumin Level 2.6 g/dL (3.5-5.2); Alkaline Phosphatase 96 U/L (35-105); Anion Gap 12.2 (5-19); Aspartate Amino Transferase 25 U/L (0-32); Blood Urea Nitrogen 18 mg/dL (8-23); Calcium 8.9 mg/dL (8.5-10.5); Carbon Dioxide 30 mmol/L (22-29); Chloride 108 mmol/L (98-107); Globulin 3.5 g/dL (1.3-4.6); Glomerular Filtration Rate 225.4 mL/min (90-130); Glucose 152 mg/dL (65-115); Magnesium 1.6 mg/dL (1.7-2.3); Osmolality Calculated 309 mOsm/kg (285-295); Potassium 3.2 mmol/L (3.5-5.1); Sodium 147 mmol/L (136-145); Total Bilirubin 0.2 mg/dL (0.15-1.2); Total Protein 6.1 g/dL (6.6-8.7)
[2022-11-21] MEDS: dextrose 5% 1,000 ML 60 ML IV ×2 (06:16→20:16)
[2022-11-21] MEDS: magnesium sulfate premix 2 GM/50 ML PIGGYBACK IV (06:16)
[2022-11-21] MEDS: potassium chloride premix 100 ML 25 MEQ IV (06:19)
[2022-11-21] MEDS: nystatin powder 15 gm Btl 1 APPLIC TOPICAL ×2 (08:27→17:31)
[2022-11-21] MEDS: dexamethasone 10 mg/mL INJ 6 MG IVP (08:27)
[2022-11-21] MEDS: pantoprazole 40 mg SDV IVP (08:27)
[2022-11-21] MEDS: folic acid 1 mg Tablet PO ×2 (08:28→17:30)
[2022-11-21] MEDS: cyanocobalamin 1,000 mcg Tablet 500 MCG PO (08:28)
[2022-11-21] MEDS: thiamine 100 mg Tablet PO (08:28)
[2022-11-21] MEDS: remdesivir 100 MG in sodium chloride 0.9% (100 ml) 80 ML IV (09:47)
[2022-11-21] MEDS: ipratropium-albuterol 3 mL Neb INHALATION ×3 (09:47→20:01)
--- NOTE | 2022-11-21 10:00 | USCV_ITS ---
Jazmyne Ramirez Age: 61 Gender: F : 1960 Exam Date: 11/21/2022 10:51 Ordering Phys: Toshia Morales MD Technologist: Buster Hensley Exam Location: [facility] [place] [facility] [place] Indication: ? pericardial eff BP: 105 / 71 HR: Rhythm: Sinus Technical Quality: Very technically difficult study MEASUREMENTS (Male / Female) Normal Values 2D ECHO LV Diastolic Diameter PLAX 3.6 cm 4.2 - 5.9 / 3.9 - 5.3 cm LV Systolic Diameter PLAX 2.7 cm IVS Diastolic Thickness 1.3 cm 0.6 - 1.0 / 0.6 - 0.9 cm IVS Systolic Thickness 1.4 cm LVPW Diastolic Thickness 1.3 cm 0.6 - 1.0 / 0.6 - 0.9 cm LVPW Systolic Thickness 1.6 cm LVOT Diameter 2.1 cm LV Ejection Fraction 2D Teich 38.4 % LA Diameter 4.1 cm Aorta at Sinotubular Diameter 2.2 cm M-MODE Aortic Annulus Diameter 2.8 cm LA Ao Ratio MM 1.6 MV E Point Septal Separation 0.9 cm DOPPLER AV Peak Velocity 255.7 cm/s LVOT Peak Velocity 78.0 cm/s AV Area Cont Eq vti 1.1 cm squared AV Area Cont Eq pk 1.0 cm squared MV Area PHT 5.0 cm squared Mitral E to A Ratio 1.1 MV E' Velocity 81.0 cm/s TR Peak Velocity 316.0 cm/s TR Peak Gradient 39.9 mmHg TV Peak E Velocity 144.0 cm/s Right Atrial Pressure 3.0 mmHg Pulmonary Artery Systolic Pressu 42.9 mmHg RV Acceleration Time 0.1 s FINDINGS Left Ventricle Normal left ventricular cavity size. Increased left ventricular wall thickness. Normal left ventricular systolic function. Left ventricular ejection fraction is estimated at 65 %. This study is inadequate for estimation of regional wall motion abnormality. Right Ventricle Normal right ventricular size and systolic function, RVSP 42.9 mmHg. Right Atrium Normal right atrial size. Left Atrium Upper normal left atrial size. Mitral Valve Mild mitral annular calcification. Thickened mitral valve. Aortic Valve Thickened and calcified aortic valve. Aortic valve sclerosis without stenosis. Tricuspid Valve Structurally normal tricuspid valve. Trace to mild tricuspid valve regurgitation. Pulmonic Valve Pulmonic valve not well visualized. No pulmonary valve stenosis. Pericardium No pericardial effusion. Left pleural effusion. Aorta Normal size aortic root. IVC Inferior vena cava not visualized. CONCLUSIONS 1. Normal left ventricular cavity size and systolic function. Left ventricular ejection fraction is estimated at 65 %. This study is inadequate for estimation of regional wall motion abnormality. 2. No pericardial effusion. Left pleural effusion. 3. No significant change when compared to study dated 08/31/22. Ana Rosa Tejeda MD (Electronically Signed) Final Date: 21 November 2022 15:47 S
--- NOTE | 2022-11-21 11:00 | US_ITS ---
WS: [id number] Ultrasound of the left chest, 11/21/2022 Clinical Data: Pleurel Effusion Comparison: None. Findings: There is a small left pleural effusion which measures 1. 90 cm in depth US/US chest [id number] Impression: Small left pleural effusion.
--- NOTE | 2022-11-21 14:01 | PM.PN ---
Subjective Subjective: Patient was seen and examined this morning,currently she is saturating well on 2 Ls of oxygen, has been afebrile. Medications: Medication Review Details: Generic Name Dose Route Start Last Admin Trade Name Evi PRN Reason Stop Dose Admin Acetaminophen 650 mg 11/20/22 05:49 11/20/22 21:39 Acetaminophen 32 5 Mg Tablet PO 650 mg Q6H PRN Administration MILD PAIN Albuterol/Ipratrop ium 3 ml 11/20/22 14:00 11/21/22 13:55 Ipratropium-Albu terol 3 Ml Neb INHALATION 3 ml Q6H.RESP GLORIA Administration Aspirin 81 mg 11/20/22 09:00 11/21/22 08:28 Aspirin 81 Mg Ec Tablet PO Not Given DAILY GLORIA Cyanocobalamin 500 mcg 11/20/22 09:00 11/21/22 08:28 Cyanocobalamin 1 ,000 Mcg Tablet PO 500 mcg DAILY GLORIA Administration Dexamethasone 6 mg 11/20/22 08:15 11/21/22 08:27 Dexamethasone 10 Mg/Ml Inj IVP 6 mg Q24H GLORIA Administration Ferrous Gluconate 324 mg 11/20/22 09:00 11/20/22 08:43 Ferrous Gluconat e 324 Mg Tablet PO 324 mg EVERY OTHER DAY S CH Administration Folic Acid 1 mg 11/20/22 09:00 11/21/22 08:28 Folic Acid 1 Mg Tablet PO 1 mg BID GLORIA Administration Heparin Sodium (Po rcine) 5,000 unit 11/20/22 06:00 11/20/22 06:22 Heparin 5,000 Un it/Ml Inj 1 Ml SUBCUT Not Given Q12H GLORIA Piperacillin Sod/T azobactam 50 mls @ 12.5 mls /hr 11/20/22 10:30 11/21/22 10:55 Sod 3.375 gm/ So dium Chloride IV 12.5 mls/hr Q8H GLORIA Administration Vancomycin HCl 750 mg/ Sodium 250 mls @ 250 mls /hr 11/20/22 15:00 11/21/22 03:33 Chloride IV Infused Q12H GLORIA Infusion Remdesivir 100 mg/ Sodium 100 mls @ 100 mls /hr 11/21/22 09:00 11/21/22 09:47 Chloride IV 11/25/22 09:59 100 mls/hr Q24H GLORIA Administration Dextrose 1,000 mls @ 60 ml s/hr 11/21/22 06:00 11/21/22 06:16 D5w IV 60 mls/hr .[id number] GLORIA Administration Nystatin 1 applic 11/20/22 18:00 11/21/22 08:27 Nystatin Powder 15 Gm Btl TOPICAL 1 applic BID GLORIA Administration Pantoprazole Sodiu m 40 mg 11/20/22 09:00 11/21/22 08:27 Pantoprazole 40 Mg Sdv IVP 40 mg DAILY GLORIA Administration Thiamine Mononitra te 100 mg 11/20/22 09:00 11/21/22 08:28 Thiamine 100 Mg Tablet PO 100 mg DAILY GLORIA Administration Vancomycin HCl 125 mg 11/20/22 14:00 11/21/22 12:19 Vancomycin 1,000 Mg Oral Nan (Btl) PO 125 mg QID GLORIA Administration Vitals/I&O/Wt Last Vital Signs Temp 97.8 F 11/21/22 04:00 Pulse 72 11/21/22 13:00 Resp 21 H 11/21/22 13:00 BP 126/66 11/21/22 13:00 Pulse Ox 97 11/21/22 13:00 O2 Del Method 11/21/22 09:47 O2 Flow Rate 3 11/21/22 09:47 11/20/22 11/21/22 11/21/22 22:59 06:59 14:59 Intake Total 1550 / 2172.5 370 / 2542.5 250 / 250 Output Total 100 / 900 450 / 1350 Balance 1450 / 1272.5 -80 / 1192.5 250 / 250 Weight last 48 hrs Weight 53.4 kg Weight 54.431 kg Weight 43.545 kg Physical Exam Const: COMMON NORMALS: patient oriented x3 HENMT: COMMON NORMALS: normocephalic and atraumatic HEAD & SCALP: normocephalic and atraumatic Resp: OTHER: Diminished air entry in left lung field. Cardio: COMMON NORMALS: regular rate, regular rhythm, S1 normal heart sound present, S2 normal heart sound present, No gallops present (Cardio), No murmurs present (Cardio), No rub (Cardio) and Peripheral pulses 2+ throughout RATE: regular rate RHYTHM: regular rhythm HEART SOUNDS: S1 normal heart sound present and S2 normal heart sound present PERIPHERAL PULSES: Peripheral pulses 2+ throughout GI: COMMON NORMALS: Normal to inspection, nondistended, normoactive bowel sounds present, Soft to palpation, non-tender, No hepatosplenomegaly present and no masses AUSCULTATION: Yes normoactive bowel sounds PALPATION: Yes Soft to palpation and Yes No hepatosplenomegaly present RECTAL EXAM: deferred Extremity: COMMON NORMALS: no clubbing, cyanosis or edema and no pedal edema Neuro: COMMON NORMALS: patient oriented x3 Urinary Catheter Management: [place]: Cath Placed During This Visit: no Reason for Continuing Indwelling Catheter: Accurate Measurement of Urinary Output in Critically Ill Patients Data 11/21/22 02:21 11/21/22 02:21 Micro: Microbiology 11/20/22 02:00 Blood Culture - Preliminary Blood NEGATIVE TO DATE 11/20/22 02:00 Blood Culture - Preliminary Blood NEGATIVE TO DATE 11/20/22 10:30 MRSA Culture - Final Nose 11/20/22 10:35 C.difficile Toxin B Gene (PCR) - Final Stool - Stool Aspirate A&P Assessment and plan (1) COVID-19: (2) Pleural effusion: (3) Folic acid deficiency: (4) Vitamin D deficiency disease: (5) Vitamin B12 deficiency: Plan 61-year-old female with past medical history of, coronary artery disease, chronic lower extremity wound, adult failure to thrive protein energy malnutrition, CVA hypertension came in from [facility] with chief complaint of with worsening shortness of breath, cough, she was saturating in 70s at the [facility]. Currently she is being managed for Assessment Left lung reabsorption atelectasis: Possibly secondary to: Endobronchial malignancy rule out other causes (mucous plugging), patient is a longtime smoker. left-sided pleural effusion Acute hypoxic respiratory failure 2/2 left pleural effusion /post obstructive pneumonia/ Covid 19-pneumonia C. difficile diarrhea History of coronary artery disease History of CVA Chronic lower extremity wound Adult failure to thrive Protein energy malnutrition Hypokalemia Plan: CT angio chest : Large left lower left pleural effusion with compressive atelectasis, no pulmonary embolism. 2D echo: Normal left ventricular cavity size and systolic function. Left ventricular ejection fraction is estimated at 65 %. Bedside ultrasound: Left lung: Has failed to show any good pocket for pleural effusion tap. proBNP 8959 Troponin trend:71-58-50 Blood culture: NTD Sputum gram stain and culture Urine Legionella antigen Bacterial antigen panel Pleural fluid analysis with cytology Continue vancomycin and Zosyn Hold Plavix, aspirin Continue dexamethasone Remdesivir DuoNebs Trend inflammatory markers including ESR CRP D-dimer Vancomycin 125 mg p.o. 4 times daily will complete 10-day course. Continue gentle IV hydration Supplemental oxygen as needed CT surgery on board for: Bronchoscopy and possible chest tube placement Full code DVT prophylaxis: Heparin SQ twice daily Attestations Medical Necessity Statement*: Patient needs to be in hospital for management of left lung atelectasis. Coding Level of Care Code Acute Casino Duty Manager for Chg Fwd Exam Detailed Diagnoses COVID-19 U07.1 Pleural effusion J90 Folic acid deficiency E53.8 Vitamin D deficiency disease E55.9 Vitamin B12 deficiency E53.8
[2022-11-21 14:08] LABS: Vancomycin Trough 8.4 ug/mL (10-15)
[2022-11-21] MEDS: vancomycin 1,000 MG in sodium chloride 0.9% 250 ML 250 MG IV (14:52)
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
[2022-11-21] MEDS: guaiFENesin 600 mg Tablet 1200 MG PO (17:30)
[2022-11-21] MEDS: acetylcysteine 200 mg/mL SDV 4 mL INHALATION (20:01)
[2022-11-22] VITALS (33 sets, daily range): BP systolic 87–141; BP diastolic 56–108; PULSE 66–93; RESP 9–32; TEMP 36.4–37.1; O2SAT 89–100
[2022-11-22] MEDS: vancomycin 1,000 MG in sodium chloride 0.9% 250 ML 250 MG IV ×2 (01:34→13:53)
[2022-11-22] MEDS: piperacillin-tazobactam 3.375 GM in sodium chloride 0.9% (plus) 50 ML IV ×3 (02:14→18:45)
[2022-11-22 03:43] LABS: Basophils % 0.1 %; Hematocrit 36.7 % (37.0-47.0); Hemoglobin 11.1 g/dL (11.5-15.3); Lymphocytes # 1.7 10^3/uL (0.8-4.8); Lymphocytes % 9.9 %; Mean Corpuscular HGB Conc 30.2 g/dL (30.0-36.0); Mean Corpuscular Hemoglobin 25.8 pg (28.0-34.0); Mean Corpuscular Volume 85.3 fl (81-99); Mean Platelet Volume 10.7 fL (7.4-10.4); Monocytes # 0.6 10^3/uL (0.2-0.9); Monocytes % 3.5 %; Neutrophils # 14.37 10^3/uL (1.8-7.7); Neutrophils % 85.9 %; Nucleated Red Blood Cells % 0 %; Platelet Count 389 10^3/cmm (130-400); Red Cell Distribution Width 14.7 % (12.1-15.1); White Blood Count 16.7 10^3/uL (4.0-10.0)
[2022-11-22 04:00] LABS: Alanine Aminotransferase 20 U/L (0-33); Albumin Level 2.3 g/dL (3.5-5.2); Alkaline Phosphatase 84 U/L (35-105); Anion Gap 9.6 (5-19); Aspartate Amino Transferase 10 U/L (0-32); Blood Urea Nitrogen 14 mg/dL (8-23); Calcium 8.3 mg/dL (8.5-10.5); Carbon Dioxide 31 mmol/L (22-29); Chloride 102 mmol/L (98-107); Globulin 3.3 g/dL (1.3-4.6); Glomerular Filtration Rate 359.9 mL/min (90-130); Glucose 109 mg/dL (65-115); Osmolality Calculated 289 mOsm/kg (285-295); Potassium 3.6 mmol/L (3.5-5.1); Sodium 139 mmol/L (136-145); Total Bilirubin 0.2 mg/dL (0.15-1.2); Total Protein 5.6 g/dL (6.6-8.7)
--- NOTE | 2022-11-22 05:48 | PM.PN ---
Subjective Subjective: Ms. Ramirez is awake on rounds this morning. She is lying on her left side which is her usual position. Vital signs are stable. Vitals/I&O/Wt Last Vital Signs Temp 98.1 F 11/22/22 05:25 Pulse 70 11/22/22 05:24 Resp 29 H 11/22/22 03:00 BP 123/65 11/22/22 03:00 Pulse Ox 93 11/22/22 03:00 O2 Del Method 11/22/22 05:25 O2 Flow Rate 2 11/22/22 05:25 11/21/22 11/21/22 11/22/22 14:59 22:59 06:59 Intake Total 600 / 600 1440 / 2040 250 / 2290 Output Total 1500 / 1500 1200 / 2700 Balance 600 / 600 -60 / 540 -950 / -410 Weight last 48 hrs Weight 112 lb 6.4 oz Weight 117 lb 11.629 oz Weight 120 lb Physical Exam Urinary Catheter Management: [place]: Cath Placed During This Visit: no Reason for Continuing Indwelling Catheter: Accurate Measurement of Urinary Output in Critically Ill Patients Data 11/22/22 02:44 11/22/22 02:44 Micro: Microbiology 11/20/22 02:00 Blood Culture - Preliminary Blood NEGATIVE TO DATE 11/20/22 02:00 Blood Culture - Preliminary Blood NEGATIVE TO DATE A&P Assessment and plan (1) Atelectasis of left lung: We will plan for bronchoscopy, potential biopsy, and a potential left chest tube this afternoon, as schedule permits. Etiology of her left main bronchial obstruction remains unclear but given her recent history of tobacco use, I am concerned of potential endobronchial lesion that may represent malignancy. I discussed this frankly with Ms. Ramirez. 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
[2022-11-22] MEDS: cyanocobalamin 1,000 mcg Tablet 500 MCG PO (08:58)
[2022-11-22] MEDS: thiamine 100 mg Tablet PO (08:59)
[2022-11-22] MEDS: pantoprazole 40 mg SDV IVP (08:59)
[2022-11-22] MEDS: ferrous gluconate 324 mg Tablet PO (08:59)
[2022-11-22] MEDS: D5-NS 0.45% + KCL 20 mEq 20 MEQ/1,000 ML BAG 75 MEQ IV (08:59)
[2022-11-22] MEDS: folic acid 1 mg Tablet PO ×2 (08:59→16:59)
[2022-11-22] MEDS: guaiFENesin 600 mg Tablet 1200 MG PO ×2 (08:59→16:59)
[2022-11-22] MEDS: dexamethasone 10 mg/mL INJ 6 MG IVP (08:59)
[2022-11-22] MEDS: acetylcysteine 200 mg/mL SDV 4 mL INHALATION ×4 (09:16→20:30)
[2022-11-22] MEDS: ipratropium-albuterol 3 mL Neb INHALATION ×3 (09:16→20:30)
[2022-11-22] MEDS: remdesivir 100 MG in sodium chloride 0.9% (100 ml) 80 ML IV (09:38)
[2022-11-22] MEDS: nystatin powder 15 gm Btl 1 APPLIC TOPICAL ×2 (09:47→16:59)
--- NOTE | 2022-11-22 16:48 | PM.PN ---
Subjective Subjective: Patient was seen and examined this morning,currently she is saturating well on 2 L-4ls s of oxygen, via nasal cannula has been afebrile.WBC is trending down: Hypernatremia is resolved, hypokalemia resolved. Good urine output. Due for bronchoscopy today, currently n.p.o. Medications: Medication Review Details: Generic Name Dose Route Start Last Admin Trade Name Freq PRN Reason Stop Dose Admin Acetaminophen 650 mg 11/20/22 05:49 11/20/22 21:39 Acetaminophen 32 5 Mg Tablet PO 650 mg Q6H PRN Administration MILD PAIN Albuterol/Ipratrop ium 3 ml 11/20/22 14:00 11/21/22 13:55 Ipratropium-Albu terol 3 Ml Neb INHALATION 3 ml Q6H.RESP GLORIA Administration Aspirin 81 mg 11/20/22 09:00 11/21/22 08:28 Aspirin 81 Mg Ec Tablet PO Not Given DAILY GLORIA Cyanocobalamin 500 mcg 11/20/22 09:00 11/21/22 08:28 Cyanocobalamin 1 ,000 Mcg Tablet PO 500 mcg DAILY GLORIA Administration Dexamethasone 6 mg 11/20/22 08:15 11/21/22 08:27 Dexamethasone 10 Mg/Ml Inj IVP 6 mg Q24H GLORIA Administration Ferrous Gluconate 324 mg 11/20/22 09:00 11/20/22 08:43 Ferrous Gluconat e 324 Mg Tablet PO 324 mg EVERY OTHER DAY S CH Administration Folic Acid 1 mg 11/20/22 09:00 11/21/22 08:28 Folic Acid 1 Mg Tablet PO 1 mg BID GLORIA Administration Heparin Sodium (Po rcine) 5,000 unit 11/20/22 06:00 11/20/22 06:22 Heparin 5,000 Un it/Ml Inj 1 Ml SUBCUT Not Given Q12H GLORIA Piperacillin Sod/T azobactam 50 mls @ 12.5 mls /hr 11/20/22 10:30 11/21/22 10:55 Sod 3.375 gm/ So dium Chloride IV 12.5 mls/hr Q8H GLORIA Administration Vancomycin HCl 750 mg/ Sodium 250 mls @ 250 mls /hr 11/20/22 15:00 11/21/22 03:33 Chloride IV Infused Q12H GLORIA Infusion Remdesivir 100 mg/ Sodium 100 mls @ 100 mls /hr 11/21/22 09:00 11/21/22 09:47 Chloride IV 11/25/22 09:59 100 mls/hr Q24H GLORIA Administration Dextrose 1,000 mls @ 60 ml s/hr 11/21/22 06:00 11/21/22 06:16 D5w IV 60 mls/hr .[id number] GLORIA Administration Nystatin 1 applic 11/20/22 18:00 11/21/22 08:27 Nystatin Powder 15 Gm Btl TOPICAL 1 applic BID GLORIA Administration Pantoprazole Sodiu m 40 mg 11/20/22 09:00 11/21/22 08:27 Pantoprazole 40 Mg Sdv IVP 40 mg DAILY GLORIA Administration Thiamine Mononitra te 100 mg 11/20/22 09:00 11/21/22 08:28 Thiamine 100 Mg Tablet PO 100 mg DAILY GLORIA Administration Vancomycin HCl 125 mg 11/20/22 14:00 11/21/22 12:19 Vancomycin 1,000 Mg Oral Nan (Btl) PO 125 mg QID GLORIA Administration Vitals/I&O/Wt Last Vital Signs Temp 97.8 F 11/22/22 14:00 Pulse 85 11/22/22 16:00 Resp 32 H 11/22/22 16:00 BP 108/59 11/22/22 16:00 Pulse Ox 89 L 11/22/22 16:00 O2 Del Method 11/22/22 14:35 O2 Flow Rate 4 11/22/22 14:35 11/22/22 11/22/22 11/22/22 06:59 14:59 22:59 Intake Total 300 / 2440 1081 / 1081 50 / 1131 Output Total 1200 / 2700 2200 / 2200 Balance -900 / -260 -1119 / -1119 50 / -1069 Weight last 48 hrs Weight 50.984 kg Weight 53.4 kg Physical Exam Const: COMMON NORMALS: patient oriented x3 HENMT: COMMON NORMALS: normocephalic and atraumatic HEAD & SCALP: normocephalic and atraumatic Resp: OTHER: Diminished air entry in left lung field. Cardio: COMMON NORMALS: regular rate, regular rhythm, S1 normal heart sound present, S2 normal heart sound present, No gallops present (Cardio), No murmurs present (Cardio), No rub (Cardio) and Peripheral pulses 2+ throughout RATE: regular rate RHYTHM: regular rhythm HEART SOUNDS: S1 normal heart sound present and S2 normal heart sound present PERIPHERAL PULSES: Peripheral pulses 2+ throughout GI: COMMON NORMALS: Normal to inspection, nondistended, normoactive bowel sounds present, Soft to palpation, non-tender, No hepatosplenomegaly present and no masses AUSCULTATION: Yes normoactive bowel sounds PALPATION: Yes Soft to palpation and Yes No hepatosplenomegaly present RECTAL EXAM: deferred Extremity: COMMON NORMALS: no clubbing, cyanosis or edema and no pedal edema Neuro: COMMON NORMALS: patient oriented x3 Urinary Catheter Management: [place]: Cath Placed During This Visit: no Reason for Continuing Indwelling Catheter: Accurate Measurement of Urinary Output in Critically Ill Patients Data 11/22/22 02:44 11/22/22 02:44 A&P Assessment and plan (1) COVID-19: (2) Pleural effusion: (3) Folic acid deficiency: (4) Vitamin D deficiency disease: (5) Vitamin B12 deficiency: Plan 61-year-old female with past medical history of, coronary artery disease, chronic lower extremity wound, adult failure to thrive protein energy malnutrition, CVA hypertension came in from retirement with chief complaint of with worsening shortness of breath, cough, she was saturating in 70s at the retirement. Currently she is being managed for Assessment Left lung reabsorption atelectasis: Possibly secondary to: Endobronchial malignancy rule out other causes (mucous plugging), patient is a longtime smoker. left-sided pleural effusion Acute hypoxic respiratory failure 2/2 left pleural effusion /post obstructive pneumonia/ Covid 19-pneumonia C. difficile diarrhea History of coronary artery disease History of CVA Chronic lower extremity wound Adult failure to thrive Protein energy malnutrition Hypokalemia Plan: CT angio chest : Large left lower left pleural effusion with compressive atelectasis, no pulmonary embolism. 2D echo: Normal left ventricular cavity size and systolic function. Left ventricular ejection fraction is estimated at 65 %. Bedside ultrasound: Left lung: Has failed to show any good pocket for pleural effusion tap. proBNP [id number] Troponin trend:58-50 Blood culture: NTD Sputum gram stain and culture Urine Legionella antigen Bacterial antigen panel Pleural fluid analysis with cytology Continue vancomycin and Zosyn Hold Plavix, aspirin Continue dexamethasone Remdesivir DuoNebs Trend inflammatory markers including ESR CRP D-dimer Vancomycin 125 mg p.o. 4 times daily will complete 10-day course. Continue gentle IV hydration Supplemental oxygen as needed CT surgery on board for: Bronchoscopy and possible chest tube placement. Given the fact that the patient was on Plavix and took her last dose of Plavix a day prior to admission, If patient end of needing biopsy, during bronchoscopy, it is prudent to continue to hold Plavix. I will defer it to CT surgery, regarding need to start Plavix. Plan for today: Full code DVT prophylaxis: Heparin SQ twice daily Attestations Medical Necessity Statement*: Patient is in hospital for management left lung atelectasis. Coding Level of Care Code Acute Live In Caregiver for g Fwd Exam Detailed Diagnoses COVID-19 U07.1 Pleural effusion J90 Folic acid deficiency E53.8 Vitamin D deficiency disease E55.9 Vitamin B12 deficiency E53.8
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
--- NOTE | 2022-11-22 19:07 | PC.NURSE ---
1853- pt taken to OR by OR team via bed, all consents signed.
--- NOTE | 2022-11-22 19:18 | XRR_ITS ---
PROCEDURE INFORMATION: Exam: XR Chest Exam date and time: 11/22/2022 7:23 PM Age: 61 years old Clinical indication: Device placement; Chest tube; Additional info: Or stat chest xray. First image was before chest tube. Second image was post chest tube TECHNIQUE: Imaging protocol: Radiologic exam of the chest. Views: 1 view. COMPARISON: CR (CHEST, ) 11/20/2022 12:40 AM FINDINGS: There are 2 images presented for interpretation. Initial image demonstrates complete opacification with volume loss left hemithorax. Right lung field is clear. There is an ET tube situated in satisfactory position 6 cm above the dami. The 2nd image demonstrates placement of a left-sided chest tube whose tip projects over the left lung apex. There is significantly improved aeration of left lung with reduced volume loss noted. There are scattered heterogeneous opacities now present within the left lung that may represent combination of diffuse pneumonia and atelectasis. Right lung field remains clear. Pleural surfaces: There is no right pleural effusion noted. No significant left pleural effusion evident on the 2nd image after chest tube placement. Heart is not significantly enlarged. Bones: Unremarkable for age. XR/XR chest 1V portable [id number] IMPRESSION: Patient status post left sided chest tube placement with improved aeration and volume loss left hemithorax.
--- NOTE | 2022-11-22 20:03 | P.OP_ITS ---
Operative Report Date of procedure: November 22, 2022 Pre-op diagnosis: Preop Diagnosis pneumonia, covid Post-op diagnosis: other Post-op diagnosis: Mucous plugging left main bronchus Procedure done: Flexible diagnostic/therapeutic bronchoscopy Implants: None Pathology: none sent Surgeon: Casper Núñez Anesthesia: General Complications: None Findings: Mucous plugging from proximal left main bronchus throughout the left bronchial tree Condition: stable Disposition: ICU Brief History: Ms. Ramirez is a 61-year-old ill-appearing female with prior history for CVAs and lower extremity contractures who presented with fever productive cough and increasing dyspnea. She was found to have complete atelectasis of the left l adonay. After consultation, I have recommended bronchoscopy for further assessment. She has a long history of tobacco use. Details of risk of the procedure were carefully and frankly discussed. Appropriate consents have been reviewed and signed. Procedure: Procedure: Ms. Ramirez underwent general endotracheal anesthesia with an 8.0 endotracheal tube. With adequate anesthesia, flexible bronchoscope was inserted through the endotracheal tube. In a methodical fashion the trachea, dami, right main bronchus and associated lobar bronchi were inspected. In a similar fashion the left side was inspected. Secretions were cleared as needed to allow for adequate inspection. Normal saline or normal saline and bicarbonate solution were used to clear thick or tenacious secretions. Findings: After initiation of bronchoscopy, upon reaching the main dami, the entire left bronchial tree was obscured by thick white mucus which was spilling over into the right side. Initially, the right side was investigated with no erlinda anomalies noted or endobronchial lesions. Next, active suction was performed to begin clearing the left side and remove pulling secretions. This was done from the main dami through the complete left bronchial tree down to the tertiary branches. Combination of saline/bicarbonate was utilized to help release tenacious secretions. Once completed, the entire tracheobronchial tree was inspected in a methodical fashion. The main dami and secondary dami were sharp. There was no evidence for endobronchial lesions, submucosal infiltration, or extrinsic compression. Branching anatomy was normal. Mucosal the right side was completely unremarkable. Beginning in mid left main bronchial region and distally, left s [place] showed edematous mucosa with some friability. However, no endobronchial lesion which could account for obstruction was identified on either side. A combination of saline, along with saline/bicarbonate was utilized to confirm that all secretions were cleared. Once completed, the scope was withdrawn under direct visualization confirming cleared secretions and no substantial bleeding. Endoscopic photos were taken as required to document pathology. Post procedure chest x-ray revealed still near complete haziness of the left hemithorax. Therefore, I elected to proceed with left thoracostomy tube placement.
--- NOTE | 2022-11-22 20:10 | P.OP_ITS ---
Operative Report Date of procedure: November 22, 2022 Pre-op diagnosis: Preop Diagnosis pneumonia, covid Preop Diagnosis pneumonia, covid Post-op diagnosis: other Post-op diagnosis: Atelectasis left lung with left pleural effusion Procedure done: 28 Welsh left thoracostomy tube placement Implants: 28 Welsh thoracostomy tube Specimens removed/disposition: 820 cc of serous pleural fluid was recovered. Pathology: none sent Surgeon: Casper Núñez Anesthesia: General Estimated blood loss (mL): 10 Complications: None Findings: Post procedure chest x-ray reveals improved aeration into the left lung. Condition: stable Disposition: ICU Brief History: Ms. Ramirez is a 61-year-old ill-appearing female with prior history for CVAs and lower extremity contractures who presented with fever productive cough and increasing dyspnea. She was found to have complete atelectasis of the left lung. After consultation, I have recommended bronchoscopy for further assessment. She has a long history of tobacco use. Details of risk of the procedure were carefully and frankly discussed. Appropriate consents have been reviewed and signed. Procedure: Procedure: The patient was placed in the supine position with the left chest slightly elevated. She remains intubated under general anesthesia, having just completed flexible bronchoscopy. The entire left chest was thoroughly prepped and draped. 1% lidocaine was infiltrated in the midaxillary line over the seventh rib. A #15 scalpel blade was used to incise the skin, silk stay suture was placed, followed by utilizing a small hemostat to enter the pleural space with return of serous fluid. A 28 Welsh drain was placed. A total of 820 mL of yellow, clear, serous fluid was collected. Chest tube was secured to the skin followed by placement of sterile dressings. Chest tube is placed to Pleur- evac suction. Post procedure chest x-ray reveals improved aeration to the left lung. We will leave chest tube to suction with planned serial chest x-rays.
--- NOTE | 2022-11-22 20:36 | PC.NURSE ---
2020- pt returned from OR via bed, on 2lnc awake and alert with left chest tube to suction, in no apparent distress, denies pain, will monitor.
[2022-11-22] MEDS: acetaminophen 325 mg Tablet 650 MG PO (22:11)
[2022-11-23] VITALS (17 sets, daily range): BP systolic 100–137; BP diastolic 53–88; PULSE 69–90; RESP 16–33; TEMP 36.5–37; O2SAT 92–97
[2022-11-23] MEDS: vancomycin 1,000 MG in sodium chloride 0.9% 250 ML 250 MG IV ×2 (01:35→16:26)
[2022-11-23] MEDS: morphine 4 mg/mL SDV 1 mL 1 MG IVP (01:36)
[2022-11-23] MEDS: piperacillin-tazobactam 3.375 GM in sodium chloride 0.9% (plus) 50 ML IV ×3 (02:34→20:29)
[2022-11-23 02:46] LABS: Cyto Order Verification No Order
[2022-11-23 02:47] LABS: Basophils % 0.1 %; Hematocrit 37.1 % (37.0-47.0); Hemoglobin 11.3 g/dL (11.5-15.3); Lymphocytes # 1.8 10^3/uL (0.8-4.8); Lymphocytes % 8.5 %; Mean Corpuscular HGB Conc 30.5 g/dL (30.0-36.0); Mean Corpuscular Volume 85.5 fl (81-99); Mean Platelet Volume 10.7 fL (7.4-10.4); Monocytes # 0.9 10^3/uL (0.2-0.9); Monocytes % 4.3 %; Neutrophils # 18.47 10^3/uL (1.8-7.7); Neutrophils % 86.7 %; Nucleated Red Blood Cells % 0 %; Platelet Count 430 10^3/cmm (130-400); Red Blood Count 4.34 10^6/uL (4.1-5.3); Red Cell Distribution Width 14.8 % (12.1-15.1); White Blood Count 21.3 10^3/uL (4.0-10.0)
[2022-11-23] MEDS: ipratropium-albuterol 3 mL Neb INHALATION ×4 (03:10→20:00)
[2022-11-23] MEDS: acetylcysteine 200 mg/mL SDV 4 mL INHALATION ×4 (03:10→20:00)
[2022-11-23 03:12] LABS: Alanine Aminotransferase 29 U/L (0-33); Albumin Level 2.5 g/dL (3.5-5.2); Alkaline Phosphatase 81 U/L (35-105); Anion Gap 11.6 (5-19); Aspartate Amino Transferase 19 U/L (0-32); Blood Urea Nitrogen 11 mg/dL (8-23); Calcium 8.2 mg/dL (8.5-10.5); Carbon Dioxide 32 mmol/L (22-29); Chloride 100 mmol/L (98-107); Globulin 3.1 g/dL (1.3-4.6); Glomerular Filtration Rate 359.9 mL/min (90-130); Glucose 117 mg/dL (65-115); Osmolality Calculated 290 mOsm/kg (285-295); Potassium 3.6 mmol/L (3.5-5.1); Sodium 140 mmol/L (136-145); Total Bilirubin 0.2 mg/dL (0.15-1.2); Total Protein 5.6 g/dL (6.6-8.7)
[2022-11-23 03:13] LABS: Vancomycin Trough 13.5 ug/mL (10-15)
[2022-11-23] MEDS: clopidogrel 75 mg Tablet PO (05:30)
[2022-11-23] MEDS: heparin 5,000 unit/mL INJ 1 mL 5000 UNIT SUBCUT ×2 (05:30→17:03)
[2022-11-23] MEDS: D5-NS 0.45% + KCL 20 mEq 20 MEQ/1,000 ML BAG 75 MEQ IV ×2 (05:30→23:09)
--- NOTE | 2022-11-23 06:00 | XRR_ITS ---
PROCEDURE INFORMATION: Exam: XR Chest Exam date and time: 11/23/2022 4:56 AM Age: 61 years old Clinical indication: Other: S/P bronch and chest tube. Covid+; Additional info: S/P bronch and chest tube. Covid+ TECHNIQUE: Imaging protocol: Radiologic exam of the chest. Views: 1 view. COMPARISON: CR XR chest 1V portable [id number] 11/22/2022 7:23 PM FINDINGS: Tubes, catheters and devices: Decreased left pleural effusion status post chest tube placement. Lungs: There is improved aeration in the left upper lobe. There is persistent consolidation/effusion noted in the left mid and lower lung zones. Stable appearance of the right lung. Pleural spaces: See above. No pneumothorax. Heart/Mediastinum: Cardiomediastinal silhouette is partially obscured. Bones/joints: Chronic appearing rib fractures. XR/XR chest 1V portable [id number] IMPRESSION: Decreased left pleural effusion status post chest tube placement. There is improved aeration in the left upper lobe. There is persistent consolidation/effusion noted in the left mid and lower lung zones.
--- NOTE | 2022-11-23 07:02 | PC.NURSE ---
bedside report completed with this nurse and Emily WOMACK
--- NOTE | 2022-11-23 08:00 | ANE.PACU2 ---
Inpatient post-anesthesia follow up: Airway intact: Yes Vital signs: Temperature 98.6 F Pulse Rate 70 Respiratory Rate 21 Blood Pressure 121/57 Pulse Oximetry 93 Oxygen Delivery Me thod Nasal Cannula Oxygen Flow Rate 2 Fraction of Inspir ed Oxygen Hydration adequate: Yes Nausea and vomiting: No Pain level: 2 Mental status: Baseline
[2022-11-23] MEDS: cyanocobalamin 1,000 mcg Tablet 500 MCG PO (08:21)
[2022-11-23] MEDS: guaiFENesin 600 mg Tablet 1200 MG PO ×2 (08:23→17:03)
[2022-11-23] MEDS: pantoprazole 40 mg SDV IVP (08:23)
[2022-11-23] MEDS: dexamethasone 10 mg/mL INJ 6 MG IVP (08:23)
[2022-11-23] MEDS: folic acid 1 mg Tablet PO ×2 (08:23→17:03)
[2022-11-23] MEDS: thiamine 100 mg Tablet PO (08:23)
[2022-11-23] MEDS: aspirin 81 mg Chew Tablet PO (08:23)
[2022-11-23] MEDS: nystatin powder 15 gm Btl 1 APPLIC TOPICAL ×2 (08:44→17:06)
--- NOTE | 2022-11-23 09:49 | P.PN_ITS ---
Subjective Subjective: Postop day #1 status post bronchoscopy with relief of mucous plugging as well as left thoracostomy tube placement with recovery of 820 cc of pleural fluid. Overnight, there has been approximately another 40 to 50 cc of pleural fluid recovered. Chest x-ray this morning reveals evidence for consol idation in the left lower lobe but there is clearly improved aeration to the left lung. As usual, she continues to lie on her left side and is mostly sedentary which is complicating aeration to this side. Vital signs are stable she is denying any breathing difficulties and only complaining of some modest discomfort at the chest tube insertion site. Vitals/I&O/Wt Last Vital Signs Temp 98.6 F 11/23/22 07:58 Pulse 86 11/23/22 08:47 Resp 18 11/23/22 08:35 BP 121/57 11/23/22 07:58 Pulse Ox 92 11/23/22 08:35 O2 Del Method 11/23/22 08:35 O2 Flow Rate 2 11/23/22 08:35 11/22/22 11/23/22 11/23/22 22:59 06:59 14:59 Intake Total 912.5 / 1993.5 387.5 / 2381.0 300 / 300 Output Total 600 / 2800 1350 / 4150 Balance 312.5 / -806.5 -962.5 / -1769.0 300 / 300 Weight last 48 hrs Weight 112 lb 8.8 oz Weight 112 lb 6.4 oz Physical Exam Urinary Catheter Management: [place]: Cath Placed During This Visit: no Reason for Continuing Indwelling Catheter: Accurate Measurement of Urinary Output in Critically Ill Patients Data 11/23/22 01:43 11/23/22 01:43 A&P Assessment and plan (1) Atelectasis of left lung: Improved aeration to the left lung status post bronchoscopy and left chest tube placement. Plan: I would recommend continuing chest tube for suction for another 24 hours along with pulmonary toilet. Chest tube may then be placed to waterseal for assessment of pleural fluid output. She will be prone to mucous plugging on the left side related to her modest respiratory effort and her positioning which is usually left side dependent. Attestations Medical Necessity Statement*: Left lung atelectasis status post bronchoscopy with relief of mucous plugging and chest tube placement for pleural effusion. Coding Level of Care Code Acute Events Administrative Assistant for Chg Fwd Diagnoses Atelectasis of left lung J98.11
[2022-11-23] MEDS: remdesivir 100 MG in sodium chloride 0.9% (100 ml) 80 ML IV (09:55)
--- NOTE | 2022-11-23 13:45 | PC.NURSE ---
Pt transferred to [facility] bed. Report was given to Veronica. Wound dressing changed with bedside report.
--- NOTE | 2022-11-23 16:12 | P.PN_ITS ---
Subjective Subjective: Seen and examined this morning, s/p bronchoscopy and left-sided chest tube placement yesterday. A.m. chest x-ray has shown improvement in left lung field arreation, with persistent consolidation/effusion noted in the left mid and lower lung zones. White blood cell count is slightly trended up: Likely reactive, has been afebrile, continue to saturate well on minimal supplemental oxygen. Medications: Medication Review Details: Generic Name Dose Route Start Last Admin Trade Name Evi PRN Reason Stop Dose Admin Acetaminophen 650 mg 11/20/22 05:49 11/22/22 22:11 Acetaminophen 32 5 Mg Tablet PO 650 mg Q6H PRN Administration MILD PAIN Acetylcysteine 200 mg 11/21/22 14:30 11/23/22 13:35 Acetylcysteine 2 00 Mg/Ml Sdv 4 Ml INHALATION 200 mg Q6H GLORIA Administration Albuterol/Ipratrop ium 3 ml 11/20/22 14:00 11/23/22 13:23 Ipratropium-Albu terol 3 Ml Neb INHALATION 3 ml Q6H.RESP GLORIA Administration Aspirin 81 mg 11/23/22 09:00 11/23/22 08:23 Aspirin 81 Mg Ch ew Tablet PO 81 mg DAILY GLORIA Administration Clopidogrel Bisulf ate 75 mg 11/20/22 07:12 11/23/22 05:30 Clopidogrel 75 M g Tablet PO 75 mg QAM GLORIA Administration Cyanocobalamin 500 mcg 11/20/22 09:00 11/23/22 08:21 Cyanocobalamin 1 ,000 Mcg Tablet PO 500 mcg DAILY GLORIA Administration Dexamethasone 6 mg 11/20/22 08:15 11/23/22 08:23 Dexamethasone 10 Mg/Ml Inj IVP 6 mg Q24H GLORIA Administration Ferrous Gluconate 324 mg 11/20/22 09:00 11/22/22 08:59 Ferrous Gluconat e 324 Mg Tablet PO 324 mg EVERY OTHER DAY S [facility] Administration Folic Acid 1 mg 11/20/22 09:00 11/23/22 08:23 Folic Acid 1 Mg Tablet PO 1 mg BID GLORIA Administration Guaifenesin 1,200 mg 11/21/22 18:00 11/23/22 08:23 Guaifenesin 600 Mg Tablet PO 1,200 mg BID GLORIA Administration Heparin Sodium (Po rcine) 5,000 unit 11/20/22 06:00 11/23/22 05:30 Heparin 5,000 Un it/Ml Inj 1 Ml SUBCUT 5,000 unit Q12H GLORIA Administration Piperacillin Sod/T azobactam 50 mls @ 12.5 mls /hr 11/20/22 10:30 11/23/22 11:29 Sod 3.375 gm/ So dium Chloride IV 12.5 mls/hr Q8H GLORIA Administration Remdesivir 100 mg/ Sodium 100 mls @ 100 mls /hr 11/21/22 09:00 11/23/22 13:32 Chloride IV 11/25/22 09:59 Infused Q24H GLORIA Infusion Vancomycin HCl 1,0 00 mg/ 250 mls @ 250 mls /hr 11/21/22 14:30 11/23/22 07:09 Sodium Chloride IV Infused Q12H GLORIA Infusion Potassium Chloride /Dextrose/Sod Cl 20 meq in 1,000 m ls @ 75 mls/hr 11/22/22 08:15 11/23/22 05:30 D5-Ns 0.45% + Cem l 20 Meq IV 75 mls/hr .[id number] GLORIA Administration Nystatin 1 applic 11/20/22 18:00 11/23/22 08:44 Nystatin Powder 15 Gm Btl TOPICAL 1 applic BID GLORIA Administration Pantoprazole Sodiu m 40 mg 11/20/22 09:00 11/23/22 08:23 Pantoprazole 40 Mg Sdv IVP 40 mg DAILY GLORIA Administration Thiamine Mononitra te 100 mg 11/20/22 09:00 11/23/22 08:23 Thiamine 100 Mg Tablet PO 100 mg DAILY GLORIA Administration Vancomycin HCl 125 mg 11/20/22 14:00 11/23/22 13:04 Vancomycin 1,000 Mg Oral Nan (Btl) PO 125 mg QID GLORIA Administration Vitals/I&O/Wt Last Vital Signs Temp 98.0 F 11/23/22 14:00 Pulse 86 11/23/22 14:00 Resp 18 11/23/22 14:00 BP 100/54 11/23/22 14:00 Pulse Ox 94 11/23/22 14:00 O2 Del Method 11/23/22 14:00 O2 Flow Rate 2 11/23/22 13:30 11/23/22 11/23/22 11/23/22 06:59 14:59 22:59 Intake Total 387.5 / 2381.0 1480 / 1480 Output Total 1350 / 4150 Balance -962.5 / -1769.0 1480 / 1480 Weight last 48 hrs Weight 51.052 kg Weight 50.984 kg Physical Exam Const: COMMON NORMALS: patient oriented x3 HENMT: COMMON NORMALS: normocephalic and atraumatic HEAD & SCALP: normocephalic and atraumatic Resp: OTHER: Diminished air entry in left lung field. Cardio: COMMON NORMALS: regular rate, regular rhythm, S1 normal heart sound present, S2 normal heart sound present, No gallops present (Cardio), No murmurs present (Cardio), No rub (Cardio) and Peripheral pulses 2+ throughout RATE: regular rate RHYTHM: regular rhythm HEART SOUNDS: S1 normal heart sound present and S2 normal heart sound present PERIPHERAL PULSES: Peripheral pulses 2+ throughout GI: COMMON NORMALS: Normal to inspection, nondistended, normoactive bowel sounds present, Soft to palpation, non-tender, No hepatosplenomegaly present and no masses AUSCULTATION: Yes normoactive bowel sounds PALPATION: Yes Soft to palpation and Yes No hepatosplenomegaly present RECTAL EXAM: deferred Extremity: COMMON NORMALS: no clubbing, cyanosis or edema and no pedal edema Neuro: COMMON NORMALS: patient oriented x3 Urinary Catheter Management: [place]: Cath Placed During This Visit: no Reason for Continuing Indwelling Catheter: Accurate Measurement of Urinary Output in Critically Ill Patients Data 11/23/22 01:43 11/23/22 01:43 A&P Assessment and plan (1) COVID-19: (2) Pleural effusion: (3) Folic acid deficiency: (4) Vitamin D deficiency disease: (5) Vitamin B12 deficiency: Plan 61-year-old female with past medical history of, coronary artery disease, chronic lower extremity wound, adult failure to thrive protein energy malnutrition, CVA hypertension came in from care home with chief complaint of with worsening shortness of breath, cough, she was saturating in 70s at the care home. Currently she is being managed for Assessment Left lung reabsorption/compressive atelectasis: S/p bronchoscopy left-sided pleural effusion: S/p left chest tube placement Acute hypoxic respiratory failure 2/2 left pleural effusion /post obstructive pneumonia/ Covid 19-pneumonia C. difficile diarrhea History of coronary artery disease History of CVA Chronic lower extremity wound: On wound care Adult failure to thrive Protein energy malnutrition Hypokalemia Plan: CT angio chest : Large left lower left pleural effusion with compressive atelectasis, no pulmonary embolism. 2D echo: Normal left ventricular cavity size and systolic function. Left ventricular ejection fraction is estimated at 65 %. Bedside ultrasound: Left lung: Has failed to show any good pocket for pleural effusion tap. proBNP [id number] Troponin trend:71-58-50 Blood culture: NTD Sputum gram stain and culture Urine Legionella antigen Bacterial antigen panel Pleural fluid analysis with cytology Continue vancomycin and Zosyn Aspirin Plavix has been resumed Continue dexamethasone Remdesivir DuoNebs Mucomyst inhalation, Mucinex,I/S, flutter valve, chest vest. Trend inflammatory markers including ESR CRP D-dimer Vancomycin 125 mg p.o. 4 times daily will complete 10-day course. Continue gentle IV hydration Supplemental oxygen as needed CT surgery on board for: S/p bronchoscopy with clearing of mucous plug as well as left-sided chest tube placement: With removal of 800 cc pleural fluid.Fluid analysis pending, have requested to get fluid analysis Done. Full code DVT prophylaxis: Heparin SQ twice daily Attestations Medical Necessity Statement*: Patient needs to be in hospital for management of pneumonia Coding Level of Care Code Acute Administrative Liaison for g Fwd Exam Detailed Diagnoses COVID-19 U07.1 Pleural effusion J90 Folic acid deficiency E53.8 Vitamin D deficiency disease E55.9 Vitamin B12 deficiency E53.8
[2022-11-24] VITALS (13 sets, daily range): BP systolic 103–128; BP diastolic 62–72; PULSE 80–105; RESP 16–19; TEMP 36.4–36.8; O2SAT 90–94
[2022-11-24] MEDS: ipratropium-albuterol 3 mL Neb INHALATION ×4 (03:17→21:49)
[2022-11-24] MEDS: vancomycin 1,000 MG in sodium chloride 0.9% 250 ML 250 MG IV (03:22)
[2022-11-24 04:01] LABS: Basophils % 0.1 %; Eosinophils # 0.1 10^3/uL (0.0-0.8); Eosinophils % 0.5 %; Hematocrit 37.5 % (37.0-47.0); Hemoglobin 11.4 g/dL (11.5-15.3); Lymphocytes # 1.8 10^3/uL (0.8-4.8); Lymphocytes % 15.1 %; Mean Corpuscular HGB Conc 30.4 g/dL (30.0-36.0); Mean Corpuscular Hemoglobin 25.6 pg (28.0-34.0); Mean Corpuscular Volume 84.1 fl (81-99); Mean Platelet Volume 10.7 fL (7.4-10.4); Monocytes # 0.7 10^3/uL (0.2-0.9); Neutrophils # 9.29 10^3/uL (1.8-7.7); Neutrophils % 77.7 %; Nucleated Red Blood Cells % 0 %; Platelet Count 414 10^3/cmm (130-400); Red Blood Count 4.46 10^6/uL (4.1-5.3); Red Cell Distribution Width 14.6 % (12.1-15.1)
[2022-11-24 04:17] LABS: Alanine Aminotransferase 32 U/L (0-33); Albumin Level 2.4 g/dL (3.5-5.2); Alkaline Phosphatase 84 U/L (35-105); Aspartate Amino Transferase 12 U/L (0-32); Blood Urea Nitrogen 14 mg/dL (8-23); Calcium 8.2 mg/dL (8.5-10.5); Carbon Dioxide 30 mmol/L (22-29); Chloride 101 mmol/L (98-107); Globulin 2.9 g/dL (1.3-4.6); Glomerular Filtration Rate 225.4 mL/min (90-130); Glucose 98 mg/dL (65-115); Osmolality Calculated 288 mOsm/kg (285-295); Sodium 139 mmol/L (136-145); Total Bilirubin 0.2 mg/dL (0.15-1.2); Total Protein 5.3 g/dL (6.6-8.7)
[2022-11-24] MEDS: piperacillin-tazobactam 3.375 GM in sodium chloride 0.9% (plus) 50 ML IV ×3 (05:22→20:30)
[2022-11-24] MEDS: clopidogrel 75 mg Tablet PO (05:22)
[2022-11-24] MEDS: heparin 5,000 unit/mL INJ 1 mL 5000 UNIT SUBCUT (05:22)
--- NOTE | 2022-11-24 06:55 | P.PN_ITS ---
Subjective Subjective: Seen and examined this morning, currently saturating well on minimal supplemental oxygen afebrile A.m. x-ray chest has shown: Increasing left-sided pleural effusion, with decreased aeration. Medications: Medication Review Details: Generic Name Dose Route Start Last Admin Trade Name Freq PRN Reason Stop Dose Admin Acetaminophen 650 mg 11/20/22 05:49 11/22/22 22:11 Acetaminophen 32 5 Mg Tablet PO 650 mg Q6H PRN Administration MILD PAIN Acetylcysteine 200 mg 11/21/22 14:30 11/24/22 03:17 Acetylcysteine 2 00 Mg/Ml Sdv 4 Ml INHALATION Not Given Q6H GLORIA Albuterol/Ipratrop ium 3 ml 11/20/22 14:00 11/24/22 03:17 Ipratropium-Albu terol 3 Ml Neb INHALATION 3 ml Q6H.RESP GLORIA Administration Aspirin 81 mg 11/23/22 09:00 11/23/22 08:23 Aspirin 81 Mg Ch ew Tablet PO 81 mg DAILY GLORIA Administration Clopidogrel Bisulf ate 75 mg 11/20/22 07:12 11/24/22 05:22 Clopidogrel 75 M g Tablet PO 75 mg QAM GLORIA Administration Cyanocobalamin 500 mcg 11/20/22 09:00 11/23/22 08:21 Cyanocobalamin 1 ,000 Mcg Tablet PO 500 mcg DAILY GLORIA Administration Dexamethasone 6 mg 11/20/22 08:15 11/23/22 08:23 Dexamethasone 10 Mg/Ml Inj IVP 6 mg Q24H GLORIA Administration Ferrous Gluconate 324 mg 11/20/22 09:00 11/22/22 08:59 Ferrous Gluconat e 324 Mg Tablet PO 324 mg EVERY OTHER DAY S [facility] Administration Folic Acid 1 mg 11/20/22 09:00 11/23/22 17:03 Folic Acid 1 Mg Tablet PO 1 mg BID GLORIA Administration Guaifenesin 1,200 mg 11/21/22 18:00 11/23/22 17:03 Guaifenesin 600 Mg Tablet PO 1,200 mg BID GLORIA Administration Heparin Sodium (Po rcine) 5,000 unit 11/20/22 06:00 11/24/22 05:22 Heparin 5,000 Un it/Ml Inj 1 Ml SUBCUT 5,000 unit Q12H GLORIA Administration Piperacillin Sod/T azobactam 50 mls @ 12.5 mls /hr 11/20/22 10:30 11/24/22 05:22 Sod 3.375 gm/ So dium Chloride IV 12.5 mls/hr Q8H GLORIA Administration Remdesivir 100 mg/ Sodium 100 mls @ 100 mls /hr 11/21/22 09:00 11/23/22 13:32 Chloride IV 11/25/22 09:59 Infused Q24H GLORIA Infusion Vancomycin HCl 1,0 00 mg/ 250 mls @ 250 mls /hr 11/21/22 14:30 11/24/22 04:25 Sodium Chloride IV Infused Q12H GLORIA Infusion Potassium Chloride /Dextrose/Sod Cl 20 meq in 1,000 m ls @ 75 mls/hr 11/22/22 08:15 11/23/22 23:09 D5-Ns 0.45% + Cem l 20 Meq IV 75 mls/hr .[id number] GLORIA Administration Nystatin 1 applic 11/20/22 18:00 11/23/22 17:06 Nystatin Powder 15 Gm Btl TOPICAL 1 applic BID GLORIA Administration Pantoprazole Sodiu m 40 mg 11/20/22 09:00 11/23/22 08:23 Pantoprazole 40 Mg Sdv IVP 40 mg DAILY GLORIA Administration Thiamine Mononitra te 100 mg 11/20/22 09:00 11/23/22 08:23 Thiamine 100 Mg Tablet PO 100 mg DAILY GLORIA Administration Vancomycin HCl 125 mg 11/20/22 14:00 11/23/22 20:26 Vancomycin 1,000 Mg Oral Nan (Btl) PO 125 mg QID GLORIA Administration Vitals/I&O/Wt Last Vital Signs Temp 97.9 F 11/24/22 04:00 Pulse 101 H 11/24/22 06:00 Resp 19 H 11/24/22 04:00 BP 124/72 11/24/22 04:00 Pulse Ox 90 11/24/22 04:00 O2 Del Method 11/24/22 03:17 O2 Flow Rate 2 11/24/22 03:17 11/23/22 11/23/22 11/24/22 14:59 22:59 06:59 Intake Total 1480 / 1480 2570 / 4050 660 / 4710 Output Total 1250 / 1250 1000 / 2250 Balance 1480 / 1480 1320 / 2800 -340 / 2460 Weight last 48 hrs Weight 51.029 kg Weight 51.052 kg Physical Exam Const: COMMON NORMALS: patient oriented x3 HENMT: COMMON NORMALS: normocephalic and atraumatic HEAD & SCALP: normocephalic and atraumatic Resp: OTHER: Diminished air entry in left lung field. Cardio: COMMON NORMALS: regular rate, regular rhythm, S1 normal heart sound present, S2 normal heart sound present, No gallops present (Cardio), No murmurs present (Cardio), No rub (Cardio) and Peripheral pulses 2+ throughout RATE: regular rate RHYTHM: regular rhythm HEART SOUNDS: S1 normal heart sound present and S2 normal heart sound present PERIPHERAL PULSES: Peripheral pulses 2+ throughout GI: COMMON NORMALS: Normal to inspection, nondistended, normoactive bowel sounds present, Soft to palpation, non-tender, No hepatosplenomegaly present and no masses AUSCULTATION: Yes normoactive bowel sounds PALPATION: Yes Soft to palpation and Yes No hepatosplenomegaly present RECTAL EXAM: deferred Extremity: COMMON NORMALS: no clubbing, cyanosis or edema and no pedal edema Neuro: COMMON NORMALS: patient oriented x3 Urinary Catheter Management: [place]: Cath Placed During This Visit: no Reason for Continuing Indwelling Catheter: Accurate Measurement of Urinary O utput in Critically Ill Patients Data 11/24/22 03:30 11/24/22 03:30 A&P Assessment and plan (1) COVID-19: (2) Pleural effusion: (3) Folic acid deficiency: (4) Vitamin D deficiency disease: (5) Vitamin B12 deficiency: Plan 61-year-old female with past medical history of, coronary artery disease, chronic lower extremity wound, adult failure to thrive protein energy malnutrition, CVA hypertension came in from [facility] with chief complaint of with worsening shortness of breath, cough, she was saturating in 70s at the [facility]. Currently she is being managed for Assessment Left lung reabsorption/compressive atelectasis: S/p bronchoscopy left-sided pleural effusion: S/p left chest tube placement Acute hypoxic respiratory failure 2/2 left pleural effusion /post obstructive pneumonia/ Covid 19-pneumonia C. difficile diarrhea History of coronary artery disease History of CVA Chronic lower extremity wound: On wound care Adult failure to thrive Protein energy malnutrition Hypokalemia Plan: CT angio chest : Large left lower left pleural effusion with compressive atelectasis, no pulmonary embolism. 2D echo: Normal left ventricular cavity size and systolic function. Left ventricular ejection fraction is estimated at 65 %. Bedside ultrasound: Left lung: Has failed to show any good pocket for pleural effusion tap. proBNP 8959 Troponin trend:71-58-50 Blood culture: NTD Sputum gram stain and culture Urine Legionella antigen Bacterial antigen panel Pleural fluid analysis with cytology Continue vancomycin and Zosyn Aspirin Plavix has been resumed Continue dexamethasone Remdesivir DuoNebs Mucomyst inhalation, Mucinex,I/S, flutter valve, chest vest. Trend inflammatory markers including ESR CRP D-dimer Vancomycin 125 mg p.o. 4 times daily will complete 10-day course. Continue gentle IV hydration Supplemental oxygen as needed CT surgery on board for: S/p bronchoscopy with clearing of mucous plug as well as left-sided chest tube placement: With removal of 800 cc pleural fluid.Fluid analysis pending, have requested to get fluid analysis Done. Had detailed discussion with the lab: To locate the pleural fluid sample and get the pending lab work done. Full code DVT prophylaxis: On Lovenox. Attestations Medical Necessity Statement*: In hospital for management of pneumonia Coding Level of Care Code Acute Inorganic Chemistry Professor for Chg Fwd Exam Detailed Diagnoses COVID-19 U07.1 Pleural effusion J90 Folic acid deficiency E53.8 Vitamin D deficiency disease E55.9 Vitamin B12 deficiency E53.8
--- NOTE | 2022-11-24 06:56 | XRR_ITS ---
PROCEDURE INFORMATION: Exam: XR Chest Exam date and time: 11/24/2022 9:29 AM Age: 61 years old Clinical indication: Other: Lt pleural effusion chest tube TECHNIQUE: Imaging protocol: Radiologic exam of the chest. Views: 1 view. COMPARISON: CR (CHEST, ) 11/23/2022 4:56 AM FINDINGS: Tubes, catheters and devices: Left apical chest tube is seen without change. Lungs: Increased medium to large sized left pleural effusion with decreased aeration of the left lung. Increased left apical interstitial and patchy airspace opacities. Increased shift of the mediastinum towards the left. Increased hyperinflation of the right lung. Pleural spaces: No pneumothorax. Heart/Mediastinum: There is leftward tracheal deviation. The heart size is not well assessed on the exam. Bones/joints: No acute osseous abnormalities seen. Small degenerative osteophytes and mild degenerative disc disease changes are seen throughout the thoracic spine. Mild shoulder degenerative changes are seen. Soft tissues: Multiple external densities are seen overlying the chest, limiting assessment. XR/XR chest 1V portable [id number] IMPRESSION: 1. Left surgical chest tube without change. 2. Increased medium to large sized left pleural effusion with decreased aeration of the left lung. Increased left apical interstitial and patchy airspace opacities. Increased shift of the mediastinum towards the left. 3. Increased hyperinflation of the right lung.
--- NOTE | 2022-11-24 07:21 | P.PN_ITS ---
Subjective Subjective: Pulmonary status remained stable. Her usual position is to the left side down which I feel that exacerbated mucus collection suppuratiion collection in the left bronchial tree. Minimal chest tube output since initial insertion. Vitals/I&O/Wt Last Vital Signs Temp 97.9 F 11/24/22 04:00 Pulse 101 H 11/24/22 06:00 Resp 19 H 11/24/22 04:00 BP 124/72 11/24/22 04:00 Pulse Ox 90 11/24/22 04:00 O2 Del Method 11/24/22 03:17 O2 Flow Rate 2 11/24/22 03:17 11/23/22 11/24/22 11/24/22 22:59 06:59 14:59 Intake Total 2570 / 4050 660 / 4710 Output Total 1250 / 1250 1000 / 2250 Balance 1320 / 2800 -340 / 2460 Weight last 48 hrs Weight 112 lb 8 oz Weight 112 lb 8.8 oz Physical Exam Resp: AUSCULTATION: diminished lung sounds on the left in the lower lung [place] Urinary Catheter Management: [place]: Cath Placed During This Visit: no Reason for Continuing Indwelling Catheter: Accurate Measurement of Urinary Output in Critically Ill Patients Data 11/24/22 03:30 11/24/22 03:30 A&P Assessment and plan (1) Atelectasis of left lung: Minimal chest tube output Chest tube placed to waterseal Chest x-ray in a.m. Plan to discontinue chest tube tomorrow morning if there is no dramatic worsening of her chest x-ray. I feel this may be a recurrent problem related to her debilitated condition, marginal pulmonary status, and persistent left lateral decubitus positioning related to her lower extremity contractures. Attestations Medical Necessity Statement*: Left lung atelectasis Coding Level of Care Code Acute Nautical Instrument Mechanic for Catie Hargrove Diagnoses Atelectasis of left lung J98.11
[2022-11-24] MEDS: acetylcysteine 200 mg/mL SDV 4 mL INHALATION ×3 (09:13→21:48)
[2022-11-24] MEDS: dexamethasone 10 mg/mL INJ 6 MG IVP (09:21)
[2022-11-24] MEDS: guaiFENesin 600 mg Tablet 1200 MG PO ×2 (09:21→17:39)
[2022-11-24] MEDS: thiamine 100 mg Tablet PO (09:21)
[2022-11-24] MEDS: ferrous gluconate 324 mg Tablet PO (09:21)
[2022-11-24] MEDS: aspirin 81 mg Chew Tablet PO (09:21)
[2022-11-24] MEDS: folic acid 1 mg Tablet PO ×2 (09:21→17:40)
[2022-11-24] MEDS: pantoprazole 40 mg SDV IVP (09:22)
[2022-11-24] MEDS: nystatin powder 15 gm Btl 1 APPLIC TOPICAL ×2 (09:22→17:47)
[2022-11-24] MEDS: cyanocobalamin 1,000 mcg Tablet 500 MCG PO (09:23)
[2022-11-24] MEDS: remdesivir 100 MG in sodium chloride 0.9% (100 ml) 80 ML IV (09:42)
[2022-11-24] MEDS: D5-NS 0.45% + KCL 20 mEq 20 MEQ/1,000 ML BAG 75 MEQ IV (15:30)
[2022-11-24] MEDS: sodium chloride 3.5% neb 4 mL Neb INHALATION (21:48)
[2022-11-25] VITALS (11 sets, daily range): BP systolic 102–124; BP diastolic 64–82; PULSE 77–101; RESP 15–18; TEMP 36.6–37.4; O2SAT 90–94
[2022-11-25] MEDS: D5-NS 0.45% + KCL 20 mEq 20 MEQ/1,000 ML BAG 75 MEQ IV ×2 (04:48→23:55)
[2022-11-25] MEDS: piperacillin-tazobactam 3.375 GM in sodium chloride 0.9% (plus) 50 ML IV ×3 (04:52→20:38)
[2022-11-25 05:44] LABS: Basophils % 0.1 %; Eosinophils # 0.2 10^3/uL (0.0-0.8); Eosinophils % 1.5 %; Hematocrit 38.7 % (37.0-47.0); Hemoglobin 11.9 g/dL (11.5-15.3); Lymphocytes # 2.1 10^3/uL (0.8-4.8); Lymphocytes % 14.2 %; Mean Corpuscular HGB Conc 30.7 g/dL (30.0-36.0); Mean Corpuscular Hemoglobin 26.3 pg (28.0-34.0); Mean Corpuscular Volume 85.6 fl (81-99); Mean Platelet Volume 10.2 fL (7.4-10.4); Monocytes % 6.4 %; Neutrophils # 11.65 10^3/uL (1.8-7.7); Neutrophils % 77.1 %; Nucleated Red Blood Cells % 0 %; Platelet Count 475 10^3/cmm (130-400); Red Blood Count 4.52 10^6/uL (4.1-5.3); Red Cell Distribution Width 14.9 % (12.1-15.1); White Blood Count 15.1 10^3/uL (4.0-10.0)
--- NOTE | 2022-11-25 06:00 | XRR_ITS ---
PROCEDURE INFORMATION: Exam: XR Chest Exam date and time: 11/25/2022 6:33 AM Age: 61 years old Clinical indication: Device placement; Chest tube; Additional info: Chest tube to water seal TECHNIQUE: Imaging protocol: Radiologic exam of the chest. Views: 1 view. COMPARISON: CR (CHEST, ) 11/24/2022 9:29 AM FINDINGS: Tubes, catheters and devices: Unchanged left surgical chest tube is seen. Lungs: Unchanged hyperinflation of the right lung. No right lung interstitial or airspace opacities. Pleural spaces: Interval development of a medium-sized pneumothorax component of the left hydropneumothorax. Recommend clinical assessment. There is collapse of the left lung. No right pneumothorax or pleural effusion. Heart/Mediastinum: The heart size unchanged. Unchanged shift of the mediastinum towards the left. Bones/joints: No acute osseous abnormalities seen. Unchanged old healed right lower rib fractures are seen. There is osteopenia. Soft tissues: Multiple external densities are seen overlying the chest, limiting assessment. XR/XR chest 1V portable [id number] IMPRESSION: 1. Unchanged left surgical chest tube. 2. Interval development of a medium-sized pneumothorax component of the left hydropneumothorax. Recommend clinical assessment. A left of the left lung.
[2022-11-25 06:11] LABS: Anion Gap 11.3 (5-19); Blood Urea Nitrogen 16 mg/dL (8-23); Calcium 8.9 mg/dL (8.5-10.5); Carbon Dioxide 30 mmol/L (22-29); Chloride 101 mmol/L (98-107); Glomerular Filtration Rate 225.4 mL/min (90-130); Glucose 98 mg/dL (65-115); Osmolality Calculated 287 mOsm/kg (285-295); Potassium 4.3 mmol/L (3.5-5.1); Sodium 138 mmol/L (136-145)
[2022-11-25] MEDS: enoxaparin 40 mg/0.4 mL Syringe SUBCUT (06:16)
[2022-11-25] MEDS: clopidogrel 75 mg Tablet PO (06:17)
--- NOTE | 2022-11-25 07:19 | P.PN_ITS ---
Subjective Subjective: Rested well last night. No airleak. Minimal chest tube output. Vitals/I&O/Wt Last Vital Signs Temp 97.8 F 11/25/22 03:49 Pulse 93 11/25/22 06:00 Resp 15 11/25/22 03:49 BP 119/64 11/25/22 03:49 Pulse Ox 90 11/25/22 03:49 O2 Del Method 11/25/22 03:49 O2 Flow Rate 2 11/25/22 03:49 11/24/22 11/25/22 11/25/22 22:59 06:59 14:59 Intake Total 530 / 2060 1047.5 / 3107.5 Output Total 800 / 800 600 / 1400 Balance -270 / 1260 447.5 / 1707.5 Weight last 48 hrs Weight 103 lb 3 oz Weight 112 lb 8 oz Physical Exam Chest: OTHER: Chest tube was discontinued and occlusive dressing applied. Urinary Catheter Management: [place]: Cath Placed During This Visit: no Reason for Continuing Indwelling Catheter: Other Data 11/25/22 05:22 11/25/22 05:22 Micro: Microbiology 11/20/22 02:00 Blood Culture - Final Blood NO GROWTH AFTER 5 DAYS 11/20/22 02:00 Blood Culture - Final Blood NO GROWTH AFTER 5 DAYS A&P Assessment and plan (1) Atelectasis of left lung: Status post bronchoscopy and chest tube placement. Minimal chest tube output since chest tube discontinued. Placement. Attestations Medical Necessity Statement*: Left lung atelectasis with mucous plugging/status post bronchoscopy and chest tube placement Coding Level of Care Code Acute Community Sports Coordinator for Catie Hargrove Diagnoses Atelectasis of left lung J98.11
--- NOTE | 2022-11-25 07:51 | PM.PN ---
Subjective Subjective: It appears Ms. Griffin is again developing complete left lung atelectasis which is resulting in an airspace problem in the left hemithorax. This is not resolved despite the chest tube and pulmonary toilet. She consistently lays on her left side and refuses to reposition. Surgically she is a poor candidate for any type of operative intervention and as such is not clear what would be most advantageous, other than consideration of a left thoracic tunneled pleural catheter. However, given the fact that she is not providing adequate aeration to the left side, this is not really addressing her problem. At the time of her bronchoscopy, there were no endobronchial lesions or obstructions identified once the thick, tenacious secretions were cleared. Resolution of this problem is not straightforward and unclear. Vitals/I&O/Wt Last Vital Signs Temp 97.8 F 11/25/22 03:49 Pulse 93 11/25/22 06:00 Resp 15 11/25/22 03:49 BP 119/64 11/25/22 03:49 Pulse Ox 90 11/25/22 03:49 O2 Del Method 11/25/22 03:49 O2 Flow Rate 2 11/25/22 03:49 11/24/22 11/25/22 11/25/22 22:59 06:59 14:59 Intake Total 530 / 2060 1047.5 / 3107.5 Output Total 800 / 800 600 / 1400 Balance -270 / 1260 447.5 / 1707.5 Weight last 48 hrs Weight 103 lb 3 oz Weight 112 lb 8 oz Physical Exam Urinary Catheter Management: [place]: Cath Placed During This Visit: no Reason for Continuing Indwelling Catheter: Other Data 11/25/22 05:22 11/25/22 05:22 Micro: Microbiology 11/20/22 02:00 Blood Culture - Final Blood NO GROWTH AFTER 5 DAYS 11/20/22 02:00 Blood Culture - Final Blood NO GROWTH AFTER 5 DAYS A&P Assessment and plan (1) Atelectasis of left lung: Recurrent atelectasis of left lung with probable mucous plugging and volume loss. Attestations Medical Necessity Statement*: Recurrent left lung atelectasis Coding Level of Care Code Acute Psychologists for Catie Hargrove Diagnoses Atelectasis of left lung J98.11
[2022-11-25] MEDS: ipratropium-albuterol 3 mL Neb INHALATION ×3 (08:32→20:32)
[2022-11-25] MEDS: sodium chloride 3.5% neb 4 mL Neb INHALATION ×2 (08:32→20:32)
[2022-11-25] MEDS: acetylcysteine 200 mg/mL SDV 4 mL INHALATION ×3 (08:32→20:32)
[2022-11-25] MEDS: dexamethasone 10 mg/mL INJ 6 MG IVP (08:46)
[2022-11-25] MEDS: nystatin powder 15 gm Btl 1 APPLIC TOPICAL ×2 (08:47→17:18)
[2022-11-25] MEDS: guaiFENesin 600 mg Tablet 1200 MG PO ×2 (08:47→17:17)
[2022-11-25] MEDS: folic acid 1 mg Tablet PO ×2 (08:47→17:17)
[2022-11-25] MEDS: cyanocobalamin 1,000 mcg Tablet 500 MCG PO (08:47)
[2022-11-25] MEDS: thiamine 100 mg Tablet PO (08:47)
[2022-11-25] MEDS: aspirin 81 mg Chew Tablet PO (08:47)
[2022-11-25] MEDS: pantoprazole 40 mg SDV IVP (08:48)
[2022-11-25] MEDS: remdesivir 100 MG in sodium chloride 0.9% (100 ml) 80 ML IV (10:28)
--- NOTE | 2022-11-25 15:15 | PM.PN ---
Subjective Subjective: no new complaints today Medications: Reviewed: Yes Vitals/I&O/Wt Last Vital Signs Temp 98.1 F 11/25/22 12:00 Pulse 87 11/25/22 14:10 Resp 16 11/25/22 14:03 BP 123/78 11/25/22 12:00 Pulse Ox 94 11/25/22 14:03 O2 Del Method 11/25/22 14:03 O2 Flow Rate 2 11/25/22 14:03 11/25/22 11/25/22 11/25/22 06:59 14:59 22:59 Intake Total 1047.5 / 3107.5 790 / 790 Output Total 600 / 1400 Balance 447.5 / 1707.5 790 / 790 Weight last 48 hrs Weight 46.805 kg Weight 51.029 kg Physical Exam Narrative: General: No acute distress, AO x3 HEENT: PERRLA, pupils bilaterally equal and reactive, pallors not present Chest: Normal vesicular breath sounds, no added sounds, equal good air entry bilaterally CVS: S1-S2 regular, no murmurs, no tachycardia, no gallops, no rubs Abdomen: Soft, nontender, no organomegaly, bowel sounds present Neuro: No focal deficits, no facial deformity, AO x3, power 5/5 in all limbs Urinary Catheter Management: [place]: Cath Placed During This Visit: no Reason for Continuing Indwelling Catheter: Other Data 11/25/22 05:22 11/25/22 05:22 Micro: Microbiology 11/20/22 02:00 Blood Culture - Final Blood NO GROWTH AFTER 5 DAYS 11/20/22 02:00 Blood Culture - Final Blood NO GROWTH AFTER 5 DAYS A&P Assessment and plan (1) Parapneumonic effusion: (2) Pleural effusion: (3) Hypoxia: Plan 61-year-old female with past medical history of, coronary artery disease, severe peripheral artery disease.? chronic lower extremity wound, adult failure to thrive protein energy malnutrition, CVA hypertension came in from detention with chief complaint of with worsening shortness of breath, cough and hypoxia #Left lung atelectasis, collapse, present on admit # significant mucus bronchial plugging # left lower lobe consolidation # Complex parapneumonic effusion Likely secondary to significant mucous plugging and recurrent aspiration of secretions into the left lung since patient preferentially prefers to lie down on her left side.? She has poor inspiratory effort and poor use of incentive spirometer. She has a past medical history of CVA.? Swallow evaluation has? been completed, patient is currently on a regular diet though it is quite difficult to position her to sit straight during eating. No erlinda aspiration noted. Bronchoscopy was performed initially on November 22, 2022 due to high suspicion for endobronchial lesion which may have been contributing, however no masses were found on this assessment.? Thick mucus was noted which was cleared up with bronchoscopy.? Additionally patient underwent a left thoracostomy with chest tube placement with removal of 800 cc of pleural fluid. Review of prior x-ray from November 12, 2022 does show haziness at the left lung base which may have been accounts receivable representative of a pneumonia versus mucous plugging at that time as well. Chest tube was removed on November 24, 2021 as the output was down to only 40 to 50 cc.? There was some consolidation noted in the left lower lobe. By November 25, 2021 she developed complete left lung atelectasis again and also a PTX. S/p repeat bronchsocopy on 11/26 again to clear secretions and placement of a left thoravent. Her drain output has been 260 cc over last 24 hrs. Aeration in the upper lobes much improved after procedure however continues to have haziness in the left lower lobe. Unfortunately i do not see any pleural fluid analysis or pleural fluid cx running in the system though i see the orders, however a specimen appears to have been sent out for ADA. Will reach out to micro lab to check if a pleural fluid specimen is still available to run bacterial cx. ADA is unhelpful without cx, I have very low suspicion of TB, therefore ADA unlikely to be helpful in a meaningful way. 11/20 Blood cx: NGTD 11/26/21: BAL cx: Yeast sp 11/20/21: MRSA screen : + Pleural fluid cx : N/A ; Pleural fluid analysis: N/A 11/12: COVID + Repeat CT chest today- now that aeration in improved, we may be able to visualize the extent of consolidation vs effusion better on CT imaging. Leukocytsosi trend: ---> 12.8. May be related tp plugging vs pneumonia. Currently on abx history: zosyn 3.375 every 8 hrs since 11/20- ; iv vancomycin 11/20-11/24 Stop steroids: no evidence of persisting pneumonitis from Covid D/c IVF as adequate po intake now Pulmonary toilet with acetylcysteine, hypertonic saline, add chest vest today. # C diff diarrhea: Currently on po vancomycin 125mg QID Full code DVT prophylaxis: On Lovenox. Attestations Medical Necessity Statement*: ongoing chest tube care , respiratory status monitoring Coding Level of Care Code Acute Code for Chg Fwd Diagnoses Parapneumonic effusion J18.9; J91.8 Pleural effusion J90 Hypoxia R09.02
[2022-11-25] MEDS: acetaminophen 325 mg Tablet 650 MG PO (17:17)
[2022-11-26] VITALS (28 sets, daily range): BP systolic 70–151; BP diastolic 40–82; PULSE 67–92; RESP 14–24; TEMP 36.1–36.9; O2SAT 85–98
[2022-11-26] MEDS: acetylcysteine 200 mg/mL SDV 4 mL INHALATION ×4 (02:42→20:57)
[2022-11-26] MEDS: ipratropium-albuterol 3 mL Neb INHALATION ×4 (02:42→20:55)
--- NOTE | 2022-11-26 03:45 | PC.NURSE ---
Patient reported she felt wet as if her britton was not working anymore. This nurse examined britton tubing and bag, to which urine was present, but with further inspection the patient's incontinent brief was wet with urine. It was decided by this nurse and catheter order to discontinue the britton. Patient tolerated removal well.
[2022-11-26] MEDS: piperacillin-tazobactam 3.375 GM in sodium chloride 0.9% (plus) 50 ML IV ×2 (04:45→20:46)
[2022-11-26] MEDS: clopidogrel 75 mg Tablet PO (05:54)
[2022-11-26] MEDS: enoxaparin 40 mg/0.4 mL Syringe SUBCUT (05:54)
[2022-11-26 06:23] LABS: Basophils % 0.2 %; Eosinophils # 0.5 10^3/uL (0.0-0.8); Eosinophils % 4.1 %; Hematocrit 42.4 % (37.0-47.0); Hemoglobin 12.8 g/dL (11.5-15.3); Lymphocytes # 2.2 10^3/uL (0.8-4.8); Lymphocytes % 17.8 %; Mean Corpuscular HGB Conc 30.2 g/dL (30.0-36.0); Mean Platelet Volume 10.1 fL (7.4-10.4); Monocytes # 0.8 10^3/uL (0.2-0.9); Monocytes % 6.5 %; Neutrophils # 8.67 10^3/uL (1.8-7.7); Neutrophils % 70.7 %; Nucleated Red Blood Cells % 0 %; Platelet Count 427 10^3/cmm (130-400); Red Blood Count 4.93 10^6/uL (4.1-5.3); Red Cell Distribution Width 15.6 % (12.1-15.1); White Blood Count 12.2 10^3/uL (4.0-10.0)
--- NOTE | 2022-11-26 06:43 | XRR_ITS ---
PROCEDURE INFORMATION: Exam: XR Chest Exam date and time: 11/26/2022 6:57 AM Age: 61 years old Clinical indication: Shortness of breath; Additional info: Recurrent left lung atelectasis with prior mucous plugging TECHNIQUE: Imaging protocol: Radiologic exam of the chest. Views: 1 view. COMPARISON: CR XR chest 1V portable [id number] 11/25/2022 6:33 AM FINDINGS: Tubes, catheters and devices: The left chest tube has been removed. Lungs: Right lung is hyperinflated. Pleural spaces: There is no change in the left pneumothorax and left lung collapse. There is likely a small stable left pleural effusion. Heart/Mediastinum: The heart is not enlarged. The mediastinum is shifted to the left side. Bones/joints: Unremarkable. XR/XR chest 1V portable [id number] IMPRESSION: Left chest tube has been removed. The left pneumothorax and left lung collapse have not significantly changed.
--- NOTE | 2022-11-26 06:46 | P.PN_ITS ---
Subjective Subjective: Ms. Ramirez is sleeping on rounds this morning. We note from prior x-ray that she appears to have recurrent atelectasis of the left lung, which on previous bronchoscopy was determined to be substantial mucous plugging in the left main bronchus. Report clearing, though endobronchial lesions were i dentified. She lies the majority of her time on her left side related to lower extremity contractures. She has poor inspiratory effort and will use of incentive spirometer. I am concerned that this will be a recurrent problem related to her overall deconditioned state. I feel the previously noted pneumothorax is related to atelectasis and volume loss in the left lung from mucous plugging which will ultimately result in an effusion due to the negative pressure in the left hemithorax for left lung volume loss. I feel the effusion is secondary to the atelectasis not the causative agent, as he had very low chest tube output after initial placement and recurrent atelectasis with her chest tube in position. I have conferred with Dr. Cruz concerning this. I think options are limited as she cannot tolerate any major interventions and none specifically would addressed her poor respiratory effort. Vitals/I&O/Wt Last Vital Signs Temp 97.7 F 11/26/22 04:00 Pulse 82 11/26/22 06:00 Resp 17 11/26/22 04:00 BP 151/82 11/26/22 04:00 Pulse Ox 95 11/26/22 04:00 O2 Del Method 11/26/22 02:00 O2 Flow Rate 2 11/26/22 02:00 11/25/22 11/25/22 11/26/22 14:59 22:59 06:59 Intake Total 790 / 790 1050 / 1840 50 / 1890 Output Total 700 / 700 Balance 790 / 790 350 / 1140 50 / 1190 Weight last 48 hrs Weight 101 lb 6.4 oz Weight 103 lb 3 oz Physical Exam Resp: AUSCULTATION: diminished lung sounds on the left throughout Urinary Catheter Management: [place]: Cath Placed During This Visit: yes, but has since been removed by the nurse Reason for Continuing Indwelling Catheter: Other Date Urinary Catheter Removed: 11/26/22 Time Urinary Catheter Discontinued: 01:00 Data 11/26/22 06:09 11/25/22 05:22 Micro: Microbiology 11/20/22 02:00 Blood Culture - Final Blood NO GROWTH AFTER 5 DAYS 11/20/22 02:00 Blood Culture - Final Blood NO GROWTH AFTER 5 DAYS A&P Assessment and plan (1) Atelectasis of left lung: We will tentatively plan for repeat bronchoscopy later this morning in an attempt to clear secretions and hopefully provide improved aeration to the left lung. I would like to try to hold on chest tube at this time to prevent splinting of discomfort and hopefully provide encouragement for improved respiratory effort. Rationale has been discussed with Ms. Ramirez Attestations Medical Necessity Statement*: Recurrent left lung atelectasis Coding Level of Care Code Acute Land Acquisition Analyst for Catie Hargrove Diagnoses Atelectasis of left lung J98.11
[2022-11-26 06:52] LABS: Blood Urea Nitrogen 19 mg/dL (8-23); Calcium 8.7 mg/dL (8.5-10.5); Carbon Dioxide 30 mmol/L (22-29); Chloride 101 mmol/L (98-107); Glomerular Filtration Rate 225.4 mL/min (90-130); Glucose 99 mg/dL (65-115); Osmolality Calculated 290 mOsm/kg (285-295); Sodium 139 mmol/L (136-145)
[2022-11-26] MEDS: pantoprazole 40 mg SDV IVP (09:26)
[2022-11-26] MEDS: dexamethasone 10 mg/mL INJ 6 MG IVP (09:26)
[2022-11-26] MEDS: nystatin powder 15 gm Btl 1 APPLIC TOPICAL (09:47)
[2022-11-26] MEDS: D5-NS 0.45% + KCL 20 mEq 20 MEQ/1,000 ML BAG 75 MEQ IV (09:47)
--- NOTE | 2022-11-26 10:00 | PM.PN ---
Subjective Subjective: X-ray from this morning continue to show left pneumothorax and left lung collapse. Plan for bronchoscopy today. Medications: Reviewed: Yes Medication Review Details: Generic Name Dose Route Start Last Admin Trade Name Evi PRN Reason Stop Dose Admin Acetaminophen 650 mg 11/20/22 05:49 11/22/22 22:11 Acetaminophen 32 5 Mg Tablet PO 650 mg Q6H PRN Administration MILD PAIN Acetylcysteine 200 mg 11/21/22 14:30 11/24/22 03:17 Acetylcysteine 2 00 Mg/Ml Sdv 4 Ml INHALATION Not Given Q6H GLORIA Albuterol/Ipratrop ium 3 ml 11/20/22 14:00 11/24/22 03:17 Ipratropium-Albu terol 3 Ml Neb INHALATION 3 ml Q6H.RESP GLORIA Administration Aspirin 81 mg 11/23/22 09:00 11/23/22 08:23 Aspirin 81 Mg Ch ew Tablet PO 81 mg DAILY GLORIA Administration Clopidogrel Bisulf ate 75 mg 11/20/22 07:12 11/24/22 05:22 Clopidogrel 75 M g Tablet PO 75 mg QAM GLORIA Administration Cyanocobalamin 500 mcg 11/20/22 09:00 11/23/22 08:21 Cyanocobalamin 1 ,000 Mcg Tablet PO 500 mcg DAILY GLORIA Administration Dexamethasone 6 mg 11/20/22 08:15 11/23/22 08:23 Dexamethasone 10 Mg/Ml Inj IVP 6 mg Q24H GLORIA Administration Ferrous Gluconate 324 mg 11/20/22 09:00 11/22/22 08:59 Ferrous Gluconat e 324 Mg Tablet PO 324 mg EVERY OTHER DAY S CH Administration Folic Acid 1 mg 11/20/22 09:00 11/23/22 17:03 Folic Acid 1 Mg Tablet PO 1 mg BID GLORIA Administration Guaifenesin 1,200 mg 11/21/22 18:00 11/23/22 17:03 Guaifenesin 600 Mg Tablet PO 1,200 mg BID GLORIA Administration Heparin Sodium (Po rcine) 5,000 unit 11/20/22 06:00 11/24/22 05:22 Heparin 5,000 Un it/Ml Inj 1 Ml SUBCUT 5,000 unit Q12H GLORIA Administration Piperacillin Sod/T azobactam 50 mls @ 12.5 mls /hr 11/20/22 10:30 11/24/22 05:22 Sod 3.375 gm/ So dium Chloride IV 12.5 mls/hr Q8H GLORIA Administration Remdesivir 100 mg/ Sodium 100 mls @ 100 mls /hr 11/21/22 09:00 11/23/22 13:32 Chloride IV 11/25/22 09:59 Infused Q24H GLORIA Infusion Vancomycin HCl 1,0 00 mg/ 250 mls @ 250 mls /hr 11/21/22 14:30 11/24/22 04:25 Sodium Chloride IV Infused Q12H GLORIA Infusion Potassium Chloride /Dextrose/Sod Cl 20 meq in 1,000 m ls @ 75 mls/hr 11/22/22 08:15 11/23/22 23:09 D5-Ns 0.45% + Cem l 20 Meq IV 75 mls/hr .[id number] GLORIA Administration Nystatin 1 applic 11/20/22 18:00 11/23/22 17:06 Nystatin Powder 15 Gm Btl TOPICAL 1 applic BID GLORIA Administration Pantoprazole Sodiu m 40 mg 11/20/22 09:00 11/23/22 08:23 Pantoprazole 40 Mg Sdv IVP 40 mg DAILY GLORIA Administration Thiamine Mononitra te 100 mg 11/20/22 09:00 11/23/22 08:23 Thiamine 100 Mg Tablet PO 100 mg DAILY GLORIA Administration Vancomycin HCl 125 mg 11/20/22 14:00 11/23/22 20:26 Vancomycin 1,000 Mg Oral Nan (Btl) PO 125 mg QID GLORIA Administration Vitals/I&O/Wt Last Vital Signs Temp 97.0 F L 11/26/22 16:00 Pulse 76 11/26/22 16:00 Resp 17 11/26/22 16:00 BP 117/66 11/26/22 16:00 Pulse Ox 94 11/26/22 16:00 O2 Del Method 11/26/22 16:00 O2 Flow Rate 3 11/26/22 14:00 11/26/22 11/26/22 11/26/22 06:59 14:59 22:59 Intake Total 50 / 1890 1690 / 1690 Output Total 2 / 2 Balance 50 / 1190 1688 / 1688 Weight last 48 hrs Weight 45.994 kg Weight 46.805 kg Physical Exam Narrative: General: No acute distress, AO x3, cachexic, chronically ill woman HEENT: PERRLA, pupils bilaterally equal and reactive, pallors not present Chest: Normal vesicular breath sounds, no added sounds, equal good air entry bilaterally CVS: S1-S2 regular, no murmurs, no tachycardia, no gallops, no rubs Abdomen: Soft, nontender, no organomegaly, bowel sounds present Urinary Catheter Management: [place]: Cath Placed During This Visit: yes, but has since been removed by the nurse Reason for Continuing Indwelling Catheter: Other Date Urinary Catheter Removed: 11/26/22 Time Urinary Catheter Discontinued: 01:00 Data 11/26/22 06:09 11/26/22 06:09 Micro: Microbiology 11/26/22 11:48 Gram Stain - Final Pleural Fluid A&P Assessment and plan (1) COVID-19: (2) Pleural effusion: (3) Folic acid deficiency: (4) Vitamin D deficiency disease: (5) Vitamin B12 deficiency: Plan 61-year-old female with past medical history of, coronary artery disease, chronic lower extremity wound, adult failure to thrive protein energy malnutrition, CVA hypertension came in from [place] [facility] with chief complaint of with worsening shortness of breath, cough, she was saturating in 70s at the [place] [facility]. Currently she is being managed for Assessment # Left lung reabsorption/compressive atelectasis present on admit course complicated by recurreny collapse and pneumothorax. No endobronchial lesion sidentified. Significant mucus plugging encountered during bronchoscopy. Today with persisting atelactasis and PTX, planned bronchoscopy today +/- thoravent # Covid 19-pneumonia, diagnosed 11/12 # C. difficile diarrhea, on po vancomycin History of coronary artery disease History of CVA Chronic lower extremity wound: On wound care Adult failure to thrive Protein energy malnutrition Hypokalemia Plan: CT angio chest : Large left lower left pleural effusion with compressive atelectasis, no pulmonary embolism. 2D echo: Normal left ventricular cavity size and systolic function. Left ventricular ejection fraction is estimated at 65 %. Bedside ultrasound: Left lung: Has failed to show any good pocket for pleural effusion tap. proBNP [id number] Troponin trend:71-58-50 Blood culture: NTD Sputum gram stain and culture Urine Legionella antigen Bacterial antigen panel Pleural fluid analysis with cytology Continue vancomycin and Zosyn Aspirin Plavix has been resumed Continue dexamethasone Remdesivir DuoNebs Mucomyst inhalation, Mucinex,I/S, flutter valve, chest vest. Trend inflammatory markers including ESR CRP D-dimer Vancomycin 125 mg p.o. 4 times daily will complete 10-day course. Continue gentle IV hydration Supplemental oxygen as needed CT surgery on board for: S/p bronchoscopy with clearing of mucous plug as well as left-sided chest tube placement: With removal of 800 cc pleural fluid.Fluid analysis pending, have requested to get fluid analysis Done. Full code DVT prophylaxis: On Lovenox. Plan for today: Bronchoscopy today with likely chets tube placement for pneumothorax. Add chest vest to try to get clerance of secretions Attestations Medical Necessity Statement*: bronchoscopy today Coding Level of Care Code Acute Admissions Director for Chg Fwd Diagnoses COVID-19 U07.1 Pleural effusion J90 Folic acid deficiency E53.8 Vitamin D deficiency disease E55.9 Vitamin B12 deficiency E53.8
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
[2022-11-26] MEDS: sodium chloride 0.9% 1,000 ML 30 ML IV (11:15)
[2022-11-26] MEDS: lidocaine 1% INJ 20 mL 10 ML INJECTION (11:49)
--- NOTE | 2022-11-26 11:51 | XRR_ITS ---
PROCEDURE INFORMATION: Exam: XR Chest Exam date and time: 11/26/2022 12:03 PM Age: 61 years old Clinical indication: Device placement; Ett placement (vent status); Additional info: Post op vent placement TECHNIQUE: Imaging protocol: Radiologic exam of the chest. Views: 1 view. COMPARISON: CR XR chest 1V portable [id number] 11/26/2022 6:57 AM FINDINGS: Tubes, catheters and devices: A chest tube is present with the tip in the left apex. Lungs: Left base is opacified consistent with basilar atelectasis. There is hyper inflation of the right lung. Pleural spaces: There is a very small left apical pneumothorax which has significantly decreased since previous study. Heart/Mediastinum: Unremarkable. No cardiomegaly. Bones/joints: Unremarkable. XR/XR chest 1V portable [id number] IMPRESSION: Left pneumothorax has significantly decreased in size so that only a small apical pneumothorax remains.
--- NOTE | 2022-11-26 12:04 | PM.OP ---
Operative Report Date of procedure: November 26, 2022 Pre-op diagnosis: Left lung atelectasis Post-op diagnosis: same Procedure done: Left 13 Turkish thoracic vent placement Therapeutic bronchoscopy Specimens removed/disposition: Tracheal bronchial aspirate obtained on Covid Surgeon: Casper Núñez Anesthesia: MAC and Local Complications: none .. Chest x-ray pending Findings: Pooled secretions left main bronchus Condition: stable Disposition: PACU Brief History: Ms. Ramirez is a 61-year-old female admitted with respiratory difficulties and left lung atelectasis. She underwent prior bronchoscopy to clear obstructing secretions from the left main bronchus as well as left chest tube placement with recovered 900 cc of serous fluid. Over the 4 days since that procedure, she developed again recurrent left lung atelectasis. Previous chest tube has been removed. We recommended repeat bronchoscopy and thoracic vent placement. Proper consents have been reviewed and signed. Procedure: 1. Left thoracic vent placement After careful positioning, Ms. Ramirez underwent monitored anesthesia with an LMA. Her left anterior chest wall was then sterilely prepped and draped. 1% lidocaine was infiltrated in the mid clavicular line over the second intercostal space. A #11 scalpel blade was used to incise the skin. Next, a trocar 13 Turkish thoracic vent was inserted through the incision and then by direct firm and controlled pressure into the left pleural space where the vent was advanced over the trocar as it was removed. The vent was then connected to Pleur-evac suction where a total of 90 cc of pleural fluid was recovered.. Vital signs remained stable throughout the procedure. Dressings were secured. #2. Flexible bronchoscopy procedure: With adequate anesthesia, flexible bronchoscope was inserted through the LMA. A 4% lidocaine/saline mixture was sprayed on the vocal cords provide local anesthesia. Next, in a methodical fashion the trachea, dami, right main bronchus and associated lobar bronchi were inspected. In a similar fashion the left side was inspected. Secretions were cleared as needed to allow for adequate inspection. As previously, much of the secretion pooling was on the left side. This was collected for culture. Methodical fashion was then utilized to remove all suppuratiion from both sides and there was a small amount of spillover on the right. Overall suppuratiion volume was not as great and with the prior procedure 4 days ago. Again however, regarding was on the left side. Again, no endobronchial lesions, submucosal infiltration, or extrinsic compression was noted. Mucosal was mildly friable and really more erythematous on the left side than the right., Once completed, the scope was withdrawn under direct visualization confirming cleared secretions and no substantial bleeding. Endoscopic photos were taken as required to document pathology. The patient tolerated the procedure well, was awakened from anesthesia, and was taken to postoperative care unit.
--- NOTE | 2022-11-26 13:30 | SUR.PHASEI ---
pt to floor per cart wearing mask on 3lnc pt awake alert remains contracted with bilat legs but assisted with transfer with 2 staff. pt handoff at bedside with RN. pt alert CT TO WATER SEAL DURING TRANSPORT 200ML IN CT ON ARRIVAL TO PACU , NEW SECRETIONS MARKED BY FLOOR NURSE ON ARRIVAL TO FLOOR.
--- NOTE | 2022-11-26 14:02 | ANE.PACU2 ---
Inpatient post-anesthesia follow up: Airway intact: Yes Vital signs: Temperature 97.5 F Pulse Rate 75 Respiratory Rate 17 Blood Pressure 126/76 Pulse Oximetry 91 Oxygen Delivery Me thod Nasal Cannula Oxygen Flow Rate 3 Fraction of Inspir ed Oxygen Hydration adequate: Yes Nausea and vomiting: No Pain level: 1 Mental status: Baseline
--- NOTE | 2022-11-26 15:05 | SUR.PHASEI ---
1200 PT TO ISOLATION ROOM 12 PT SLEEPS WITH GOOD RESP NOTED HOB AT 30 DEGREES, MONITOR SR WITH NO ECTOPY, BP LOW WITH CUFF TO RT ARM, PT VENT (CT) TO LT MID ANTERIOR CHEST CONNECTED TO 2OMM WATER PRESSURE PER SUCTION, NO FLUCTUATION WITH RESPIRATIONS NOTED APPROX 200ML LT RED DRAINAGE TO CONTAINER, CLEAR OPSITE TO CHEST VENT. IV TO LT WRIST #20 WITH APPROX 100ML NS AT KVO RATE, PT CONTRACTED AND BENT TO LT SIDE, PT WEARING ATTENDS , NO ROBERTS NOTED.
--- NOTE | 2022-11-26 15:11 | SUR.PHASEI ---
1210 PT AWAKE ALERT ORIENTED TO SELF AND PLACE, PT VERBALLY DENIES PAIN AND NAUSEA, WARM BLANKET TO PT, BP MUCH BETTER NOW , PT PLACED ON 3LNC FOR COMFORT WITH CONTINOUS O2 SAT PROBE, NO OBVIOUS DISTRESS NOTED LUNG SOUNDS DECREASED TO LT UPPER LOBE, SOME EXP RHONCHI TO LT LOWER LOBE RT UPPER AND LOWER LOBES CLEAR TO AUSCULTATION,
--- NOTE | 2022-11-26 15:13 | SUR.PHASEI ---
1258 REPORT CALLED, PT HAS NO FAMILY IN WAITING ROOM PER PT STATEMENT. PT AWAKE ALERT DENIES PAIN, C/O OF BEING HUNGRY AND WANTS TO EAT. VSS.
[2022-11-26] MEDS: thiamine 100 mg Tablet PO (15:14)
[2022-11-26] MEDS: ferrous gluconate 324 mg Tablet PO (15:14)
[2022-11-26] MEDS: cyanocobalamin 1,000 mcg Tablet 500 MCG PO (15:14)
[2022-11-26] MEDS: aspirin 81 mg Chew Tablet PO (15:14)
[2022-11-26] MEDS: guaiFENesin 600 mg Tablet 1200 MG PO (17:29)
[2022-11-26] MEDS: folic acid 1 mg Tablet PO (17:29)
--- NOTE | 2022-11-26 17:54 | PC.NURSE ---
Patient resting in bed, educated on laying on right side versus left side but refusing turns most of shift. CTU to suction per orders, has serous fluid in chamber. Minimal OP since arrival to floor from PACU. No c/o pain or discomfort. No needs at this time or new events. Room clean and clutter free with call light within reach. VSS, AAOx4, all questions and concerned addressed to patient throughout shift.
[2022-11-26] MEDS: sodium chloride 3.5% neb 4 mL Neb INHALATION (20:56)
[2022-11-27] VITALS (12 sets, daily range): BP systolic 100–136; BP diastolic 52–75; PULSE 68–87; RESP 16–18; TEMP 36.4–36.8; O2SAT 90–96; BMI 19.2
[2022-11-27] MEDS: acetylcysteine 200 mg/mL SDV 4 mL INHALATION ×4 (01:57→19:43)
[2022-11-27] MEDS: ipratropium-albuterol 3 mL Neb INHALATION ×4 (01:57→19:43)
[2022-11-27] MEDS: piperacillin-tazobactam 3.375 GM in sodium chloride 0.9% (plus) 50 ML IV ×3 (04:55→20:54)
[2022-11-27 05:41] LABS: Basophils % 0.1 %; Eosinophils # 0.3 10^3/uL (0.0-0.8); Eosinophils % 2.3 %; Hematocrit 39.3 % (37.0-47.0); Hemoglobin 12.1 g/dL (11.5-15.3); Lymphocytes # 2.2 10^3/uL (0.8-4.8); Lymphocytes % 16.8 %; Mean Corpuscular HGB Conc 30.8 g/dL (30.0-36.0); Mean Corpuscular Hemoglobin 26.2 pg (28.0-34.0); Mean Corpuscular Volume 85.2 fl (81-99); Monocytes # 0.8 10^3/uL (0.2-0.9); Monocytes % 6.3 %; Neutrophils # 9.48 10^3/uL (1.8-7.7); Nucleated Red Blood Cells % 0 %; Platelet Count 429 10^3/cmm (130-400); Red Blood Count 4.61 10^6/uL (4.1-5.3); Red Cell Distribution Width 15.6 % (12.1-15.1); White Blood Count 12.8 10^3/uL (4.0-10.0)
--- NOTE | 2022-11-27 06:00 | XR_ITS ---
WS: [id number] XR chest 1V portable [id number] REASON FOR EXAM: 2nd bronch;thoracic vent FINDINGS: Presumed overlying artifact across the right upper lung field. Otherwise, the right lung is unchanged compared to the examination of 11/26/2022. Small bore chest tube remains in place in the upper most left hemithorax. Compared to the previous examination of 11/26/2022 there is more aerated lung and no pneumothorax iden tifiable. Persistent dense opacity in the left lower lung consistent with atelectasis. Persistent left pleural effusion. XR/XR chest 1V portable [id number] IMPRESSION: No left pneumothorax identifiable.
[2022-11-27 06:06] LABS: Anion Gap 12.1 (5-19); Blood Urea Nitrogen 19 mg/dL (8-23); Calcium 8.2 mg/dL (8.5-10.5); Carbon Dioxide 27 mmol/L (22-29); Chloride 104 mmol/L (98-107); Glomerular Filtration Rate 224.7 mL/min (90-130); Glucose 85 mg/dL (65-115); Osmolality Calculated 290 mOsm/kg (285-295); Potassium 4.1 mmol/L (3.5-5.1); Sodium 139 mmol/L (136-145)
[2022-11-27] MEDS: enoxaparin 40 mg/0.4 mL Syringe SUBCUT (06:31)
[2022-11-27] MEDS: clopidogrel 75 mg Tablet PO (06:31)
--- NOTE | 2022-11-27 07:07 | PM.PN ---
Subjective Subjective: Ms. Ramirez with medial wound with wound. She has no airleak. Total drain output is approximate 260 cc. Chest x-ray this morning reveals continued reexpansion of the left lung with some haziness in the lower lobe which may suggest radiographic changes from the lower lobe pneumonia. This also could be some area of retained effusion. Aeration and atelectasis in the upper lobe is improved. Vitals/I&O/Wt Last Vital Signs Temp 97.9 F 11/27/22 04:00 Pulse 80 11/27/22 06:00 Resp 16 11/27/22 04:00 BP 130/71 11/27/22 04:00 Pulse Ox 90 11/27/22 04:00 O2 Del Method 11/27/22 04:00 O2 Flow Rate 3 11/27/22 04:00 11/26/22 11/27/22 11/27/22 22:59 06:59 14:59 Intake Total 300 / 1990 250 / 2240 Output Total 200 / 202 8 / 210 Balance 100 / 1788 242 / 2030 Weight last 48 hrs Weight 112 lb Weight 101 lb 6.4 oz Physical Exam Resp: OTHER: Improved breath sounds to the left upper and midlung [place]. Last event related with position and secured to chest wall with adhesive tabs and suture. Urinary Catheter Management: [place]: Cath Placed During This Visit: yes, but has since been removed by the nurse Reason for Continuing Indwelling Catheter: Other Date Urinary Catheter Removed: 11/26/22 Time Urinary Catheter Discontinued: 01:00 Data 11/27/22 04:57 11/27/22 04:57 Micro: Microbiology 11/26/22 11:48 Gram Stain - Final Pleural Fluid A&P Assessment and plan (1) Atelectasis of left lung: I would recommend leaving the thoracic vent to suction today we will plan to place to waterseal tonight and repeat chest x-ray in the morning. We will continue to watch output. Continue aggressive pulmonary toilet. Due to her overall debilitated condition, she is substantial increased risk for recurrence of mucous plugging and atelectasis which may be unavoidable. I have conferred with my colleague, Dr. Cruz. Attestations Medical Necessity Statement*: Left lung atelectasis within the left sided pneumonia. Coding Level of Care Code Acute Business Strategy Manager for [facility] Fwd Diagnoses Atelectasis of left lung J98.11
[2022-11-27] MEDS: sodium chloride 3.5% neb 4 mL Neb INHALATION ×2 (08:17→19:43)
[2022-11-27] MEDS: D5-NS 0.45% + KCL 20 mEq 20 MEQ/1,000 ML BAG 75 MEQ IV (08:47)
[2022-11-27] MEDS: dexamethasone 10 mg/mL INJ 6 MG IVP (08:48)
[2022-11-27] MEDS: cyanocobalamin 1,000 mcg Tablet 500 MCG PO (08:48)
[2022-11-27] MEDS: thiamine 100 mg Tablet PO (08:48)
[2022-11-27] MEDS: guaiFENesin 600 mg Tablet 1200 MG PO ×2 (08:48→18:00)
[2022-11-27] MEDS: folic acid 1 mg Tablet PO ×2 (08:48→18:00)
[2022-11-27] MEDS: aspirin 81 mg Chew Tablet PO (08:48)
[2022-11-27] MEDS: pantoprazole 40 mg SDV IVP (08:48)
[2022-11-27] MEDS: nystatin powder 15 gm Btl 1 APPLIC TOPICAL (08:49)
--- NOTE | 2022-11-27 16:41 | P.PN_ITS ---
Subjective Subjective: Total went in place, patient noted to be picking around the Thora vent, discouraged from doing so. She did reposition with assistance of nursing overnight and again today. Chest x-ray this morning reveals reexpansion of the left lung with some persisting haziness. She is afebrile and hemodynamically stable. Currently on 3 L/min supplemental O2. Medications: Reviewed: Yes Medication Review Details: Generic Name Dose Route Start Last Admin Trade Name Freq PRN Reason Stop Dose Admin Acetaminophen 650 mg 11/20/22 05:49 11/22/22 22:11 Acetaminophen 32 5 Mg Tablet PO 650 mg Q6H PRN Administration MILD PAIN Acetylcysteine 200 mg 11/21/22 14:30 11/24/22 03:17 Acetylcysteine 2 00 Mg/Ml Sdv 4 Ml INHALATION Not Given Q6H GLORIA Albuterol/Ipratrop ium 3 ml 11/20/22 14:00 11/24/22 03:17 Ipratropium-Albu terol 3 Ml Neb INHALATION 3 ml Q6H.RESP GLORIA Administration Aspirin 81 mg 11/23/22 09:00 11/23/22 08:23 Aspirin 81 Mg Ch ew Tablet PO 81 mg DAILY GLORIA Administration Clopidogrel Bisulf ate 75 mg 11/20/22 07:12 11/24/22 05:22 Clopidogrel 75 M g Tablet PO 75 mg QAM GLORIA Administration Cyanocobalamin 500 mcg 11/20/22 09:00 11/23/22 08:21 Cyanocobalamin 1 ,000 Mcg Tablet PO 500 mcg DAILY GLORIA Administration Dexamethasone 6 mg 11/20/22 08:15 11/23/22 08:23 Dexamethasone 10 Mg/Ml Inj IVP 6 mg Q24H GLORIA Administration Ferrous Gluconate 324 mg 11/20/22 09:00 11/22/22 08:59 Ferrous Gluconat e 324 Mg Tablet PO 324 mg EVERY OTHER DAY S CH Administration Folic Acid 1 mg 11/20/22 09:00 11/23/22 17:03 Folic Acid 1 Mg Tablet PO 1 mg BID GLORIA Administration Guaifenesin 1,200 mg 11/21/22 18:00 11/23/22 17:03 Guaifenesin 600 Mg Tablet PO 1,200 mg BID GLORIA Administration Heparin Sodium (Po rcine) 5,000 unit 11/20/22 06:00 11/24/22 05:22 Heparin 5,000 Un it/Ml Inj 1 Ml SUBCUT 5,000 unit Q12H GLORIA Administration Piperacillin Sod/T azobactam 50 mls @ 12.5 mls /hr 11/20/22 10:30 11/24/22 05:22 Sod 3.375 gm/ So dium Chloride IV 12.5 mls/hr Q8H GLORIA Administration Remdesivir 100 mg/ Sodium 100 mls @ 100 mls /hr 11/21/22 09:00 11/23/22 13:32 Chloride IV 11/25/22 09:59 Infused Q24H GLORIA Infusion Vancomycin HCl 1,0 00 mg/ 250 mls @ 250 mls /hr 11/21/22 14:30 11/24/22 04:25 Sodium Chloride IV Infused Q12H GLORIA Infusion Potassium Chloride /Dextrose/Sod Cl 20 meq in 1,000 m ls @ 75 mls/hr 11/22/22 08:15 11/23/22 23:09 D5-Ns 0.45% + Cem l 20 Meq IV 75 mls/hr .[id number] GLORIA Administration Nystatin 1 applic 11/20/22 18:00 11/23/22 17:06 Nystatin Powder 15 Gm Btl TOPICAL 1 applic BID GLORIA Administration Pantoprazole Sodiu m 40 mg 11/20/22 09:00 11/23/22 08:23 Pantoprazole 40 Mg Sdv IVP 40 mg DAILY GLORIA Administration Thiamine Mononitra te 100 mg 11/20/22 09:00 11/23/22 08:23 Thiamine 100 Mg Tablet PO 100 mg DAILY GLORIA Administration Vancomycin HCl 125 mg 11/20/22 14:00 11/23/22 20:26 Vancomycin 1,000 Mg Oral Nan (Btl) PO 125 mg QID GLORIA Administration Vitals/I&O/Wt Last Vital Signs Temp 98.1 F 11/27/22 15:45 Pulse 85 11/27/22 15:45 Resp 18 11/27/22 15:45 BP 111/63 11/27/22 15:45 Pulse Ox 93 11/27/22 15:45 O2 Del Method 11/27/22 15:45 O2 Flow Rate 3 11/27/22 14:30 11/27/22 11/27/22 11/27/22 06:59 14:59 22:59 Intake Total 250 / 2240 1252.5 / 1252.5 50 / 1302.5 Output Total Balance 242 / 2030 1252.5 / 1252.5 50 / 1302.5 Weight last 48 hrs Weight 50.802 kg Weight 45.994 kg Physical Exam Narrative: General: No acute distress, AO x3, cachectic, chronically ill- appearing woman HEENT: PERRLA, pupils bilaterally equal and reactive, pallors not present Chest: Normal vesicular breath sounds, no added sounds, equal good air entry bilaterally CVS: S1-S2 regular, no murmurs, no tachycardia, no gallops, no rubs Abdomen: Soft, nontender, no organomegaly, bowel sounds present Neuro multiple contractures over bilateral lower extremities. Urinary Catheter Management: [place]: Cath Placed During This Visit: yes, but has since been removed by the nurse Reason for Continuing Indwelling Catheter: Other Date Urinary Catheter Removed: 11/26/22 Time Urinary Catheter Discontinued: 01:00 Data 11/27/22 04:57 11/27/22 04:57 Micro: Microbiology 11/26/22 11:48 Gram Stain - Final Pleural Fluid Body Fluid Culture - Preliminary Yeast species A&P Assessment and plan (1) COVID-19: (2) Pleural effusion: (3) Folic acid deficiency: (4) Vitamin D deficiency disease: (5) Vitamin B12 deficiency: Plan 61-year-old female with past medical history of, coronary artery disease, severe peripheral artery disease. chronic lower extremity wound, adult failure to thrive protein energy malnutrition, CVA hypertension came in from [facility] with chief complaint of with worsening shortness of breath, cough and hypoxia #Left lung atelectasis, collapse, present on admit # significant mucus bronchial plugging # left lower lobe consolidation # Complex parapneumonic effusion Likely secondary to significant mucous plugging and recurrent aspiration of secretions into the left lung since patient preferentially prefers to lie down on her left side. She has poor inspiratory effort and poor use of incentive spirometer. She has a past medical history of CVA. Swallow evaluation has been completed, patient is currently on a regular diet though it is quite difficult to position her to sit straight during eating. No erlinda aspiration noted. Bronchoscopy was performed initially on November 22, 2022 due to high suspicion for endobronchial lesion which may have been contributing, however no masses were found on this assessment. Thick mucus was noted which was cleared up with bronchoscopy. Additionally patient underwent a left thoracostomy with chest tube placement with removal of 800 cc of pleural fluid. Review of prior x-ray from November 12, 2022 does show haziness at the left lung base which may have been hospital sales representative of a pneumonia versus mucous plugging at that time as well. Chest tube was removed on November 24, 2021 as the output was down to only 40 to 50 cc. There was some consolidation noted in the left lower lobe. By November 25, 2021 she developed complete left lung atelectasis again and also a PTX. S/p repeat bronchsocopy on 11/26 again to clear secretions and placement of a left thoravent. Her drain output has been 260 cc over last 24 hrs. Aeration in the upper lobes much improved after procedure however continues to have haziness in the left lower lobe. Unfortunately i do not see any pleural fluid analysis or pleural fluid cx running in the system though i see the orders, however a specimen appears to have been sent out for ADA. Will reach out to micro lab to check if a pleural fluid specimen is still available to run bacterial cx. ADA is unhelpful without cx, I have very low suspicion of TB, therefore ADA unlikely to be helpful in a meaningful way. 11/20 Blood cx: NGTD 11/26/21: BAL cx: Yeast sp 11/20/21: MRSA screen : + Pleural fluid cx : N/A ; Pleural fluid analysis: N/A 11/12: COVID + Repeat CT chest today- now that aeration in improved, we may be able to visualize the extent of consolidation vs effusion better on CT imaging. Leukocytsosi trend: ---> 12.8. May be related tp plugging vs pneumonia. Currently on abx history: zosyn 3.375 every 8 hrs since 11/20- ; iv vancomycin 11/20-11/24 Stop steroids: no evidence of persisting pneumonitis from Covid D/c IVF as adequate po intake now Pulmonary toilet with acetylcysteine, hypertonic saline, add chest vest today. # C diff diarrhea: Currently on po vancomycin 125mg QID Full code DVT prophylaxis: On Lovenox. Attestations Medical Necessity Statement*: IV antibiotics, chest tube management Coding Level of Care Code Acute Smoke Jumper for Chg Fwd Diagnoses COVID-19 U07.1 Pleural effusion J90 Folic acid deficiency E53.8 Vitamin D deficiency disease E55.9 Vitamin B12 deficiency E53.8
--- NOTE | 2022-11-27 16:51 | CTR_ITS ---
PROCEDURE INFORMATION: Exam: CT Chest Without Contrast; Diagnostic Exam date and time: 11/28/2022 4:21 AM Age: 62 years old Clinical indication: Prior surgery; Surgery type: Coronary stent; Patient HX: F/u for left pleural effusion. Left anterior thoracic vent tube in place. ; Additional info: Follow up pleural effusion, follow up on pleural effusion, evaluate for underlying TECHNIQUE: Imaging protocol: Diagnostic computed tomography of the chest without contrast. Radiation optimization: All CT scans at this facility use at least one of these dose optimization techniques: automated exposure control; mA and/or kV adjustment per patient size (includes targeted exams where dose is matched to clinical indication); or iterative reconstruction. COMPARISON: CT angio chest PE protcl [id number] 11/20/2022 1:40 AM RADIATION DOSE METRICS: Total DLP (mGy-cm): 295.18 FINDINGS: Tubes, catheters and devices: Left-sided thoracostomy drainage catheter with unremarkable position in the anterior superior pleural space. Small left pneumothorax. Lungs: Clearing of left mainstem bronchus compared to prior. Left upper lobe re-expansion with diffuse centrilobular distribution ground-glass nodularity. Persistent left lower lobe segmental endobronchial occlusion with left lower lobe collapse. Hyperinflation of the right lung. Pleural spaces: Small left pleural effusion. Negative for pneumothorax. Heart: Unremarkable. No cardiomegaly. No pericardial effusion. Coronary arteries: Large volume coronary artery calcifications. Mediastinal space: Leftward mediastinal deviation. Lymph nodes: Unremarkable. No enlarged lymph nodes. Vasculature: Unremarkable. No aortic aneurysm. Bones/joints: Unremarkable. No acute fracture. Soft tissues: Unremarkable. CT/CT chest [facility] [id number] IMPRESSION: 1. Improvement from 11/20/2022 is seen. 2. Left upper lobe is re-expanded with diffuse ground-glass nodules which may represent infection. 3. Persistent collapse of the left lower lobe. 4. Reduced size of left pleural effusion with thoracostomy drainage catheter in place.
[2022-11-27] MEDS: linezolid 600 mg Tablet PO (18:00)
[2022-11-27] MEDS: famotidine 20 mg Tablet PO (18:00)
--- NOTE | 2022-11-27 19:49 | PC.NURSE ---
Patient resting in bed, was able to get her to lay on right side good portion of the day however she keeps picking at vent and causing it to bleed. Placed abd and medipore tape over vent to detour her from picking at it and place gown on to try and keep her covered up. Patient continues to remove gowns after placing. Room cleaned and clutter free with call light in reach. Minimal output of 10ml to CTU with serous fluid.
[2022-11-27 19:55] LABS: Pleural Fld Adenosine Deami 14.8 U/L (<9.2)
[2022-11-27] MEDS: acetaminophen 325 mg Tablet 650 MG PO (20:53)
[2022-11-28] VITALS (14 sets, daily range): BP systolic 105–127; BP diastolic 62–71; PULSE 72–101; RESP 16–18; TEMP 36.5–36.9; O2SAT 92–95
[2022-11-28] MEDS: acetylcysteine 200 mg/mL SDV 4 mL INHALATION ×4 (02:20→20:15)
[2022-11-28] MEDS: ipratropium-albuterol 3 mL Neb INHALATION ×4 (02:20→20:15)
[2022-11-28] MEDS: piperacillin-tazobactam 3.375 GM in sodium chloride 0.9% (plus) 50 ML IV ×3 (04:38→21:41)
--- NOTE | 2022-11-28 06:00 | XRR_ITS ---
PROCEDURE INFORMATION: Exam: XR Chest Exam date and time: 11/28/2022 6:27 AM Age: 62 years old Clinical indication: Device placement; Ett placement (vent status); Patient HX: SOB, thoracic vent to waterseal overnight TECHNIQUE: Imaging protocol: Radiologic exam of the chest. Views: 1 view. COMPARISON: CT chest con [id number] 11/28/2022 4:21 AM FINDINGS: Tubes, catheters and devices: Similar positioning of a left-sided chest tube. Lungs: Similar patchy opacities in the left lung. Volume loss in the left hemithorax with leftward mediastinal shift. Pleural spaces: Similar small left pleural effusion. No discernible pneumothorax. Heart/Mediastinum: See Lungs finding. Bones/joints: Remote right rib fracture. XR/XR chest 1V portable [id number] IMPRESSION: 1. Similar positioning of a left chest tube with no pneumothorax. 2. Similar small left pleural effusion with patchy opacities in the left lung.
[2022-11-28] MEDS: clopidogrel 75 mg Tablet PO (06:25)
[2022-11-28] MEDS: enoxaparin 40 mg/0.4 mL Syringe SUBCUT (06:25)
[2022-11-28] MEDS: linezolid 600 mg Tablet PO ×2 (06:25→18:57)
[2022-11-28] MEDS: nystatin powder 15 gm Btl 1 APPLIC TOPICAL (08:30)
[2022-11-28] MEDS: sodium chloride 3.5% neb 4 mL Neb INHALATION ×2 (08:53→20:15)
[2022-11-28] MEDS: thiamine 100 mg Tablet PO (10:04)
[2022-11-28] MEDS: guaiFENesin 600 mg Tablet 1200 MG PO ×2 (10:04→18:56)
[2022-11-28] MEDS: folic acid 1 mg Tablet PO ×2 (10:05→18:57)
[2022-11-28] MEDS: aspirin 81 mg Chew Tablet PO (10:05)
[2022-11-28] MEDS: ferrous gluconate 324 mg Tablet PO (10:05)
[2022-11-28] MEDS: famotidine 20 mg Tablet PO ×2 (10:05→18:57)
[2022-11-28] MEDS: cyanocobalamin 1,000 mcg Tablet 500 MCG PO (14:03)
--- NOTE | 2022-11-28 15:54 | P.PN_ITS ---
Subjective Subjective: CT chest performed yesterday, consolidation LLL but overall improved aeration, no PTX noted. plan to take vent off suction today. Nose bleeding today which was able to be stopped with gauze pressure. Changed to oxymask to prevent trauma from NC Medications: Reviewed: Yes Medication Review Details: Generic Name Dose Route Start Last Admin Trade Name Freq PRN Reason Stop Dose Admin Acetaminophen 650 mg 11/20/22 05:49 11/22/22 22:11 Acetaminophen 32 5 Mg Tablet PO 650 mg Q6H PRN Administration MILD PAIN Acetylcysteine 200 mg 11/21/22 14:30 11/24/22 03:17 Acetylcysteine 2 00 Mg/Ml Sdv 4 Ml INHALATION Not Given Q6H GLORIA Albuterol/Ipratrop ium 3 ml 11/20/22 14:00 11/24/22 03:17 Ipratropium-Albu terol 3 Ml Neb INHALATION 3 ml Q6H.RESP GLORIA Administration Aspirin 81 mg 11/23/22 09:00 11/23/22 08:23 Aspirin 81 Mg Ch ew Tablet PO 81 mg DAILY GLORIA Administration Clopidogrel Bisulf ate 75 mg 11/20/22 07:12 11/24/22 05:22 Clopidogrel 75 M g Tablet PO 75 mg QAM GLORIA Administration Cyanocobalamin 500 mcg 11/20/22 09:00 11/23/22 08:21 Cyanocobalamin 1 ,000 Mcg Tablet PO 500 mcg DAILY GLORIA Administration Dexamethasone 6 mg 11/20/22 08:15 11/23/22 08:23 Dexamethasone 10 Mg/Ml Inj IVP 6 mg Q24H GLORIA Administration Ferrous Gluconate 324 mg 11/20/22 09:00 11/22/22 08:59 Ferrous Gluconat e 324 Mg Tablet PO 324 mg EVERY OTHER DAY S CH Administration Folic Acid 1 mg 11/20/22 09:00 11/23/22 17:03 Folic Acid 1 Mg Tablet PO 1 mg BID GLORIA Administration Guaifenesin 1,200 mg 11/21/22 18:00 11/23/22 17:03 Guaifenesin 600 Mg Tablet PO 1,200 mg BID GLORIA Administration Heparin Sodium (Po rcine) 5,000 unit 11/20/22 06:00 11/24/22 05:22 Heparin 5,000 Un it/Ml Inj 1 Ml SUBCUT 5,000 unit Q12H GLORIA Administration Piperacillin Sod/T azobactam 50 mls @ 12.5 mls /hr 11/20/22 10:30 11/24/22 05:22 Sod 3.375 gm/ So dium Chloride IV 12.5 mls/hr Q8H GLORIA Administration Remdesivir 100 mg/ Sodium 100 mls @ 100 mls /hr 11/21/22 09:00 11/23/22 13:32 Chloride IV 11/25/22 09:59 Infused Q24H GLORIA Infusion Vancomycin HCl 1,0 00 mg/ 250 mls @ 250 mls /hr 11/21/22 14:30 11/24/22 04:25 Sodium Chloride IV Infused Q12H GLORIA Infusion Potassium Chloride /Dextrose/Sod Cl 20 meq in 1,000 m ls @ 75 mls/hr 11/22/22 08:15 11/23/22 23:09 D5-Ns 0.45% + Cem l 20 Meq IV 75 mls/hr .[id number] GLORIA Administration Nystatin 1 applic 11/20/22 18:00 11/23/22 17:06 Nystatin Powder 15 Gm Btl TOPICAL 1 applic BID GLORIA Administration Pantoprazole Sodiu m 40 mg 11/20/22 09:00 11/23/22 08:23 Pantoprazole 40 Mg Sdv IVP 40 mg DAILY GLORIA Administration Thiamine Mononitra te 100 mg 11/20/22 09:00 11/23/22 08:23 Thiamine 100 Mg Tablet PO 100 mg DAILY GLORIA Administration Vancomycin HCl 125 mg 11/20/22 14:00 11/23/22 20:26 Vancomycin 1,000 Mg Oral Nan (Btl) PO 125 mg QID GLORIA Administration Vitals/I&O/Wt Last Vital Signs Temp 97.7 F 11/28/22 08:00 Pulse 96 11/28/22 13:53 Resp 18 11/28/22 13:53 BP 105/62 11/28/22 08:00 Pulse Ox 95 11/28/22 13:53 O2 Del Method 11/28/22 13:53 O2 Flow Rate 3 11/28/22 13:53 11/28/22 11/28/22 11/28/22 06:59 14:59 22:59 Intake Total 50 / 2295.0 970 / 970 Balance 50 / 2295.0 970 / 970 Weight last 48 hrs Weight 50.802 kg Physical Exam Narrative: General: No acute distress, AO x3, cachectic, chronically ill- appearing woman HEENT: PERRLA, pupils bilaterally equal and reactive, pallors not present Chest: Normal vesicular breath sounds, no added sounds, equal good air entry bilaterally CVS: S1-S2 regular, no murmurs, no tachycardia, no gallops, no rubs Abdomen: Soft, nontender, no organomegaly, bowel sounds present Neuro multiple contractures over bilateral lower extremities. Urinary Catheter Management: [place]: Cath Placed During This Visit: yes, but has since been removed by the nurse Reason for Continuing Indwelling Catheter: Other Date Urinary Catheter Removed: 11/26/22 Time Urinary Catheter Discontinued: 01:00 Data 11/27/22 04:57 11/27/22 04:57 Micro: Microbiology 11/26/22 11:48 Gram Stain - Final Pleural Fluid Body Fluid Culture - Preliminary Yeast species A&P Assessment and plan (1) COVID-19: (2) Pleural effusion: (3) Folic acid deficiency: (4) Vitamin D deficiency disease: (5) Vitamin B12 deficiency: Plan 61-year-old female with past medical history of, coronary artery disease, severe peripheral artery disease. chronic lower extremity wound, adult failure to thrive protein energy malnutrition, CVA hypertension came in from [place] [facility] with chief complaint of with worsening shortness of breath, cough and hypoxia #Left lung atelectasis, collapse, present on admit # significant mucus bronchial plugging # left lower lobe consolidation # Complex parapneumonic effusion Likely secondary to significant mucous plugging and recurrent aspiration of secretions into the left lung since patient preferentially prefers to lie down on her left side. She has poor inspiratory effort and poor use of incentive spirometer. She has a past medical history of CVA. Swallow evaluation has been completed, patient is currently on a regular diet though it is quite difficult to position her to sit straight during eating. No erlinda aspiration noted. Bronchoscopy was performed initially on November 22, 2022 due to high suspicion for endobronchial lesion which may have been contributing, however no masses were found on this assessment. Thick mucus was noted which was cleared up with bronchoscopy. Additionally patient underwent a left thoracostomy with chest tube placement with removal of 800 cc of pleural fluid. Review of prior x-ray from November 12, 2022 does show haziness at the left lung base which may have been patient support representative of a pneumonia versus mucous plugging at that time as well. Chest tube was removed on November 24, 2021 as the output was down to only 40 to 50 cc. There was some consolidation noted in the left lower lobe. By November 25, 2021 she developed complete left lung atelectasis again and also a PTX. S/p repeat bronchsocopy on 11/26 again to clear secretions and placement of a left thoravent. Her drain output has been 260 cc over last 24 hrs. Aeration in the upper lobes much improved after procedure however continues to have haziness in the left lower lobe. Unfortunately i do not see any pleural fluid analysis or pleural fluid cx running in the system though i see the orders, however a specimen appears to have been sent out for ADA. Will reach out to micro lab to check if a pleural fluid specimen is still available to run bacterial cx. ADA is unhelpful without cx, I have very low suspicion of TB, therefore ADA unlikely to be helpful in a meaningful way. 11/20 Blood cx: NGTD 11/26/21: BAL cx: Yeast sp 11/20/21: MRSA screen : + Pleural fluid cx : N/A ; Pleural fluid analysis: N/A 11/12: COVID + 11/28 CT chest improved aeration , persisting LLL infiltrates which may be present for a while considering radiological lag. Leukocytsosi trend: ---> 12.8. May be related tp plugging vs pneumonia. Currently on abx history: zosyn 3.375 every 8 hrs since 11/20- ; iv vancomycin 11/20-11/24 Stop steroids: no evidence of persisting pneumonitis from Covid , s/p remdisivir D/c IVF as adequate po intake now Pulmonary toilet with acetylcysteine, hypertonic saline, add chest vest today. High risk of recurret plugging and atelactasis given body habitus # C diff diarrhea: Currently on po vancomycin 125mg QID Full code DVT prophylaxis: On Lovenox. Attestations Medical Necessity Statement*: continued care for chest tubes, removal from drainage today, CXR in am to ensure resolution Coding Level of Care Code Acute Code for Chg Fwd Diagnoses COVID-19 U07.1 Pleural effusion J90 Folic acid deficiency E53.8 Vitamin D deficiency disease E55.9 Vitamin B12 deficiency E53.8
--- NOTE | 2022-11-28 18:50 | P.PN_ITS ---
Subjective Subjective: Patient resting comfortably. States she feels she is breathing recently. Chest x-ray this morning shows no pneumothorax. There is also no airleak noted in the Pleur-evac with a thoracic vent to suction. Vitals/I&O/Wt Last Vital Signs Temp 98.0 F 11/28/22 16:00 Pulse 90 11/28/22 16:00 Resp 16 11/28/22 16:00 BP 116/68 11/28/22 16:00 Pulse Ox 94 11/28/22 16:00 O2 Del Method 11/28/22 16:00 O2 Flow Rate 3 11/28/22 13:53 11/28/22 11/28/22 11/28/22 06:59 14:59 22:59 Intake Total 50 / 2295.0 970 / 970 Balance 50 / 2295.0 970 / 970 Weight last 48 hrs Weight 112 lb Physical Exam Chest: OTHER: Thoracic vent remains in good position with no subcutaneous emphysema Resp: AUSCULTATION: diminished lung sounds on the left in the lower lung [place] Urinary Catheter Management: [place]: Cath Placed During This Visit: yes, but has since been removed by the nurse Reason for Continuing Indwelling Catheter: Other Date Urinary Catheter Removed: 11/26/22 Time Urinary Catheter Discontinued: 01:00 Data 11/27/22 04:57 11/27/22 04:57 A&P Assessment and plan (1) Atelectasis of left lung: I will place the thoracic vent off of active suction. We will plan to obtain a repeat chest x-ray in a.m. I have conferred with my colleague, Dr. Cruz Attestations 2 Medical Necessity Statement*: Recurrent left lung atelectasis Coding Level of Care Code Acute Code for Chg Fwd Diagnoses Atelectasis of left lung J98.11
[2022-11-29] VITALS (8 sets, daily range): BP systolic 103–123; BP diastolic 62–74; PULSE 77–99; RESP 16–20; TEMP 36.6–36.7; O2SAT 90–97; BMI 16.8
[2022-11-29] MEDS: ipratropium-albuterol 3 mL Neb INHALATION ×3 (03:17→13:55)
[2022-11-29] MEDS: piperacillin-tazobactam 3.375 GM in sodium chloride 0.9% (plus) 50 ML IV ×2 (04:01→11:26)
[2022-11-29] MEDS: acetaminophen 325 mg Tablet 650 MG PO (04:07)
--- NOTE | 2022-11-29 06:00 | XR_ITS ---
WS: [id number] PORTABLE CHEST HISTORY: Thoracic vent off of suction COMPARISON: 11/28/2022 Small bore LEFT chest tube remains. There is a very tiny apical pneumothorax which was not present on the prior study. Poor but in improved expansion of the LEFT lung. There is mild congestion. Obscurat ion LEFT diaphragm due to pleural thickening or atelectasis. RIGHT lung hyperexpanded. Cardiac size: Normal. Mediastinum/Aorta: Mild atherosclerosis aorta. No osseous abnormality seen. XR/XR chest 1V portable [id number] IMPRESSION: 1. Very tiny LEFT apical pneumothorax. 2. Small bore LEFT chest tube remains unchanged in position. 3. Slightly improved aeration LEFT lung.
[2022-11-29] MEDS: enoxaparin 40 mg/0.4 mL Syringe SUBCUT (06:03)
[2022-11-29] MEDS: clopidogrel 75 mg Tablet PO (06:04)
[2022-11-29] MEDS: linezolid 600 mg Tablet PO (06:04)
[2022-11-29] MEDS: acetylcysteine 200 mg/mL SDV 4 mL INHALATION ×2 (07:50→13:55)
[2022-11-29] MEDS: sodium chloride 3.5% neb 4 mL Neb INHALATION (07:51)
[2022-11-29] MEDS: aspirin 81 mg Chew Tablet PO (08:41)
[2022-11-29] MEDS: guaiFENesin 600 mg Tablet 1200 MG PO (08:41)
[2022-11-29] MEDS: thiamine 100 mg Tablet PO (08:41)
[2022-11-29] MEDS: famotidine 20 mg Tablet PO (08:41)
[2022-11-29] MEDS: cyanocobalamin 1,000 mcg Tablet 500 MCG PO (08:41)
[2022-11-29] MEDS: folic acid 1 mg Tablet PO (08:42)
[2022-11-29] MEDS: nystatin powder 15 gm Btl 1 APPLIC TOPICAL (08:42)
--- NOTE | 2022-11-29 10:04 | P.DS_ITS ---
Discharge Providers Date of Admission: 11/20/22 07:12 Date of Discharge: November 29, 2022 Attending Provider at Admission: Toshia Morales MD Attending Provider at Discharge: Regina Cruz MD Diagnoses at Discharge Discharge Diagnosis (1) Atelectasis of left lung: Status: Acute (2) Pneumonia: Status: Acute Qualifiers: Laterality: left Lung location: lower lobe of lung Pneumonia type: due to unspecified organism Qualified Code(s): J18.9 - Pneumonia, unspecified organism (3) Pneumothorax: Status: Acute (4) Mucus plugging of bronchi: Status: Acute (5) Pleural effusion associated with pulmonary infection: Status: Acute (6) C. difficile diarrhea: Status: Acute (7) COVID-19: Status: Acute Reason for Visit Reason for Visit: SOB Brief History: 61-year-old female with past medical history of, coronary artery disease, severe peripheral artery disease.? chronic lower extremity wound, adult failure to thrive protein energy malnutrition, CVA hypertension came in from senior living with chief complaint of with worsening shortness of breath, cough and hypoxia. Hospital course as below: Hospital Course Hospital Course #Left lung atelectasis, collapse, present on admit # significant mucus bronchial plugging # left lower lobe consolidation # Complex parapneumonic effusion # recent COVID 19 Recurrent left lung atelactsis and collapse, Likely secondary to significant mucous plugging and recurrent aspiration of secretions into the left lung since patient preferentially prefers to lie down on her left side.? She has poor inspiratory effort and poor use of incentive spirometer. She has a past medical history of CVA.? Swallow evaluation has? been completed, patient is currently on a regular diet though it is quite difficult to position her to sit straight during eating. No erlinda aspiration noted. Bronchoscopy was performed initially on November 22, 2022 due to high suspicion for endobronchial lesion which may have been contributing, however no masses were found on this assessment.? Thick mucus was noted which was cleared up with bronchoscopy.? Additionally patient underwent a left thoracostomy with chest tube placement with removal of 800 cc of pleural fluid. Unfortunately pleural fluid analysis unable to be obtained due to lab issues. Review of prior x-ray from November 12, 2022 does show haziness at the left lung base which may have been territory account representative of a pneumonia versus mucous plugging at that time as well. Patient has been diagnosed with COVID 19 and may have superadded bacterial pneumonia on secondarily. Chest tube was removed on November 24, 2021 as the output was down to only 40 to 50 cc.? There was consolidation noted in the left lower lobe. By November 25, 2021 she developed complete left lung atelectasis again and also a PTX. S/p repeat bronchsocopy on 11/26 again to clear secretions and placement of a left thoravent. Her drain output has been 260 cc initially and then minimal in the 24 hrs prior to discharge. Thoravent has been removed at discharge. CXR this am shows minimal apical pneumothorax and improved lung aeration overall. Aeration in the upper lobes much improved after procedure however continues to have haziness in the left lower lobe. Unfortunately no pleural fluid analysis or pleural fluid cx running in the system related to lab vs system errors (event report generated). Therefore her treatment has been guided by empiric abx choices. She received zosyn 3.375 every 8 hrs since 11/20-11/29 ; iv vancomycin 11/20-11/24, then linezolid 600mg po bid since 11/26-11/29. (MRSA screen +). Leukocytosis trend: 27---> 12.8. She also received remdisivir and iv steroids during course of treatment. 11/28 CT chest?showing improvement. She is being discharged with augmentin and linezolid for an additional week for totoal 3 weeks of treatment for pneumonia with presumed complex parapneumonic effusion in the absence of other available data. Patient is being discharged today in stable to improved condition, however remains at high risk of recurrent mucus plugging and atelactasis due to d econditioning., body habitus, preference to lay on left side and low motivation to participate. Continue pulmonary toilet with acetylcysteine, hypertonic saline, add chest vest at [facility]. Pertinent data: 11/20 Blood cx: NGTD 11/26/21: BAL cx: Yeast sp 11/20/21: MRSA screen : + Pleural fluid cx : N/A ; Pleural fluid analysis: N/A 11/12: COVID + # C diff diarrhea: Currently on po vancomycin 125mg QID. Continue for one more week while on abx. Physical Exam Narrative: General: No acute distress, AO x3, significantly deconditioned and cachexic HEENT: PERRLA, pupils bilaterally equal and reactive, pallors not present Chest: Normal vesicular breath sounds, no added sounds, equal good air entry bilaterally CVS: S1-S2 regular, no murmurs, no tachycardia, no gallops, no rubs Abdomen: Soft, nontender, no organomegaly, bowel sounds present Neuro: No focal deficits, no facial deformity, AO x3, power 5/5 in all limbs Urinary Catheter Management: [place]: Cath Placed During This Visit: yes, but has since been removed by the nurse Reason for Continuing Indwelling Catheter: Other Date Urinary Catheter Removed: 11/26/22 Time Urinary Catheter Discontinued: 01:00 Discharge Data Studies Completed and Pending Completed Studies During Hospitalization Category Date Time Status CT chest wo con [id number] Routine Cat Scan 11/27/22 16:51 Completed CTA chest [CT angio chest PE protcl [id number]] Stat Cat Scan 11/20/22 00:44 Completed XR chest 1V portable [id number] Routine Exams 11/22/22 19:18 Completed XR chest 1V portable [id number] Routine Exams 11/23/22 06:00 Completed XR chest 1V portable [id number] Routine Exams 11/24/22 06:56 Completed XR chest 1V portable [id number] Routine Exams 11/25/22 06:00 Completed XR chest 1V portable [id number] Routine Exams 11/26/22 06:43 Completed XR chest 1V portable [id number] Routine Exams 11/26/22 11:51 Completed XR chest 1V portable [id number] Routine Exams 11/27/22 06:00 Completed XR chest 1V portable [id number] Routine Exams 11/28/22 06:00 Completed XR chest 1V portable [id number] Routine Exams 11/29/22 06:00 Completed XR chest 1V portable [id number] Stat Exams 11/20/22 00:01 Completed CV. echo complete* [id number] Routine Ultrasound 11/21/22 10:00 Completed [place] chest [id number] Routine Ultrasound 11/21/22 11:00 Completed Pending at discharge Category Date Time Status Bacterial Antigen Stat Lab 11/20/22 05:54 Uncollected Body Fluid Culture & GS Routine Lab 11/24/22 17:07 Uncollected Body Fluid Culture & GS Routine Lab 11/26/22 11:48 Results Cell Count w Diff Pleural Fld Stat Lab 11/22/22 20:40 Ordered Glucose Pleural Fluid Stat Lab 11/22/22 20:40 Ordered LDH Pleural Fluid Stat Lab 11/22/22 20:40 Ordered Pleural Fluid Albumin Stat Lab 11/22/22 20:40 Ordered Pleural Fluid Specific [place] Stat Lab 11/22/22 20:40 Ordered Pleural Fluid Triglycerides Stat Lab 11/22/22 20:40 Ordered Sputum Culture and Gram Stain Stat Lab 11/20/22 05:49 Uncollected Total Protein Pleural Fluid Stat Lab 11/22/22 20:40 Ordered pH Pleural Fluid Stat Lab 11/22/22 20:40 Ordered Radiology Impressions Chest CTA 11/20/22 00:44 IMPRESSION: Complete consolidation of the left lung with a large pleural effusion and compensatory hyperinflation of the right lung. Cardiomegaly. Chest Ultrasound 11/21/22 11:00 Impression: Small left pleural effusion. Chest CT 11/27/22 16:51 IMPRESSION: 1. Improvement from 11/20/2022 is seen. 2. Left upper lobe is re-expanded with diffuse ground-glass nodules which may represent infection. 3. Persistent collapse of the left lower lobe. 4. Reduced size of left pleural effusion with thoracostomy drainage catheter in place. Chest X-Ray 11/29/22 06:00 IMPRESSION: 1. Very tiny LEFT apical pneumothorax. 2. Small bore LEFT chest tube remains unchanged in position. 3. Slightly improved aeration LEFT lung. Laboratory Results WBC 12.8 10^3/uL (4.0-10.0) H 11/27/22 04:57 Corrected WBC Cancelled 11/20/22 00:10 RBC 4.61 10^6/uL (4.1-5.3) 11/27/22 04:57 Hgb 12.1 g/dL (11.5-15.3) 11/27/22 04:57 Hct 39.3 % (37.0-47.0) 11/27/22 04:57 MCV 85.2 fl (81-99) 11/27/22 04:57 MCH 26.2 pg (28.0-34.0) L 11/27/22 04:57 MCHC 30.8 g/dL (30.0-36.0) 11/27/22 04:57 RDW 15.6 % (12.1-15.1) H 11/27/22 04:57 Plt Count 429 10^3/cmm (130-400) H 11/27/22 04:57 MPV 10.0 fL (7.4-10.4) 11/27/22 04:57 Gran % Cancelled 11/20/22 00:10 Neut % (Auto) 74.0 % 11/27/22 04:57 Lymph % (Auto) 16.8 % 11/27/22 04:57 [place] % (Auto) 6.3 % 11/27/22 04:57 Eos % (Auto) 2.3 % 11/27/22 04:57 Baso % (Auto) 0.1 % 11/27/22 04:57 Neut # (Auto) 9.48 10^3/uL (1.8-7.7) H 11/27/22 04:57 Lymph # (Auto) 2.2 10^3/uL (0.8-4.8) 11/27/22 04:57 [place] # (Auto) 0.8 10^3/uL (0.2-0.9) 11/27/22 04:57 Eos # (Auto) 0.3 10^3/uL (0.0-0.8) 11/27/22 04:57 Baso # (Auto) 0.0 10^3/uL (0.0-0.1) 11/27/22 04:57 Absolute Gran (auto) Cancelled 11/20/22 00:10 Nucleated RBC % (auto) 0 % 11/27/22 04:57 Nucleated RBCs # 0.0 /100WBC 11/27/22 04:57 PT 15.00 SECONDS (12.1-14.9) H 11/21/22 02:21 INR 1.15 (0.8-1.2) 11/21/22 02:21 Specimen Type Arterial 11/20/22 00:08 Sample Site Brachial, right 11/20/22 00:08 ABG pH 7.47 (7.35-7.45) H 11/20/22 00:08 ABG pCO2 49.9 mmHg (35-45) H 11/20/22 00:08 ABG pO2 72.5 mmHg (80.0-100.0) L 11/20/22 00:08 ABG HCO3 36.4 mmol/L (22-26) H 11/20/22 00:08 ABG Base Excess 11.1 mmol/L (-2.0-2.0) H 11/20/22 00:08 [place] Test N/a 11/20/22 00:08 Hematocrit 38.2 % (37-47) 11/20/22 00:08 O2 Delivery Device Nc 11/20/22 00:08 O2 Liters/Min 5.0 % 11/20/22 00:08 FiO2 40.0 % 11/20/22 00:08 Supervisor [place] ID Criss 11/20/22 00:08 Sodium 139 mmol/L (136-145) 11/27/22 04:57 Potassium 4.1 mmol/L (3.5-5.1) 11/27/22 04:57 Chloride 104 mmol/L (98-107) 11/27/22 04:57 Carbon Dioxide 27 mmol/L (22-29) 11/27/22 04:57 Anion Gap 12.1 (5-19) 11/27/22 04:57 BUN 19 mg/dL (8-23) 11/27/22 04:57 Creatinine 0.3 mg/dL (0.5-0.9) L 11/27/22 04:57 GFR Calculation 224.7 mL/min (90-130) H 11/27/22 04:57 Glucose 85 mg/dL (65-115) 11/27/22 04:57 Calculated Osmolality 290 mOsm/kg (285-295) 11/27/22 04:57 Lactic Acid Cancelled 11/20/22 00:10 Lactate 1.0 mmol/L (0.5-2.2) 11/20/22 02:00 Calcium 8.2 mg/dL (8.5-10.5) L 11/27/22 04:57 Magnesium 1.6 mg/dL (1.7-2.3) L 11/21/22 02:21 Total Bilirubin 0.2 mg/dL (0.15-1.2) 11/24/22 03:30 AST 12 U/L (0-32) 11/24/22 03:30 ALT 32 U/L (0-33) 11/24/22 03:30 Alkaline Phosphatase 84 U/L (35-105) 11/24/22 03:30 Lactate Dehydrogenase 138 U/L (135-214) 11/20/22 02:00 Troponin T Baseline 71 ng/L (0-10) H 11/20/22 02:00 Troponin T 120 Minute 58.52 ng/L (0-10) H 11/20/22 03:53 Delta Troponin T -12.48 ABS# (0-10) L 11/20/22 03:53 Troponin T Hi Sens 6Hr 50.48 ng/L (0-10) H 11/20/22 08:10 Troponin T Hi Sens 6Hr Delta -20.52 ng/L (0-12) L 11/20/22 08:10 C-Reactive Protein 199.5 mg/L (0.0-4.9) H 11/20/22 02:00 NT-Pro-B Natriuret Pep 8959 pg/mL (0-125) H 11/20/22 02:00 Total Protein 5.3 g/dL (6.6-8.7) L 11/24/22 03:30 Albumin 2.4 g/dL (3.5-5.2) L 11/24/22 03:30 Globulin 2.9 g/dL (1.3-4.6) 11/24/22 03:30 Procalcitonin 0.53 ng/mL (0-0.5) H 11/21/22 02:21 Pleur Adenosine Deamin 14.8 U/L (<9.2) H 11/23/22 01:45 Vancomycin Trough 13.5 ug/mL (10-15) 11/23/22 01:43 Vitals Last Vital Signs Temp 97.8 F 11/29/22 08:00 Pulse 99 11/29/22 08:02 Resp 18 11/29/22 08:02 BP 103/62 11/29/22 08:00 Pulse Ox 90 11/29/22 08:02 O2 Del Method 11/29/22 07:54 O2 Flow Rate 2 11/29/22 08:02 Discharge Plan Discharge Patient Disposition: Home Condition: Stable Prescriptions: New linezolid 600 mg Tablet 600 mg PO Q12H 7 Days Qty: 14 0RF ipratropium-albuterol 0.5 mg-3 mg(2.5 mg base)/3 mL Solution For Nebulization 3 ml inhalation Q6H.RESP 30 Days Qty: 30 0RF guaifenesin [Mucinex] 600 mg Tablet Extended Release 12hr 1,200 mg PO BID 30 Days Qty: 120 0RF acetylcysteine 200 mg/mL (20 %) Solution 200 mg inhalation Q6H.RESP 30 Days Qty: 120 0RF amoxicillin-pot clavulanate 875-125 mg tablet 1 tab PO BID 7 Days Qty: 14 0RF vancomycin 125 mg capsule 125 mg PO QID 7 Days Qty: 28 0RF Continued omega-3 fatty acids 1,000 mg capsule 1,000 mg PO DAILY Qty: 30 0RF atorvastatin 10 mg tablet 10 mg PO QAM 30 Days Qty: 30 0RF clopidogrel 75 mg tablet 75 mg PO QAM Qty: 30 0RF nitroglycerin [Nitrostat] 0.4 mg tablet, sublingual 0.4 mg SUBLINGUAL Q5M PRN (Reason: Chest Pain) Qty: 5 0RF Tylenol 325 mg Tablet 650 mg PO Q4H PRN (Reason: Pain) hydrocodone-acetaminophen 5-325 mg Tablet 1 tab PO Q4H PRN (Reason: Pain) famotidine 20 mg Tablet 20 mg PO DAILY PRN (Reason: Heartburn) Milk of Magnesia 400 mg/5 mL Suspension 30 ml PO DAILY PRN (Reason: Constipation) Dulcolax (bisacodyl) 10 mg Suppository [address] DAILY PRN (Reason: Constipation) magnesium citrate Solution 300 ml PO Q2H PRN (Reason: Constipation) Dulcolax (bisacodyl) 5 mg Tablet,Delayed Release (Dr/Ec) 20 mg PO DAILY PRN (Reason: Constipation) hydroxyzine pamoate 25 mg Capsule 25 mg PO Q6H PRN (Reason: Anxiety) melatonin 5 mg Tablet 5 mg PO BEDTIME Vitamin D3 50 mcg (2,000 unit) Capsule 50 mcg PO DAILY Pro-Stat AWC 17-100 gram-kcal/30 mL Liquid 30 ea PO BID ferrous gluconate 324 mg (37.5 mg iron) Tablet 324 mg PO EVERY OTHER DAY Qty: 90 0RF multivitamin with folic acid [Thera] 400 mcg Tablet 1 tab PO DAILY Qty: 90 0RF tramadol 50 mg tablet 50 mg PO DAILY PRN (Reason: pain) Qty: 4 0RF Rx Instructions: With dressing change aspirin 81 mg Tablet,Delayed Release (Dr/Ec) 81 mg PO DAILY 30 Days Qty: 30 3RF thiamine mononitrate (vit B1) [Vitamin B-1 (mononitrate)] 100 mg Tablet 100 mg PO DAILY 30 Days Qty: 30 3RF cyanocobalamin (vitamin B-12) [Vitamin B-12] 1,000 mcg Tablet 500 mcg PO DAILY 30 Days Qty: 30 3RF folic acid 1 mg Tablet 1 mg PO BID 30 Days Qty: 60 3RF Held amlodipine 5 mg Tablet 5 mg PO DAILY Hold Instructions: Resume on 12/06/22. follow up BP trend at SNF. Has not needed BP medicines in the hospital Discharge Orders: Discharge Order (Routine); Ordered 11/29/22 Ordered By: Regina Cruz Discharge Diet: Usual diet Discharge Activity: Resume usual activity Patient Instructions: Opioid Safety Discharge Attestations Time Spent in Discharge Care*: greater than 30 min Status at Discharge: Cognitive status at discharge: cognitively intact , Behavioral status at discharge: cooperative , Quality Metrics Clinical Quality Measures [ No reported AMI, CVA or VTE this stay] Coding Level of Care Code Acute Chg FW DC note Diagnoses Atelectasis of left lung J98.11 Pneumonia J18.9 Laterality: left Lung location: lower lobe of lung Pneumonia type: due to unspecified organism Pneumothorax J93.9 Mucus plugging of bronchi T17.500A Pleural effusion associated with pulmonary infection J18.9; J91.8 C. difficile diarrhea A04.72 COVID-19 U07.1
[2022-11-29 11:38] LABS: SARS Covid-2 Antigen negative (Negative)
--- NOTE | 2022-11-29 13:11 | PC.NURSE ---
Called facility gave report.
== END 2022-11-29 15:50 | disposition skilled nursing facility (03) | DRG 205 ==
LOC: ER 11-20 05:05 → ICU 11-20 06:40 → MEDSURG 11-23 13:55
PROVIDERS: Emergency Medicine; Internal Medicine; Thoracic Surgery (Cardiothoracic Vascular Surgery); Admitting Provider Internal Medicine; Emergency Provider Family Medicine; Visit Provider Student in an Organized Health Care Education/Training Program
PROC: 0BJ08ZZ Inspection of Tracheobronchial Tree, Via Natural or Artificial Opening Endoscopic (ICD-10-PCS; CPT 31622; principal; 2022-11-22 18:00)
PROC: 0W9B30Z Drainage of Left Pleural Cavity with Drainage Device, Percutaneous Approach (ICD-10-PCS; CPT 32551; 2022-11-22 18:00)
PROC: 0B9P30Z Drainage of Left Pleura with Drainage Device, Percutaneous Approach (ICD-10-PCS; CPT 32551; 2022-11-26 10:30)
DX: J98.11 Atelectasis (principal); E43 Unspecified severe protein-calorie malnutrition; U07.1 COVID-19; J12.82 Pneumonia due to coronavirus disease 2019; J93.9 Pneumothorax, unspecified; A04.72 Enterocolitis due to Clostridium difficile, not specified as recurrent; Z68.1 Body mass index [BMI] 19.9 or less, adult; E87.0 Hyperosmolality and hypernatremia; J90 Pleural effusion, not elsewhere classified; I25.10 Atherosclerotic heart disease of native coronary artery without angina pectoris; Z95.5 Presence of coronary angioplasty implant and graft; I73.9 Peripheral vascular disease, unspecified; Z79.02 Long term (current) use of antithrombotics/antiplatelets; Z79.891 Long term (current) use of opiate analgesic; Z79.82 Long term (current) use of aspirin; Z86.73 Personal history of transient ischemic attack (TIA), and cerebral infarction without residual deficits; I10 Essential (primary) hypertension; E78.5 Hyperlipidemia, unspecified; L89.151 Pressure ulcer of sacral region, stage 1; L89.221 Pressure ulcer of left hip, stage 1; F01.50 Vascular dementia, unspecified severity, without behavioral disturbance, psychotic disturbance, mood disturbance, and anxiety; Z87.891 Personal history of nicotine dependence; E55.9 Vitamin D deficiency, unspecified; E53.8 Deficiency of other specified B group vitamins; E87.6 Hypokalemia; I25.2 Old myocardial infarction
CPT/HCPCS: 36415; 36600; 51702; 71045; 71250; 71275; 76604; 80048; 80053; 80202; 82803; 83605; 83615; 83735; 83880; 84145; 84155; 84311; 84484; 85025; 85610; 86140; 87040; 87070; 87075; 87106; 87205; 87426; 87493; 87641; 93005; 93306; 94640; 94664; 94669; 96365; 96367; 96372; 96375; 99285; C9113; J0248; J0330; J1100; J1644; J1650; J2270; J2543; J2704; J3010; J3370; J3475; J3480; J7030; J7040; J7050; J7070; J7608; J7613; Q9967

== ENCOUNTER 2022-12-02 07:54 | Emergency (ER) | payer OTHER, SELFPAY ==
--- NOTE | 2022-12-02 07:55 | XR_ITS ---
WS: [id number] Portable AP semiupright chest, 12/02/2022 Clinical Data: dyspnea/cough Comparison: Portable chest, 11/29/2022 Findings: The small left chest tube has been removed and no residual pneumothorax is seen. There is o pacity in the retrocardiac region which may represent atelectasis, effusion and/or pneumonia. The rig ht lung is clear. There are monitor leads on the chest wall. The heart size is normal. The right diap hragm is flattened. There are monitor leads on the chest wall. XR/XR chest 1V portable [id number] Impression: 1. Retrocardiac opacity which may represent atelectasis, effusion and/or pneumo [place]. 2. Shift of the heart and mediastinum from right to left. 3. Negative for pneumothorax. 4. Hyperinflation.
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
[2022-12-02 08:08] VITALS: BP 141/70; PULSE 102; RESP 18; TEMP 36.9; O2SAT 90
--- NOTE | 2022-12-02 08:17 | ECG_ITS ---
[facility] Test Date: 2022-12-02 Pat Name: Jazmyne Ramirez Department: Room: Gender: Female Adventure Therapist: : 1960 Requested By: Skip Miller Order Number: [id number] Allison MD: Justyn Cooley M.D. Measurements Intervals [place] Rate: 106 P: 66 NH: 151 QRS: 25 QRSD: 97 T: 171 QT: 374 QTc: 497 Interpretive Statements SINUS TACHYCARDIA WITH FREQUENT SUPRAVENTRICULAR PREMATURE COMPLEXES INDETERMINATE AXIS ANTERIOR MYOCARDIAL INFARCTION , PROBABLY RECENT [40+ ms Q WAVE AND/OR ST/T ABNORMALITY IN V3/V4] Compared to ECG 11/20/2022 10:05:06 Indeterminate axis now present Sinus rhythm no longer present Atrial abnormality no longer present T-wave abnormality no longer present Possible ischemia no longer present Myocardial infarct finding still present Electronically Signed On 12-02-2022 9:58:12 RIGGER SUPERVISOR by Justyn Cooley M.D. [id number]
[2022-12-02 08:18] LABS: ABG PCO2 45.9 mmHg (35-45); ABG PH Result 7.49 (7.35-7.45); Arterial Blood Gas Hematocrit 37.6 % (37-47); Blood Gas Allen Test Pos; Blood Gas Operator Identificat WALCI; Blood Gas Sample Site Radial, right; Blood Gas Sample Type Arterial; Carboxyhemoglobin 1.4 %THgb (0.4-20.1); HCO3 ABG 34.7 mmol/L (22-26); HGB O2 Sat 88.4 % (95-100); Ionized Calcium Level - ABG 1.2 mmol/L (1.1-1.4); Methemoglobin 0.8 % (0.4-1.5); Oxygen Device NC; Oxygen Saturation ABG 90.4; PO2 ABG 53.2 mmHg (80.0-100.0); Potassium Level - ABG 3.7 mmol/L (3.5-5.0); Total Hemoglobin 12.3 g/dL (12-16)
[2022-12-02 08:24] VITALS: PULSE 98; RESP 18; O2SAT 90
[2022-12-02] MEDS: ipratropium-albuterol 3 mL Neb INHALATION (08:26)
[2022-12-02 08:27] VITALS: PULSE 90
[2022-12-02 08:53] LABS: Basophils % 0.4 %; Eosinophils # 0.2 10^3/uL (0.0-0.8); Hematocrit 41.1 % (37.0-47.0); Hemoglobin 12.7 g/dL (11.5-15.3); Lymphocytes # 0.9 10^3/uL (0.8-4.8); Lymphocytes % 9.2 %; Mean Corpuscular HGB Conc 30.9 g/dL (30.0-36.0); Mean Corpuscular Hemoglobin 26.6 pg (28.0-34.0); Mean Corpuscular Volume 86.2 fl (81-99); Monocytes # 0.7 10^3/uL (0.2-0.9); Monocytes % 6.5 %; Neutrophils # 8.35 10^3/uL (1.8-7.7); Neutrophils % 81.5 %; Nucleated Red Blood Cells % 0 %; Platelet Count 261 10^3/cmm (130-400); Red Blood Count 4.77 10^6/uL (4.1-5.3); Red Cell Distribution Width 16.9 % (12.1-15.1); White Blood Count 10.2 10^3/uL (4.0-10.0)
[2022-12-02 09:09] LABS: Alanine Aminotransferase 16 U/L (0-33); Albumin Level 3.1 g/dL (3.5-5.2); Alkaline Phosphatase 126 U/L (35-105); Aspartate Amino Transferase 9 U/L (0-32); Blood Urea Nitrogen 11 mg/dL (8-23); Calcium 9.1 mg/dL (8.5-10.5); Carbon Dioxide 35 mmol/L (22-29); Globulin 3.3 g/dL (1.3-4.6); Glomerular Filtration Rate 224.7 mL/min (90-130); Glucose 84 mg/dL (65-115); Total Bilirubin 0.3 mg/dL (0.15-1.2); Total Protein 6.4 g/dL (6.6-8.7)
[2022-12-02 09:14] VITALS: BP 113/59; PULSE 95; RESP 16; O2SAT 98
[2022-12-02 09:16] LABS: Add Urine Microscopic? YES; Bilirubin Urine Neg (Negative); Blood Urine 3+ (Negative); Glucose Urine UA Norm (Normal); Ketones Urine Negative (Negative); Leukocyte Esterase Urine 2+ (Negative); Nitrate Urine Negative (Negative); Protein Urine Neg (Negative); Specific Gravity, Urine 1.015 (1.005-1.030); Sulfosalicylic Acid Urine Negative (Negative); Urine Appearance Hazy (CLEAR); Urine Color Yellow (Yellow); Urobilinogen Urine Norm (Negative); pH Urine 8 (5-7)
[2022-12-02 09:17] LABS: Bacteria Urine 1+ /hpf; Mucus Urine 1+ /hpf; Squamous Epithelial Cell Urine RARE /hpf (0-5); WBC Urine 40-55 /hpf (0-5)
[2022-12-02 09:18] LABS: Add Urine Culture? Yes
[2022-12-02 09:28] LABS: Chloride 96 mmol/L (98-107); Osmolality Calculated 283 mOsm/kg (285-295); Sodium 137 mmol/L (136-145)
[2022-12-02 09:31] VITALS: BP 127/68; PULSE 80; RESP 16; O2SAT 98
[2022-12-02 09:31] LABS: Anion Gap 10.2 (5-19); Potassium 4.2 mmol/L (3.5-5.1)
[2022-12-02 11:29] VITALS: BP 127/68; PULSE 80; RESP 16; O2SAT 98
== END 2022-12-02 10:31 | disposition home or self-care (01) ==
PROVIDERS: Emergency Provider Family Medicine
DX: J18.9 Pneumonia, unspecified organism (principal); N30.90 Cystitis, unspecified without hematuria; R04.0 Epistaxis; Z79.82 Long term (current) use of aspirin; Z79.02 Long term (current) use of antithrombotics/antiplatelets; Z87.891 Personal history of nicotine dependence; I25.10 Atherosclerotic heart disease of native coronary artery without angina pectoris; Z86.73 Personal history of transient ischemic attack (TIA), and cerebral infarction without residual deficits; I10 Essential (primary) hypertension; E78.5 Hyperlipidemia, unspecified
CPT/HCPCS: 36600; 71045; 80051; 80053; 81001; 82330; 82805; 85025; 87086; 87106; 93005; 94640; 99285

== ENCOUNTER 2022-12-05 01:57 | Observation (INO) | payer OTHER, SELFPAY ==
[2022-12-05] VITALS (15 sets, daily range): BP systolic 88–125; BP diastolic 40–66; PULSE 76–104; RESP 16–28; TEMP 36.7–38.2; O2SAT 92–100; BMI 19.2
--- NOTE | 2022-12-05 02:00 | XRR_ITS ---
PROCEDURE INFORMATION: Exam: XR Chest Exam date and time: 12/05/2022 2:23 AM Age: 62 years old Clinical indication: Shortness of breath; Prior surgery; Surgery type: Coronary stent; Patient HX: Sent from correction for hypoxia on room air. Discharged from this facility three days ago for respiratory symptoms. ; Additional info: SOB TECHNIQUE: Imaging protocol: Radiologic exam of the chest. Views: 1 view. COMPARISON: CR XR chest 1V portable [id number] 02/12/2022 08:03 FINDINGS: Lungs: Right lung clear. Left basilar opacities and effusion increased. Pleural spaces: No pneumothorax. Heart/Mediastinum: The heart is large. Leftward mediastinal shift again seen. Question esophageal dilation versus rotational overlying lung artifact. Bones/joints: Few old right lower lateral rib deformities. XR/XR chest 1V portable [id number] IMPRESSION: Increasing left basilar pneumonia with effusion. The findings appear mildly progressed from 3 days ago.
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
--- NOTE | 2022-12-05 02:18 | ECG_ITS ---
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 Measurements Intervals [place] Rate: 103 P: 60 MI: 148 QRS: 104 QRSD: 96 T: 179 QT: 352 QTc: 462 Interpretive Statements SINUS TACHYCARDIA WITH FREQUENT SUPRAVENTRICULAR PREMATURE COMPLEXES RIGHT AXIS DEVIATION [QRS AXIS > 100] Compared to ECG 12/02/2022 08:17:18 Right-axis deviation now present Indeterminate axis no longer present Electronically Signed On 12-05-2022 14:45:22 HOUSE SUPERINTENDENT by Justyn Cooley M.D. [id number]
[2022-12-05 02:28] LABS: Basophils % 0.3 %; Eosinophils # 0.5 10^3/uL (0.0-0.8); Eosinophils % 4.5 %; Hematocrit 34.9 % (37.0-47.0); Hemoglobin 10.7 g/dL (11.5-15.3); Lymphocytes # 1.1 10^3/uL (0.8-4.8); Mean Corpuscular HGB Conc 30.7 g/dL (30.0-36.0); Mean Corpuscular Hemoglobin 26.4 pg (28.0-34.0); Mean Corpuscular Volume 86.2 fl (81-99); Monocytes # 0.8 10^3/uL (0.2-0.9); Monocytes % 7.4 %; Neutrophils # 7.95 10^3/uL (1.8-7.7); Neutrophils % 76.5 %; Nucleated Red Blood Cells % 0 %; Platelet Count 195 10^3/cmm (130-400); Red Blood Count 4.05 10^6/uL (4.1-5.3); Red Cell Distribution Width 16.3 % (12.1-15.1); White Blood Count 10.4 10^3/uL (4.0-10.0)
[2022-12-05 02:45] LABS: Anion Gap 10.9 (5-19); Blood Urea Nitrogen 10 mg/dL (8-23); Calcium 8.7 mg/dL (8.5-10.5); Carbon Dioxide 32 mmol/L (22-29); Chloride 100 mmol/L (98-107); Glomerular Filtration Rate 224.7 mL/min (90-130); Glucose 101 mg/dL (65-115); Osmolality Calculated 287 mOsm/kg (285-295); Potassium 3.9 mmol/L (3.5-5.1); Sodium 139 mmol/L (136-145)
--- NOTE | 2022-12-05 02:52 | XRR_ITS ---
PROCEDURE INFORMATION: Exam: XR Chest Exam date and time: 12/05/2022 2:58 AM Age: 62 years old Clinical indication: Shortness of breath; Prior surgery; Surgery type: Coronary stents; Patient HX: Repeat for attempt at better positioning. Sent from detention for hypoxia on room air. ; Additional info: SOB TECHNIQUE: Imaging protocol: Radiologic exam of the chest. Views: 1 view. COMPARISON: CR (CHEST, ) 05/12/2022 02:23 FINDINGS: Lungs: Right lung clear. Left basilar infiltrates and effusion mildly improved. Those in the left upper lung have mildly increased. Pleural spaces: No pneumothorax. Heart/Mediastinum: The heart is large. Diffuse vascular calcification. Bones/joints: A few old right lower lateral rib deformities. XR/XR chest 1V portable [id number] IMPRESSION: 1. Left basilar infiltrates and effusion have mildly improved. 2. Left upper lung atelectasis or airspace disease mildly progressed. No other change has occurred from about 40 minutes ago.
[2022-12-05] MEDS: cefTRIAXone 1,000 MG in sodium chloride 0.9% (plus) 50 ML 100 MG IV (03:31)
[2022-12-05] MEDS: azithromycin 500 MG in sodium chloride 0.9% 250 ML 250 MG IV (03:35)
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
[2022-12-05 04:44] LABS: NT Pro B Type Natriuretic Pept 2364 pg/mL (0-125)
--- NOTE | 2022-12-05 05:29 | ECG_ITS ---
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 Measurements Intervals [place] Rate: 96 P: 76 [place]: 161 QRS: 101 QRSD: 98 T: 169 QT: 378 QTc: 479 Interpretive Statements SINUS RHYTHM RIGHT AXIS DEVIATION [QRS AXIS > 100] LOW QRS VOLTAGE IN PRECORDIAL LEADS [QRS DEFLECTION < 1.0 mV IN CHEST LEADS] POSSIBLE ANTERIOR MYOCARDIAL INFARCTION , OF INDETERMINATE AGE [30 ms Q WAVE IN V3/V4, OR R < 0.2 mV IN V4] Compared to ECG 12/05/2022 02:18:35 Low QRS voltage now present Sinus tachycardia no longer present Myocardial infarct finding still present Electronically Signed On 12-05-2022 14:44:38 BUSINESS PARTNER by Justyn Cooley M.D. [id number]
[2022-12-05] MEDS: pantoprazole 40 mg SDV IVP (05:48)
[2022-12-05] MEDS: enoxaparin 40 mg/0.4 mL Syringe SUBCUT (05:48)
[2022-12-05] MEDS: vancomycin 1,000 MG in sodium chloride 0.9% 250 ML 250 MG IV ×3 (05:48→21:26)
[2022-12-05] MEDS: atorvastatin 40 mg Tablet 10 MG PO (05:49)
[2022-12-05] MEDS: clopidogrel 75 mg Tablet PO (05:51)
--- NOTE | 2022-12-05 08:48 | P.PN_ITS ---
Subjective Subjective: Jazmyne reports she is doing okay. She indicates she wants the nurse to reposition her again. History and physical reviewed. Medications: Reviewed: Yes Vitals/I&O/Wt Last Vital Signs Temp 98.5 F 12/05/22 07:28 Pulse 98 12/05/22 07:28 Resp 16 12/05/22 07:28 BP 107/58 12/05/22 07:28 Pulse Ox 95 12/05/22 07:28 O2 Del Method 12/05/22 07:28 O2 Flow Rate 2 12/05/22 05:36 12/04/22 12/05/22 12/05/22 22:59 06:59 14:59 Intake Total 300 / 300 250 / 250 Output Total 350 / 350 Balance -50 / -50 250 / 250 Weight last 48 hrs Weight 50.802 kg Physical Exam Narrative: General exam is a conversant female, in no distress Neck is supple no lymphadenopathy thyromegaly Cardiovascular regular in rhythm without murmur Lungs diminished BS bilaterally Abd soft with positive BS, no HSM Extremities atrophied. No cyanosis or clubbing Data 12/05/22 02:22 12/05/22 02:22 Micro: Microbiology 12/05/22 03:25 Blood Culture - Preliminary Blood SPECIMEN COLLECTED 12/05/22 03:28 Blood Culture - Preliminary Blood SPECIMEN COLLECTED A&P Assessment and plan (1) Hypoxia: Patient presents with hypoxia. She is only requiring 2 L of oxygen. I would not think this is atypical, considering her clinical status of recurrent atelectasis left lung and left pleural effusion. I am surprised she got down to room air on her last recent hospitalization. Continue oxygen currently, and consider discharge on oxygen. (2) Pneumonia: Concern of recurrent or worsening pneumonia. White blood cell count minimally elevated. No fever. She was placed on broad-spectrum antibiotics on arrival. Previous bronchoscopy and urinalysis grew some yeast. Likely this was colonization. Add fluconazole. Continue cefepime and vancomycin currently, while assessing patient's stability. Patient with history of recurrent pleural effusion. This may be secondary to atelectasis of her lung, and concern of chronic aspiration. This may be something that continues to recur, and then we will have to monitor if the pleural fluid significantly enlarges warranting another thoracentesis. Progno sis appears poor with her current mobility, recurrent effusion, recurrent atelectasis. (3) C. difficile diarrhea: Continue vancomycin p.o. (4) Atelectasis of left lung: See notation above Add incentive sprirometry (5) Pneumothorax: No evidence of recurrent pneumothorax (6) History of multiple cerebrovascular accidents (CVAs): Continue aspirin, statin, Plavix Plan Full code currently Lovenox for DVT prophylaxis Attestations Medical Necessity Statement*: Needs continued hospitalization for IV antibiotics pending assessment of stability for hypoxia, pneumonia, pleural effusion Coding Level of Care Code Acute Code for [facility] Fwd Diagnoses Hypoxia R09.02 Pneumonia J18.9 C. difficile diarrhea A04.72 Atelectasis of left lung J98.11 Pneumothorax J93.9 History of multiple cerebrovascular accidents (CVAs) Z86.73
[2022-12-05] MEDS: cholecalciferol (vitamin D3) 1,000 unit Tablet 1000 UNIT PO (10:25)
[2022-12-05] MEDS: multivitamin therapeutic Tablet 1 TAB PO (10:25)
[2022-12-05] MEDS: aspirin 81 mg EC Tablet PO (10:25)
[2022-12-05] MEDS: ferrous gluconate 324 mg Tablet PO (10:26)
[2022-12-05] MEDS: thiamine 100 mg Tablet PO (10:26)
[2022-12-05] MEDS: folic acid 1 mg Tablet PO ×2 (10:26→18:11)
--- NOTE | 2022-12-05 10:35 | ECG_ITS ---
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 Measurements Intervals [place] Rate: 105 P: 77 MA: 132 QRS: 96 QRSD: 105 T: 155 QT: 384 QTc: 509 Interpretive Statements SINUS TACHYCARDIA WITH FREQUENT SUPRAVENTRICULAR PREMATURE COMPLEXES BORDERLINE RIGHT AXIS DEVIATION [QRS AXIS > 90] ANTERIOR MYOCARDIAL INFARCTION , AGE INDETERMINATE Compared to ECG 12/05/2022 05:29:15 Sinus rhythm no longer present Myocardial infarct finding still present Electronically Signed On 12-05-2022 14:48:19 BILL CLERK by Justyn Cooley M.D. [email or web address] [email or web address] [email or web address] specialty [email or web address] - [id number]
[2022-12-05] MEDS: cyanocobalamin 1,000 mcg Tablet 500 MCG PO (10:50)
--- NOTE | 2022-12-05 11:02 | PC.NURSE ---
Notified Dr. Tolliver of PO medication not in our pharmacy. Dr. Tolliver to change vanco to liquid form.
[2022-12-05 11:04] LABS: D Dimer 0.98 ug/mIFEU (0-0.59)
[2022-12-05 11:09] LABS: Troponin(5th) Baseline 77 ng/L (0-10)
[2022-12-05 11:11] LABS: Lactic Sepsis W/Reflex 0.7 mmol/L (0.5-2.2)
[2022-12-05 11:38] LABS: Procalcitonin 0.08 ng/mL (0-0.5); Thyroid Stimulating Hormone 2.16 uIU/mL (0.27-4.20)
[2022-12-05 11:52] LABS: C Reactive Protein 68.9 mg/L (0.0-4.9)
[2022-12-05 13:53] LABS: Troponin 5 2HR 75.36 ng/L (0-10)
[2022-12-05 13:54] LABS: Troponin 5 2HR Delta -1.64 ABS# (0-10)
[2022-12-05 17:18] LABS: Urine Appearance Hazy (CLEAR); Urine Color Yellow (Yellow); pH Urine 6 (5-7)
[2022-12-05 17:19] LABS: Glucose Urine UA Norm (Normal); Protein Urine Trace (Negative)
[2022-12-05 17:20] LABS: Bilirubin Urine Neg (Negative); Blood Urine 2+ (Negative); Ketones Urine Negative (Negative); Leukocyte Esterase Urine Trace (Negative); Nitrate Urine Negative (Negative); Urobilinogen Urine Neg (Negative)
[2022-12-05 17:21] LABS: Add Urine Microscopic? YES; Squamous Epithelial Cell Urine 0-4 /hpf (0-5); WBC Urine >100 /hpf (0-5)
[2022-12-05 17:22] LABS: Add Urine Culture? Yes; Bacteria Urine TRACE /hpf; Calcium Oxalate Crystals Urine 0-4 /hpf
[2022-12-05] MEDS: cefepime 1,000 MG in sodium chloride 0.9% (plus) 50 ML 100 MG IV (17:43)
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
[2022-12-05 18:28] LABS: Troponin 5 6HR 66.96 ng/L (0-10)
[2022-12-05 18:29] LABS: Troponin 5 6HR Delta -10.04 ng/L (0-12)
[2022-12-05] MEDS: quetiapine 25 mg Tablet PO (21:26)
[2022-12-06] VITALS (8 sets, daily range): BP systolic 85–128; BP diastolic 53–68; PULSE 83–94; RESP 16–20; TEMP 36.7–37.1; O2SAT 94–97
[2022-12-06] MEDS: cefepime 1,000 MG in sodium chloride 0.9% (plus) 50 ML 100 MG IV (04:54)
[2022-12-06] MEDS: enoxaparin 40 mg/0.4 mL Syringe SUBCUT (04:54)
[2022-12-06] MEDS: pantoprazole 40 mg SDV IVP (05:07)
[2022-12-06 05:22] LABS: Basophils % 0.5 %; Eosinophils # 0.5 10^3/uL (0.0-0.8); Eosinophils % 6.6 %; Hematocrit 34.4 % (37.0-47.0); Hemoglobin 10.5 g/dL (11.5-15.3); Lymphocytes % 13.4 %; Mean Corpuscular HGB Conc 30.5 g/dL (30.0-36.0); Mean Corpuscular Hemoglobin 26.4 pg (28.0-34.0); Mean Corpuscular Volume 86.6 fl (81-99); Mean Platelet Volume 10.3 fL (7.4-10.4); Monocytes # 0.7 10^3/uL (0.2-0.9); Monocytes % 8.6 %; Neutrophils # 5.43 10^3/uL (1.8-7.7); Neutrophils % 70.6 %; Nucleated Red Blood Cells % 0 %; Platelet Count 176 10^3/cmm (130-400); Red Blood Count 3.97 10^6/uL (4.1-5.3); Red Cell Distribution Width 16.3 % (12.1-15.1); White Blood Count 7.7 10^3/uL (4.0-10.0)
[2022-12-06 05:58] LABS: Alanine Aminotransferase 9 U/L (0-33); Albumin Level 2.7 g/dL (3.5-5.2); Alkaline Phosphatase 95 U/L (35-105); Anion Gap 12.5 (5-19); Aspartate Amino Transferase 8 U/L (0-32); Blood Urea Nitrogen 7 mg/dL (8-23); Calcium 8.6 mg/dL (8.5-10.5); Carbon Dioxide 29 mmol/L (22-29); Chloride 101 mmol/L (98-107); Globulin 3.3 g/dL (1.3-4.6); Glomerular Filtration Rate 358.7 mL/min (90-130); Glucose 89 mg/dL (65-115); Osmolality Calculated 285 mOsm/kg (285-295); Potassium 3.5 mmol/L (3.5-5.1); Sodium 139 mmol/L (136-145); Total Bilirubin 0.3 mg/dL (0.15-1.2)
[2022-12-06 06:01] LABS: Vancomycin Trough 15.3 ug/mL (10-15)
[2022-12-06] MEDS: vancomycin 1,000 MG in sodium chloride 0.9% 250 ML 250 MG IV (06:23)
[2022-12-06] MEDS: atorvastatin 40 mg Tablet 10 MG PO (06:23)
[2022-12-06] MEDS: clopidogrel 75 mg Tablet PO (06:23)
[2022-12-06] MEDS: morphine 10 mg/0.5 mL oral liq UD 5 MG PO (06:24)
--- NOTE | 2022-12-06 07:00 | XRR_ITS ---
PROCEDURE INFORMATION: Exam: XR Chest Exam date and time: 12/06/2022 6:35 AM Age: 62 years old Clinical indication: Shortness of breath; Patient HX: History--sob, follow up effusion; Additional info: [id number] up effusion TECHNIQUE: Imaging protocol: Radiologic exam of the chest. Views: 1 view. COMPARISON: CR (CHEST, ) 12/05/2022 2:58 AM FINDINGS: Lungs: There is mildly increased lung markings in association with persistent small left pleural effusion, which in the setting of cardiomegaly is consistent with pulmonary edema. Left basilar atelectasis noted. Pneumonia should be excluded clinically. Hyperinflated lungs, suggestive of COPD background. Pleural spaces: See Lungs finding. Heart/Mediastinum: Stable cardiomediastinal silhouette. Bones/joints: Unremarkable. XR/XR chest 1V portable [id number] IMPRESSION: Imaging findings of pulmonary edema with small left pleural effusion. Pneumonia should be excluded clinically. COPD changes.
[2022-12-06] MEDS: ipratropium-albuterol 3 mL Neb INHALATION ×2 (08:56→12:28)
--- NOTE | 2022-12-06 09:50 | P.DS_ITS ---
Discharge Providers Date of Admission: 12/05/22 04:03 Date of Discharge: December 06, 2022 Attending Provider at Admission: Juan Carson MD Attending Provider at Discharge: Noah Tolliver MD Diagnoses at Discharge Discharge Diagnosis (1) Pain: Status: Acute (2) Shortness of breath: Status: Acute (3) Yeast infection of the skin: Status: Acute (4) Agitation: Status: Acute Reason for Visit Reason for Visit: Respiratory symptoms Hospital Course Hospital Course Jazmyne is a 62-year-old nursing facility patient that was recently hospitalized for pneumonia, parapneumonic effusion, atelectasis of the left lung, pneumothorax, and eventually developed C. difficile. She was brought back to the hospital secondary to chest discomfort, chronic complaints of shortness of breath. Chest x-ray demonstrated no overall changes from previous, no pneumothorax. Small pleural effusion was still present. It was noted her prognosis was poor at her last hospital stay. On evaluation here she required 2 L of oxygen, which was her baseline. It was apparent from her comorbidities, that her overall prognosis was poor. Her family was amenable to palliative care consultation. They recommended initiation of morphine scheduled every 6 hours, addition of Seroquel. I discussed with family that she may be appropriate for hospice in the near future and they agreed. I discussed this with the patient as well, who was agreeable to palliative care and more comfort measures. She had reported her memory was giving her difficulty in the recent months, and this was confirmed by her family and nursing facility staff, and I thought it best to have her and her family confirm their wishes which they did. I do not believe she had any evidence of active pneumonia. She did complete enough course of IV antibiotics from her last hospital stay. She will finish her course of vancomycin p.o. for C. difficile. I did place her on Diflucan on discharge secondary to skin dental skin infection, recent candidal UTI. Family was agreeable to plan upon discharge as was patient, with good questions. She has a wound on her right foot, and Hydrofera Blue with dressing change daily, avoid pressure to the area should be continued. Physical Exam Narrative: General exam no distress Neck is supple Cardiovascular regular rate and rhythm Lungs diminished breath sounds bilaterally Abdomen is soft with positive bowel sounds Extremities no cyanosis clubbing or edema Discharge Data Studies Completed and Pending Completed Studies During Hospitalization Category Date Time Status CXRP [XR chest 1V portable [id number]] Stat Exams 12/05/22 02:52 Completed XR chest 1V portable [id number] Routine Exams 12/06/22 07:00 Completed XR chest 1V portable [id number] Stat Exams 12/05/22 02:00 Completed Pending at discharge Category Date Time Status Bacterial Antigen Stat Lab 12/05/22 14:55 Received Blood Culture Stat Lab 12/05/22 03:25 Results MRSA by PCR Stat Lab 12/05/22 04:38 Received Sputum Culture and Gram Stain Stat Lab 12/05/22 04:38 Uncollected Urine Culture Routine Lab 12/05/22 14:55 Received Radiology Impressions Chest X-Ray 12/06/22 07:00 IMPRESSION: Imaging findings of pulmonary edema with small left pleural effusion. Pneumonia should be excluded clinically. COPD changes. Laboratory Results WBC 7.7 10^3/uL (4.0-10.0) 12/06/22 04:55 RBC 3.97 10^6/uL (4.1-5.3) L 12/06/22 04:55 Hgb 10.5 g/dL (11.5-15.3) L 12/06/22 04:55 Hct 34.4 % (37.0-47.0) L 12/06/22 04:55 MCV 86.6 fl (81-99) 12/06/22 04:55 MCH 26.4 pg (28.0-34.0) L 12/06/22 04:55 MCHC 30.5 g/dL (30.0-36.0) 12/06/22 04:55 RDW 16.3 % (12.1-15.1) H 12/06/22 04:55 Plt Count 176 10^3/cmm (130-400) 12/06/22 04:55 MPV 10.3 fL (7.4-10.4) 12/06/22 04:55 Neut % (Auto) 70.6 % 12/06/22 04:55 Lymph % (Auto) 13.4 % 12/06/22 04:55 [place] % (Auto) 8.6 % 12/06/22 04:55 Eos % (Auto) 6.6 % 12/06/22 04:55 Baso % (Auto) 0.5 % 12/06/22 04:55 Neut # (Auto) 5.43 10^3/uL (1.8-7.7) 12/06/22 04:55 Lymph # (Auto) 1.0 10^3/uL (0.8-4.8) 12/06/22 04:55 [place] # (Auto) 0.7 10^3/uL (0.2-0.9) 12/06/22 04:55 Eos # (Auto) 0.5 10^3/uL (0.0-0.8) 12/06/22 04:55 Baso # (Auto) 0.0 10^3/uL (0.0-0.1) 12/06/22 04:55 Nucleated RBC % (auto) 0 % 12/06/22 04:55 Nucleated RBCs # 0.0 /100WBC 12/06/22 04:55 D-Dimer 0.98 ug/mIFEU (0-0.59) H 12/05/22 10:40 Sodium 139 mmol/L (136-145) 12/06/22 04:55 Potassium 3.5 mmol/L (3.5-5.1) 12/06/22 04:55 Chloride 101 mmol/L (98-107) 12/06/22 04:55 Carbon Dioxide 29 mmol/L (22-29) 12/06/22 04:55 Anion Gap 12.5 (5-19) 12/06/22 04:55 BUN 7 mg/dL (8-23) L 12/06/22 04:55 Creatinine 0.2 mg/dL (0.5-0.9) L 12/06/22 04:55 GFR Calculation 358.7 mL/min (90-130) H 12/06/22 04:55 Glucose 89 mg/dL (65-115) 12/06/22 04:55 Calculated Osmolality 285 mOsm/kg (285-295) 12/06/22 04:55 Lactic Acid 0.7 mmol/L (0.5-2.2) 12/05/22 10:40 Calcium 8.6 mg/dL (8.5-10.5) 12/06/22 04:55 Total Bilirubin 0.3 mg/dL (0.15-1.2) 12/06/22 04:55 AST 8 U/L (0-32) 12/06/22 04:55 ALT 9 U/L (0-33) 12/06/22 04:55 Alkaline Phosphatase 95 U/L (35-105) 12/06/22 04:55 Troponin T Baseline 77 ng/L (0-10) H 12/05/22 10:40 Troponin T 120 Minute 75.36 ng/L (0-10) H 12/05/22 13:15 Delta Troponin T -1.64 ABS# (0-10) L 12/05/22 13:15 Troponin T Hi Sens 6Hr 66.96 ng/L (0-10) H 12/05/22 17:15 Troponin T Hi Sens 6Hr Delta -10.04 ng/L (0-12) L 12/05/22 17:15 C-Reactive Protein 68.9 mg/L (0.0-4.9) H 12/05/22 10:40 NT-Pro-B Natriuret Pep 2364 pg/mL (0-125) H 12/05/22 02:22 Total Protein 6.0 g/dL (6.6-8.7) L 12/06/22 04:55 Albumin 2.7 g/dL (3.5-5.2) L 12/06/22 04:55 Globulin 3.3 g/dL (1.3-4.6) 12/06/22 04:55 Procalcitonin 0.08 ng/mL (0-0.5) 12/05/22 10:40 TSH 2.16 uIU/mL (0.27-4.20) 12/05/22 10:40 Urine Color Yellow (Yellow) 12/05/22 14:55 Urine Appearance Hazy (CLEAR) A 12/05/22 14:55 Urine pH 6 (5-7) 12/05/22 14:55 Ur Specific [place] 1.020 (1.005-1.030) 12/05/22 14:55 Urine Protein Trace (Negative) 12/05/22 14:55 Urine Glucose (UA) Norm (Normal) 12/05/22 14:55 Urine Ketones Negative (Negative) 12/05/22 14:55 Urine Blood 2+ (Negative) H 12/05/22 14:55 Urine Nitrate Negative (Negative) 12/05/22 14:55 Urine Bilirubin Neg (Negative) 12/05/22 14:55 Urine Urobilinogen Neg mg/dL (Negative) 12/05/22 14:55 Ur Leukocyte Esterase Trace (Negative) H 12/05/22 14:55 Urine RBC 5-10 /hpf (0-2) H 12/05/22 14:55 Urine WBC >100 /hpf (0-5) H 12/05/22 14:55 Ur Squamous Epith Cells 0-4 /hpf (0-5) H 12/05/22 14:55 Calcium Oxalate Crystal 0-4 /hpf H 12/05/22 14:55 Amorphous Sediment Not Reportable 12/05/22 14:55 Urine Bacteria Trace /hpf (NONE) 12/05/22 14:55 Vancomycin Trough 15.3 ug/mL (10-15) H 12/06/22 04:55 Vitals Last Vital Signs Temp 98.1 F 12/06/22 08:00 Pulse 83 12/06/22 08:59 Resp 18 12/06/22 08:59 BP 111/61 12/06/22 08:00 Pulse Ox 97 12/06/22 08:59 O2 Del Method 12/06/22 08:59 O2 Flow Rate 2 12/06/22 08:59 Discharge Plan Discharge Patient Disposition: Xfer SNF Condition: Stable Prescriptions: New morphine 20 mg/5 mL (4 mg/mL) solution 5 mg PO Q6H Qty: 30 0RF quetiapine 25 mg Tablet 25 mg PO BEDTIME Qty: 30 0RF fluconazole 200 mg tablet 200 mg PO DAILY Qty: 14 0RF Continued acetaminophen [Tylenol] 325 mg Tablet 650 mg PO Q4H PRN (Reason: Pain) famotidine 20 mg Tablet 20 mg PO DAILY PRN (Reason: Heartburn) magnesium hydroxide [Milk of Magnesia] 400 mg/5 mL Suspension See Rx Instructions .ROUTE .COMPLEX PRN (Reason: Constipation) Rx Instructions: 30 mL orally every 3rd day as needed bisacodyl [Dulcolax (bisacodyl)] 10 mg Suppository 10 mg [place] DAILY PRN (Reason: Constipation) magnesium citrate Solution See Rx Instructions .ROUTE .COMPLEX Rx Instructions: 10 oz po after ducolax if no bm prn bisacodyl [Dulcolax (bisacodyl)] 5 mg Tablet,Delayed Release (Dr/Ec) 20 mg PO DAILY PRN (Reason: Constipation) Rx Instructions: after mom if no bm hydroxyzine pamoate 25 mg Capsule 25 mg PO Q6H PRN (Reason: Anxiety) melatonin 5 mg Tablet 5 mg PO BEDTIME cholecalciferol (vitamin D3) [Vitamin D3] 50 mcg (2,000 unit) Capsule 50 mcg PO DAILY@08 Pro-Stat AWC 17-100 gram-kcal/30 mL Liquid See Rx Instructions .ROUTE .COMPLEX Rx Instructions: 30ml po bid acetylcysteine 200 mg/mL (20 %) Solution 200 mg inhalation Q6H.RESP 30 Days Qty: 120 0RF Rx Instructions: @06:00,12:00,18:00,24:00 ipratropium-albuterol 0.5 mg-3 mg(2.5 mg base)/3 mL Solution For Nebulization 3 ml inhalation Q6H.RESP 30 Days Qty: 30 0RF Rx Instructions: @06:00,12:00,18:00,24:00 for 30 days vancomycin 125 mg capsule 125 mg PO QID 7 Days Qty: 28 0RF Rx Instructions: for 7 days atorvastatin 10 mg tablet 10 mg PO DAILY@08 Plavix 75 mg Tablet 75 mg PO DAILY@08 Aspir-81 81 mg Tablet,Delayed Release (Dr/Ec) 81 mg PO DAILY@08 Vitamin B-12 500 mcg Tablet 500 mcg PO DAILY@08 Nitrostat 0.4 mg Tablet, Sublingual 0.4 mg SUBLINGUAL Q5M PRN (Reason: Chest Pain) Rx Instructions: do not exceed 3 doses per episode Mylanta 200-200-20 mg/5 mL Suspension 30 ml PO .EVERY 2 HOURS PRN (Reason: Indigestion) Mucinex 600 mg Tablet Extended Release 12hr 600 mg PO BID Rx Instructions: for 30 days ferrous gluconate 324 mg (37.5 mg iron) Tablet 324 mg PO EVERY OTHER DAY Qty: 90 0RF multivitamin with folic acid [Thera] 400 mcg Tablet 1 tab PO DAILY Qty: 90 0RF tramadol 50 mg tablet 50 mg PO DAILY PRN (Reason: pain) Qty: 4 0RF folic acid 1 mg Tablet 1 mg PO BID 30 Days Qty: 60 3RF Discontinued hydrocodone-acetaminophen 5-325 mg Tablet 1 tab PO Q4H Rx Instructions: @08:00,12:00,16:00,20:00 linezolid 600 mg Tablet 600 mg PO Q12H 7 Days Qty: 14 0RF Rx Instructions: for 7 days @08:00,20:00 amoxicillin-pot clavulanate 875-125 mg tablet 1 tab PO BID 7 Days Qty: 14 0RF Rx Instructions: for 7 days Vitamin B-1 100 mg Tablet 100 mg PO DAILY@08 [place]-3 350 mg-235 mg- 90 mg-597 mg Capsule,Delayed Release(Dr/Ec) 1 cap PO DAILY@08 amlodipine 5 mg Tablet 5 mg PO DAILY Hold Instructions: Resume on 12/06/22. follow up BP trend at SNF. Has not needed BP medicines in the hospital Rx Instructions: hold till 12/05/22 resume on 12/06/22 Discharge Orders: Discharge Order (Routine); Ordered 12/06/22 Ordered By: Noah Tolliver Discharge Diet: Cardiac Discharge Activity: Resume usual activity Activity Restrictions/Additional Instructions: Patient received palliative consult in the hospital. She was made allow natural . There are indications that if she continues to worsen hospice would be indicated. Family is supportive of this and patient was receptive to this as well. Oxygen 2 L per nasal cannula titrate for sat greater than or equal to 90% Take all medicine as prescribed Mechanical soft diet Please finish out course of oral vancomycin for C. difficile Other oral antibiotics, Augmentin and linezolid therapy has been completed Fluconazole as noted. Please follow-up with primary care provider at care home facility. Patient's Health Concerns: Pain, chest Assessment: Musculoskeletal pain in the chest, chronic left pleural effusion and left lung atelectasis. Overall prognosis poor. Palliative care initiated, and supported by family and patient. Plan of Treatment: Continue to treat pain, allowing highest quality of life possible. Likely will need transition to hospice in the future. Goals: No recurrent hospitalizations Discharge Attestations Time Spent in Discharge Care*: greater than 30 min Status at Discharge: Cognitive status at discharge: cognitively intact , Behavioral status at discharge: cooperative , Quality Metrics Clinical Quality Measures [ No reported AMI, CVA or VTE this stay] Coding Level of Care Code Acute Chg FW DC note Diagnoses Pain R52 Shortness of breath R06.02 Yeast infection of the skin B37.2 Agitation R45.1
[2022-12-06] MEDS: aspirin 81 mg EC Tablet PO (10:22)
[2022-12-06] MEDS: cyanocobalamin 1,000 mcg Tablet 500 MCG PO (10:22)
[2022-12-06] MEDS: folic acid 1 mg Tablet PO (10:22)
[2022-12-06] MEDS: fluconazole 100 mg Tablet PO (10:22)
[2022-12-06] MEDS: thiamine 100 mg Tablet PO (10:22)
[2022-12-06] MEDS: cholecalciferol (vitamin D3) 1,000 unit Tablet 1000 UNIT PO (10:22)
[2022-12-06] MEDS: multivitamin therapeutic Tablet 1 TAB PO (10:22)
--- NOTE | 2022-12-06 11:01 | PC.CHAP ---
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 [] Patient/Family/Request visit [] Outpatient visit [] Follow-up visit [] Physician referral [] Code/Alert []x Routine visit [] Staff referral [] Actively dying [] Patient sleeping [] Family support [] [] Out of room [] Palliative care [] [] Receiving care in room [] Pre-surgical visit [] Trauma [] Long length of stay [] ICU visit [x] Other:x [id number] Relational/Emotional Strength [] Patient feels connected with others/family/visitors/staff [] Distress [] Loneliness/isolation [] Abandonment Spirituality of Patient [] Person of Jelena [] Attends Anabaptist of their Jelena [] Believes in Prayer [] Reads Bible or Amish materials [] There are Spiritual issues to be addressed Tile Mechanic Helper Interventions [] Prayer [] Active listening [] Non-anxious presence [] Spiritual/emotional support [] Crisis/trauma care [] Spiritual counseling [] Bereavement support [] Provided bereavement packet [] Provided Bible/devotional materials [] Provided toy/stuffed animal, coloring book to patient or family member [] Provided Communion [] Anointing/[place] [] Salvation [] Completed spiritual assessment [] Other: Impact on Illness or Injury [] Angry [] Fearful [] Anxious [] Often cries [] Exhaustion [] Unable to work [] Unable to attend jewish [] Unable to walk/stand [] Unable to read [] Unable to drive [] Unable to eat/drink [] Unable to sleep [] Unable to be with family [] Patient intubated [] Other: Summary Time spent with patient
--- NOTE | 2022-12-06 13:20 | PC.NURSE ---
Called report to Naomie Lainez LPN at [facility]. Facility ask to leave the Britton Catheter in due to wounds. It was an order from Dr. Saavedra before coming to [facility]. I notified Dr. Tolliver, orders to leave britton catheter.
[2022-12-06 13:41] LABS: SARS Covid-2 Antigen negative (Negative)
== END 2022-12-06 14:05 | disposition skilled nursing facility (03) ==
LOC: ER 03:49 → MEDSURG 04:41
PROVIDERS: Admitting Provider Family Medicine; Emergency Provider Emergency Medicine; Visit Provider Internal Medicine
DX: R07.89 Other chest pain (principal); R06.02 Shortness of breath; B37.2 Candidiasis of skin and nail; R45.1 Restlessness and agitation; J81.1 Chronic pulmonary edema; J90 Pleural effusion, not elsewhere classified; F44.9 Dissociative and conversion disorder, unspecified; I25.10 Atherosclerotic heart disease of native coronary artery without angina pectoris; I10 Essential (primary) hypertension; Z86.73 Personal history of transient ischemic attack (TIA), and cerebral infarction without residual deficits; Z86.16 Personal history of COVID-19; Z99.81 Dependence on supplemental oxygen; Z79.82 Long term (current) use of aspirin; E78.5 Hyperlipidemia, unspecified; Z87.891 Personal history of nicotine dependence; Z66 Do not resuscitate; A04.72 Enterocolitis due to Clostridium difficile, not specified as recurrent; J93.9 Pneumothorax, unspecified; E43 Unspecified severe protein-calorie malnutrition; Z68.1 Body mass index [BMI] 19.9 or less, adult
CPT/HCPCS: 36415; 71045; 80048; 80053; 80202; 81001; 83605; 83880; 84145; 84443; 84484; 85025; 85378; 86140; 86403; 87040; 87086; 87106; 87426; 87641; 92523; 92610; 93005; 94640; 94664; 96365; 96367; 96372; 96375; 99285; C9113; G0378; J0456; J0692; J0696; J1650; J3370; J7050